=== PATIENT | female | born 1940 | race Caucasian/White ===

== ENCOUNTER 2019-02-08 12:44 | Observation (INO) | payer MEDICARE, OTHER, SELFPAY ==
[2019-02-08] VITALS (16 sets, daily range): BP systolic 146–189; BP diastolic 62–112; PULSE 51–60; RESP 14–22; TEMP 36.4–36.7; O2SAT 97–100; BMI 21.9; BMI 21.2
--- NOTE | 2019-02-08 12:54 | CT_ITS ---
STUDY: CTA HEAD AND NECK WITH CONTRAST REASON FOR EXAM: Female, 78 years old. Facial droop RADIATION DOSAGE (If Supplied By Facility): CTDIvol = ( 28.85 ) mGy, DLP = ( 598.91 ) mGycm TECHNIQUE: CT angiography was performed with a multi-detector CT scanner. Data acquisition was obtained from the skull base through the vertex following intravenous administration of 75mL IV Isovue 370. MIP images were reconstructed from the axial data set. Post-processing of the angiographic images was performed, with multiplanar reformation and 3D reconstruction. Individualized dose optimization techniques were used for this CT. COMPARISON: No relevant priors. FINDINGS: Normal bilateral petrous carotid arteries. Minor calcific plaquing of the right cavernous carotid artery with a normal supraclinoid bifurcation. Minor calcific plaquing of the left cavernous carotid artery with a normal supraclinoid bifurcation. Normal right A1 segments of the anterior cerebral artery. Normal left A1 segments of the anterior cerebral artery. Normal intact anterior communicating artery (ACOM). Normal bilateral A2 segments of the anterior cerebral arteries. Normal right M1 and M2 segments of the middle cerebral arteries, with a normal M1 bifurcation. Normal left M1 and M2 segments of the middle cerebral arteries, with a normal M1 bifurcation. Posterior communicating arteries are not visualized consistent with normal variant Normal bilateral vertebral arteries. Normal basilar artery with a normal basilar bifurcation. The visualized bilateral superior cerebellar (SCA) arteries are normal. Normal bilateral P1, P2 and visualized P3 segments of the posterior cerebral arteries. There is no demonstrated aneurysm of the [place] of [place]. There is no demonstrated abnormality of the visualized brain. AORTIC ARCH: Normal visualized aortic arch. Minor calcific plaquing of the origin of the brachiocephalic. Normal, left common carotid, and left subclavian arteries. RIGHT CAROTID ARTERIES: Normal right common carotid artery (CCA). Minor soft plaque in the right common carotid bulb. Normal origin of the right internal carotid (ICA) artery without a hemodynamically significant stenosis. Normal visualized cervical portion of the right internal carotid artery. Normal origin of the right external carotid artery (ECA). LEFT CAROTID ARTERIES: Normal left common carotid artery (CCA). Minor soft plaque in the left common carotid bulb. Normal origin of the left internal carotid (ICA) artery without a hemodynamically significant stenosis. Normal visualized cervical portion of the left internal carotid artery. Normal origin of the left external carotid artery (ECA). VERTEBRAL ARTERIES: Normal bilateral vertebral arteries. IMPRESSION: Mild atherosclerotic changes for stated age. No evidence for hemodynamically significant stenosis utilizing NASCET criteria Electronically Signed: Derrell Geronimo MD at 17:12 EDT , Service support , STUDY: CTA NECK WITH CONTRAST REASON FOR EXAM: Female, 78 years old. RADIATION DOSAGE (If Supplied By Facility): CTDIvol = ( 28.85 ) mGy, DLP = ( 598.91 ) mGycm TECHNIQUE: CT angiography with multi-detector data acquisition was performed from the aortic arch to the skull base following intravenous administration of 75mL IV Isovue 370. MIP images were reconstructed from the axial data set. Post-processing of the angiographic images was performed, with multiplanar reformation and 3D reconstruction. Individualized dose optimization techniques were used for this CT. COMPARISON: None. FINDINGS: AORTIC ARCH: Normal visualized aortic arch. Normal origins of the brachiocephalic, left common carotid, and left subclavian arteries. RIGHT CAROTID ARTERIES: Normal right common carotid artery (CCA). Normal right common carotid bulb. Normal origin of the right internal carotid (ICA) artery without a hemodynamically significant stenosis. Normal visualized cervical portion of the right internal carotid artery. Normal origin of the right external carotid artery (ECA). LEFT CAROTID ARTERIES: Normal left common carotid artery (CCA). Normal left common carotid bulb. Normal origin of the left internal carotid (ICA) artery without a hemodynamically significant stenosis. Normal visualized cervical portion of the left internal carotid artery. Normal origin of the left external carotid artery (ECA). VERTEBRAL ARTERIES: Normal bilateral vertebral arteries. CT/CTA Head AND Neck W/ Contrast IMPRESSION: Normal bilateral cervical carotid and vertebral arteries. Electronically Signed: Billy Gomez, at 13:33 EDT , Service support ,
--- NOTE | 2019-02-08 12:55 | CT_ITS ---
STUDY: CT BRAIN WITHOUT CONTRAST REASON FOR EXAM: Female, 78 years old. Possible stroke. RADIATION DOSAGE (If Supplied By Facility): CTDIvol = ( 44.99 ) mGy, DLP = ( 745.49 ) mGycm TECHNIQUE: Transaxial CT imaging of the brain was performed without administration of intravenous contrast material. Individualized dose optimization techniques were used for this CT. COMPARISON: No relevant priors. FINDINGS: Normal soft tissue structures. Normal calvarium. Decreased attenuation in the superior aspect of the right frontal parietal lobe. Early ischemia should BE ruled out. There is mild cerebral atrophy with widening of the extra-axial spaces and ventricular dilatation. There are areas of decreased attenuation within the white matter tracts of the supratentorial brain, consistent with microvascular disease changes. Normal basal ganglia and thalami. Normal brainstem. Normal cerebellum. There is no intracranial hemorrhage. There are no findings of an acute ischemic infarction. Normal visualized paranasal sinuses. CT/Brain/Head without Contrast IMPRESSION: Chronic involutional changes of the brain. Findings suggestive of early ischemic changes involving the superior aspect of the right frontoparietal lobes. N.B. : The above information has been verbally conveyed by Billy Gomez to Tyegrabiel Bradford on 02/08/2019 13:10:03 (ET). Electronically Signed: Billy Gomez, at 13:11 EDT , Service support ,
--- NOTE | 2019-02-08 12:57 | EKG12_ITS ---
Test Reason : Blood Pressure : / mmHG Vent. Rate : 053 BPM Atrial Rate : 053 BPM P-R Int : 164 ms QRS Dur : 086 ms QT Int : 520 ms P-R-T Axes : 063 048 057 degrees QTc Int : 487 ms Sinus bradycardia Low voltage QRS Borderline ECG Confirmed by LEONA LONDONO, JERI ([id number]), editor farm journal KRISTOPHER MILLER ([id number]) on 02/12/2019 2:15:56 PM Referred By: RONN Confirmed By:JERI DELGADILLO MD
--- NOTE | 2019-02-08 13:00 | RAD_ITS ---
STUDY: X-RAY CHEST REASON FOR EXAM: Female, 78 years old. Stroke like symptoms. TECHNIQUE: Single AP portable view of the chest. COMPARISON: None. FINDINGS: EKG electrodes are seen. Hyperinflation. Scattered calcified granulomas. There is no demonstrated pleural abnormality. Normal size heart. Normal mediastinum and marcus. Normal visualized pulmonary arteries. There is atherosclerotic calcification of the aortic arch with tortuosity. There are diffuse degenerative changes of the visualized thoracic spine. Normal visualized ribs, clavicles, and shoulders. There is no demonstrated abnormality of the visualized soft tissue structures of the upper abdomen. RAD/Chest 1 View IMPRESSION: Hyperinflation. The lungs are clear. Electronically Signed: Billy Gomez, at 13:15 EDT , Service support ,
--- NOTE | 2019-02-08 13:08 | CM.ED ---
Social Work Consult: Stroke Alert Patient present. No family members present at this time. Patient was grocery shopping at [facility] in [place], [place]. Telephone call to patient son, Joellen. This school social worker communicating patient current status. Joellen with patient spouse, Nazario. Joellen and Nazario are now on their way to the emergency department. Will continue to follow as needed. Per FERRARA, MAK
[2019-02-08 13:31] LABS: Absolute Lymphocyte Count 1.59 X10^3/ul (0.83-4.51); Absolute Neutrophil Count 5.4 X10^3/uL (2.0-7.7); Basophil# 0.02 X10^3/uL; Basophil% 0.3 % (0-1); Eosinophil# 0.19 X10^3/uL; Eosinophils% 2.4 % (0-5); Hematocrit 35.3 % (37-47); Hemoglobin 11.2 g/dl (12.0-15.0); Lymphocyte # 1.59 X10^3/ul (4.0); Lymphocyte % 20.4 % (19-41); Mean Corp Hgb Conc 31.7 g/gl (32-36); Mean Corpuscular Hgb 29.2 pg (27.0-32.0); Mean Corpuscular Volume 91.9 fL (81-99); Mean Platelet Vol. 9.1 fl (6.2-12.0); Monocyte# 0.61 X10^3/uL; Monocyte% 7.8 % (0-10); Neutrophil # 5.36 X10^3/uL (2.7-7.7); POSITIVE COUNT NO; POSITIVE DIFFERENTIAL NO; POSITIVE MORPHOLOGY NO; Platelet Count 310 K/mm3 (150-450); RBC Distribution Width CV 13.7 % (11.6-14.6); RBC Distribution Width SD 45.1 fl (35.1-43.9); Red Blood Count 3.84 M/mm3 (4.2-5.4); White Blood Count 7.8 K/mm3 (4.4-11.0)
[2019-02-08 13:46] LABS: International Normalized Ratio 1.1; Partial Thromboplast Time 28.6 Seconds (24.1-36.2); Prothrombin Time (Protime)PT. 14.2 SECONDS (11.7-14.9)
--- NOTE | 2019-02-08 13:48 | CM.ED ---
Social Work Patient family now arriving. This social professionals bringing patient family back to patient room. Support provided. Per FERRARA, MAK
[2019-02-08 13:49] LABS: Anion Gap 5 (5-15); BUN 11 mg/dL (7-18); BUN/Creat Ratio 11.5 RATIO (10-20); Calcium,Total 8.1 mg/dL (8.5-10.1); Chloride 106 mmol/L (98-107); Creatinine, Serum 0.95 mg/dL (0.55-1.02); EST Glomerular Filtration Rate 60 mL/min (>60); Est Glom Filt Rate - Afr Amer 73 mL/min (>60); Estimated Creatinine Clearance 44.95 ml/min; Glucose 75 mg/dL (74-106); Potassium 3.4 mmol/L (3.5-5.1); Sodium Level 140 mmol/L (136-145)
--- NOTE | 2019-02-08 14:18 | ED.DCSUM_ITS ---
- ER Visit Summary Date of Service: 02/08/19 Chief Complaint: Stroke History of Present Illness: The patient is a 78 F with a suspected stroke. She was brought from the grocery store. She was previously well earlier today and then had some right facial droop and speech changes. She was brought in as a [facility] team. History is limited as the patient has a aphasia. Per her she has a history of stroke and TIA. She is on Plavix, but I am not sure if she is on other blood thinners. Physical Examination: Afebrile and vital signs unremarkable except for a blood pressure of 175/75. NIH stroke scale is 6. She received 2 points for questions, 2 points for commands, and 2 points for language. Head and neck atraumatic. Heart regular rate lungs clear. Abdomen soft and nontender. Test Results: CT head showed chronic changes and possible right frontal/parietal ischemic changes, early. CTA unremarkable. Chest x-ray showed chronic changes. EKG showed sinus rhythm at a rate of 53. Laboratory studies unremarkable. Emergency Department Course and Treatment: Stroke team was activated. We did use the robot for consultation with [facility]. After her imaging, her symptoms had resolved except she had some very mild dysarthria. She had an NIH of 1 on reevaluation. The imaging was reassuring. This is consistent with a TIA. Work-up as above was fairly unremarkable. Hospitalist was contacted for further care. Treatment Plan: As above Disposition: Admission Impression: 1. TIA This note was generated with [employer] dictation software. It may contain incorrect words, spelling, and punctuation that were not noted in review of the chart prior to signing ED Disposition - Plan for ED Patient: Referrals: Nayana Adam MD [Primary Care Provider] -
--- NOTE | 2019-02-08 14:53 | PCM.HP.STD ---
Problem List (1) TIA (transient ischemic attack) Status: Acute (2) Depression with anxiety Status: Chronic (3) Hyperlipidemia Status: Chronic (4) Hypertension Status: Chronic (5) History of TIAs Status: Chronic History of Present Illness Date of Admission: 02/08/19 Chief Complaint: Speech changes, right facial droop. The patient is a 78 year old F with past medical history as mentioned above presented to the emergency room because of right facial droop and slurred speech. The patient is not able to provide any history and she is a poor informant. According to the patient, she was shopping when she started feeling funny, dropped some food from her head and reportedly, she had some right facial droop and her speech was slurred. At this time, nursing staff and ED physician reported that her speech improved as well as facial droop. Upon arrival to ED, her NIH stroke scale was 6. Telemetry stroke team was contacted and patient was not a candidate for TPA. She has history of TIAs in the past, has been on statins and Plavix, and most recently was 3 weeks ago for which she was admitted at [facility] and according to the patient, she had a stroke work-up done that was negative for stroke. She has history of hypertension and she has been on lisinopril, HCTZ and metoprolol and at this time, her blood pressure is elevated. She has history of hypothyroidism and she has been on levothyroxine. In the emergency department, her blood pressure was slightly elevated, other vital signs were stable. As mentioned above, she was not a candidate for TPA. Routine blood work was remarkable for hemoglobin of 11.2 g procedure, potassium 3.4, otherwise normal. EKG revealed sinus bradycardia, heart rate has been in the high 50s, normal MO interval, normal QRS, prolonged QTC, no acute ischemic changes. Troponin was negative. CT scan brain without contrast revealed findings suggestive of early ischemic changes involving the superior aspect of the right frontoparietal lobe. CTA of the head and neck revealed normal bilateral carotids and vertebral arteries. Chest x-ray showed no acute findings. She is being admitted for TIA for evaluation. Past Medical History Past Medical History (Chronic Problems): Chronic Problems Depression with anxiety (Chronic) Hyperlipidemia (Chronic) Hypertension (Chronic) History of TIAs (Chronic) Allergies alcohol Allergy (Verified 02/08/19 13:14) Rash NSAIDS (Non-Steroidal Anti-Inflamma Adverse Reaction (Verified 02/08/19 13:14) Other Home Medications: Ambulatory Orders Medication Instructions Recorded Acetaminophen [Tylenol Arthritis] 650 mg PO Q6H PRN PRN 02/08/19 Atorvastatin Calcium [Lipitor] 20 mg PO QHS 02/08/19 Clonazepam 0.5 mg PO BID PRN 02/08/19 Clopidogrel Bisulfate [Clopidogrel] 75 mg PO DAILY 02/08/19 Cyanocobalamin (Vitamin B-12) 1,000 mcg PO DAILY 02/08/19 [B-12] Levothyroxine Sodium [Synthroid] 75 mcg PO DAILY 02/08/19 Lisinopril/Hydrochlorothiazide 1 tab PO DAILY 02/08/19 [Lisinopril-Hctz 10-12.5 mg Tab] Lutein/Zeaxanthin [Ocuvite Lutein 1 cap PO DAILY 02/08/19 25-5 mg Softgel] Metoprolol Tartrate [Lopressor 12.5 mg PO BID 02/08/19 (beta francisco)] Paroxetine HCl 40 mg PO DAILY 02/08/19 Tolterodine Tartrate [Tolterodine 4 mg PO QHS 02/08/19 Tartrate ER] Trazodone HCl 150 mg PO QHS 02/08/19 Surgical History: cholecystectomy Psychiatric History: 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 Lives: Spouse/ Significant Other Smoking Status: Current every day smoker Tobacco Use: Cigarettes Alcohol: None Drugs: None - *Family History Maternal History Items: No pertinent history Paternal History Items: No pertinent history Review of Systems Constitutional: Denies: Anorexia, Chills, Fever, Weakness Eyes: Denies: Blurred vision, Double vision, Drainage, Redness HEENT: Denies: Difficulty Hearing, Ear Pain, Eye Pain, Nasal Congestion, Sore Throat Cardiovascular: Denies: Chest Pain, Chest Pressure, Heaviness, Light Headedness, Palpitations, Syncope Respiratory: Denies: Hemoptysis, Pleuritic Pain, Shortness of Breath, Sputum production, Wheezing Gastrointestinal: Denies: Abdominal Pain, Constipation, Diarrhea, Nausea, Vomiting Musculoskeletal: Denies: Arm Pain, Back Pain, Foot Pain Skin: Denies: Dryness, Rash Neurological: Reports: Change in Speech. Denies: Balance problems, Blurred vision, Double vision, Confusion, Focal weakness, Incoordination, Numbness Psychiatric: Denies: Anxiety, Depression Endocrine: Denies: Change in Body Habitus, Polydipsia, Polyuria VTE Information - Inpt Only VTE Present on Admission: No VTE Mechan Device Prophylaxis: None VTE Pharm Prophylaxis ordered?: Yes Patient Problems: Active and Suspected Problems TIA (transient ischemic attack) (Acute) - Physical Exam General: Alert, Oriented x3, Cooperative, No apparent distress HEENT: Atraumatic, PERRLA, EOMI, Normocephalic Oral: Moist Mucosa, No Gingival or Mucosal Lesions/ Ulcerations Neck: Supple, No JVD, Negative Carotid Bruits, Trachea Midline, Thyroid Normal Size and Texture Lungs: Clear to auscultation, Normal air movement, No rhonchi, No wheeze, No rales, Diminished Cardiovascular: Regular rate, Regular Rhythm, Normal S1, Normal S2, PMI Normal Abdomen: Bowel Sounds Present, Soft, Non Tender, Non-Distended, No Hepato-splenomegaly Extremities: No clubbing, No cyanosis, No edema Skin: No rashes, No breakdown Lymphatic: No Cervical, Supraclavicular, or Inguinal Adenopathy Neurological: Cranial nerves II-XII grossly intact, Motor Exam 5/5 strength throughout Psych/Mental Status: Normal Affect, Appropriate, Alert and oriented to time, place, person, mood and affect Vital Signs Temp Pulse Resp BP Pulse Ox 98 F 56 L 18 173/81 H 97 02/08/19 13:18 02/08/19 14:30 02/08/19 14:30 02/08/19 14:30 02/08/19 14:30 Oxygen Flow Rate (L/min) 2 Oxygen Delivery Method Room Air Weight: 135 lb 12.876 oz Body Mass Index (BMI) 21.9 Finger Stick Blood Glucose 75 Laboratory Tests Past 24 Hrs 02/08/19 02/08/19 02/08/19 13:15 13:15 13:15 WBC 7.8 RBC 3.84 L Hgb 11.2 L Hct 35.3 L MCV 91.9 MCH 29.2 MCHC 31.7 L RDW 13.7 RDW Differential 45.1 H Plt Count 310 MPV 9.1 Immature Gran % (Auto) 0.100 Neut % (Auto) 69.0 Lymph % (Auto) 20.4 [place] % (Auto) 7.8 Eos % (Auto) 2.4 Baso % (Auto) 0.3 Absolute Neuts (auto) 5.4 Absolute Lymphs (auto) 1.59 Total Counted Not Reportable PT 14.2 INR 1.1 APTT 28.6 Sodium 140 Potassium 3.4 L Chloride 106 Carbon Dioxide 29.0 Anion Gap 5 BUN 11 Creatinine 0.95 Estim Creat Clear Calc 44.95 Est GFR (MDRD) Af Amer 73 Est GFR (MDRD) Non-Af 60 BUN/Creatinine Ratio 11.5 Glucose 75 Calcium 8.1 L Troponin I < 0.015 Clinical Impression(s) from Imaging Studies Head/Neck CTA 02/08/19 12:54 IMPRESSION: Normal bilateral cervical carotid and vertebral arteries. Electronically Signed: Billy Gomez, at 13:33 EDT , Service support , Brain CT 02/08/19 12:55 IMPRESSION: Chronic involutional changes of the brain. Findings suggestive of early ischemic changes involving the superior aspect of the right frontoparietal lobes. N.B. : The above information has been verbally conveyed by Billy Gomez to Tye Bradford on 02/08/2019 13:10:03 (ET). Electronically Signed: Billy Gomez, at 13:11 EDT , Service support , ADDENDUM: 02/08/19 1318 IMPRESSION: Chronic involutional changes of the brain. Findings suggestive of early ischemic changes involving the superior aspect of the right frontoparietal lobes. N.B. : The above information has been verbally conveyed by Billy Gomez to Tye Bradford on 02/08/2019 13:10:03 (ET). Electronically Signed: Billy Gomez, at 13:11 EDT , Service support , Chest X-Ray 02/08/19 13:00 IMPRESSION: Hyperinflation. The lungs are clear. Electronically Signed: Billy Gomez, at 13:15 EDT , Service support , Assessment/Plan All Active Problems TIA (transient ischemic attack) (Acute) This is a 78 years old female patient presented to the emergency room because of facial droop and slurred speech in context of history of multiple TIAs in the past, being admitted for acute TIA for evaluation. #1 TIA: Patient has a history of multiple TIAs, most recently was 3 weeks ago, was admitted to [facility] and she had stroke work-up according to the patient. Patient is poor informant. Her speech is improved, no more facial droop. No other focal deficit. CT scan brain without contrast revealed findings suggestive of early ischemic changes of the superior aspect of the right frontoparietal lobe. CTA of the clinic was unremarkable. Blood pressure elevated, other vital signs are stable. EKG reviewed as above. Plan: Admit to PCU for observation, cardiac monitoring, NIH stroke scale, start full dose Lipitor, continue Plavix, MRI brain, obtain records from [facility] regarding the new admission for TIA, IV fluids, Tylenol as needed, neurology consult, PT OT evaluation and treatment. #2 mild hypokalemia: Likely because of HCTZ. Potassium is 3.4. Plan to give 1 dose of K. Dur 60 mEq p.o. x1. #3 hypertension: Blood pressure is elevated, will allow permissive hypertension for possible stroke. Continue lisinopril, HCTZ and metoprolol. Goal blood pressure is 160/90. #4 hyperlipidemia: Start Lipitor 80 mg nightly. #5 anxiety/depression: Continue trazodone and Paxil as well as Klonopin. #6 DVT prophylaxis: Subcu Lovenox. This note was generated with [employer] dictation software. It may contain incorrect words, spelling, and punctuation that were not noted in checking the note before signing. Code Visit OBSV E&M: 94908 Initial observation care L3
--- NOTE | 2019-02-08 15:40 | MRI_ITS ---
STUDY: MRI BRAIN WITHOUT CONTRAST REASON FOR EXAM: Female, 78 years old. Right facial droop and slurred speech TECHNIQUE: Standardized multiplanar fat and water weighted pulse sequences were obtained. COMPARISON: CT of the brain on February 08, 2019 FINDINGS: Moderate atrophy and advanced periventricular white matter ischemic changes. There is diffuse gliosis in the right frontal and parietal lobes with expansion of subarachnoid spaces consistent with subacute to chronic infarct.. There are tiny foci of restricted diffusion in the left parietal lobe consistent with acute ischemic changes. Normal bilateral basal ganglia. Normal thalami. There is no extra-axial fluid accumulation. Normal flow voids within the major intracranial circulation suggesting patency by spin echo criteria. Partial empty sella deformity. Normal, infundibular stalk, optic chiasm and hypothalamus. Normal tectal plate and pineal gland. Normal midbrain, ravi and medulla. Diffuse cerebellar atrophy.. Normal basal cisterns. Normal bilateral temporal bones. Normal bilateral internal auditory canals. Postsurgical changes of the orbits.. Normal visualized paranasal sinuses. Normal calvarium and skull base. Normal visualized soft tissue structures. Normal visualized upper cervical spine. MRI/Brain without Contrast IMPRESSION: Atrophy and periventricular white matter ischemic changes. Subacute to chronic ischemic changes in the right frontal parietal regions. Tiny acute ischemic infarct in the left parietal lobe N.B. : The above information has been verbally conveyed by Derrell Geronimo MD to RN Tram Orona RN, on 02/08/2019 20:20:57 (ET). Electronically Signed: Derrell Geronimo MD at 19:54 EDT , Service support ,
[2019-02-08] MEDS: 0.9% Normal Saline 1,000 ML 75 ML IV (16:38)
--- NOTE | 2019-02-08 18:48 | NURSING ---
to mri per bed
--- NOTE | 2019-02-08 20:24 | NURSING ---
pt returned from MRI, NIH completed.
[2019-02-08] MEDS: clonazePAM 0.5 MG Tablet PO (21:04)
[2019-02-08] MEDS: Aspirin 81 MG TAB.CHEW PO (21:04)
[2019-02-08] MEDS: Atorvastatin Calcium 80 MG Tablet PO (21:06)
[2019-02-08] MEDS: traZODone 50 MG Tablet 150 MG PO (21:07)
[2019-02-09] VITALS (14 sets, daily range): BP systolic 128–156; BP diastolic 53–73; PULSE 48–58; RESP 16–17; TEMP 36.5–36.9; O2SAT 95–99
[2019-02-09] MEDS: Levothyroxine 75 MCG Tablet PO (05:38)
[2019-02-09] MEDS: Aspirin 81 MG TAB.CHEW PO (08:08)
[2019-02-09 08:18] LABS: Cholesterol 143 mg/dL (200); High Density Lipoprotein 65 mg/dL; Triglycerides 88 mg/dL; Very Low Density Lipoprotein 18 mg/dL (5-40)
--- NOTE | 2019-02-09 09:17 | ECHOD_ITS ---
Reason For Study: TIA Procedure This was a 2D Doppler, Color Flow transthoracic echocardiogram. Exam performed portable in patient room. Left Ventricle Normal LV size. Left ventricular systolic function is normal. The estimated ejection fraction is 60 %. Stage 3 diastolic dysfunction. No regional wall motion abnormalities noted. Right Ventricle Normal RV size. Normal systolic function. Atria Normal left atrium. Normal right atrium. Bubble contrast study negative for right to left interatrial shunt. Mitral Valve Normal mitral valve. Mild-Moderate (1-2+) eccentric mitral valve insufficiency. Tricuspid Valve Normal tricuspid valve. Mild tricuspid valve insufficiency. Pulmonary artery systolic pressure is 38 mmHg. Aortic Valve Normal aortic valve. Trisinus/trileaflet aortic valve. Pulmonic Valve Normal pulmonic valve. Great Vessels Normal aortic root. The pulmonary artery is normal size. Normal inferior vena cava. Pericardium/Pleural No pericardial effusion. Medication Performed a rapid injection of agitated mix of 9 cc saline and 1cc air to assess for atrial septal defect. MMode/2D Measurements & Calculations LVIDd: 4.4 cm IVSd: 0.92 cm Ao root diam: 2.8 cm LVIDs: 2.8 cm LVPWd: 0.85 cm RVDd: 2.5 cm FS: 37.1 % LAV(MOD-bp): 53.2 ml LVAd ap4: 19.7 cm2 SV(MOD-sp4): 32.8 ml LAV(MOD-bp) Indexed: 31.4 ml/m2 EDV(MOD-sp4): 50.4 ml LAV(MOD-sp2): 68.1 ml EDV(sp4-el): 51.7 ml LAV(MOD-sp4): 37.2 ml LVAs ap4: 10.4 cm2 ESV(MOD-sp4): 17.6 ml ESV(sp4-el): 17.3 ml EF(MOD-sp4): 65.1 % EF(sp4-el): 66.6 % SV(sp4-el): 34.4 ml LA A4 area: 16.2 cm2 LA dimension(2D): 4.7 cm RA A4 area: 17.8 cm2 Doppler Measurements & Calculations MV E max luis a: 92.7 cm/sec Lat Peak E' Luis A: 10.6 cm/sec Med Peak E' Luis A: 7.7 cm/sec MV A max luis a: 30.7 cm/sec E/E' lat: 8.8 E/E' med: 12.0 MV E/A: 3.0 Ao V2 max: 138.9 cm/sec LV V1 max: 96.1 cm/sec PA V2 max: 77.8 cm/sec Ao max P.7 mmHg LV V1 max P.7 mmHg Ao V2 mean: 94.3 cm/sec Ao mean P.9 mmHg Ao V2 VTI: 31.8 cm TR max luis a: 292.6 cm/sec TR max P.3 mmHg Interpretation Summary Normal LV size. Left ventricular systolic function is normal. The estimated ejection fraction is 60 %. Stage 3 diastolic dysfunction. Bubble contrast study negative for right to left interatrial shunt. Ordering Physician: Martin Kingsley Referring Physician: Nayana Adam Performed By: Pretty Rosales, RDCS, RVT
[2019-02-09] MEDS: hydroCHLOROthiazide 12.5mg 12.5 MG PO (10:25)
[2019-02-09] MEDS: Tolterodine Tartrate 4 MG CAP.SA PO (10:25)
[2019-02-09] MEDS: Lisinopril 10 MG Tablet PO (10:28)
[2019-02-09] MEDS: Clopidogrel Bisulfate 75 MG Tablet PO (10:28)
[2019-02-09] MEDS: Enoxaparin 30 MG/0.3 ML Syringe SC (10:28)
[2019-02-09] MEDS: Paroxetine 20 MG Tablet 40 MG PO (10:28)
--- NOTE | 2019-02-09 11:16 | PN_ITS ---
Patient Problems: Active and Suspected Problems TIA (transient ischemic attack) (Acute) Subjective: Feels good. No complaints. No facial droop. No slurred speech. Objective: Medical records reviewed from hospitalization in November 2018 for stroke work-up at that time.: * Carotid ultrasound performed on 19 December showed no hemodynamic significant stenosis * Echocardiogram performed on 19 December showed ejection fraction of 55 to 60%, left atrial enlargement, no PFO, mild to moderate mitral regurgitation with rhe umatic appearing mitral valve. No associated stenosis. High normal pulmonary pressures. * MRI of the brain without contrast performed on 18 December: Right parietal lobe stroke measuring between several hours and several days in age. Stroke is in the distribution of a branch of the right MCA artery. Chronic small vessel ischemic disease and global atrophy. Encephalomalacia consistent with prior infarcts. * CT brain without contrast performed on 18 December: Atrophic changes in deep white matter small vessel disease. Focal area of diminished attenuation in the anterior posterior right parietal lobes likely related with subacute infarcts and small vessel ischemic disease. Vitals/I&O's: Vital Signs Temp Pulse Resp BP Pulse Ox 36.6 C 52 L 17 128/61 H 97 02/09/19 07:58 02/09/19 10:27 02/09/19 07:58 02/09/19 07:58 02/09/19 08:10 Oxygen Flow Rate (L/min) 2 Oxygen Delivery Method Room Air Weight: 59.6 kg Body Mass Index (BMI) 21.2 Finger Stick Blood Glucose 75 Intake and Output for Last 24 Hours 02/07/19 02/08/19 02/09/19 23:59 23:59 23:59 Intake Total 455 / 1151 1119 / 1119 Output Total 300 / 600 300 / 300 Balance 155 / 551 819 / 819 General: Alert, No apparent distress HEENT: Atraumatic, Normocephalic Oral: Moist Mucosa, No Gingival or Mucosal Lesions/ Ulcerations, - - edentulous Neck: No Nodes, Thyroid Normal Size and Texture Lungs: Clear to auscultation, Normal air movement, No rhonchi, No wheeze, No rales Cardiovascular: Regular rate, Regular Rhythm, Normal S1, Normal S2, No murmurs Abdomen: Bowel Sounds Present, Soft, Non Tender, Non-Distended, No Hepato- splenomegaly Extremities: No edema, No Calf Tenderness Skin: No rashes, No breakdown Musculoskeletal: No Tenderness to Palpation of Joints or Extremities, No Muscle Wasting Lymphatic: No Cervical, Supraclavicular, or Inguinal Adenopathy, Cervical Adenopathy Neurological: Cranial nerves II-XII grossly intact Psych/Mental Status: Normal Affect, Appropriate Laboratory Results 02/08/19 13:15: WBC 7.8, RBC 3.84 L, Hgb 11.2 L, Hct 35.3 L, MCV 91.9, MCH 29.2, MCHC 31.7 L, RDW 13.7, RDW Differential 45.1 H, Plt Count 310, MPV 9.1, Immature Gran % (Auto) 0.100, Neut % (Auto) 69.0, Lymph % (Auto) 20.4, [place] % (Auto) 7.8, Eos % (Auto) 2.4, Baso % (Auto) 0.3, Absolute Neuts (auto) 5.4, Absolute Lymphs (auto) 1.59, Total Counted Not Reportable 02/08/19 13:15: PT 14.2, INR 1.1, APTT 28.6 02/08/19 13:15: Sodium 140, Potassium 3.4 L, Chloride 106, Carbon Dioxide 29.0, Anion Gap 5, BUN 11, Creatinine 0.95, Estim Creat Clear Calc 44.95, Est GFR (MDRD) Af Amer 73, Est GFR (MDRD) Non-Af 60, BUN/Creatinine Ratio 11.5, Glucose 75, Calcium 8.1 L, Troponin I < 0.015 02/09/19 07:46: Triglycerides 88, Cholesterol 143, LDL Cholesterol 60, VLDL Cholesterol 18, HDL Cholesterol 65 Current Medications Acetaminophen (Tylenol) 650 mg PO Q6H PRN PRN PRN Reason: Mild pain 1-3/Temp > 100.7 F Aspirin (Aspirin, Baby) 81 mg PO DAILY@0800 [facility] Last Admin: 02/09/19 08:08 Dose: 81 mg Documented by: Atorvastatin Calcium (Lipitor) 80 mg PO QHS [facility] Last Admin: 02/08/19 21:06 Dose: 80 mg Documented by: Clonazepam (Klonopin) 0.5 mg PO BID [facility] Last Admin: 02/08/19 21:04 Dose: 0.5 mg Documented by: Clopidogrel Bisulfate (Plavix) 75 mg PO DAILY [facility] Last Admin: 02/09/19 10:28 Dose: 75 mg Documented by: Enoxaparin Sodium (Lovenox) 30 mg SC DAILY@1000 [facility] Last Admin: 02/09/19 10:28 Dose: 30 mg Documented by: Hydrochlorothiazide () 12.5 mg PO DAILY [facility] Last Admin: 02/09/19 10:25 Dose: 12.5 mg Documented by: Levothyroxine Sodium (Synthroid) 75 mcg PO DAILY@0600 [facility] Last Admin: 02/09/19 05:38 Dose: 75 mcg Documented by: Lisinopril (Zestril) 10 mg PO DAILY [facility] Last Admin: 02/09/19 10:28 Dose: 10 mg Documented by: Metoprolol Tartrate (Lopressor (Beta Pratima)) 12.5 mg PO BID [facility] Last Admin: 02/09/19 10:27 Dose: Not Given Documented by: Nutritional Formula (Lactose Free) (Ensure Enlive) 120 ml PO 4X/DAY [facility] Last Admin: 02/08/19 21:04 Dose: 120 ml Documented by: Ondansetron HCl (Zofran) 4 mg IV Q8H PRN PRN PRN Reason: NAUSEA/VOMITING Paroxetine HCl (Paxil) 40 mg PO DAILY [facility] Last Admin: 02/09/19 10:28 Dose: 40 mg Documented by: Sodium Chloride () 10 - 40 ml IV UD PRN PRN Reason: SALINE FLUSH Tolterodine Tartrate (Detrol La) 4 mg PO DAILY [facility] Last Admin: 02/09/19 10:25 Dose: 4 mg Documented by: Trazodone HCl (Desyrel) 150 mg PO QHS [facility] Last Admin: 02/08/19 21:07 Dose: 150 mg Documented by: Medical Necessity - Tobacco Use Smoking Status: Current every day smoker Tobacco Use: Cigarettes Assessment/Plan All Active Problems TIA (transient ischemic attack) (Acute) 1. acute left parietal CVA * Records from outside hospital reviewed and patient had a right parietal stroke in anticipation of the right MCA back in November 2018. * Patient was on a statin as well as clopidogrel. Not placed on aspirin due to NSAID allergy. * Would continue with the clopidogrel but also increase the atorvastatin to 40. No evidence of atrial fibrillation but I do feel the patient would benefit from a 30-day event monitor as outpatient * Patient ambulates well in the hallway and will not require any outpatient services at this time * Should follow-up with neurology as outpatient * Follow-up echocardiogram 2. Anxiety * On paroxetine as well as clonazepam would recommend minimizing the clonazepam * And may gastrically as needed and she will wean that off to over weeks given patient's underlying dementia. Code Visit OBSV E&M: 75402 Subsequent observation care L3
--- NOTE | 2019-02-09 14:50 | DCINST_ITS ---
- Discharge Diagnoses Current Active Problems: Current Active and Chronic Problems TIA (transient ischemic attack) (Acute) Depression with anxiety (Chronic) Hyperlipidemia (Chronic) Hypertension (Chronic) History of TIAs (Chronic) You will use the following diet at home:: Cardiac Your food should be the consistency of: Regular Your liquids should be the consistency of: Regular/Thin Discharge Activity: Return to Normal Activity Call your doctor if you observe: Fever of 101 or Higher, - - Unilateral weakness. Difficulty speaking, slurred speech. Allergies/Adverse Reactions: Allergies alcohol Allergy (Verified 02/08/19 13:14) Rash NSAIDS (Non-Steroidal Anti-Inflamma Adverse Reaction (Verified 02/08/19 15:49) instant headache Medications to take at Discharge Acetaminophen [Tylenol Arthritis] 650 mg PO Q6H PRN PRN 02/08/19 Atorvastatin Calcium [Lipitor] 20 mg PO QHS 02/08/19 Clopidogrel Bisulfate [Clopidogrel] 75 mg PO DAILY 02/08/19 Cyanocobalamin (Vitamin B-12) [B-12] 1,000 mcg PO DAILY 02/08/19 Levothyroxine Sodium [Synthroid] 75 mcg PO DAILY 02/08/19 Lisinopril/Hydrochlorothiazide [Lisinopril-Hctz 10-12.5 mg Tab] 1 tab PO DAILY 02/08/19 Lutein/Zeaxanthin [Ocuvite Lutein 25-5 mg Softgel] 1 cap PO DAILY 02/08/19 Metoprolol Tartrate [Lopressor (beta francisco)] 12.5 mg PO BID 02/08/19 Paroxetine HCl 40 mg PO DAILY 02/08/19 Tolterodine Tartrate [Tolterodine Tartrate ER] 4 mg PO QHS 02/08/19 Trazodone HCl 150 mg PO QHS 02/08/19 Aspirin [Aspirin, Baby] 81 mg PO DAILY@0800 tab.chew 02/09/19 Atorvastatin Calcium [Lipitor] 80 mg PO QHS #30 tab 02/09/19 Clonazepam 0.5 mg PO BID PRN #0 02/09/19 The following prescriptions were given: Atorvastatin Calcium [Lipitor] 80 mg PO QHS #30 tab Transmission Status: [id number] Orders to be completed after discharge: 30-Day Event Recorder [facility] Location: None Selected Primary Care Physician: Nayana Adam MD [Primary Care Provider] - Within 2 Weeks Test Results: Test results from this visit will be discussed in further detail at your follow- up appointment, if applicable. Please Follow Up With: Csa Limon MD - neurology When: 1-2 months Proposed Discharge Date: 02/09/19
--- NOTE | 2019-02-09 14:54 | DS.PCM_ITS ---
Discharge Date and Diagnosis - Problem List Patient Problems: Active and Suspected Problems CVA (cerebral vascular accident) (Acute) Date of Admission: 02/08/19 Date of Discharge: 02/09/19 - Primary Discharge Diagnosis Active and Suspected Problems CVA (cerebral vascular accident) (Acute) 1. acute left parietal CVA * symptoms resolved * Records from outside hospital reviewed and patient had a right parietal stroke in anticipation of the right MCA back in November 2018. * Patient was on a statin as well as clopidogrel. Tolerating ASA, despite documented NSAID allergy. * Would continue with the clopidogrel but also increase the atorvastatin to 80. * No evidence of atrial fibrillation but I do feel the patient would benefit from a 30-day event monitor as outpatient * Patient ambulates well in the hallway and will not require any outpatient services at this time * Should follow-up with neurology as outpatient * Echo unremarkable. - Secondary Discharge Diagnosis Chronic Problems Depression with anxiety (Chronic) Hyperlipidemia (Chronic) Hypertension (Chronic) History of TIAs (Chronic) Hospital Course and Treatment Imaging Results: 02/09/19 09:17 Echo Complete [ECHO] Routine Clinical Impression(s) from Imaging Studies Head/Neck CTA 02/08/19 12:54 IMPRESSION: Normal bilateral cervical carotid and vertebral arteries. Electronically Signed: Billy Gomez, at 13:33 EDT , Service support , Brain CT 02/08/19 12:55 IMPRESSION: Chronic involutional changes of the brain. Findings suggestive of early ischemic changes involving the superior aspect of the right frontoparietal lobes. N.B. : The above information has been verbally conveyed by Billy Gomez to Tye Bradford on 02/08/2019 13:10:03 (ET). Electronically Signed: Billy Gomez, at 13:11 EDT , Service support , ADDENDUM: 02/08/19 1318 IMPRESSION: Chronic involutional changes of the brain. Findings suggestive of early ischemic changes involving the superior aspect of the right frontoparietal lobes. N.B. : The above information has been verbally conveyed by Billy Gomez to Tye Bradford on 02/08/2019 13:10:03 (ET). Electronically Signed: Billy Gomez, at 13:11 EDT , Service support , ADDENDUM: 02/08/19 1939 IMPRESSION: Chronic involutional changes of the brain. Findings suggestive of early ischemic changes involving the superior aspect of the right frontoparietal lobes. N.B. : The above information has been verbally conveyed by Billy Gomez to Tye Bradford on 02/08/2019 13:10:03 (ET). Electronically Signed: Billy Gomez, at 13:11 EDT , Service support , Chest X-Ray 02/08/19 13:00 IMPRESSION: Hyperinflation. The lungs are clear. Electronically Signed: Billy Gomez, at 13:15 EDT , Service support , Brain MRI 02/08/19 15:40 IMPRESSION: Atrophy and periventricular white matter ischemic changes. Subacute to chronic ischemic changes in the right frontal parietal regions. Tiny acute ischemic infarct in the left parietal lobe N.B. : The above information has been verbally conveyed by Derrell Geronimo MD to LEON Orona RN, on 02/08/2019 20:20:57 (ET). Electronically Signed: Derrell Geronimo MD at 19:54 EDT , Service support , Operations: None Procedures: 2-D Echocardiogram Summary of Care Provided: The patient is a 78 year old F presents with speech changes and facial droop on the right. Patient was admitted underwent a stroke work-up. MRIs showed some left parietal strokes. Addition she has chronic right parietal strokes. Patient has no history of atrial fibrillation nor any witnessed H for ablation while she was here. Patient was already on clopidogrel as well as atorvastatin. Atorvastatin be increased from 20-80. Patient was started on aspirin as well despite having a documented NSAID allergy. Patient tolerated that fine so we will continue with. Patient will have a 30-day event monitor follow-up with neurology. Patient was not seen by neurology during this hospitalization as there is no direct neurology coverage over the weekend. [] Patient Problems: Active and Suspected Problems CVA (cerebral vascular accident) (Acute) - Physical Exam Vital Signs Temp Pulse Resp BP Pulse Ox 36.6 C 57 L 17 128/61 H 97 02/09/19 07:58 02/09/19 11:34 02/09/19 07:58 02/09/19 07:58 02/09/19 08:10 Oxygen Flow Rate (L/min) 2 Oxygen Delivery Method Room Air Weight: 59.6 kg Body Mass Index (BMI) 21.2 Finger Stick Blood Glucose 75 Intake and Output for Last 24 Hours 02/07/19 02/08/19 02/09/19 23:59 23:59 23:59 Intake Total 455 / 1151 1119 / 1119 Output Total 300 / 600 300 / 300 Balance 155 / 551 819 / 819 Laboratory Tests Past 24 Hrs 02/09/19 07:46 Triglycerides 88 Cholesterol 143 LDL Cholesterol 60 VLDL Cholesterol 18 HDL Cholesterol 65 Discharge Diet: Low fat/ Low Cholesterol Discharge Activity: Return to Normal Activity Call your doctor if you observe: Fever of 101 or Higher, - - Unilateral weakness. Difficulty speaking, slurred speech. Home Medications: Medications to take at Discharge Acetaminophen [Tylenol Arthritis] 650 mg PO Q6H PRN PRN 02/08/19 Atorvastatin Calcium [Lipitor] 20 mg PO QHS 02/08/19 Clopidogrel Bisulfate [Clopidogrel] 75 mg PO DAILY 02/08/19 Cyanocobalamin (Vitamin B-12) [B-12] 1,000 mcg PO DAILY 02/08/19 Levothyroxine Sodium [Synthroid] 75 mcg PO DAILY 02/08/19 Lisinopril/Hydrochlorothiazide [Lisinopril-Hctz 10-12.5 mg Tab] 1 tab PO DAILY 02/08/19 Lutein/Zeaxanthin [Ocuvite Lutein 25-5 mg Softgel] 1 cap PO DAILY 02/08/19 Metoprolol Tartrate [Lopressor (beta francisco)] 12.5 mg PO BID 02/08/19 Paroxetine HCl 40 mg PO DAILY 02/08/19 Tolterodine Tartrate [Tolterodine Tartrate ER] 4 mg PO QHS 02/08/19 Trazodone HCl 150 mg PO QHS 02/08/19 Aspirin [Aspirin, Baby] 81 mg PO DAILY@0800 tab.chew 02/09/19 Atorvastatin Calcium [Lipitor] 80 mg PO QHS #30 tab 02/09/19 Clonazepam 0.5 mg PO BID PRN #0 02/09/19 Following Prescrptions Were Given to Patient: Atorvastatin Calcium [Lipitor] 80 mg PO QHS #30 tab Transmission Status: [id number] Other Amb Orders: 30-Day Event Recorder [facility]] Location: None Selected Primary Care Physician: Nayana Adam MD [Primary Care Provider] - Within 2 Weeks Please Follow Up With: Cas Limon MD - neurology When: 1-2 months Medical Necessity - Tobacco Use Smoking Status: Current every day smoker Tobacco Use: Cigarettes Meaningful Use Info Meaningful Use Diagnoses (Choose all that apply): Ischemic CVA - CVA Therapy Assessed for PT,OT and/or ST?: No Reason therapy not assessed?: Patient Noncompliant - Ischemic Stroke Antithrombotic order at d/c?: Yes Dx of Atrial fib/flutter?: No Statins at discharge?: Yes Primary Dx Acute Ischemic CVA?: Yes IV tPA ordered during stay?: No Reason IV t-PA not ordered: Procedure not Indicated Code Visit OBSV E&M: 73487 Observation care discharge
== END 2019-02-09 14:53 | disposition home or self-care (01) ==
LOC: ED 14:40 → PCU 14:54
PROVIDERS: Admitting Provider Hospitalist; Emergency Provider Emergency Medicine; Family Provider Internal Medicine Infectious Disease; PCP Internal Medicine Infectious Disease
DX: I63.9 Cerebral infarction, unspecified (principal); R29.810 Facial weakness; R47.01 Aphasia; F41.8 Other specified anxiety disorders; E78.5 Hyperlipidemia, unspecified; I10 Essential (primary) hypertension; R47.81 Slurred speech; E03.9 Hypothyroidism, unspecified; Z79.899 Other long term (current) drug therapy; Z79.02 Long term (current) use of antithrombotics/antiplatelets; R00.1 Bradycardia, unspecified; F17.210 Nicotine dependence, cigarettes, uncomplicated
CPT/HCPCS: 36415; 70450; 70496; 70498; 70551; 71045; 80048; 80061; 84484; 85025; 85610; 85730; 93005; 93306; 94762; 96360; 96361; 96372; 97802; 99218; 99285; 99406; J7030; Q9967; A4216; G0378

== ENCOUNTER 2019-02-27 15:59 | Inpatient (IN) | payer MEDICARE, OTHER, SELFPAY ==
[2019-02-08 20:39] VITALS: BMI 21.2
[2019-02-27] VITALS (10 sets, daily range): BP systolic 112–152; BP diastolic 67–104; PULSE 87–137; RESP 15–30; TEMP 35.6–36.6; O2SAT 97–100; BMI 20.4
--- NOTE | 2019-02-27 16:17 | RAD_ITS ---
STUDY: X-RAY CHEST REASON FOR EXAM: Female, 78 years old. Chest pain TECHNIQUE: 1 view COMPARISON: Prior chest radiograph of February 08, 2019 FINDINGS: The lung galdamez are expanded without new consolidation, focal atelectasis or pleural effusion. Mild bibasilar chronic interstitial changes. Calcified granuloma of the mid left lung. Normal size heart. Normal mediastinum and marcus. Normal visualized pulmonary arteries. There is atherosclerotic calcification of the aortic arch with tortuosity. There are diffuse degenerative changes of the visualized thoracic spine. Normal visualized ribs, clavicles, and shoulders. There is no demonstrated abnormality of the visualized soft tissue structures of the upper abdomen. RAD/Chest 1 View (Portable) IMPRESSION: No acute cardiopulmonary findings or changes. Negative for new consolidation, focal atelectasis or a substantial pleural effusion. Stable chronic changes. Stigmata of old granulomatous disease. Atherosclerotic changes of the thoracic aorta. Electronically Signed: Janiya Fabian MD at 16:43 EDT , Service support ,
--- NOTE | 2019-02-27 16:17 | EKG12_ITS ---
Test Reason : IRREGULAR RHYTHM Blood Pressure : / mmHG Vent. Rate : 142 BPM Atrial Rate : 176 BPM P-R Int : 000 ms QRS Dur : 088 ms QT Int : 298 ms P-R-T Axes : 000 060 -67 degrees QTc Int : 458 ms Atrial flutter with variable A-V block Low voltage QRS ST & T wave abnormality, consider inferior ischemia Abnormal ECG Confirmed by AZRA LONDONO, BRANDON ([id number]), editorial cartoonist INGA GUERRERO ([id number]) on 02/28/2019 1:12:29 PM Referred By: JASPREET Confirmed By:RAMONA OQUENDO MD
--- NOTE | 2019-02-27 16:18 | ED.VISSUMM ---
- ER Visit Summary Date of Service: 02/27/19 Chief Complaint: Elevated heart rate History of Present Illness: The patient is a 78 F history of prior CVAs and TIAs. Patient's been hospitalized twice in the last 1 to 2 months. Patient is wearing a miner assistant the rate was high, recommend to be evaluated. She states her heart rates been elevated all day. She has been short of breath. She denies chest pain or hemoptysis. No history of DVT or PE. Physical Examination: Elderly female no acute distress. Vital signs are stable. Pulse ox 99% on room air. Heart rate 128. Appears to be a sinus rhythm on the monitor. HEENT exam unremarkable. Moist wheeze members. Neck nontender no JVD. Lungs clear to auscultation bilaterally. Heart tachycardic rate about 130 no murmur. Abdomen soft nontender normal bowel sounds no peritoneal signs. Extremities moves all 4. Calves nontender without edema or cords. Neurologically she is awake alert with no focal motor deficits. Test Results: Initial EKG was sinus tachycardia rate of 112. Portable chest x-ray showed no acute process read both by myself and radiologist. CTA of the chest showed no PE or dissection. That was done because she had elevated d-dimer 0.82 was tachycardic and short of breath. CBC normal white count 8. Hemoglobin 13. Chemistries normal normal creatinine and gap. Troponin normal. While in the emergency department patient developed a tachycardia had a second EKG and she had new onset atrial flutter with a rate of 142. No signs of SD. Emergency Department Course and Treatment: Tachycardic of uncertain etiology. Screening labs will be obtained. Once the patient went into atrial flutter on the monitor she was treated with IV Cardizem 25 mg. And converted back to a sinus rhythm. She is been in and out of atrial flutter, A. fib in sinus rhythm since that time. On repeat exam she is doing well at 2126. Treatment Plan: I spoke to the hospitalist she will be admitted to PCU for new onset atrial flutter Disposition: Admission Impression: Acute dyspnea with tachycardia New onset atrial flutter with RVR History of prior CVA This note was generated with trustedsafe dictation software. It may contain incorrect words, spelling, and punctuation that were not noted in review of the chart prior to signing ED Disposition - Plan for ED Patient: Referrals: Omran,Yasser, MD [Primary Care Provider] -
[2019-02-27 16:28] LABS: Absolute Lymphocyte Count 2.21 X10^3/uL (0.83-4.51); Absolute Neutrophil Count 5.3 X10^3/uL (2.0-7.7); Basophil# 0.05 X10^3/uL; Basophil% 0.6 % (0-1); Eosinophil# 0.17 X10^3/uL; Eosinophils% 2.1 % (0-5); Hematocrit 39.6 % (37-47); Hemoglobin 13.2 g/dL (12.0-15.0); Lymphocyte # 2.21 X10^3/ul (4.0); Lymphocyte % 26.7 % (19-41); Mean Corp Hgb Conc 33.3 g/dL (32-36); Mean Corpuscular Hgb 30.9 pg (27.0-32.0); Mean Corpuscular Volume 92.7 fL (81-99); Mean Platelet Vol. 8.8 fl (6.2-12.0); Monocyte# 0.55 X10^3/uL; Monocyte% 6.6 % (0-10); NRBC Flagged by Analyzer 0 % (0-5); Neutrophil # 5.29 X10^3/uL (2.7-7.7); Neutrophil % 63.9 % (47-70); Platelet Count 378 K/mm3 (150-450); RBC Distribution Width CV 13.4 % (11.6-14.6); RBC Distribution Width SD 45.5 fl (35.1-43.9); Red Blood Count 4.27 M/mm3 (4.2-5.4); White Blood Count 8.3 K/mm3 (4.4-11.0)
[2019-02-27 16:51] LABS: Anion Gap 6 (5-15); BUN 14 mg/dL (7-18); BUN/Creat Ratio 12.8 RATIO (10-20); Calcium,Total 8.8 mg/dL (8.5-10.1); Chloride 105 mmol/L (98-107); Creatinine, Serum 1.09 mg/dL (0.55-1.02); EST Glomerular Filtration Rate 51 mL/min (>60); Est Glom Filt Rate - Afr Amer 62 mL/min (>60); Estimated Creatinine Clearance 39.05 ml/min; Glucose 93 mg/dL (74-106); Potassium 3.6 mmol/L (3.5-5.1); Sodium Level 137 mmol/L (136-145)
[2019-02-27 16:56] LABS: D-Dimer Quantitative (DVT/PE) 0.82 FEU/ug/m (0.27-0.49)
--- NOTE | 2019-02-27 17:45 | CT_ITS ---
STUDY: CTA CHEST REASON FOR EXAM: Female, 78 years old. Dyspnea, elevated d-dimer and tachycardia. History of hypertension and CVA RADIATION DOSAGE (If Supplied By Facility): CTDIvol = ( 6.03 ) mGy, DLP = ( 146.76 ) mGycm TECHNIQUE: The examination was performed with the intravenous administration of 75mL IV Isovue 370. Post-processing of the angiographic images was performed, with multiplanar reformation and 3D reconstruction. Individualized dose optimization techniques were used for this CT. COMPARISON: Portable chest exam of February 27, 2019 FINDINGS: Normal enhancement of the main pulmonary artery and right and left pulmonary arteries. Normal enhancement of the bilateral peripheral pulmonary arteries. There is no demonstrated pulmonary embolism. There is atherosclerotic calcification of the aortic arch with tortuosity. Left ventricular hypertrophy. Coronary calcifications. Normal mediastinum. Small calcified left hilar lymph nodes. Normal visualized trachea and bronchi. The lungs are well expanded. Bilateral benign areas of apical pleural thickening and related parenchymal retraction. Posterior atelectatic versus chronic lung changes. Otherwise negative for major consolidation or pleural effusion. Calcified granuloma of the anterior left upper lobe. Normal chest wall structures. There are degenerative changes of thoracic spine. Calcified granuloma of the spleen. Status post cholecystectomy. Enlarged left adrenal gland/probable adrenal nodule of approximately 17 mm indeterminate in etiology. CT/CTA Chest W/WO Contrast IMPRESSION: Negative for pulmonary. Atherosclerotic changes of the thoracic aorta without aneurysm. Normal cardiac size with left ventricular hypertrophy and coronary calcifications. Bilateral benign areas of apical pleural parenchymal thickening. Posterior atelectatic versus chronic lung changes. Stigmata of old granulomatous disease. Negative for major consolidation, focal atelectasis or a substantial pleural effusion. Status post cholecystectomy. Enlargement of the left adrenal gland or a probable adrenal nodule of approximately 17 mm indeterminate in etiology. Electronically Signed: Janiya Fabian MD at 18:33 EDT , Service support ,
--- NOTE | 2019-02-27 18:20 | CM.ED ---
Social Work Assessment Referral Date: 02/27/19 Date of Assessment: 02/27/19 Informant: NURSE, LASHONDA Reason for Consult: RESOURCES/HOME HEALTH, PATIENT PRESENTS TO ED SMELLING OF URINE, ANIMAL FECES ON SHOES. Information obtained from: PATIENT Living Arrangements: PATIENT REPORTS LIVES HOME WITH AND SON IN A 2 STORY HOME WITH BASEMENT. PATIENT STATES HAS FIRST FLOOR SET UP. DME: [facility] Employment/Financial: RETIRED Supports: PATIENT REPORTS SUPPORT FROM AND SON Mental Health History: PATIENT ADMITS TO HX OF ANXIETY AND DEPRESSION AND REPORTS IS PRESCRIBED PAXIL BY HER PRIMARY CARE PHYSICIAN- DR. BENEDICT. 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 PATIENT STATES I GET TIRED OF TAKING PILLS. IT'S MUCH BETTER THAN A NERVE PILL. Interventions: SOCIAL SERVICE ASSESSMENT EDUCATION ON HOME HEALTH SERVICES Assessment: MET WITH PATIENT IN ROOM. INTRODUCED ROLE AND REASON FOR REFERRAL. PATIENT REPORTS LIVES HOME WITH AND SON IN A 2 STORY HOME WITH BASEMENT. PATIENT STATES SHE HAS FIRST FLOOR SET UP. PATIENT STATES FELL LAST NIGHT WHEN GETTING INTO BED AND FELT LIGHTHEADED THIS MORNING. PATIENT REPORTS USES A CANE FOR ASSISTANCE WITH AMBULATION. PATIENT STATES AND SON ASSIST WITH MEAL PREP AND CLEANING OF THE HOUSEHOLD, PATIENT MANAGES FINANCES. PATIENT REPORTS HAS BEEN WEARING HEART MONITOR FOR 14 DAYS AND DURING THIS TIME HAS BEEN ONLY TAKING SPONGE BATHS THEY WANT HER TO WEAR THE MONITOR FOR 30 DAYS. PATIENT STATES I'M SMELLY. PATIENT REPORTS HAS ANIMALS IN THE HOME AND THEY HAVE BEEN HAVING ACCIDENTS. PATIENT STATES SON ASSISTS WITH CLEANING UP AFTER ANIMALS. DISCUSSED NEEDS UPON D/C AND PATIENT IS REFUSING HOME HEALTH SERVICES AT THIS TIME. DR. VOGEL IN ROOM AND STATES ANOTHER EKG HAS BEEN ORDERED. PLAN: TBD
--- NOTE | 2019-02-27 18:30 | EKG12_ITS ---
Test Reason : SOB Blood Pressure : / mmHG Vent. Rate : 112 BPM Atrial Rate : 112 BPM P-R Int : 156 ms QRS Dur : 086 ms QT Int : 322 ms P-R-T Axes : 099 046 031 degrees QTc Int : 439 ms Atrial Flutter Nonspecific T wave abnormality Abnormal ECG Confirmed by AZRA LONDONO, BRANDON ([id number]), video tape editor INGA GUERRERO ([id number]) on 02/28/2019 1:12:53 PM Referred By: JASPREET Confirmed By:RAMONA OQUENDO MD
[2019-02-27] MEDS: 0.9% Normal Saline 1,000 ML 999 ML IV (18:34)
[2019-02-27] MEDS: dilTIAZem 25 MG/5 ML Vial IV BOLUS (18:36)
--- NOTE | 2019-02-27 21:26 | PCM.HP.STD ---
Problem List (1) New onset atrial fibrillation Status: Acute (2) Sinus tachycardia Status: Acute (3) CVA (cerebral vascular accident) Status: Chronic (4) Depression with anxiety Status: Chronic (5) History of TIAs Status: Chronic (6) Hyperlipidemia Status: Chronic (7) Hypertension Status: Chronic History of Present Illness Date of Admission: 02/27/19 Chief Complaint: Shortness of breath and abnormal Holter monitor The patient is a 78 year old F with recent discharge after acute left parietal ischemic stroke on February 26, 2019 was sent to ER by elissa analytics manager after abnormal Holter monitor was found. Patient also states he felt lightheaded and short of breath even at rest and minor exertion today which is new for her. She was also little out of balance but this is chronic. She denies any chest pain. On Holter monitor, heart rate is sinus tachycardia at 190 to 200 bpm. EKG done in the ER shows sinus tachycardia at 112 bpm about 4:45 PM. After that she went into atrial fibrillation at 142 bpm. She was given diltiazem 25 mg IV bolus and converted to normal sinus rhythm. She also received 2 L of IV fluid normal saline bolus [] CTPA was done for elevated d-dimer negative for PE but shows chronic changes Currently patient does not have shortness of breath or chest pain but on baseline. At home she is on metoprolol 12.5 mg twice daily. Past Medical History Past Medical History (Chronic Problems): Chronic Problems CVA (cerebral vascular accident) (Chronic) Depression with anxiety (Chronic) Hyperlipidemia (Chronic) Hypertension (Chronic) History of TIAs (Chronic) Allergies alcohol Allergy (Verified 02/08/19 13:14) Rash NSAIDS (Non-Steroidal Anti-Inflamma Adverse Reaction (Verified 02/08/19 15:49) instant headache Home Medications: Ambulatory Orders Medication Instructions Recorded Acetaminophen [Tylenol Arthritis] 650 mg PO Q6H PRN PRN 02/08/19 Atorvastatin Calcium [Lipitor] 20 mg PO QHS 02/08/19 Clopidogrel Bisulfate [Clopidogrel] 75 mg PO DAILY 02/08/19 Cyanocobalamin (Vitamin B-12) 1,000 mcg PO DAILY 02/08/19 [B-12] Levothyroxine Sodium [Synthroid] 75 mcg PO QHS 02/08/19 Lisinopril/Hydrochlorothiazide 1 tab PO DAILY 02/08/19 [Lisinopril-Hctz 10-12.5 mg Tab] Lutein/Zeaxanthin [Ocuvite Lutein 1 cap PO DAILY 02/08/19 25-5 mg Softgel] Metoprolol Tartrate [Lopressor 12.5 mg PO BID 02/08/19 (beta francisco)] Paroxetine HCl 40 mg PO DAILY 02/08/19 Tolterodine Tartrate [Tolterodine 4 mg PO QHS 02/08/19 Tartrate ER] Trazodone HCl 150 mg PO QHS 02/08/19 Atorvastatin Calcium [Lipitor] 80 mg PO QHS #30 tab 02/09/19 Clonazepam 0.5 mg PO BID PRN #0 02/09/19 Aspirin [Aspirin, Baby] 81 mg PO DAILY 02/27/19 Surgical History: cholecystectomy Psychiatric History: No pertinent psych hx 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 Denies: Chest Pain, Palpitations Respiratory: Reports: Shortness of Breath, Shortness of breath at rest, Shortness of breath upon exertion. Denies: Cough, Sputum production Gastrointestinal: Denies: Abdominal Pain, Nausea, Vomiting Genitourinary: Denies: Dysuria Musculoskeletal: Denies: Joint Pain, Joint Tenderness Skin: Denies: Rash, Wounds Neurological: Reports: Balance problems. Denies: Focal weakness, Numbness, Tingling Psychiatric: Denies: Anxiety, Depression, Homicidal Ideations, Suicidal Ideations Hematologic/ Lymphatic: Denies: Easy Bruising, Easy Bleeding VTE Information - Inpt Only VTE Present on Admission: No VTE Mechan Device Prophylaxis: None VTE Pharm Prophylaxis ordered?: Yes Patient Problems: Active and Suspected Problems New onset atrial fibrillation (Acute) Sinus tachycardia (Acute) - Physical Exam General: Alert, Oriented x3, Cooperative HEENT: Atraumatic, PERRLA, EOMI, Normocephalic Oral: Dry Mucosa Neck: Supple, No JVD, Negative Carotid Bruits Lungs: Clear to auscultation, No rhonchi, No wheeze, No rales, Diminished - Air entry diminished in bilateral lung bases Cardiovascular: Regular rate, Regular Rhythm, Normal S1, Normal S2, No murmurs Abdomen: Bowel Sounds Present, Soft, Non Tender, Non-Distended Extremities: No edema, Capillary Refill Less than 3 Seconds Skin: No rashes, No breakdown Musculoskeletal: No Tenderness to Palpation of Joints or Extremities, Arthritic Changes Lymphatic: No Cervical, Supraclavicular, or Inguinal Adenopathy Neurological: Cranial nerves II-XII grossly intact, Deep Tendon Reflexes 2+/4 and Symmetrical, Neuro grossly intact, - - Chronic decreased sensation on the left shoulder from previous stroke. Psych/Mental Status: Normal Affect, Appropriate Vital Signs Temp Pulse Resp BP Pulse Ox 96.0 F L 87 18 141/79 H 100 02/27/19 16:00 02/27/19 20:00 02/27/19 20:00 02/27/19 20:00 02/27/19 20:00 Oxygen Flow Rate (L/min) 2 Oxygen Delivery Method Room Air Weight: 130 lb 4.691 oz Body Mass Index (BMI) 20.4 Finger Stick Blood Glucose 75 Laboratory Tests Past 24 Hrs 02/27/19 02/27/19 02/27/19 16:19 16:19 16:25 WBC 8.3 RBC 4.27 Hgb 13.2 Hct 39.6 MCV 92.7 MCH 30.9 MCHC 33.3 RDW Std Deviation 45.5 H RDW Coeff of Patrick 13.4 Plt Count 378 MPV 8.8 Immature Gran % (Auto) 0.100 Neut % (Auto) 63.9 Lymph % (Auto) 26.7 Davis % (Auto) 6.6 Eos % (Auto) 2.1 Baso % (Auto) 0.6 Absolute Neuts (auto) 5.3 Absolute Lymphs (auto) 2.21 Nucleated RBC % 0 D-Dimer Quant (PE/DVT) 0.82 H* Sodium 137 Potassium 3.6 Chloride 105 Carbon Dioxide 26.0 Anion Gap 6 BUN 14 Creatinine 1.09 H Estim Creat Clear Calc 39.05 Est GFR (MDRD) Af Amer 62 Est GFR (MDRD) Non-Af 51 L BUN/Creatinine Ratio 12.8 Glucose 93 Calcium 8.8 Troponin I < 0.015 Assessment/Plan All Active Problems New onset atrial fibrillation (Acute) Sinus tachycardia (Acute) The patient is a 78 year old F with recent discharge after acute left parietal ischemic stroke on February 26, 2019 was sent to ER by elissa analytics manager after abnormal Holter monitor was found. Patient also states he felt lightheaded and short of breath even at rest and minor exertion today which is new for her. She was also little out of balance but this is chronic. She denies any chest pain. On Holter monitor, heart rate is sinus tachycardia at 190 to 200 bpm. EKG done in the ER shows sinus tachycardia at 112 bpm about 4:45 PM. After that she went into atrial fibrillation at 142 bpm. She was given diltiazem 25 mg IV bolus and converted to normal sinus rhythm. She also received 2 L of IV fluid normal saline bolus [] CTPA was done for elevated d-dimer negative for PE but shows chronic changes Currently patient does not have shortness of breath or chest pain but on baseline. At home she is on metoprolol 12.5 mg twice daily. 1. Arrhythmia: Sinus tachycardia, new onset atrial fibrillation, spontaneous onset with abnormal Holter monitor: Patient is being admitted in PCU for further telemetry monitoring and observation. Currently in normal sinus rhythm. Heart rate is about 86/min. Metoprolol increased to 25 mg twice daily. 1 dose of Lovenox 60 mg given. Patient has history of easy bruisability and fall and has gait instability and incoordination therefore not suitable candidate for prolonged/lifelong anticoagulation. Patient is already on aspirin and Plavix for stroke. Consult analytics manager for further opinion and recommendation. 2. Chronic heart failure with preserved EF: Patient last echo in January 2019 reported as EF 60% with a stage III diastolic dysfunction. It was negative for [id number] interatrial shunt. Currently, chest x-ray CTPA does not show acute finding along with. 3. Multiple ischemic TIA and stroke: Continue aspirin, Plavix and statin as mentioned above. 4. Abnormal CT chest finding of apical pleural parenchymal thickening history of posterior dilatation changes. 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 These are chronic changes as per the patient age. Other comorbidities include hypertension, dyslipidemia, hypothyroidism, anxiety and depression: Blood pressure is stable 141/79. Home medications lisinopril/HCTZ 10-12.5 mg daily, atorvastatin and levothyroxine continued. Repeat TSH and free T4 tomorrow a.m. DVT prophylaxis: Patient on Lovenox. Clinical Impression(s) from Imaging Studies Chest X-Ray 02/27/19 16:17 IMPRESSION: No acute cardiopulmonary findings or changes. Negative for new consolidation, focal atelectasis or a substantial pleural effusion. Stable chronic changes. Stigmata of old granulomatous disease. Atherosclerotic changes of the thoracic aorta. Chest CTA 02/27/19 17:45 IMPRESSION: Negative for pulmonary. Atherosclerotic changes of the thoracic aorta without aneurysm. Normal cardiac size with left ventricular hypertrophy and coronary calcifications. Bilateral benign areas of apical pleural parenchymal thickening. Posterior atelectatic versus chronic lung changes. Stigmata of old granulomatous disease. Negative for major consolidation, focal atelectasis or a substantial pleural effusion. Status post cholecystectomy. Enlargement of the left adrenal gland or a probable adrenal nodule of approximately 17 mm indeterminate in etiology. Code Visit Inpatient E&M: 77430 Init Hosp L3
[2019-02-27] MEDS: Metoprolol Tartrate 25 MG Tablet PO (23:27)
[2019-02-27] MEDS: Enoxaparin 60 MG/0.6 ML Syringe SC (23:27)
[2019-02-27] MEDS: 0.9% Normal Saline 1,000 ML 75 ML IV (23:27)
[2019-02-27] MEDS: Atorvastatin Calcium 80 MG Tablet PO (23:28)
[2019-02-27] MEDS: Levothyroxine 75 MCG Tablet PO (23:28)
[2019-02-27] MEDS: Tolterodine Tartrate 4 MG CAP.SA PO (23:28)
[2019-02-27] MEDS: traZODone 100 MG Tablet 150 MG PO (23:29)
[2019-02-28] VITALS (11 sets, daily range): BP systolic 99–120; BP diastolic 54–71; PULSE 61–92; RESP 16–18; TEMP 36.5–37.1; O2SAT 95–98
[2019-02-28 02:50] LABS: T4 Free Direct 1.35 ng/dL (0.76-1.46); Thyroid Stim Hormone (TSH) 0.46 uIU/mL (0.358-3.74)
[2019-02-28] MEDS: Aspirin 81 MG TAB.CHEW PO (08:06)
--- NOTE | 2019-02-28 08:44 | PCM.CONS.C ---
<Tomas Rosales - Last Filed: 02/28/19 09:31> Problem List (1) New onset atrial fibrillation Status: Acute (2) Hyperlipidemia Status: Chronic (3) Hypertension Status: Chronic Reason for Consult Date of Consultation: 02/28/19 Reason for Consultation: New onset Atrial Fibrillation History of Present Illness: The patient is a 78 year old F who has a history of right MCA stroke in November 2018 and left parietal CVA in January 2019. She also has a history of hypertension, hyperlipidemia, hypothyroidism, anxiety, and depression. She was recently discharged from hospital after her left parietal CVA on a 30-day event monitor. Yesterday her event monitor noted elevated heart rates into the 190s. She was contacted by cardiology outpatient office and asked to present to the emergency department. While in the emergency department her initial EKG showed atrial tachycardia. Later this showed atrial fibrillation with RVR. She was given Cardizem 25 mg IV. This converted her to sinus rhythm. She underwent a chest x-ray and chest CT scan. Both of which were negative. Her cardiac enzyme was also negative. She was admitted for further evaluation. Cardiology was consulted for new onset atrial fibrillation. Past Medical History Allergies/Adverse Reactions: Allergies alcohol Allergy (Verified 02/08/19 13:14) Rash NSAIDS (Non-Steroidal Anti-Inflamma Adverse Reaction (Verified 02/08/19 15:49) instant headache Home Medications: Ambulatory Orders Medication Instructions Recorded Acetaminophen [Tylenol Arthritis] 650 mg PO Q6H PRN PRN 02/08/19 Atorvastatin Calcium [Lipitor] 20 mg PO QHS 02/08/19 Clopidogrel Bisulfate [Clopidogrel] 75 mg PO DAILY 02/08/19 Cyanocobalamin (Vitamin B-12) 1,000 mcg PO DAILY 02/08/19 [B-12] Levothyroxine Sodium [Synthroid] 75 mcg PO QHS 02/08/19 Lisinopril/Hydrochlorothiazide 1 tab PO DAILY 02/08/19 [Lisinopril-Hctz 10-12.5 mg Tab] Lutein/Zeaxanthin [Ocuvite Lutein 1 cap PO DAILY 02/08/19 25-5 mg Softgel] Metoprolol Tartrate [Lopressor 12.5 mg PO BID 02/08/19 (beta francisco)] Paroxetine HCl 40 mg PO DAILY 02/08/19 Tolterodine Tartrate [Tolterodine 4 mg PO QHS 02/08/19 Tartrate ER] Trazodone HCl 150 mg PO QHS 02/08/19 Atorvastatin Calcium [Lipitor] 80 mg PO QHS #30 tab 02/09/19 Clonazepam 0.5 mg PO BID PRN #0 02/09/19 Aspirin [Aspirin, Baby] 81 mg PO DAILY 02/27/19 Past Medical History (Chronic Problems): Chronic Problems (Last Updated 02/28/19 @ 08:50 by LYNDSEY Daniel) Hypothyroidism (Chronic) CVA (cerebral vascular accident) (Chronic) Depression with anxiety (Chronic) Hyperlipidemia (Chronic) Hypertension (Chronic) History of TIAs (Chronic) Surgical History: cholecystectomy Psychiatric History: No pertinent psych hx 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 pertinent FIRE HYDRANT MECHANIC history - *Family History Maternal Family History: Family History (Last Updated 02/28/19 @ 08:48 by LYNDSEY Daniel) Father Hypertension Mother Hypertension CAD (coronary artery disease) History Items: Heart Disease, Hypertension Paternal Family History: Family History (Last Updated 02/28/19 @ 08:48 by LYNDSEY Daniel) Father Hypertension Mother Hypertension CAD (coronary artery disease) History Items: No pertinent history Lives: With Family Smoking Status: Current every day smoker Review of Systems - Review of Systems General: Denies: Fever, Fatigue Cardiovascular: Denies: Chest Discomfort, Chest Discomfort at Rest, Chest Discomfort with Exertion, Chest Pressure, Chest Tightness, Chest Heaviness, Shortness of Breath, Shortness of Breath at Rest, Shortness of Breath with Exertion, Orthopnea, PND, Peripheral Edema, Palpitations, Lightheadedness, Dizziness, Near Syncope, Syncope Respiratory: Denies: Cough Muscoloskeletal: Denies: Myalgias Skin: Denies: Rash Neurological: Reports: Falls, History of TIA, History of CVA. Denies: Dizziness Subjectve: Patient seen and evaluated. She denies any chest pain or shortness of breath today. She denies any lightheadedness. Overall, she states feeling well. Objective: Vital Signs Temp Pulse Resp BP Pulse Ox 98.7 F 89 18 99/57 L 97 02/28/19 04:31 02/28/19 06:47 02/28/19 04:31 02/28/19 04:31 02/28/19 07:25 Oxygen Flow Rate (L/min) 2 Oxygen Delivery Method Room Air Weight: 130 lb 4.691 oz Body Mass Index (BMI) 20.4 Finger Stick Blood Glucose 75 Intake and Output for Last 24 Hours 02/26/19 02/27/19 02/28/19 23:59 23:59 23:59 Intake Total 596 / 596 391 / 391 Balance 596 / 596 391 / 391 General: Healthy Appearing, Awake, Alert, Oriented x 3 HEENT: Atraumatic Oral: Moist Mucosa Neck: No JVD Lungs: Clear to auscultation Cardiovascular: Regular Rhythm, Irregular Rhythm, Normal S1, Normal S2, No Murmurs, No Rubs, No Gallops Vascular: No Carotid Bruits Abdomen: Soft Extremities: No Cyanosis, No edema, Normal Capillary Refill Psych/Mental Status: Appropriate 02/27/19 16:19: WBC 8.3, RBC 4.27, Hgb 13.2, Hct 39.6, MCV 92.7, MCH 30.9, MCHC 33.3, Plt Count 378, MPV 8.8, Immature Gran % (Auto) 0.100, Neut % (Auto) 63.9, Lymph % (Auto) 26.7, Sibley % (Auto) 6.6, Eos % (Auto) 2.1, Baso % (Auto) 0.6, Absolute Neuts (auto) 5.3, Nucleated RBC % 0 02/27/19 16:19: Sodium 137, Potassium 3.6, Chloride 105, Carbon Dioxide 26.0, Anion Gap 6, BUN 14, Creatinine 1.09 H, Est GFR (MDRD) Af Amer 62, Est GFR (MDRD) Non-Af 51 L, BUN/Creatinine Ratio 12.8, Glucose 93, Calcium 8.8, Troponin I < 0.015 02/27/19 16:25: D-Dimer Quant (PE/DVT) 0.82 H* 02/27/19 23:15: Troponin I < 0.015 02/28/19 01:59: Troponin I < 0.015 02/28/19 05:00: Troponin I < 0.015 Rhythm: EKG: ECHO: 02/09/19 Interpretation Summary Normal LV size. Left ventricular systolic function is normal. The estimated ejection fraction is 60 %. Stage 3 diastolic dysfunction. Bubble contrast study negative for right to left interatrial shunt. Stress Test: Cardiac Cath: PCI: CT Surgery: Holter monitor: EPS: PPM: CXR: Chest CT Scan: Assessment/Plan 1. New onset atrial fibrillation Patient's EKG and telemetry and during 30-day event monitor revealed atrial fibrillation with RVR. She responded well with IV Cardizem. This converted to sinus rhythm. Her telemetry this morning reveals a sinus rhythm without acute ST changes. She states yesterday she noted episodes of shortness of breath and lightheadedness at both rest and with activity. She denies such symptoms this morning. She is currently on aspirin and Plavix since discharge from recent hospitalization for CVA. It was recommended due to her elevated [id number] of 6 (hypertension, age, previous stroke, and gender) that she consider medication alteration for anti-coagulation therapy. This would include discontinuing Plavix and can adding low-dose factor Xa inhibitor. She does not wish to proceed with such adjustments. She does acknowledge frequent falls. Her HAS-BLED score reveals that she has high risk for bleeding given her history of hypertension, previous stroke, age, and antiplatelet medication. Thus, at this time it is reasonable to consider to continue with conservative evaluation with aspirin and Plavix therapy. Perhaps with better atrial fibrillation control she will be as dizzy and thus her falls will be less. This may allow for anticoagulation adjustment. To better control her heart rate and rhythm, she will discontinue metoprolol and begin Cardizem 30 mg every 6 hours. This can be titrated accordingly and once tolerated we can transition to long-acting. If she develops bouts of paroxysmal atrial fibrillation we can consider antiarrhythmic control with amiodarone therapy. She should continue with 30-day event monitor on discharge to evaluate heart rate and rhythm to ensure stability. Her cardiac enzyme has been negative x4. She denies any episodes of chest pain prior to admission or currently. We will hold off on any stress testing. Her echocardiogram from January 2019 showed a preserved ejection fraction of 60%, stage III diastolic dysfunction, and normal biatrial size. Given her diastolic dysfunction her fluid volume status will also have to be monitored closely as this may exacerbate her paroxysmal atrial fibrillation. 2. Hypertension This will need to be monitored closely as her medications are adjusted. 3. Hyperlipidemia Patient's medication was recently increased to atorvastatin 80 mg given her recent CVA. She will continue current statin dosage. 4. Hypothyroidism She will continue current thyroid medication. This will be managed and monitored by primary team. <Diego Sanchez - Last Filed: 02/28/19 12:14> Reason for Consult History of Present Illness: The patient is a 78 year old F [] Past Medical History - *Family History Maternal Family History: Family History (Last Updated 02/28/19 @ 08:48 by LYNDSEY Daniel) Father Hypertension Mother Hypertension CAD (coronary artery disease) Paternal Family History: Family History (Last Updated 02/28/19 @ 08:48 by LYNDSEY Daniel) Father Hypertension Mother Hypertension CAD (coronary artery disease) Objective: Vital Signs Temp Pulse Resp BP Pulse Ox 98.3 F 88 18 120/71 97 02/28/19 11:47 02/28/19 11:47 02/28/19 11:47 02/28/19 11:47 02/28/19 11:47 Oxygen Flow Rate (L/min) 2 Oxygen Delivery Method Room Air Weight: 130 lb 4.691 oz Body Mass Index (BMI) 20.4 Finger Stick Blood Glucose 75 Intake and Output for Last 24 Hours 02/26/19 02/27/19 02/28/19 23:59 23:59 23:59 Intake Total 596 / 596 1019 / 1019 Balance 596 / 596 1019 / 1019 02/27/19 16:19: WBC 8.3, RBC 4.27, Hgb 13.2, Hct 39.6, MCV 92.7, MCH 30.9, MCHC 33.3, Plt Count 378, MPV 8.8, Immature Gran % (Auto) 0.100, Neut % (Auto) 63.9, Lymph % (Auto) 26.7, Sibley % (Auto) 6.6, Eos % (Auto) 2.1, Baso % (Auto) 0.6, Absolute Neuts (auto) 5.3, Nucleated RBC % 0 02/27/19 16:19: Sodium 137, Potassium 3.6, Chloride 105, Carbon Dioxide 26.0, Anion Gap 6, BUN 14, Creatinine 1.09 H, Est GFR (MDRD) Af Amer 62, Est GFR (MDRD) Non-Af 51 L, BUN/Creatinine Ratio 12.8, Glucose 93, Calcium 8.8, Troponin I < 0.015 02/27/19 16:25: D-Dimer Quant (PE/DVT) 0.82 H* 02/27/19 23:15: Troponin I < 0.015 02/28/19 01:59: Troponin I < 0.015 02/28/19 05:00: Troponin I < 0.015 Rhythm: EKG: ECHO: Stress Test: Cardiac Cath: PCI: CT Surgery: Holter monitor: EPS: PPM: CXR: Chest CT Scan: Assessment/Plan Patient was seen and evaluated and discussed with Tomas Rosales APN. I agree with above assessment and plan. In brief, because of frequent falls we will hold off on anticoagulation and keep the patient on dual antiplatelet therapy at this time. We will switch from metoprolol to Cardizem p.o. for rate control. Ideally she would need to be on anticoagulation and as an outpatient if we find that patients fall frequency has gone down as her heart rate is now under control then when we see her as an outpatient we will consider anticoagulant. Patient is very concerned with anticoagulation and prefers to be off the anticoagulation anyway. We will discuss this again.
--- NOTE | 2019-02-28 09:41 | EKG12_ITS ---
Test Reason : RHYTHM Blood Pressure : / mmHG Vent. Rate : 087 BPM Atrial Rate : 087 BPM P-R Int : 146 ms QRS Dur : 088 ms QT Int : 396 ms P-R-T Axes : 000 101 093 degrees QTc Int : 476 ms Normal sinus rhythm Rightward axis Nonspecific ST abnormality Abnormal ECG When compared with ECG of 27-FEB-2019 18:25, Sinus rhythm has replaced Atrial flutter Vent. rate has decreased BY 55 BPM Nonspecific T wave abnormality no longer evident in Lateral leads Confirmed by ROCKY REYES ([id number]), video editor ERICA ARAGON ([id number]) on 03/06/2019 3:44:23 PM Referred By: ISMAEL Confirmed By:ROCKY REYES
[2019-02-28] MEDS: Paroxetine 20 MG Tablet 40 MG PO (09:51)
[2019-02-28] MEDS: hydroCHLOROthiazide 12.5mg 12.5 MG PO (09:51)
[2019-02-28] MEDS: Clopidogrel Bisulfate 75 MG Tablet PO (09:51)
[2019-02-28] MEDS: Cyanocobalamin 500 MCG Tablet 1000 MCG PO (09:51)
[2019-02-28] MEDS: Lisinopril 10 MG Tablet PO (09:51)
[2019-02-28] MEDS: dilTIAZem 30 MG Tablet PO ×3 (09:54→17:21)
--- NOTE | 2019-02-28 13:22 | PCM.PROGNOTE ---
<Jenni Du - Last Filed: 02/28/19 13:47> Patient Problems: Active and Suspected Problems (Last Updated 02/28/19 @ 08:50 by Tomas Rosales NP-C) New onset atrial fibrillation (Acute) Sinus tachycardia (Acute) Subjective: Patient seen and examined. Denies shortness of breath, chest pain, palpitations. Remains sinus rhythm this a.m. - Physical Exam General: Alert, Oriented x3, Cooperative HEENT: Atraumatic, PERRLA, EOMI, Normocephalic Neck: Supple, No JVD, Negative Carotid Bruits Lungs: Clear to auscultation, Normal air movement Cardiovascular: Regular rate, Regular Rhythm, Normal S1, Normal S2, No murmurs Abdomen: Bowel Sounds Present, Soft, Non Tender, Non-Distended Extremities: No clubbing, No cyanosis, No edema, Capillary Refill Less than 3 Seconds Skin: No rashes, No breakdown Musculoskeletal: No Tenderness to Palpation of Joints or Extremities Neurological: Cranial nerves II-XII grossly intact, Neuro grossly intact Psych/Mental Status: Normal Affect, Appropriate Vital Signs Temp Pulse Resp BP Pulse Ox 98.3 F 88 18 120/71 97 02/28/19 11:47 02/28/19 11:47 02/28/19 11:47 02/28/19 11:47 02/28/19 11:47 Oxygen Flow Rate (L/min) 2 Oxygen Delivery Method Room Air Weight: 130 lb 4.691 oz Body Mass Index (BMI) 20.4 Finger Stick Blood Glucose 75 Intake and Output for Last 24 Hours 02/26/19 02/27/19 02/28/19 23:59 23:59 23:59 Intake Total 596 / 596 1019 / 1019 Balance 596 / 596 1019 / 1019 Laboratory Tests Past 24 Hrs 02/27/19 02/27/19 02/27/19 16:19 16:19 16:25 WBC 8.3 RBC 4.27 Hgb 13.2 Hct 39.6 MCV 92.7 MCH 30.9 MCHC 33.3 RDW Std Deviation 45.5 H RDW Coeff of Patrick 13.4 Plt Count 378 MPV 8.8 Immature Gran % (Auto) 0.100 Neut % (Auto) 63.9 Lymph % (Auto) 26.7 Pershing % (Auto) 6.6 Eos % (Auto) 2.1 Baso % (Auto) 0.6 Absolute Neuts (auto) 5.3 Absolute Lymphs (auto) 2.21 Nucleated RBC % 0 D-Dimer Quant (PE/DVT) 0.82 H* Sodium 137 Potassium 3.6 Chloride 105 Carbon Dioxide 26.0 Anion Gap 6 BUN 14 Creatinine 1.09 H Estim Creat Clear Calc 39.05 Est GFR (MDRD) Af Amer 62 Est GFR (MDRD) Non-Af 51 L BUN/Creatinine Ratio 12.8 Glucose 93 Calcium 8.8 Troponin I < 0.015 TSH Free T4 02/27/19 02/28/19 02/28/19 23:15 01:59 01:59 WBC RBC Hgb Hct MCV MCH MCHC RDW Std Deviation RDW Coeff of Patrick Plt Count MPV Immature Gran % (Auto) Neut % (Auto) Lymph % (Auto) Pershing % (Auto) Eos % (Auto) Baso % (Auto) Absolute Neuts (auto) Absolute Lymphs (auto) Nucleated RBC % D-Dimer Quant (PE/DVT) Sodium Potassium Chloride Carbon Dioxide Anion Gap BUN Creatinine Estim Creat Clear Calc Est GFR (MDRD) Af Amer Est GFR (MDRD) Non-Af BUN/Creatinine Ratio Glucose Calcium Troponin I < 0.015 < 0.015 TSH 0.46 Free T4 1.35 02/28/19 05:00 WBC RBC Hgb Hct MCV MCH MCHC RDW Std Deviation RDW Coeff of Patrick Plt Count MPV Immature Gran % (Auto) Neut % (Auto) Lymph % (Auto) Pershing % (Auto) Eos % (Auto) Baso % (Auto) Absolute Neuts (auto) Absolute Lymphs (auto) Nucleated RBC % D-Dimer Quant (PE/DVT) Sodium Potassium Chloride Carbon Dioxide Anion Gap BUN Creatinine Estim Creat Clear Calc Est GFR (MDRD) Af Amer Est GFR (MDRD) Non-Af BUN/Creatinine Ratio Glucose Calcium Troponin I < 0.015 TSH Free T4 Medical Necessity - Tobacco Use Smoking Status: Current every day smoker Assessment/Plan All Active Problems (Last Updated 02/28/19 @ 08:50 by Tomas Rosales, CERTIFIED PHYSICIAN'S ASSISTANT-C) New onset atrial fibrillation (Acute) Paroxysmal atrial fibrillation (Acute) Sinus tachycardia (Acute) 1. New onset atrial fibrillation with RVR-cardiology following. Troponin negative. TSH, potassium within normal limits. Check magnesium. Patient transitioned from metoprolol to Cardizem 30 mg p.o. every 6 hours. Oral anticoagulation strongly encouraged by cardiology given [id number] score of 6 however patient declines at this time and reports she has a history of falls. Will monitor rhythm/rate on current Cardizem regimen and anticipate discharge home tomorrow where she will continue with 30-day event monitor. Monitor telemetry overnight. Recent echocardiogram January 2018 showed an EF of 60%, stage III diastolic dysfunction. 2. History of recent CVA, January 2018-continue aspirin, Plavix, statin. 3. Hypertension-stable, continue home lisinopril, HCTZ regimen. 4. Hyperlipidemia-continue statin. 5. Hypothyroidism- continue home Synthroid regimen. 6. Depression/Anxiety-continue home paroxetine, clonazepam regimen. Do feel clonazepam regimen should be discontinued going forward given recurrent falls. 7. Debility with recurrent falls- PT/OT. Fall precautions. DVT prophylaxis- Lovenox sc This patient was seen by LYNDSEY Crawford under the supervision of Dr. Gentile. <Kenny Gentile - Last Filed: 02/28/19 15:12> - Physical Exam Vital Signs Temp Pulse Resp BP Pulse Ox 98.3 F 88 18 120/71 97 02/28/19 11:47 02/28/19 11:47 02/28/19 11:47 02/28/19 11:47 02/28/19 11:47 Oxygen Flow Rate (L/min) 2 Oxygen Delivery Method Room Air Weight: 59.1 kg Body Mass Index (BMI) 20.4 Finger Stick Blood Glucose 75 Intake and Output for Last 24 Hours 02/26/19 02/27/19 02/28/19 23:59 23:59 23:59 Intake Total 596 / 596 1019 / 1019 Balance 596 / 596 1019 / 1019 Laboratory Tests Past 24 Hrs 02/27/19 02/27/19 02/27/19 16:19 16:19 16:25 WBC 8.3 RBC 4.27 Hgb 13.2 Hct 39.6 MCV 92.7 MCH 30.9 MCHC 33.3 RDW Std Deviation 45.5 H RDW Coeff of Patrick 13.4 Plt Count 378 MPV 8.8 Immature Gran % (Auto) 0.100 Neut % (Auto) 63.9 Lymph % (Auto) 26.7 Pershing % (Auto) 6.6 Eos % (Auto) 2.1 Baso % (Auto) 0.6 Absolute Neuts (auto) 5.3 Absolute Lymphs (auto) 2.21 Nucleated RBC % 0 D-Dimer Quant (PE/DVT) 0.82 H* Sodium 137 Potassium 3.6 Chloride 105 Carbon Dioxide 26.0 Anion Gap 6 BUN 14 Creatinine 1.09 H Estim Creat Clear Calc 39.05 Est GFR (MDRD) Af Amer 62 Est GFR (MDRD) Non-Af 51 L BUN/Creatinine Ratio 12.8 Glucose 93 Calcium 8.8 Magnesium Troponin I < 0.015 TSH Free T4 02/27/19 02/28/19 02/28/19 23:15 01:59 01:59 WBC RBC Hgb Hct MCV MCH MCHC RDW Std Deviation RDW Coeff of Patrick Plt Count MPV Immature Gran % (Auto) Neut % (Auto) Lymph % (Auto) Pershing % (Auto) Eos % (Auto) Baso % (Auto) Absolute Neuts (auto) Absolute Lymphs (auto) Nucleated RBC % D-Dimer Quant (PE/DVT) Sodium Potassium Chloride Carbon Dioxide Anion Gap BUN Creatinine Estim Creat Clear Calc Est GFR (MDRD) Af Amer Est GFR (MDRD) Non-Af BUN/Creatinine Ratio Glucose Calcium Magnesium Troponin I < 0.015 < 0.015 TSH 0.46 Free T4 1.35 02/28/19 02/28/19 05:00 05:00 WBC RBC Hgb Hct MCV MCH MCHC RDW Std Deviation RDW Coeff of Patrick Plt Count MPV Immature Gran % (Auto) Neut % (Auto) Lymph % (Auto) Pershing % (Auto) Eos % (Auto) Baso % (Auto) Absolute Neuts (auto) Absolute Lymphs (auto) Nucleated RBC % D-Dimer Quant (PE/DVT) Sodium Potassium Chloride Carbon Dioxide Anion Gap BUN Creatinine Estim Creat Clear Calc Est GFR (MDRD) Af Amer Est GFR (MDRD) Non-Af BUN/Creatinine Ratio Glucose Calcium Magnesium 2.1 Troponin I < 0.015 TSH Free T4 Assessment/Plan This patient was seen in conjunction with LYNDSEY Crawford . I have independently interviewed and examined the patient and reviewed pertinent historical, laboratory, and other data. Please refer to LYNDSEY Crawford note for details of this patient's presentation, findings, and recommendations. I have reviewed LYNDSEY Crawford note and concur with documented findings. In brief, patient is a 78-year-old lady treated with shortness of breath found to have new onset with RVR and admitted to a monitored bed for subsequent management Physical Examination: GENERAL: cooperative HEENT: Atraumatic; EYES; Anicteric, NECK; supple, normal thyroid, RESPIRATORY: Diminished to auscultation CARDIOVASCULAR: Regular S1 S2, GI: soft, non-tender, : No Renal angle tenderness; EXTREMITIES: edema, no clubbing, . NEURO: Awake; no lateralizing signs. SKIN: No Rash PSYCH; flat affect Assessment: 1. New onset A. fib with RVR 2. Previous history of CVA 3. Hypothyroidism 4. Essential hypertension 5. Dyslipidemia 6. Depression with anxiety Recommendations: 1. I have discussed the results of my overview and impressions with the patient 2. Options for management were reviewed Code Visit OBSV E&M: 85174 Subsequent observation care L3
[2019-02-28 13:56] LABS: Magnesium 2.1 mg/dL (1.6-2.6)
[2019-02-28] MEDS: Acetaminophen 325 MG Tablet 650 MG PO (19:40)
[2019-02-28] MEDS: Levothyroxine 75 MCG Tablet PO (21:39)
[2019-02-28] MEDS: Tolterodine Tartrate 4 MG CAP.SA PO (21:39)
[2019-02-28] MEDS: Atorvastatin Calcium 80 MG Tablet PO (21:39)
[2019-02-28] MEDS: traZODone 100 MG Tablet 150 MG PO (21:39)
[2019-03-01 03:00] VITALS: PULSE 79
[2019-03-01 03:40] VITALS: BP 103/59; PULSE 87; RESP 16; TEMP 37; O2SAT 99
[2019-03-01] MEDS: dilTIAZem 30 MG Tablet PO ×2 (05:45)
[2019-03-01 07:19] LABS: Anion Gap 8 (5-15); BUN 17 mg/dL (7-18); BUN/Creat Ratio 20.3 RATIO (10-20); Calcium,Total 8.2 mg/dL (8.5-10.1); Chloride 108 mmol/L (98-107); Creatinine, Serum 0.84 mg/dL (0.55-1.02); EST Glomerular Filtration Rate 70 mL/min (>60); Est Glom Filt Rate - Afr Amer 84 mL/min (>60); Estimated Creatinine Clearance 50.67 ml/min; Glucose 83 mg/dL (74-106); Potassium 3.5 mmol/L (3.5-5.1); Sodium Level 142 mmol/L (136-145)
[2019-03-01 07:21] VITALS: PULSE 65
[2019-03-01 07:30] VITALS: O2SAT 93
[2019-03-01 09:40] VITALS: BP 121/65; PULSE 84; RESP 16; TEMP 36.6; O2SAT 99
[2019-03-01] MEDS: Aspirin 81 MG TAB.CHEW PO (10:21)
[2019-03-01] MEDS: Paroxetine 20 MG Tablet 40 MG PO (10:21)
[2019-03-01] MEDS: Cyanocobalamin 500 MCG Tablet 1000 MCG PO (10:21)
[2019-03-01] MEDS: hydroCHLOROthiazide 12.5mg 12.5 MG PO (10:21)
[2019-03-01] MEDS: Clopidogrel Bisulfate 75 MG Tablet PO (10:21)
[2019-03-01] MEDS: Lisinopril 10 MG Tablet PO (10:21)
--- NOTE | 2019-03-01 10:36 | PCM.PN.CARD ---
Subjectve: Denies any cardiac complaints. Objective: Vital Signs Temp Pulse Resp BP Pulse Ox 98.6 F 65 16 103/59 L 93 03/01/19 03:40 03/01/19 07:21 03/01/19 03:40 03/01/19 03:40 03/01/19 07:30 Oxygen Flow Rate (L/min) 2 Oxygen Delivery Method Room Air Weight: 130 lb 4.691 oz Body Mass Index (BMI) 20.4 Finger Stick Blood Glucose 75 Intake and Output for Last 24 Hours 02/27/19 02/28/19 03/01/19 23:59 23:59 23:59 Intake Total 596 / 596 1878 Balance 596 / 596 1878 General: Awake, Alert, Oriented x 3 HEENT: Atraumatic Oral: Moist Mucosa Neck: Supple Lungs: Clear to auscultation Cardiovascular: Normal S1, Normal S2 Abdomen: Soft Skin: No Rashes Psych/Mental Status: Appropriate 02/28/19 05:00: Magnesium 2.1 03/01/19 06:07: Sodium 142, Potassium 3.5, Chloride 108 H, Carbon Dioxide 26.0, Anion Gap 8, BUN 17, Creatinine 0.84, Est GFR (MDRD) Af Amer 84, Est GFR (MDRD) Non-Af 70, BUN/Creatinine Ratio 20.3 H, Glucose 83, Calcium 8.2 L Rhythm: EKG: ECHO: Stress Test: Cardiac Cath: PCI: CT Surgery: Holter monitor: EPS: PPM: CXR: Chest CT Scan: Medical Necessity - Tobacco Use Smoking Status: Current every day smoker Assessment/Plan 1. Atrial fibrillation: Due to frequent falls we will hold off on anticoagulation and keep the patient on dual antiplatelet therapy at this time. We will switch from metoprolol to Cardizem p.o. for rate control. Ideally she would need to be on anticoagulation and as an outpatient if we find that patients fall frequency has gone down as her heart rate is now under control then when we see her as an outpatient we will consider anticoagulant. Patient is very concerned with anticoagulation and prefers to be off the anticoagulation anyway. We will switch the Cardizem to 120 mg p.o. daily. We can DC the hydrochlorothiazide to allow for up titration of Cardizem as needed. Patient can be discharged home from a cardiac standpoint today.
--- NOTE | 2019-03-01 11:57 | DCINST_ITS ---
- Discharge Diagnoses Current Active Problems: Current Active and Chronic Problems (Last Updated 02/28/19 @ 08:50 by LYNDSEY Daniel) New onset atrial fibrillation (Acute) Sinus tachycardia (Acute) You will use the following diet at home:: Cardiac Discharge Activity: Return to Normal Activity Call your doctor if you observe: Shortness of breath, Dizziness, Fainting spells, Chest pain Allergies/Adverse Reactions: Allergies alcohol Allergy (Verified 02/08/19 13:14) Rash NSAIDS (Non-Steroidal Anti-Inflamma Adverse Reaction (Verified 02/08/19 15:49) instant headache Medications to take at Discharge Acetaminophen [Tylenol Arthritis] 650 mg PO Q6H PRN PRN 02/08/19 Atorvastatin Calcium [Lipitor] 80 mg PO QHS 02/08/19 Clopidogrel Bisulfate [Clopidogrel] 75 mg PO DAILY 02/08/19 Cyanocobalamin (Vitamin B-12) [B-12] 1,000 mcg PO DAILY 02/08/19 Levothyroxine Sodium [Synthroid] 75 mcg PO QHS 02/08/19 Lutein/Zeaxanthin [Ocuvite Lutein 25-5 mg Softgel] 1 cap PO DAILY 02/08/19 Paroxetine HCl 40 mg PO DAILY 02/08/19 Tolterodine Tartrate [Tolterodine Tartrate ER] 4 mg PO QHS 02/08/19 Trazodone HCl 150 mg PO QHS 02/08/19 Clonazepam 0.5 mg PO BID PRN #0 02/09/19 Aspirin [Aspirin, Baby] 81 mg PO DAILY 02/27/19 Diltiazem CD [Cardizem CD] 120 mg PO DAILY #60 cap 03/01/19 The following prescriptions were given: Diltiazem CD [Cardizem CD] 120 mg PO DAILY #60 cap Transmission Status: Pending to [facility]/pharmacy #[id number] Primary Care Physician: Nayana Adam MD [Primary Care Provider] - Please follow up with your Primary Care Physician in: 1 Week Test Results: Test results from this visit will be discussed in further detail at your follow- up appointment, if applicable. Please Follow Up With: Diego Sanchez MD When: 2-4 weeks Proposed Discharge Date: 03/01/19
--- NOTE | 2019-03-01 11:58 | PCM.DC.SUM ---
<Jenni Du - Last Filed: 03/01/19 12:06> Discharge Date and Diagnosis Date of Admission: 02/27/19 Date of Discharge: 03/01/19 - Primary Discharge Diagnosis Active and Suspected Problems (Last Updated 02/28/19 @ 08:50 by LYNDSEY Daniel) 1. New onset atrial fibrillation with RVR 2. History of recent CVA, January 2018 3. Hypertension 4. Hyperlipidemia 5. Hypothyroidism 6. Depression/Anxiety 7. Debility with recurrent falls - Secondary Discharge Diagnosis Chronic Problems (Last Updated 02/28/19 @ 08:50 by LYNDSEY Daniel) Hypothyroidism (Chronic) CVA (cerebral vascular accident) (Chronic) Depression with anxiety (Chronic) Hyperlipidemia (Chronic) Hypertension (Chronic) History of TIAs (Chronic) Hospital Course and Treatment Imaging Results: Diagnostic Data Chest X-Ray 02/27/19 16:17 IMPRESSION: No acute cardiopulmonary findings or changes. Negative for new consolidation, focal atelectasis or a substantial pleural effusion. Stable chronic changes. Stigmata of old granulomatous disease. Atherosclerotic changes of the thoracic aorta. Electronically Signed: Janiya Fabian MD at 16:43 EDT , Service support , Chest CTA 02/27/19 17:45 IMPRESSION: Negative for pulmonary. Atherosclerotic changes of the thoracic aorta without aneurysm. Normal cardiac size with left ventricular hypertrophy and coronary calcifications. Bilateral benign areas of apical pleural parenchymal thickening. Posterior atelectatic versus chronic lung changes. Stigmata of old granulomatous disease. Negative for major consolidation, focal atelectasis or a substantial pleural effusion. Status post cholecystectomy. Enlargement of the left adrenal gland or a probable adrenal nodule of approximately 17 mm indeterminate in etiology. Electronically Signed: Janiya Fabina MD at 18:33 EDT , Service support , Dr. Sanchez-Cardiology Operations: None Procedures: None Summary of Care Provided: The patient is a 78 year old F admitted 02/27/2019 due to shortness of breath and abnormal Holter monitor. 1. New onset atrial fibrillation with RVR-cardiology following. Troponin negative. TSH, potassium, magnesium WNL. Patient transitioned from metoprolol to Cardizem CD 120 mg daily. Oral anticoagulation strongly encouraged by cardiology given [id number] score of 6 however patient declines at this time and reports she has a history of falls. Recent echocardiogram January 2018 showed an EF of 60%, stage III diastolic dysfunction. Patient has remained sinus rhythm on current Cardizem regimen. She will resume 30-day event monitor at discharge for further monitoring and continue outpatient follow-up with cardiology. Follow-up with Dr. Sanchez in 2-4 weeks. Follow-up with primary care physician in 1 week. Patient will continue aspirin and Plavix given she continues to refuse oral anticoagulation. 2. History of recent CVA, January 2018-continue aspirin, Plavix, statin. 3. Hypertension-stable, home lisinopril/HCTZ regimen discontinued at discharge. Continue Cardizem as noted above. 4. Hyperlipidemia-continue statin. 5. Hypothyroidism- continue home Synthroid regimen. 6. Depression/Anxiety-continue home paroxetine, clonazepam regimen. Do feel clonazepam regimen should be discontinued going forward given recurrent falls. 7. Debility with recurrent falls- Fall precautions. Denies home needs. General: Alert, Oriented x3, Cooperative HEENT: Atraumatic, PERRLA, EOMI, Normocephalic Neck: Supple, No JVD, Negative Carotid Bruits Lungs: Clear to auscultation, Normal air movement Cardiovascular: Regular rate, Regular Rhythm, Normal S1, Normal S2, No murmurs Abdomen: Bowel Sounds Present, Soft, Non Tender, Non-Distended Extremities: No clubbing, No cyanosis, No edema, Capillary Refill Less than 3 Seconds Skin: No rashes, No breakdown Musculoskeletal: No Tenderness to Palpation of Joints or Extremities Neurological: Cranial nerves II-XII grossly intact, Neuro grossly intact Psych/Mental Status: Normal Affect, Appropriate Patient seen and examined prior to discharge. Physical assessment as noted above. Patient is stable for discharge with follow up recommendations as noted above. This patient was seen by LYNDSEY Crawford under the supervision of Dr. Gentile. - Physical Exam Vital Signs Temp Pulse Resp BP Pulse Ox 98 F 84 16 121/65 H 99 03/01/19 09:40 03/01/19 09:40 03/01/19 09:40 03/01/19 09:40 03/01/19 09:40 Oxygen Flow Rate (L/min) 2 Oxygen Delivery Method Room Air Weight: 130 lb 4.691 oz Body Mass Index (BMI) 20.4 Finger Stick Blood Glucose 75 Intake and Output for Last 24 Hours 02/27/19 02/28/19 03/01/19 23:59 23:59 23:59 Intake Total 596 / 596 1878 Balance 596 / 596 1878 Laboratory Tests Past 24 Hrs 02/28/19 03/01/19 05:00 06:07 Sodium 142 Potassium 3.5 Chloride 108 H Carbon Dioxide 26.0 Anion Gap 8 BUN 17 Creatinine 0.84 Estim Creat Clear Calc 50.67 Est GFR (MDRD) Af Amer 84 Est GFR (MDRD) Non-Af 70 BUN/Creatinine Ratio 20.3 H Glucose 83 Calcium 8.2 L Magnesium 2.1 Discharge Diet: Low fat/ Low Cholesterol Discharge Activity: Return to Normal Activity Call your doctor if you observe: Shortness of breath, Dizziness, Fainting spells, Chest pain Home Medications: Medications to take at Discharge Acetaminophen [Tylenol Arthritis] 650 mg PO Q6H PRN PRN 02/08/19 Atorvastatin Calcium [Lipitor] 80 mg PO QHS 02/08/19 Clopidogrel Bisulfate [Clopidogrel] 75 mg PO DAILY 02/08/19 Cyanocobalamin (Vitamin B-12) [B-12] 1,000 mcg PO DAILY 02/08/19 Levothyroxine Sodium [Synthroid] 75 mcg PO QHS 02/08/19 Lutein/Zeaxanthin [Ocuvite Lutein 25-5 mg Softgel] 1 cap PO DAILY 02/08/19 Paroxetine HCl 40 mg PO DAILY 02/08/19 Tolterodine Tartrate [Tolterodine Tartrate ER] 4 mg PO QHS 02/08/19 Trazodone HCl 150 mg PO QHS 02/08/19 Clonazepam 0.5 mg PO BID PRN #0 02/09/19 Aspirin [Aspirin, Baby] 81 mg PO DAILY 02/27/19 Diltiazem CD [Cardizem CD] 120 mg PO DAILY #60 cap 03/01/19 Following Prescrptions Were Given to Patient: Diltiazem CD [Cardizem CD] 120 mg PO DAILY #60 cap Transmission Status: Received by [facility]/pharmacy #[id number] Primary Care Physician: Nayana Adam MD [Primary Care Provider] - Please follow up with your Primary Care Physician in: 1 Week Please Follow Up With: Diego Sanchez MD When: 2-4 weeks Disposition: Home Minutes spent on discharge:: 35 Patient Condition:: Stable Medical Necessity - Tobacco Use Smoking Status: Current every day smoker Meaningful Use Info Meaningful Use Diagnoses (Choose all that apply): None applicable <Kenny Gentile - Last Filed: 03/01/19 16:53> Discharge Date and Diagnosis - Secondary Discharge Diagnosis Chronic Problems (Last Updated 02/28/19 @ 08:50 by GIBSON DanielC) Hypothyroidism (Chronic) CVA (cerebral vascular accident) (Chronic) Depression with anxiety (Chronic) Hyperlipidemia (Chronic) Hypertension (Chronic) History of TIAs (Chronic) Hospital Course and Treatment Summary of Care Provided: This patient was seen in conjunction with LYNDSEY Crawford . I have independently interviewed and examined the patient and reviewed pertinent historical, laboratory, and other data. Please refer to LYNDSEY Crawford note for details of this patient's presentation, findings, and recommendations. I have reviewed LYNDSEY Crawford note and concur with documented findings. In brief, patient is a 78-year-old lady treated with shortness of breath found to have new onset with RVR and admitted to a monitored bed for subsequent management 1. New onset A. fib with RVR 2. Previous history of CVA 3. Hypothyroidism 4. Essential hypertension 5. Dyslipidemia 6. Depression with anxiety Hospital course: As documented above by Jenni Du NP?C - Physical Exam Vital Signs Temp Pulse Resp BP Pulse Ox 98 F 84 16 121/65 H 99 03/01/19 09:40 03/01/19 09:40 03/01/19 09:40 03/01/19 09:40 03/01/19 09:40 Oxygen Flow Rate (L/min) 2 Oxygen Delivery Method Room Air Weight: 59.1 kg Body Mass Index (BMI) 20.4 Finger Stick Blood Glucose 75 Intake and Output for Last 24 Hours 02/27/19 02/28/19 03/01/19 23:59 23:59 23:59 Intake Total 596 / 596 1879 / 1879 20 Balance 596 / 596 1878 Laboratory Tests Past 24 Hrs 03/01/19 06:07 Sodium 142 Potassium 3.5 Chloride 108 H Carbon Dioxide 26.0 Anion Gap 8 BUN 17 Creatinine 0.84 Estim Creat Clear Calc 50.67 Est GFR (MDRD) Af Amer 84 Est GFR (MDRD) Non-Af 70 BUN/Creatinine Ratio 20.3 H Glucose 83 Calcium 8.2 L Code Visit Inpatient E&M: 36368 Disch Hosp
--- NOTE | 2019-03-01 12:58 | CASEMGMT ---
This RN CM to room to discuss discharge plan with pt at this time and pt declines the need for any further therapy at this time. Pt states she has all the equipment she needs at home and states no need for anything further at this time. Pt is A/Ox4 at this time and states no further questions/concerns/needs at this time. SStaten LEON CM
== END 2019-03-01 13:55 | disposition home or self-care (01) | DRG 309 ==
LOC: ED 16:23 → PCU 22:18
PROVIDERS: Nurse Practitioner Family; Admitting Provider Internal Medicine; Emergency Provider Emergency Medicine; Family Provider Internal Medicine Infectious Disease; PCP Internal Medicine Infectious Disease; Visit Provider Internal Medicine
DX: I48.0 Paroxysmal atrial fibrillation (principal); I50.32 Chronic diastolic (congestive) heart failure; I11.0 Hypertensive heart disease with heart failure; E78.5 Hyperlipidemia, unspecified; R29.6 Repeated falls; E03.9 Hypothyroidism, unspecified; F41.8 Other specified anxiety disorders; F17.200 Nicotine dependence, unspecified, uncomplicated; Z86.73 Personal history of transient ischemic attack (TIA), and cerebral infarction without residual deficits; Z79.899 Other long term (current) drug therapy; Z79.82 Long term (current) use of aspirin; Z79.02 Long term (current) use of antithrombotics/antiplatelets
CPT/HCPCS: 36415; 71045; 71275; 80048; 83735; 84439; 84443; 84484; 85025; 85379; 93005; 99285; 99406; J7030; Q9967; A4216

== ENCOUNTER 2019-09-06 15:07 | Inpatient (IN) | payer MEDICARE, OTHER, SELFPAY ==
[2019-03-13 13:32] VITALS: BMI 20.7
[2019-09-06 14:51] VITALS: BP 138/49; PULSE 58; RESP 18; TEMP 36.5; O2SAT 99; BMI 20.9; BMI 21.0
--- NOTE | 2019-09-06 15:07 | MRI_ITS ---
We are attempting to reach an attending provider to discuss findings. An addendum with communication details will be sent when the communication is complete. STUDY: MRI BRAIN WITHOUT CONTRAST REASON FOR EXAM: Female, 78 years old. cva -- confusion today, no paralysis, vision, or speech change, hx prev strokes TECHNIQUE: Standardized multiplanar fat and water weighted pulse sequences were obtained. COMPARISON: CT of the brain February 08, 2019 FINDINGS: Moderate atrophy and diffuse periventricular white matter ischemic changes.. There is diffuse gliosis in the right frontal parietal region with encephalomalacia consistent with old infarct. There is also gliosis in left parietal lobe demonstrating restricted diffusion consistent with acute ischemic changes Normal bilateral basal ganglia. Normal thalami. There is no extra-axial fluid accumulation. Normal flow voids within the major intracranial circulation suggesting patency by spin echo criteria. Normal sella turcica, pituitary gland, infundibular stalk, optic chiasm and hypothalamus. Normal tectal plate and pineal gland. Normal midbrain, ravi and medulla. Normal cerebellum. Normal basal cisterns. Normal bilateral temporal bones. Normal bilateral internal auditory canals. There are postsurgical changes of the orbits Normal visualized paranasal sinuses. Normal calvarium and skull base. Normal visualized soft tissue structures. Normal visualized upper cervical spine. MRI/Brain without Contrast IMPRESSION: Atrophy and periventricular white matter ischemic changes with old right frontal parietal infarct and acute ischemic infarct in the left parietal lobe Electronically Signed: Derrell Geronimo MD at 18:33 EST , Service support ,
--- NOTE | 2019-09-06 15:07 | MRI_ITS ---
STUDY: MRA NECK WITH AND WITHOUT CONTRAST REASON FOR EXAM: Female, 78 years old. cva -- confusion today, no paralysis, vision, or speech change, hx prev strokes TECHNIQUE: 3-D [id number] (TOF) imaging was performed in an 1.5 T MRI scanner. dotarem 12ml iv was administered for the contrast enhanced images. COMPARISON: None. FINDINGS: RIGHT CAROTID ARTERIES: Normal right common carotid artery (CCA). Minor plaquing of the right common carotid bulb. Minor plaquing of the origin of the right internal carotid (ICA) artery without a hemodynamically significant stenosis. Normal visualized cervical portion of the right internal carotid artery. Normal origin of the right external carotid artery (ECA). LEFT CAROTID ARTERIES: Normal left common carotid artery (CCA). Minor plaquing of the left common carotid bulb. Minor plaquing of the origin of the left internal carotid (ICA) artery without a hemodynamically significant stenosis. Normal visualized cervical portion of the left internal carotid artery. Normal origin of the left external carotid artery (ECA). VERTEBRAL ARTERIES: Normal antegrade flow within the bilateral vertebral artery without a hemodynamically significant stenosis. MRI/MRA Neck WITH and W/O Contrast IMPRESSION: Mild atherosclerotic disease without evidence for hemodynamically significant stenosis utilizing NASCET criteria. Electronically Signed: Derrell Geronimo MD at 18:35 EST , Service support ,
--- NOTE | 2019-09-06 15:15 | ECHOD_ITS ---
Reason For Study: TIA/CVA Procedure This was a 2D Doppler, Color Flow transthoracic echocardiogram. Exam performed portable in patient room. Left Ventricle Normal LV size. The estimated ejection fraction is 60 %. Diastolic function is indeterminate. No regional wall motion abnormalities noted. Right Ventricle Normal RV size. Normal systolic function. Atria The left atrium is moderately enlarged. The right atrium is mildly enlarged. No doppler evidence for ASD. Mitral Valve There is no mitral valve stenosis. Mild-Moderate (1-2+) mitral valve insufficiency. Tricuspid Valve There is no tricuspid stenosis. Mild tricuspid valve insufficiency. Pulmonary artery systolic pressure is 30 mmHg. Aortic Valve Trisinus/trileaflet aortic valve. 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 There is no aortic stenosis. Trivial aortic valve insufficiency. Pulmonic Valve There is no pulmonic valvular stenosis. No pulmonic valve insufficiency. Great Vessels Normal aortic root. Pericardium/Pleural No pericardial effusion. MMode/2D Measurements & Calculations LVIDd: 4.5 cm IVSd: 0.93 cm Ao root diam: 2.9 cm LVIDs: 2.8 cm LVPWd: 0.77 cm RVDd: 2.4 cm FS: 36.6 % LAV(MOD-bp): 57.3 ml LVAd ap4: 19.3 cm2 SV(MOD-sp4): 26.5 ml LAV(MOD-bp) Indexed: 34.0 ml/m2 EDV(MOD-sp4): 49.0 ml LAV(MOD-sp2): 71.4 ml EDV(sp4-el): 48.7 ml LAV(MOD-sp4): 42.0 ml LVAs ap4: 11.9 cm2 ESV(MOD-sp4): 22.5 ml ESV(sp4-el): 21.7 ml EF(MOD-sp4): 54.0 % EF(sp4-el): 55.4 % SV(sp4-el): 27.0 ml LA A4 area: 16.8 cm2 LA dimension(2D): 4.8 cm RA A4 area: 16.0 cm2 Doppler Measurements & Calculations MV E max luis a: 108.4 cm/sec Lat Peak E' Luis A: 9.6 cm/sec Med Peak E' Luis A: 6.8 cm/sec MV A max luis a: 29.7 cm/sec E/E' lat: 11.3 E/E' med: 15.8 MV E/A: 3.7 Ao V2 max: 141.9 cm/sec LV V1 max: 89.3 cm/sec PA V2 max: 58.7 cm/sec Ao max P.1 mmHg LV V1 max P.2 mmHg Ao V2 mean: 97.0 cm/sec Ao mean P.1 mmHg Ao V2 VTI: 32.7 cm TR max luis a: 270.1 cm/sec TR max P.2 mmHg Interpretation Summary The estimated ejection fraction is 60 %. Diastolic function is indeterminate. The left atrium is moderately enlarged. The right atrium is mildly enlarged. Mild-Moderate (1-2+) mitral valve insufficiency. Mild tricuspid valve insufficiency. Pulmonary artery systolic pressure is 30 mmHg. 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 Trivial aortic valve insufficiency. Ordering Physician: Michelle Tineo Referring Physician: Nayana Adam Performed By: Pretty Rosales, RDCS, RVT
--- NOTE | 2019-09-06 15:16 | MRI_ITS ---
STUDY: MRA OF THE HEAD WITHOUT CONTRAST REASON FOR EXAM: Female, 78 years old. cva -- confusion today, no paralysis, vision, or speech change, hx prev strokes TECHNIQUE: 3-D [id number] (TOF) imaging was performed with MIPs. The study was performed unenhanced. COMPARISON: None. FINDINGS: Normal bilateral petrous carotid arteries. Normal right cavernous carotid artery with a normal supraclinoid bifurcation. Normal left cavernous carotid artery with a normal supraclinoid bifurcation. Normal right A1 segments of the anterior cerebral artery. Normal left A1 segments of the anterior cerebral artery. Anterior communicating artery not visualized consistent with normal variant.). Normal bilateral A2 segments of the anterior cerebral arteries. Normal right M1 and M2 segments of the middle cerebral arteries, with a normal M1 bifurcation. Normal left M1 and M2 segments of the middle cerebral arteries, with a normal M1 bifurcation. Posterior communicating arteries are not identified consistent with normal variant. Normal bilateral vertebral arteries. Normal basilar artery with a normal basilar bifurcation. The visualized bilateral superior cerebellar (SCA) arteries are normal. Normal bilateral P1, P2 and visualized P3 segments of the posterior cerebral arteries. There is no demonstrated aneurysm of the [place]. There is no major vessel occlusion or hemodynamically significant stenosis. There is no demonstrated abnormality of the visualized brain. MRI/MRA Head ONLY without Contrast IMPRESSION: Normal MRA of the head Electronically Signed: Derrell Geronimo MD at 18:34 EST , Service support ,
--- NOTE | 2019-09-06 15:31 | HP.PCM_ITS ---
Problem List (1) Essential hypertension Status: Chronic (2) Paroxysmal atrial fibrillation Status: Chronic (3) CVA (cerebral vascular accident) Status: Acute Qualifiers: CVA mechanism: unspecified Qualified Code(s): I63.9 - Cerebral infarction, unspecified (4) Hyperlipidemia Status: Chronic Qualifiers: Hyperlipidemia type: unspecified Qualified Code(s): E78.5 - Hyperlipidemia, unspecified (5) Anxiety and depression Status: Chronic (6) Hypothyroidism Status: Chronic Qualifiers: Hypothyroidism type: unspecified Qualified Code(s): E03.9 - Hypothyroidism, unspecified History of Present Illness Date of Admission: 09/06/19 Chief Complaint: Slurred speech - 1 day The patient is a 78 year old F with PMHx of paroxysmal atrial fibrillation, 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 Patient is a poor historian. Her son was not available to give collaborative history. She was last known to be well before 9 AM. She was seen [facility] and transferred here. Her NIHSS score was 4. Vitals show temperature of 97.7F, heart rate was 58, blood pressure was 138/49, respiratory rate 18, SPO2 99% on room air. Labs done in pulmonary in hospital showed RBC count 7.2, hemoglobin 12.2, platelet 407, 140, potassium 4.0, chloride 107, bicarbonate 26.1, BUN 10, creatinine 0.9, LFTs were unremarkable. TSH was 1.24. EKG shows normal sinus rhythm, bradycardia, no acute ST-T changes. Past Medical History Past Medical History (Chronic Problems): Chronic Problems (Last Reviewed 03/13/19 @ 14:16 by Diego Sanchez MD) Anxiety and depression (Chronic) Hypothyroidism (Chronic) Essential hypertension (Chronic) Paroxysmal atrial fibrillation (Chronic) Hyperlipidemia (Chronic) Medical History: Medical History (Last Reviewed 03/13/19 @ 14:16 by Diego Sanchez MD) Essential hypertension (Chronic) I10 Paroxysmal atrial fibrillation (Chronic) I48.0 CVA (cerebral vascular accident) (Acute) I63.9 Hyperlipidemia (Chronic) E78.5 Depression with anxiety F41.8 History of TIAs Z86.73 Hypothyroidism E03.9 Allergies Egg Derived Allergy (Severe, Verified 03/13/19 13:38) swelling alcohol Allergy (Verified 03/13/19 13:37) Rash NSAIDS (Non-Steroidal Anti-Inflamma Adverse Reaction (Verified 03/13/19 13:37) instant headache Home Medications: Ambulatory Orders Medication Instructions Recorded Acetaminophen [Tylenol Arthritis] 650 mg PO Q6H PRN PRN 02/08/19 Cyanocobalamin (Vitamin B-12) 1,000 mcg PO DAILY 02/08/19 [B-12] Levothyroxine Sodium [Synthroid] 75 mcg PO QHS 02/08/19 Lutein/Zeaxanthin [Ocuvite Lutein 1 cap PO DAILY 02/08/19 25-5 mg Softgel] Paroxetine HCl 40 mg PO DAILY 02/08/19 Tolterodine Tartrate [Tolterodine 4 mg PO DAILY 02/08/19 Tartrate ER] Trazodone HCl 150 mg PO QHS 02/08/19 Clonazepam 0.5 mg PO BID PRN #0 02/09/19 atorvastatin 20 mg tablet 80 mg PO QHS #30 tab 03/13/19 Apixaban [Eliquis] 5 mg PO DAILY 09/06/19 Diltiazem HCl [Diltiazem 24Hr ER 240 mg PO DAILY 09/06/19 (Cd)] Minocycline HCl 1 tab PO DAILY 09/06/19 Surgical History: Surgical History (Last Reviewed 03/13/19 @ 14:16 by Diego Sanchez MD) History of cholecystectomy Z90.49 History of hysterectomy Z90.710 History of thyroidectomy Z90.09 Surgical History: cholecystectomy, hysterectomy, - - s/p thyroidectomy Psychiatric History: No pertinent 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 Lives: Spouse/ Significant Other Smoking Status: Current every day smoker Tobacco Use: Cigarettes Alcohol: Occasional Drugs: Marijuana - *Family History Maternal Family History: Family History (Last Reviewed 03/13/19 @ 14:16 by Diego Sanchez MD) Father Hypertension Mother Hypertension CAD (coronary artery disease) Brother Heart disease Sister Heart disease History Items: Heart Disease, Hypertension Paternal Family History: Family History (Last Reviewed 03/13/19 @ 14:16 by Diego Sanchez MD) Father Hypertension Mother Hypertension CAD (coronary artery disease) Brother Heart disease Sister Heart disease History Items: Hypertension Sibling Family History: Family History (Last Reviewed 03/13/19 @ 14:16 by Diego Sanchez MD) Father Hypertension Mother Hypertension CAD (coronary artery disease) Brother Heart disease Sister Heart disease History Items: Heart Disease Review of Systems Constitutional: Denies: Anorexia, Chills, Fever, Malaise, Weakness, Weight Change, Fatigue Eyes: Denies: Blurred vision, Cataracts, Conjunctivae Inflammation, Pain, Redness, Vision Change HEENT: Denies: Difficulty Hearing, Difficulty Swallowing, Head Aches, Hearing Changes, Sinus Congestion, Sinus Drainage Cardiovascular: Denies: Chest Pain, Claudication, Orthopnea, Palpitations, Paroxysmal Noc. Dyspnea Respiratory: Denies: Cough, Shortness of Breath, Shortness of breath at rest, Shortness of breath upon exertion, Sputum production Gastrointestinal: Denies: Abdominal Pain, Hematemesis, Hematochezia, Nausea, Vomiting Genitourinary: Denies: Dysuria, Frequency, Incontinence Musculoskeletal: Denies: Joint Pain, Joint stiffness, Joint swelling, Joint Tenderness Skin: Denies: Pruritis, Rash, Wounds Neurological: Reports: Slurred speech. Denies: Difficulty swallowing, Focal weakness, Numbness, Tingling Psychiatric: Denies: Anxiety, Depression, Homicidal Ideations, Suicidal Ideations Endocrine: Denies: Change in Body Habitus, Heat/ Cold Intolerance Hematologic/ Lymphatic: Denies: Easy Bruising, Easy Bleeding VTE Information - Inpt Only VTE Present on Admission: No VTE Pharm Prophylaxis ordered?: Yes - Physical Exam Vitals/I&O's: Body Mass Index (BMI) 20.7 Finger Stick Blood Glucose 75 General: Alert, Oriented x3, Cooperative, No apparent distress HEENT: Atraumatic, PERRLA, EOMI, Normocephalic Oral: Moist Mucosa Neck: Supple Lungs: Clear to auscultation, Normal air movement Cardiovascular: Regular rate, Regular Rhythm, Normal S1, Normal S2, No murmurs Abdomen: Bowel Sounds Present, Soft, Non Tender, Non-Distended, No Hepato- splenomegaly Extremities: No edema Skin: No rashes, No breakdown Musculoskeletal: No Tenderness to Palpation of Joints or Extremities Lymphatic: No Cervical, Supraclavicular, or Inguinal Adenopathy Neurological: Cranial nerves II-XII grossly intact, Neuro grossly intact Psych/Mental Status: Normal Affect, Appropriate Current Medications Acetaminophen (Tylenol) 650 mg PO Q6H PRN PRN PRN Reason: Pain Score 1-10/Temp > 100.7 F Acetaminophen (Tylenol) 650 mg RECTAL Q4H PRN PRN PRN Reason: Headache/Temp>99F Acetaminophen (Tylenol Liquid) 650 mg NG Q4H PRN PRN PRN Reason: Headache/Temp>99F Aspirin (Aspirin, Baby) 81 mg PO DAILY@0800 [facility] Atorvastatin Calcium (Lipitor) 40 mg PO QHS [facility] Famotidine (Pepcid) 20 mg PO DAILY [facility] Heparin Sodium (Porcine) (Heparin Na) 5,000 unit SC Q8 [facility] Sodium Chloride () 1,000 mls @ 75 mls/hr IV .[id number] [facility] Stop: 09/07/19 04:29 Ondansetron HCl (Zofran) 4 mg IV Q8H PRN PRN PRN Reason: NAUSEA/VOMITING Assessment/Plan All Active Problems (Last Reviewed 03/13/19 @ 14:16 by Diego Sanchez MD) Sinus tachycardia (Acute) CVA (cerebral vascular accident) (Acute) The patient is a 78 year old F with PMHx of paroxysmal atrial fibrillation, 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 1. Acute TIA/CVA, h/o previous CVA, h/o paroxysmal atrial fibrillation Supposed to be on Eliquis Last know well was before 9am; NIHSS in [place] ED was 4; NIHSS on admission is 2 Will get MRI of brain, MRA head and neck, 2D-ECHO, PT/OT/ST, continue per stroke protocol 2. Paroxysmal atrial fibrillation, now in NSR, will hold cardizem to allow for permissive hypertension, on Eliquis 3. Hypertension, controlled, will allow for permissive hypertension 4. Hyperlipidemia, will start on statin 5. Anxiety/depression, continue on trazodone and clonazepam 6. DVT PPx- on apixaban Code Visit Inpatient E&M: 25959 Init Hosp L2
[2019-09-06 17:00] VITALS: BMI 20.9
[2019-09-06 18:17] VITALS: PULSE 56
[2019-09-06 18:25] VITALS: BP 149/61; PULSE 60; RESP 15; TEMP 37.1; O2SAT 96
[2019-09-06] MEDS: 0.9% Saline Lock 10 ML Syringe IV (18:28)
[2019-09-06] MEDS: 0.9% Normal Saline 1,000 ML 75 ML IV (18:28)
[2019-09-06] MEDS: APIXABAN 2.5 MG TABLET PO (18:29)
[2019-09-06 18:53] VITALS: PULSE 59
[2019-09-06 20:46] VITALS: BMI 20.9
[2019-09-06 22:25] VITALS: BP 130/58; PULSE 54; RESP 20; TEMP 36.3; O2SAT 98
[2019-09-06] MEDS: Levothyroxine 75 MCG Tablet PO (22:33)
[2019-09-06] MEDS: traZODone 50 MG Tablet 150 MG PO (22:33)
[2019-09-06] MEDS: Atorvastatin Calcium 80 MG Tablet PO (22:33)
[2019-09-07] VITALS (9 sets, daily range): BP systolic 129–147; BP diastolic 53–75; PULSE 50–56; RESP 12–18; TEMP 36.7–37.5; O2SAT 97–100; BMI 20.9
[2019-09-07 06:51] LABS: Absolute Lymphocyte Count 2.11 X10^3/uL (0.83-4.51); Absolute Neutrophil Count 3.5 X10^3/uL (2.0-7.7); Basophil# 0.02 X10^3/uL; Basophil% 0.3 % (0-1); Eosinophil# 0.23 X10^3/uL; Eosinophils% 3.7 % (0-5); Hematocrit 33.1 % (37-47); Hemoglobin 10.7 g/dL (12.0-15.0); Lymphocyte # 2.11 X10^3/ul (4.0); Lymphocyte % 33.7 % (19-41); Mean Corp Hgb Conc 32.3 g/dL (32-36); Mean Corpuscular Hgb 29.7 pg (27.0-32.0); Mean Corpuscular Volume 91.9 fL (81-99); Mean Platelet Vol. 9.4 fl (6.2-12.0); Monocyte# 0.45 X10^3/uL; Monocyte% 7.2 % (0-10); NRBC Flagged by Analyzer 0 % (0-5); Neutrophil # 3.45 X10^3/uL (2.7-7.7); Neutrophil % 54.9 % (47-70); Platelet Count 332 K/mm3 (150-450); RBC Distribution Width CV 13.6 % (11.6-14.6); RBC Distribution Width SD 46.6 fl (35.1-43.9); White Blood Count 6.3 K/mm3 (4.4-11.0)
[2019-09-07 07:26] LABS: ALB/GLOB Ratio 0.6 RATIO (0.9-2.4); AST(SGOT) 21 U/L (15-37); Alanine Aminotransfer ALT/SGPT 13 U/L (13-56); Albumin, Serum 2.6 g/dL (3.2-5.0); Alkaline Phosphatase 89 U/L (45-117); Anion Gap 4 (5-15); BUN 10 mg/dL (7-18); BUN/Creat Ratio 12.4 RATIO (10-20); Chloride 112 mmol/L (98-107); Cholesterol 115 mg/dL (200); Creatinine, Serum 0.81 mg/dL (0.55-1.02); EST Glomerular Filtration Rate 73 mL/min (>60); Est Glom Filt Rate - Afr Amer 88 mL/min (>60); Estimated Creatinine Clearance 54.68 ml/min; Free T3 1.9 pg/mL (2.18-3.98); Globulin 4.1 g/dL (2.2-4.2); Glucose 89 mg/dL (74-106); High Density Lipoprotein 45 mg/dL; Potassium 3.9 mmol/L (3.5-5.1); Protein, Total 6.7 g/dL (6.4-8.2); Sodium Level 141 mmol/L (136-145); T4 Free Direct 1.21 ng/dL (0.76-1.46); Thyroid Stim Hormone (TSH) 0.57 uIU/mL (0.358-3.74); Triglycerides 90 mg/dL; Very Low Density Lipoprotein 18 mg/dL (5-40)
--- NOTE | 2019-09-07 08:21 | PCM.PN.HOSP ---
Reason for Visit: Follow-up on acute stroke Subjective: Patient was seen and examined. Denied any new complaints. Her NIHSS score is 1 Objective: Physical exam: General: Alert, Oriented x3, Cooperative, No apparent distress HEENT: Atraumatic, PERRLA, EOMI, Normocephalic Oral: Moist Mucosa Neck: Supple Lungs: Clear to auscultation, Normal air movement Cardiovascular: Regular rate, Regular Rhythm, Normal S1, Normal S2, No murmurs Abdomen: Bowel Sounds Present, Soft, Non Tender, Non-Distended, No Hepato-splenomegaly Extremities: No edema Skin: No rashes, No breakdown Musculoskeletal: No Tenderness to Palpation of Joints or Extremities Lymphatic: No Cervical, Supraclavicular, or Inguinal Adenopathy Neurological: Cranial nerves II-XII grossly intact, Neuro grossly intact Psych/Mental Status: Normal Affect, Appropriate Vitals/I&O's: Vital Signs Temp Pulse Resp BP Pulse Ox 98.0 F 51 L 18 142/75 H 97 09/07/19 06:15 09/07/19 07:00 09/07/19 06:15 09/07/19 06:15 09/07/19 06:15 Oxygen Delivery Method Room Air Weight: 61.5 kg Body Mass Index (BMI) 20.9 Finger Stick Blood Glucose 75 Intake and Output for Last 24 Hours 09/05/19 09/06/19 09/07/19 23:59 23:59 23:59 Intake Total 490 / 490 0 / 0 Balance 490 / 490 0 / 0 Laboratory Results 09/07/19 06:26: WBC 6.3, RBC 3.60 L, Hgb 10.7 L, Hct 33.1 L, MCV 91.9, MCH 29.7, MCHC 32.3, RDW Std Deviation 46.6 H, RDW Coeff of Patrick 13.6, Plt Count 332, MPV 9.4, Immature Gran % (Auto) 0.200, Neut % (Auto) 54.9, Lymph % (Auto) 33.7, Morgan % (Auto) 7.2, Eos % (Auto) 3.7, Baso % (Auto) 0.3, Absolute Neuts (auto) 3.5, Absolute Lymphs (auto) 2.11, Nucleated RBC % 0 09/07/19 06:26: Sodium 141, Potassium 3.9, Chloride 112 H, Carbon Dioxide 25.0, Anion Gap 4 L, BUN 10, Creatinine 0.81, Estim Creat Clear Calc 54.68, Est GFR (MDRD) Af Amer 88, Est GFR (MDRD) Non-Af 73, BUN/Creatinine Ratio 12.4, Glucose 89, Calcium 8.0 L, Total Bilirubin 0.40, AST 21, ALT 13, Alkaline Phosphatase 89, Total Protein 6.7, Albumin 2.6 L, Globulin 4.1, Albumin/Globulin Ratio 0.6 L, Triglycerides 90, Cholesterol 115, LDL Cholesterol 52, VLDL Cholesterol 18, HDL Cholesterol 45, TSH 0.57, Free T4 1.21, Free T3 pg/dL 1.9 L 09/07/19 06:26: Hemoglobin A1c Pending Current Medications Acetaminophen (Tylenol) 650 mg PO Q6H PRN PRN PRN Reason: Pain Score 1-10/Temp > 100.7 F Acetaminophen (Tylenol) 650 mg RECTAL Q4H PRN PRN PRN Reason: Headache/Temp>99F Acetaminophen (Tylenol Liquid) 650 mg NG Q4H PRN PRN PRN Reason: Headache/Temp>99F Apixaban (Eliquis) 2.5 mg PO BID [facility] Last Admin: 09/06/19 18:29 Dose: 2.5 mg Documented by: Aspirin (Aspirin, Baby) 81 mg PO DAILY@0800 [facility] Atorvastatin Calcium (Lipitor) 80 mg PO QHS [facility] Last Admin: 09/06/19 22:33 Dose: 80 mg Documented by: Clonazepam (Klonopin) 0.5 mg PO BID PRN PRN PRN Reason: ANXIETY Cyanocobalamin (Vitamin B12) 1,000 mcg PO DAILY [facility] Famotidine (Pepcid) 20 mg PO DAILY [facility] Levothyroxine Sodium (Synthroid) 75 mcg PO DAILY@2200 [facility] Last Admin: 09/06/19 22:33 Dose: 75 mcg Documented by: Multivitamins/Minerals (Healthy Eyes (Bkc)) 1 capsule PO DAILY [facility] Nicotine (Nicoderm Cq (Pbkc)) 21 mg TRANSDERM. DAILY [facility] Nicotine Polacrilex ([place] Nicotine (Bkc)) 2 mg PO Q2H PRN PRN PRN Reason: Nicotine Craving Non-Formulary Medication (Minocycline Hcl) 1 tab PO DAILY [facility] Ondansetron HCl (Zofran) 4 mg IV Q8H PRN PRN PRN Reason: NAUSEA/VOMITING Paroxetine HCl (Paxil) 40 mg PO DAILY [facility] Sodium Chloride () 10 - 40 ml IV UD PRN PRN Reason: SALINE FLUSH Last Admin: 09/06/19 18:28 Dose: 10 ml Documented by: Tolterodine Tartrate (Detrol La) 4 mg PO DAILY [facility] Trazodone HCl (Desyrel) 150 mg PO QHS [facility] Last Admin: 09/06/19 22:33 Dose: 150 mg Documented by: STROKE Vital Signs/Narrative: Vital Signs Temp Pulse Resp BP Pulse Ox 09/07/19 07:00 51 L 09/07/19 06:15 98.0 F 50 L 18 142/75 H 97 Medical Necessity - Tobacco Use Smoking Status: Current every day smoker Tobacco Use: Cigarettes Assessment/Plan All Active Problems (Last Reviewed 03/13/19 @ 14:16 by Diego Sanchez MD) Sinus tachycardia (Acute) CVA (cerebral vascular accident) (Acute) The patient is a 78 year old F with PMHx of paroxysmal atrial fibrillation, 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 1. Acute left parietal infarct, h/o previous 2 CVA, h/o paroxysmal atrial fibrillation Supposed to be on Eliquis 2.5mg po bid; rather has been on 5mg daily; patient states she has been compliant with her medications MRI of the head and neck is negative, MRI of the head confirms left new parietal infarct, NIHSS score is 0-1. Total cholesterol is 115, LDL is 52, HDL is 45, HbA1c 6.1 Continue on Eliquis, aspirin, statin 2. Paroxysmal atrial fibrillation, now in NSR, Will continue to hold Cardizem as patient is relatively bradycardic; may resume later Continue on Eliquis 3. Hypertension, controlled, continue to monitor off medications 4. Hyperlipidemia, continue on statin 5. Anxiety/depression, continue on trazodone and clonazepam 6. DVT PPx- on apixaban Code Visit Inpatient E&M: 03688 Subs Hosp L2
[2019-09-07] MEDS: Aspirin 81 MG TAB.CHEW PO (09:26)
[2019-09-07] MEDS: Multivitamin (Healthy Eyes) Capsule 1 CAP PO (09:27)
[2019-09-07] MEDS: Paroxetine 20 MG Tablet 40 MG PO (09:27)
[2019-09-07] MEDS: Tolterodine Tartrate 4 MG CAP.SA PO (09:27)
[2019-09-07] MEDS: APIXABAN 2.5 MG TABLET PO ×2 (09:27→21:34)
[2019-09-07] MEDS: Famotidine 20 MG Tablet PO (09:28)
[2019-09-07] MEDS: Cyanocobalamin 500 MCG Tablet 1000 MCG PO (09:28)
[2019-09-07 09:39] LABS: Hemoglobin A1c 6.1 % (4.2-6.3)
[2019-09-07] MEDS: Mag Hydrox/Al Hydrox/Simeth 30 ML UDC PO (11:18)
[2019-09-07] MEDS: traZODone 50 MG Tablet 150 MG PO (21:33)
[2019-09-07] MEDS: Levothyroxine 75 MCG Tablet PO (21:34)
[2019-09-07] MEDS: Atorvastatin Calcium 80 MG Tablet PO (21:35)
[2019-09-08 03:00] VITALS: BP 142/66; PULSE 50; PULSE 53; RESP 14; TEMP 37.2; O2SAT 99
[2019-09-08 03:49] VITALS: BMI 20.9
[2019-09-08 07:00] VITALS: PULSE 50
[2019-09-08 08:33] VITALS: BP 135/57; PULSE 50; RESP 14; TEMP 36.6; O2SAT 99
[2019-09-08] MEDS: Famotidine 20 MG Tablet PO (08:52)
[2019-09-08] MEDS: Multivitamin (Healthy Eyes) Capsule 1 CAP PO (08:52)
[2019-09-08] MEDS: Paroxetine 20 MG Tablet 40 MG PO (08:52)
[2019-09-08] MEDS: Aspirin 81 MG TAB.CHEW PO (08:52)
[2019-09-08] MEDS: Cyanocobalamin 500 MCG Tablet 1000 MCG PO (08:52)
[2019-09-08] MEDS: APIXABAN 2.5 MG TABLET PO (08:52)
[2019-09-08] MEDS: Tolterodine Tartrate 4 MG CAP.SA PO (08:52)
--- NOTE | 2019-09-08 10:18 | PCM.DC ---
- Discharge Diagnoses Current Active Problems: Current Active and Chronic Problems (Last Reviewed 03/13/19 @ 14:16 by Diego Sanchez MD) Anxiety and depression (Chronic) Hypothyroidism (Chronic) You will use the following diet at home:: Cardiac Your food should be the consistency of: Regular Your liquids should be the consistency of: Regular/Thin Call your doctor if you observe: Fever of 101 or Higher, Shortness of breath, Dizziness, Fainting spells, Swelling in the ankles, Chest pain, Increased palpitations (irregular heartbeat) Allergies/Adverse Reactions: Allergies Egg Derived Allergy (Severe, Verified 03/13/19 13:38) swelling alcohol Allergy (Verified 03/13/19 13:37) Rash NSAIDS (Non-Steroidal Anti-Inflamma Adverse Reaction (Verified 03/13/19 13:37) instant headache Medications to take at Discharge Acetaminophen [Tylenol Arthritis] 650 mg PO Q6H PRN PRN 02/08/19 Cyanocobalamin (Vitamin B-12) [B-12] 1,000 mcg PO DAILY 02/08/19 Levothyroxine Sodium [Synthroid] 75 mcg PO QHS 02/08/19 Lutein/Zeaxanthin [Ocuvite Lutein 25-5 mg Softgel] 1 cap PO DAILY 02/08/19 Paroxetine HCl 40 mg PO DAILY 02/08/19 Tolterodine Tartrate [Tolterodine Tartrate ER] 4 mg PO DAILY 02/08/19 Trazodone HCl 150 mg PO QHS 02/08/19 Clonazepam 0.5 mg PO BID PRN #0 02/09/19 atorvastatin 20 mg tablet 80 mg PO QHS #30 tab 03/13/19 Diltiazem HCl [Diltiazem 24Hr ER (Cd)] 240 mg PO DAILY 09/06/19 Minocycline HCl 1 tab PO DAILY 09/06/19 Apixaban [Eliquis] 2.5 mg PO BID #0 09/08/19 Aspirin [Aspirin, Baby] 81 mg PO DAILY@0800 #30 tab.chew 09/08/19 The following prescriptions were given: Aspirin [Aspirin, Baby] 81 mg PO DAILY@0800 #30 tab.chew Transmission Status: Pending to [id number] Primary Care Physician: Nayana Adam MD [Primary Care Provider] - Please follow up with your Primary Care Physician in: 3-5 days Test Results: Test results from this visit will be discussed in further detail at your follow-up appointment, if applicable. Please Follow Up With: Patrice Hawley MD When: 2-4 weeks
--- NOTE | 2019-09-08 10:23 | DS.PCM_ITS ---
Discharge Date and Diagnosis Date of Admission: 09/06/19 Date of Discharge: 09/08/19 - Secondary Discharge Diagnosis Chronic Problems (Last Reviewed 03/13/19 @ 14:16 by Diego Sanchez MD) Anxiety and depression (Chronic) Hypothyroidism (Chronic) Essential hypertension (Chronic) Paroxysmal atrial fibrillation (Chronic) Hyperlipidemia (Chronic) Hospital Course and Treatment Imaging Results: MRI Brain: IMPRESSION: Atrophy and periventricular white matter ischemic changes with old right frontal parietal infarct and acute ischemic infarct in the left parietal lobe MRA Head: IMPRESSION: Normal MRA of the head MRA Neck: IMPRESSION: Mild atherosclerotic disease without evidence for hemodynamically significant stenosis utilizing NASCET criteria. Echo: Interpretation Summary The estimated ejection fraction is 60 %. Diastolic function is indeterminate. The left atrium is moderately enlarged. The right atrium is mildly enlarged. Mild-Moderate (1-2+) mitral valve insufficiency. Mild tricuspid valve insufficiency. Pulmonary artery systolic pressure is 30 mmHg. 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 Trivial aortic valve insufficiency. 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 Patient is a poor historian. Her son was not available to give collaborative history. She was last known to be well before 9 AM. She was seen [facility] and transferred here. Her NIHSS score was 4. Vitals show temperature of 97.7F, heart rate was 58, blood pressure was 138/49, respiratory rate 18, SPO2 99% on room air. Labs done in pulmonary in hospital showed RBC count 7.2, hemoglobin 12.2, platelet 407, 140, potassium 4.0, chloride 107, bicarbonate 26.1, BUN 10, creatinine 0.9, LFTs were unremarkable. TSH was 1.24. EKG shows normal sinus rhythm, bradycardia, no acute ST-T changes. Hospital Course: 1. Acute left parietal infarct/paroxysmal A. [id number] female who is a poor historian presented to the hospital with strokelike symptoms. She was confused and had slurred speech and she was transferred to this hospital for an MRI. The MRI showed a left parietal stroke. In discussing her case with her, she states that she has been taking her Eliquis once a day instead of the 2.5 mg twice a day. It was discussed with her that she needs to go back to 2.5 twice a day as well as aspirin. She also admits to smoking and that she will not quit and that she drinks on occasion and also smokes marijuana and she will not quit that either. I expressed to her that if she does not make lifestyle modifications then we will be able to prevent future stroke and she seems indifferent to this. She does understand the risks and benefits of not complying with treatment and lifestyle modifications therefore she is competent to make her decisions. She has completely recovered and has an NIH of 0 today. She will continue with Lipitor, as well as her Eliquis and aspirin. She needs to follow-up with a neurologist as an outpatient. I discussed the plan with discharge to her including the risks and benefits today and she expressed understanding. 2. Her other medical diagnoses were evaluated and her home medications were continued where appropriate - Physical Exam Vitals/I&O's: Vital Signs Temp Pulse Resp BP Pulse Ox 97.8 F 50 L 14 135/57 H 99 09/08/19 08:33 09/08/19 08:33 09/08/19 08:33 09/08/19 08:33 09/08/19 08:33 Oxygen Delivery Method Room Air Weight: 132 lb 15.02 oz Body Mass Index (BMI) 20.9 Finger Stick Blood Glucose 75 Intake and Output for Last 24 Hours 09/06/19 09/07/19 09/08/19 23:59 23:59 23:59 Intake Total 490 / 490 480 / 480 Balance 490 / 490 480 / 480 General: Alert, Oriented x3, Cooperative, No apparent distress HEENT: Atraumatic, PERRLA, EOMI, Normocephalic Oral: Moist Mucosa Neck: Supple, No JVD Lungs: Clear to auscultation, Normal air movement, No rhonchi, No wheeze, No rales Cardiovascular: Regular rate, Regular Rhythm, Normal S1, Normal S2, No murmurs Abdomen: Soft, Non Tender, Non-Distended, No Hepato-splenomegaly Extremities: No edema, Capillary Refill Less than 3 Seconds Skin: No rashes, No breakdown Neurological: Cranial nerves II-XII grossly intact, Neuro grossly intact, Motor Exam 5/5 strength throughout, Sensory exam intact to light touch and pain, - - NIH of 0 Psych/Mental Status: Normal Affect, Appropriate Current Medications Acetaminophen (Tylenol) 650 mg PO Q6H PRN PRN PRN Reason: Pain Score 1-10/Temp > 100.7 F Acetaminophen (Tylenol) 650 mg RECTAL Q4H PRN PRN PRN Reason: Headache/Temp>99F Al Hydroxide/Mg Hydroxide (Mylanta Ii) 30 ml PO Q6H PRN PRN PRN Reason: DYSPEPSIA Last Admin: 09/07/19 11:18 Dose: 30 ml Documented by: Apixaban (Eliquis) 2.5 mg PO BID [facility] Last Admin: 09/08/19 08:52 Dose: 2.5 mg Documented by: Aspirin (Aspirin, Baby) 81 mg PO DAILY@0800 [facility] Last Admin: 09/08/19 08:52 Dose: 81 mg Documented by: Atorvastatin Calcium (Lipitor) 80 mg PO QHS [facility] Last Admin: 09/07/19 21:35 Dose: 80 mg Documented by: Clonazepam (Klonopin) 0.5 mg PO BID PRN PRN PRN Reason: ANXIETY Cyanocobalamin (Vitamin B12) 1,000 mcg PO DAILY [facility] Last Admin: 09/08/19 08:52 Dose: 1,000 mcg Documented by: Famotidine (Pepcid) 20 mg PO DAILY [facility] Last Admin: 09/08/19 08:52 Dose: 20 mg Documented by: Levothyroxine Sodium (Synthroid) 75 mcg PO DAILY@2200 [facility] Last Admin: 09/07/19 21:34 Dose: 75 mcg Documented by: Multivitamins/Minerals (Healthy Eyes (Bkc)) 1 capsule PO DAILY [facility] Last Admin: 09/08/19 08:52 Dose: 1 capsule Documented by: Nicotine (Nicoderm Cq (Pbkc)) 21 mg TRANSDERM. DAILY [facility] Last Admin: 09/08/19 08:52 Dose: Not Given Documented by: Nicotine Polacrilex (Rugby Nicotine (Bkc)) 2 mg PO Q2H PRN PRN PRN Reason: Nicotine Craving Non-Formulary Medication (Minocycline Hcl) 1 tab PO DAILY [facility] Last Admin: 09/08/19 08:51 Dose: 1 tab Documented by: Ondansetron HCl (Zofran) 4 mg IV Q8H PRN PRN PRN Reason: NAUSEA/VOMITING Paroxetine HCl (Paxil) 40 mg PO DAILY [facility] Last Admin: 09/08/19 08:52 Dose: 40 mg Documented by: Sodium Chloride () 10 - 40 ml IV UD PRN PRN Reason: SALINE FLUSH Last Admin: 09/06/19 18:28 Dose: 10 ml Documented by: Tolterodine Tartrate (Detrol La) 4 mg PO DAILY [facility] Last Admin: 09/08/19 08:52 Dose: 4 mg Documented by: Trazodone HCl (Desyrel) 150 mg PO QHS [facility] Last Admin: 09/07/19 21:33 Dose: 150 mg Documented by: Call your doctor if you observe: Fever of 101 or Higher, Shortness of breath, Dizziness, Fainting spells, Swelling in the ankles, Chest pain, Increased palpitations (irregular heartbeat) Home Medications: Medications to take at Discharge Acetaminophen [Tylenol Arthritis] 650 mg PO Q6H PRN PRN 02/08/19 Cyanocobalamin (Vitamin B-12) [B-12] 1,000 mcg PO DAILY 02/08/19 Levothyroxine Sodium [Synthroid] 75 mcg PO QHS 02/08/19 Lutein/Zeaxanthin [Ocuvite Lutein 25-5 mg Softgel] 1 cap PO DAILY 02/08/19 Paroxetine HCl 40 mg PO DAILY 02/08/19 Tolterodine Tartrate [Tolterodine Tartrate ER] 4 mg PO DAILY 02/08/19 Trazodone HCl 150 mg PO QHS 02/08/19 Clonazepam 0.5 mg PO BID PRN #0 02/09/19 atorvastatin 20 mg tablet 80 mg PO QHS #30 tab 03/13/19 Diltiazem HCl [Diltiazem 24Hr ER (Cd)] 240 mg PO DAILY 09/06/19 Minocycline HCl 1 tab PO DAILY 09/06/19 Apixaban [Eliquis] 2.5 mg PO BID #0 09/08/19 Aspirin [Aspirin, Baby] 81 mg PO DAILY@0800 #30 tab.chew 09/08/19 Following Prescrptions Were Given to Patient: Aspirin [Aspirin, Baby] 81 mg PO DAILY@0800 #30 tab.chew Transmission Status: Pending to [id number] Primary Care Physician: Nayana Adam MD [Primary Care Provider] - Please follow up with your Primary Care Physician in: 3-5 days Please Follow Up With: Patrice Hawley MD When: 2-4 weeks Disposition: Home Minutes spent on discharge:: 35 Patient Condition:: Stable Medical Necessity - Tobacco Use Smoking Status: Current every day smoker Tobacco Use: Cigarettes Meaningful Use Info Meaningful Use Diagnoses (Choose all that apply): Ischemic CVA - CVA Therapy Assessed for PT,OT and/or ST?: Yes - Ischemic Stroke Antithrombotic order at d/c?: Yes Dx of Atrial fib/flutter?: Yes Anticoagulant at discharge?: Yes Statins at discharge?: Yes Primary Dx Acute Ischemic CVA?: Yes IV tPA ordered during stay?: No Reason IV t-PA not ordered: Treatment not Indicated Code Visit Inpatient E&M: 51225 Disch Hosp
[2019-09-08 11:26] VITALS: BMI 20.9
== END 2019-09-08 10:21 | disposition home or self-care (01) | DRG 66 ==
PROVIDERS: Admitting Provider Internal Medicine; PCP Internal Medicine Infectious Disease; Referring Provider Internal Medicine; Visit Provider Family Medicine
DX: I63.9 Cerebral infarction, unspecified (principal); R47.81 Slurred speech; R29.702 NIHSS score 2; Z91.14 Patient's other noncompliance with medication regimen; I48.0 Paroxysmal atrial fibrillation; I10 Essential (primary) hypertension; R00.0 Tachycardia, unspecified; Z86.73 Personal history of transient ischemic attack (TIA), and cerebral infarction without residual deficits; E78.5 Hyperlipidemia, unspecified; F41.8 Other specified anxiety disorders; E03.9 Hypothyroidism, unspecified; Z79.899 Other long term (current) drug therapy; Z79.01 Long term (current) use of anticoagulants; F17.210 Nicotine dependence, cigarettes, uncomplicated
CPT/HCPCS: 36415; 70544; 70549; 70551; 80053; 80061; 83036; 84439; 84443; 84481; 85025; 92523; 92610; 93306; 97161; 97165; 97530; 97802; A9575; J7030; A4216

== ENCOUNTER 2020-02-18 22:10 | Observation (INO) | payer MEDICARE, OTHER, SELFPAY ==
[2020-02-18 22:12] VITALS: BP 143/76; PULSE 51; RESP 11; TEMP 36.2; O2SAT 100; BMI 23.9
--- NOTE | 2020-02-18 22:13 | EKG12_ITS ---
Test Reason : NEURO Blood Pressure : / mmHG Vent. Rate : 050 BPM Atrial Rate : 050 BPM P-R Int : 168 ms QRS Dur : 084 ms QT Int : 550 ms P-R-T Axes : 074 050 049 degrees QTc Int : 501 ms Sinus bradycardia with sinus arrhythmia Low voltage QRS Prolonged QT Abnormal ECG Confirmed by ROCKY REYES ([id number]), editorial cartoonist ERICA ARAGON ([id number]) on 02/24/2020 12:13:32 PM Referred By: LICHA Confirmed By:ROCKY REYES
--- NOTE | 2020-02-18 22:13 | CT_ITS ---
We are attempting to reach an attending provider to discuss findings. An addendum with communication details will be sent when the communication is complete. HISTORY: STROKE, HX RIGHT MCA IN SEPTEMBER, NO OTHER HX GIVEN ADDITIONAL HISTORY: None provided. COMPARISON: MRI 09/06/2019. CT 02/09/2000 EXAMINATION/TECHNIQUE: CT Head or Brain W/O Contrast Injection. Axial, coronal and sagittal images. Number of images including paperwork: 242. A radiation dose optimization technique was used for this scan. FINDINGS: BRAIN: No acute hemorrhage or mass. No definite acute infarct; MRI more sensitive. White matter hypodensity is nonspecific but most commonly seen with chronic ischemic changes. Generalized atrophy. Small area of encephalomalacia in the left parietal lobe consistent with sequela of the acute infarct noted on previous MRI. VENTRICULAR SYSTEM: No hydrocephalus. PARANASAL SINUSES AND MASTOIDS: No air-fluid level in the imaged extent. ORBITS: Unremarkable imaged extent. SKELETON AND SOFT TISSUES: Calvarium intact. ASPECTS score: Not applicable. CT/Brain/Head without Contrast IMPRESSION: No acute intracranial abnormality. Chronic involutional and white matter changes. Individualized dose optimization techniques were used for this CT. at 2230 Reported and signed by: Vani Etienne MD Electronically Signed: Vani Etienne MD at 22:34 EDT Tel , Service support ,
--- NOTE | 2020-02-18 22:16 | ED.DCSUM_ITS ---
History of Present Illness Chief Complaint: Neuro S/Sx Informant: Patient, Family - son who dropped her off per staff Onset: Today - last seen normal 2 hrs prior to arrival, approx 1999 Context: - - unk onset; pt denies fall/injury/trauma Timing: Continuous Quality and Location: Left Arm Parasthesia, Left Leg Parasthesia, Left Arm Weakness, Slurred Speech Current Severity: Severe Maximum Severity: Severe Associated Symptoms: Headache, Nausea, Vomiting - before my son got home. Negative for: Chest Pain Narrative: Son came home to patient not acting right, last seen around 2 hours prior to that at her baseline. She was admitted here in September for stroke symptoms and diagnosed with right MCA and left parietal infarcts. She was not taking her Eliquis correctly at the time. It is unknown when her last dose of that was at this time, but aspirin was seen in her pill bottles. She continues to smoke. After returning from CT, patient indicates that she has been taking her Eliquis as prescribed, twice daily, and her last dose was this morning. Patient indicates that she has a rotator cuff problem in her left shoulder with chronic pain, but she had no neurologic deficits from her hospitalization for similar symptoms in September. - Past Medical History (1) CVA (cerebral vascular accident) Status: Chronic (2) Anxiety and depression Status: Chronic (3) Essential hypertension Status: Chronic (4) Hyperlipidemia Status: Chronic (5) Hypothyroidism Status: Chronic (6) Paroxysmal atrial fibrillation Status: Chronic Past Medical History - Allergies and Home Meds Allergies/Adverse Reactions: Allergies Egg Derived Allergy (Severe, Verified 02/18/20 22:11) swelling alcohol Allergy (Verified 02/18/20 22:11) Rash NSAIDS (Non-Steroidal Anti-Inflamma Adverse Reaction (Verified 02/18/20 22:11) instant headache Primary Care Physician: Nayana Adam MD [Primary Care Provider] - Surgical History: cholecystectomy, hysterectomy, - - s/p thyroidectomy Lives: With Family Smoking Status: Current every day smoker - Family History Paternal Family History: Family History (Last Reviewed 03/13/19 @ 14:[address] Diego Sanchez MD) Father Hypertension Mother Hypertension CAD (coronary artery disease) Brother Heart disease Sister Heart disease Family History: Reports: Hypertension Sibling Family History: Family History (Last Reviewed 03/13/19 @ 14:[address] Diego Sanchez MD) Father Hypertension Mother Hypertension CAD (coronary artery disease) Brother Heart disease Sister Heart disease Family History: Reports: Heart Disease Maternal Family History: Family History (Last Reviewed 03/13/19 @ 14:[address] Diego Sanchez MD) Father Hypertension Mother Hypertension CAD (coronary artery disease) Brother Heart disease Sister Heart disease Family History: Reports: Heart Disease, Hypertension Review of Systems General: Denies: Chills, Fever, Sweats Eyes: Denies: Visual changes - bilaterally, Diplopia ENT: Denies: Rhinorrhea, Sore throat Cardiovascular: Denies: Chest pain, Palpitations Respiratory: Denies: Dyspnea, Cough, Dyspnea on exertion Gastrointestinal: Denies: Abdominal pain, Nausea, Vomiting, Diarrhea, Melena, Hematochezia Genitourinary: Denies: Dysuria, Hematuria, Frequency Musculoskeletal: Denies: Neck pain, Back pain, Swelling, Extremity Pain Skin: Denies: Rash, Wounds Neurological: Reports: Headache. Denies: Weakness, Numbness STROKE Inital Vital Signs reviewed: Yes - NIHSS Initial 1a Level of Consciousness: 1 1b LOC Questions (Score 2 if aphasic/stupor): 0 1c LOC Commands (Only score 1st attempt): 0 2 Best Gaze (If aphasic, use reflexive mvmts.): 0 3 Visual: 0 4 Facial Palsy: 1 5 Motor Arm Right (UN = amputation/fusion): 0 5 Motor Arm Left: 1 6 Motor Leg Right: 0 6 Motor Leg Left: 0 7 Limb ataxia (Only + if out of proportion): 0 8 Sensory (Aphasia/stupor=0 or 1, coma=2): 1 9 Best Language: 1 10 Dysarthria (mute, coma=2, intubated=UN): 2 11 Extinction and Inattention (only scored if +): 1 Total Score: 8 2nd Follow up 1a Level of Consciousness: 0 1b LOC Questions (Score 2 if aphasic/stupor): 0 1c LOC Commands (Only score 1st attempt): 0 2 Best Gaze (If aphasic, use reflexive mvmts.): 0 3 Visual: 0 4 Facial Palsy: 0 5 Motor Arm Right (UN = amputation/fusion): 0 5 Motor Arm Left: 0 6 Motor Leg Right: 0 6 Motor Leg Left: 0 7 Limb ataxia (Only + if out of proportion): 0 8 Sensory (Aphasia/stupor=0 or 1, coma=2): 1 9 Best Language: 0 10 Dysarthria (mute, coma=2, intubated=UN): 0 11 Extinction and Inattention (only scored if +): 0 Total Score: 1 General: Well nourished, Well developed, - - alert, yawning, no distress Head: Normocephalic, Atraumatic Eyes: Perrl, EOMI ENT: Moist mucous membranes, No rhinorrhea Neck: Supple, Nontender Cardiovascular: Regular rate, Regular rhythm, No murmurs, Bradycardia Respiratory: No distress, CTA bilaterally, Chest nontender Abdomen: Soft, Nontender, Nondistended, Normal bowel sounds Back: Nontender, Normal Inspection Extremities: Nontender, No edema Skin: Normal color, No rash, No Trauma Neurological: Alert, Oriented x3 Psychological: Normal affect, Normal Mood Diagnostic/Tx/Re-eval - Rhythm Strip Rhythm Strip: Sinus Rhythm Rate: 50 Ectopy: None - EKG Initial EKG Interpretation: No Acute Injury Pattern, Sinus Bradycardia Prior: Unchanged - Medical Decision Making Stroke Team Activated: Yes - upon RN recognition of poss CVA; pt was a walk-in, dropped off by son Reviewed Inclusion/Exclusion criteria: Yes Was Patient considered for Endovascular Intervention?: No - neg CTA IV Alteplase (t-PA) Administered: No - contraindication No contraindications for IV Alteplase (t-PA) administration.: No - took Eliquis this AM Patient's condition remained stable, including her blood pressure, she is not an IV TPA candidate because she took Eliquis this morning. There is no sign of hemorrhage on the CT, no sign of large vessel occlusion on CT angiography, no significant anemia or metabolic disturbance in need of acute treatment or dysrhythmia/NV, so at this time plan is admission to PCU for further evaluation and treatment. Discussed with hospitalist. On reevaluation of the patient just prior to this, she is drastically improved without any specific treatment other than IV fluids. See the repeat NIHSS for details. Critical care time (excluding procedures): 30-74 minutes - 35 minutes, including time spent discussing with patient and family, consultants, arranging admission, performing direct patient care at the bedside and reevaluation's. ED Disposition - Plan for ED Patient: Disposition: Acute Care Hospital [facility] Diagnosis: Acute ischemic right MCA stroke Referrals: Nayana Adam MD [Primary Care Provider] -
[2020-02-18 22:18] VITALS: BP 143/76; PULSE 51; RESP 17; TEMP 36.2; O2SAT 100
--- NOTE | 2020-02-18 22:20 | CT_ITS ---
We are attempting to reach an attending provider to discuss findings. An addendum with communication details will be sent when the communication is complete. HISTORY: STROKE ALERT, MID INJECTION PATIENT RAISED HEAD AND ARM, PT NOT ABLE TO LISTEN TO DIRECTIONS, BEST IMAGES POSSIBLE POST INJECTION, RIGHT MCA STROKE IN SEPTEMBER TECHNIQUE: CT angiogram of the brain was performed with IV contrast. CT angiogram images of the neck were obtained with IV contrast. 3D reconstructions were reviewed to aid in vascular evaluation. NASCET criteria using the distal internal carotid arteries were used for evaluation of stenoses. A radiation dose optimization technique was used for this scan. IV Contrast dosage and agent: 100mL [id number] Number of images including paperwork: 622 COMPARISON: 02/08/2019 CTA neck: FINDINGS: AORTIC ARCH AND BRANCHES: No dissection. RIGHT CAROTID ARTERIES: No occlusion, significant stenosis or dissection. LEFT CAROTID ARTERIES: No occlusion, significant stenosis or dissection. RIGHT VERTEBRAL ARTERY: No occlusion, significant stenosis or dissection. LEFT VERTEBRAL ARTERY: No occlusion, significant stenosis or dissection. NECK SOFT TISSUES: Unremarkable. LUNG APICES: Unremarkable. BONES: Unremarkable. IMPRESSION: Unremarkable CT angiogram of the neck. CTA head: FINDINGS: INTERNAL CAROTID ARTERIES: No significant stenosis of the intracranial segments. ANTERIOR CEREBRAL ARTERIES: No significant stenosis of the visualized segments. ANTERIOR COMMUNICATING ARTERY: Present. MIDDLE CEREBRAL ARTERIES: No significant stenosis of the visualized segments. VERTEBRAL ARTERIES: No significant stenosis of the intradural/visualized segments. BASILAR ARTERY: No significant stenosis. POSTERIOR CEREBRAL ARTERIES: No significant stenosis of the visualized segments. POSTERIOR COMMUNICATING ARTERIES: Present. No evidence of intracranial aneurysm or vascular malformation. CT/CTA Head AND Neck W/ Contrast IMPRESSION: No arterial occlusion, aneurysm or vascular malformation. Individualized dose optimization techniques were used for this CT. at 2256 Reported and signed by: Vani Etienne MD Electronically Signed: Vani Etienne MD at 22:56 EDT Tel , Service support ,
[2020-02-18 22:21] LABS: Absolute Neutrophil Count 4.8 X10^3/uL (2.0-7.7); Basophil# 0.03 X10^3/uL; Basophil% 0.4 % (0-1); Eosinophil# 0.27 X10^3/uL; Eosinophils% 3.3 % (0-5); Hematocrit 35.1 % (37-47); Hemoglobin 11.6 g/dL (12.0-15.0); Lymphocyte % 28.5 % (19-41); Mean Corpuscular Hgb 30.9 pg (27.0-32.0); Mean Corpuscular Volume 93.6 fL (81-99); Mean Platelet Vol. 8.9 fl (6.2-12.0); Monocyte% 7.4 % (0-10); NRBC Flagged by Analyzer 0 % (0-5); Neutrophil # 4.83 X10^3/uL (2.7-7.7); Platelet Count 347 K/mm3 (150-450); RBC Distribution Width CV 12.9 % (11.6-14.6); RBC Distribution Width SD 44.1 fl (35.1-43.9); Red Blood Count 3.75 M/mm3 (4.2-5.4); White Blood Count 8.1 K/mm3 (4.4-11.0)
[2020-02-18 22:27] VITALS: BP 143/76; PULSE 50; RESP 12; TEMP 36.2; O2SAT 100; BMI 23.9
[2020-02-18 22:34] LABS: International Normalized Ratio 1.1; Prothrombin Time (Protime)PT. 13.5 SECONDS (11.7-14.9)
[2020-02-18 22:35] LABS: Partial Thromboplast Time 27.2 Seconds (24.1-36.2)
--- NOTE | 2020-02-18 22:37 | RAD_ITS ---
HISTORY: STROKE ADDITIONAL HISTORY: None provided. EXAMINATION/TECHNIQUE: XR Chest 1 View AP/PA Number of images including paperwork: 1 COMPARISON: 02/27/2019 FINDINGS: LUNGS AND PLEURA: No consolidation, mass or pleural effusion. Calcified left upper lobe granuloma again seen. CARDIAC SILHOUETTE: Unremarkable. MEDIASTINUM AND KORIN: Aortic calcification and tortuosity. UPPER ABDOMEN: Unremarkable. SKELETON AND SOFT TISSUES: No acute findings. Degenerative changes. OTHER DEVICES AND HARDWARE: None. RAD/Chest 1 View IMPRESSION: No acute cardiopulmonary abnormality. at 2311 Reported and signed by: Vani Etienne MD Electronically Signed: Vani Etienne MD at 23:11 EDT Tel , Service support ,
[2020-02-18 22:38] LABS: Anion Gap 5 (5-15); BUN 12 mg/dL (7-18); BUN/Creat Ratio 13.3 RATIO (10-20); Calcium,Total 8.6 mg/dL (8.5-10.1); Chloride 108 mmol/L (98-107); EST Glomerular Filtration Rate 64 mL/min (>60); Est Glom Filt Rate - Afr Amer 77 mL/min (>60); Estimated Creatinine Clearance 41.24 ml/min; Glucose 105 mg/dL (74-106); Potassium 3.9 mmol/L (3.5-5.1); Sodium Level 139 mmol/L (136-145)
[2020-02-18 22:43] VITALS: BP 169/68; PULSE 52; RESP 21; O2SAT 100
[2020-02-18] MEDS: 0.9% Normal Saline 1,000 ML 100 ML IV (23:06)
[2020-02-18] MEDS: Ondansetron 4 MG/2 ML Vial IV (23:11)
[2020-02-18 23:13] VITALS: BP 123/64; PULSE 52; RESP 16; O2SAT 97
[2020-02-18 23:30] VITALS: BP 116/49; PULSE 53; RESP 22; O2SAT 98
--- NOTE | 2020-02-18 23:31 | PCM.HP.STD ---
Problem List (1) Stroke-like symptoms Status: Acute (2) Anxiety and depression Status: Chronic (3) Hypothyroidism Status: Chronic Qualifiers: Hypothyroidism type: unspecified Qualified Code(s): E03.9 - Hypothyroidism, unspecified (4) Essential hypertension Status: Chronic (5) Paroxysmal atrial fibrillation Status: Chronic (6) CVA (cerebral vascular accident) Status: Chronic Qualifiers: CVA mechanism: unspecified Qualified Code(s): I63.9 - Cerebral infarction, unspecified (7) Hyperlipidemia Status: Chronic Qualifiers: Hyperlipidemia type: unspecified Qualified Code(s): E78.5 - Hyperlipidemia, unspecified History of Present Illness Date of Admission: 02/18/20 Chief Complaint: left side weakness The patient is a 79 year old F with a significant history of multiple TIAs/CVA; and paroxysmal A. fib who presents emergency department with left-sided weakness. Patient reported left upper and left lower extremity weakness. Also she she has some numbness at her left arm and left hand. Associated with her symptom is slurry speech. Her symptoms started about 1 hour prior to presentation. Of note patient was admitted on 09/06/2019 and discharged on 09/08/2019 for acute left parietal infarct. At that time reportedly she was taking her Eliquis once a day instead of twice a day. Past Medical History Past Medical History (Chronic Problems): Chronic Problems (Last Reviewed 02/19/20 @ 03:[address] Sandro Caal MD) Anxiety and depression (Chronic) Hypothyroidism (Chronic) Essential hypertension (Chronic) Paroxysmal atrial fibrillation (Chronic) CVA (cerebral vascular accident) (Chronic) Hyperlipidemia (Chronic) Medical History: Medical History (Last Reviewed 02/19/20 @ 03:[address] Sandro Caal MD) Essential hypertension (Chronic) I10 Paroxysmal atrial fibrillation (Chronic) I48.0 CVA (cerebral vascular accident) (Chronic) I63.9 Hyperlipidemia (Chronic) E78.5 Depression with anxiety F41.8 History of TIAs Z86.73 Hypothyroidism E03.9 Allergies Egg Derived Allergy (Severe, Verified 02/18/20 22:11) swelling alcohol Allergy (Verified 02/18/20 22:11) Rash NSAIDS (Non-Steroidal Anti-Inflamma Adverse Reaction (Verified 02/18/20 22:11) instant headache Home Medications: Ambulatory Orders Medication Instructions Recorded Acetaminophen [Tylenol Arthritis] 650 mg PO Q6H PRN PRN 02/08/19 Cyanocobalamin (Vitamin B-12) 1,000 mcg PO DAILY 02/08/19 [B-12] Levothyroxine Sodium [Synthroid] 75 mcg PO QHS 02/08/19 Lutein/Zeaxanthin [Ocuvite Lutein 1 cap PO DAILY 02/08/19 25-5 mg Softgel] Paroxetine HCl 40 mg PO DAILY 02/08/19 Tolterodine Tartrate [Tolterodine 4 mg PO DAILY 02/08/19 Tartrate ER] Trazodone HCl 150 mg PO QHS 02/08/19 Clonazepam 0.5 mg PO BID PRN #0 02/09/19 atorvastatin 20 mg tablet 80 mg PO QHS #30 tab 03/13/19 Diltiazem HCl [Diltiazem 24Hr ER 240 mg PO DAILY 09/06/19 (Cd)] Minocycline HCl 1 tab PO DAILY 09/06/19 Apixaban [Eliquis] 2.5 mg PO BID #0 09/08/19 Aspirin [Aspirin, Baby] 81 mg PO DAILY@0800 #30 tab.chew 09/08/19 Bupropion HCl [Bupropion HCl Sr] 150 mg PO DAILY 02/18/20 Surgical History: Surgical History (Last Reviewed 02/19/20 @ 03:[address] 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 Sandro Caal MD) Father Hypertension Mother Hypertension CAD (coronary artery disease) Brother Heart disease Sister Heart disease History Items: Heart Disease, Hypertension Paternal Family History: Family History (Last Reviewed 02/19/20 @ 03:[address] Sandro Caal MD) Father Hypertension Mother Hypertension CAD (coronary artery disease) Brother Heart disease Sister Heart disease History Items: Hypertension Sibling Family History: Family History (Last Reviewed 02/19/20 @ 03:[address] Sandro Caal MD) Father Hypertension Mother Hypertension CAD (coronary artery disease) Brother Heart disease Sister Heart disease History Items: Heart Disease Review of Systems Constitutional: Denies: Chills, Fever, Weight Change HEENT: Denies: Head Aches, Sinus Congestion, Sinus Drainage Cardiovascular: Denies: Chest Pain, Palpitations Respiratory: Denies: Cough, Shortness of breath at rest, Sputum production Gastrointestinal: Denies: Abdominal Pain, Nausea, Vomiting Genitourinary: Denies: Dysuria Musculoskeletal: Denies: Joint Pain, Joint Tenderness Skin: Denies: Rash, Wounds Neurological: Reports: Slurred speech, Focal weakness, Numbness Psychiatric: Denies: Anxiety, Depression, Homicidal Ideations, Suicidal Ideations Hematologic/ Lymphatic: Denies: Easy Bruising, Easy Bleeding VTE Information - Inpt Only VTE Present on Admission: No VTE Mechan Device Prophylaxis: None VTE Pharm Prophylaxis ordered?: No Reason prophylaxis not ordered:: Treatment Not Indicated - Eliquis for A. fib continued. Patient Problems: Active and Suspected Problems (Last Reviewed 02/19/20 @ 03:[address] Sandro Caal MD) Stroke-like symptoms (Acute) - Physical Exam Vitals/I&O's: Vital Signs Temp Pulse Resp BP Pulse Ox 97.2 F L 52 L 16 123/64 H 97 02/18/20 22:27 02/18/20 23:13 02/18/20 23:13 02/18/20 23:13 02/18/20 23:13 Oxygen Delivery Method Room Air Weight: 61.3 kg Body Mass Index (BMI) 23.9 Finger Stick Blood Glucose 110 General: Alert, Oriented x3, Cooperative HEENT: Atraumatic, PERRLA, EOMI, Normocephalic Neck: Supple, No JVD, Negative Carotid Bruits Lungs: Clear to auscultation, Normal air movement Cardiovascular: Normal S1, Normal S2, No murmurs, Bradycardic Abdomen: Bowel Sounds Present, Soft, Non Tender Extremities: No edema, Capillary Refill Less than 3 Seconds Skin: No rashes, No breakdown Musculoskeletal: No Tenderness to Palpation of Joints or Extremities Neurological: Cranial nerves II-XII grossly intact, Motor Exam 5/5 strength throughout, - - [id number] test normal. Psych/Mental Status: Normal Affect, Appropriate Laboratory Results 02/18/20 22:15: WBC 8.1, RBC 3.75 L, Hgb 11.6 L, Hct 35.1 L, MCV 93.6, MCH 30.9, MCHC 33.0, RDW Std Deviation 44.1 H, RDW Coeff of Patrick 12.9, Plt Count 347, MPV 8.9, Immature Gran % (Auto) 0.400, Neut % (Auto) 60.0, Lymph % (Auto) 28.5, [place] % (Auto) 7.4, Eos % (Auto) 3.3, Baso % (Auto) 0.4, Absolute Neuts (auto) 4.8, Absolute Lymphs (auto) 2.30, Nucleated RBC % 0 02/18/20 22:15: PT 13.5, INR 1.1, APTT 27.2 02/18/20 22:15: Sodium 139, Potassium 3.9, Chloride 108 H, Carbon Dioxide 26.0, Anion Gap 5, BUN 12, Creatinine 0.90, Estim Creat Clear Calc 41.24, Est GFR (MDRD) Af Amer 77, Est GFR (MDRD) Non-Af 64, BUN/Creatinine Ratio 13.3, Glucose 105, Calcium 8.6, Troponin I < 0.015 Current Medications Sodium Chloride () 1,000 mls @ 100 mls/hr IV .Q10H ONE Stop: 02/19/20 08:12 Last Admin: 02/18/20 23:06 Dose: 100 mls/hr Documented by: Sodium Chloride 1,000 ml/ N/A 1,000 mls @ 61.3 mls/hr IV .[id number] [facility]ESCO Stop: 02/19/20 22:21 Labetalol HCl (Trandate) 20 mg IV X1 PRN PRN Reason: BLOOD PRESSURE Assessment/Plan All Active Problems (Last Reviewed 02/19/20 @ 03:[address] Sandro Caal MD) Stroke-like symptoms (Acute) The patient is a 79 year old F with a significant history of multiple TIAs/CVA; and paroxysmal A. fib who presents emergency department with left-sided weakness; slurred speech and numbness of the left and left hand. Strokelike symptoms CT of the head did not show any acute bleed. Chronic involutional and white matter changes were noted. Head/neck CTA did not show any large vessel occlusion. -Check Hba1c, Lipid level Physical therapy, occupational therapy and speech therapy to work with patient. N.p.o. until bedside swallow eval. Daily aspirin ordered and Eliquis continued. High intensity statin continued Lipid profile and A1c ordered. Permissive hypertension. Control blood pressure with labetalol for systolic blood pressure of more than 220 or diastolic blood pressure of more than 120. Hold home Cardizem. Telemetry stroke from [facility] recommended follow-up MRI brain. MRI brain ordered. Echocardiogram on 09/06/2019: Was remarkable for ejection fraction of 60%. Diastolic function was indeterminate. There was mild to moderate mitral valve insufficiency. There was mild tricuspid valve insufficiency. Pulmonary artery systolic pressure was 30. There was a small filamentous echodensity noted on the ventricular surface of the aortic valve that appeared to lambl's excrescence. Depression/anxiety Bupropion continued Trazodone continued Paroxetine continued Atrial fibrillation Eliquis continued Cardizem held for now secondary to bradycardia; and for permissive hypertension.. Bradycardia Patient with sinus bradycardia with heart rates in the lower 50s and upper 40s.. Hold Cardizem for now Elevated QTC Likely secondary to bradycardia Avoid QTC prolongation drugs. Hypothyroidism Synthroid continued Overactive bladder Culture during continued DVT prophylaxis Eliquis for A. fib continued. OBSV E&M: 11190 Initial observation care L3
[2020-02-19] VITALS (12 sets, daily range): BP systolic 101–168; BP diastolic 52–70; PULSE 49–58; RESP 14–18; TEMP 36.6–36.9; O2SAT 96–100; BMI 20.5
--- NOTE | 2020-02-19 00:32 | MRI_ITS ---
STUDY: MRI BRAIN WITHOUT CONTRAST REASON FOR EXAM: Female, 79 years old. cva,speech change, left side numbness x 1 day -- hx of tia/cva TECHNIQUE: Standardized multiplanar fat and water weighted pulse sequences were obtained. COMPARISON: CT and CTA brain February 18, 2020 and MRI of the brain September 06, 2019 FINDINGS: There is some motion artifact on several sequences, most prominently of the T2 FLAIR sequences. This sequence was repeated with propeller. This lowers the sensitivity of the study. Once again note is made of chronic encephalomalacia seen in association with right frontal parietal lobe with subcortical white matter gliosis. A second smaller area of volume loss is noted in association with the left posterior parietal lobe in the area previously identified on MRI as an area of infarct. There are also periventricular white matter foci of altered signal intensity consistent with that of moderately severe small vessel disease. No acute diffusion abnormality. No acute superimposed infarct. Normal bilateral basal ganglia. Normal thalami. There is no extra-axial fluid accumulation. Normal flow voids within the major intracranial circulation suggesting patency by spin echo criteria. Normal sella turcica, pituitary gland, infundibular stalk, optic chiasm and hypothalamus. Normal tectal plate and pineal gland. Normal midbrain, ravi and medulla. Normal cerebellum. Normal basal cisterns. Normal bilateral temporal bones. Normal bilateral internal auditory canals. No demonstrated orbital abnormality, within the constraints of a routine brain study. Normal visualized paranasal sinuses. Normal calvarium and skull base. Normal visualized soft tissue structures. Normal visualized upper cervical spine. MRI/Brain without Contrast IMPRESSION: Moderately severe small vessel disease with sequela of prior infarcts. No evidence of acute superimposed infarct or hemorrhage. Electronically Signed: Isabela Veronica MD at 8:58 EDT , Service support ,
[2020-02-19 06:41] LABS: Absolute Lymphocyte Count 2.49 X10^3/uL (0.83-4.51); Absolute Neutrophil Count 4.3 X10^3/uL (2.0-7.7); Basophil# 0.04 X10^3/uL; Basophil% 0.5 % (0-1); Eosinophil# 0.28 X10^3/uL; Eosinophils% 3.7 % (0-5); Hemoglobin 11.3 g/dL (12.0-15.0); Lymphocyte # 2.49 X10^3/ul (4.0); Lymphocyte % 32.5 % (19-41); Mean Corp Hgb Conc 32.3 g/dL (32-36); Mean Corpuscular Hgb 30.8 pg (27.0-32.0); Mean Corpuscular Volume 95.4 fL (81-99); Monocyte# 0.55 X10^3/uL; Monocyte% 7.2 % (0-10); NRBC Flagged by Analyzer 0 % (0-5); Platelet Count 317 K/mm3 (150-450); RBC Distribution Width CV 13.2 % (11.6-14.6); RBC Distribution Width SD 45.5 fl (35.1-43.9); Red Blood Count 3.67 M/mm3 (4.2-5.4); White Blood Count 7.7 K/mm3 (4.4-11.0)
[2020-02-19] MEDS: LORazepam 2 MG/ML Syringe 1 MG IV (07:06)
[2020-02-19 07:16] LABS: Bedside Glucose 110 mg/dL (70-110)
[2020-02-19 07:16] LABS: Anion Gap 2 (5-15); BUN 8 mg/dL (7-18); BUN/Creat Ratio 9.9 RATIO (10-20); Calcium,Total 7.7 mg/dL (8.5-10.1); Chloride 109 mmol/L (98-107); Cholesterol 138 mg/dL (200); Creatinine, Serum 0.81 mg/dL (0.55-1.02); EST Glomerular Filtration Rate 72 mL/min (>60); Est Glom Filt Rate - Afr Amer 88 mL/min (>60); Estimated Creatinine Clearance 51.86 ml/min; Glucose 85 mg/dL (74-106); High Density Lipoprotein 53 mg/dL; Potassium 3.9 mmol/L (3.5-5.1); Sodium Level 139 mmol/L (136-145); Triglycerides 97 mg/dL; Very Low Density Lipoprotein 19 mg/dL (5-40)
--- NOTE | 2020-02-19 08:03 | PCM.PN.HOSP ---
Patient Problems: Active and Suspected Problems (Last Reviewed 02/19/20 @ 03:[address] Sandro Caal MD) Stroke-like symptoms (Acute) Reason for Visit: Follow-up on left-sided weakness. Subjective: Patient was seen and examined. Denied any new complaints. Still has some slurred speech. CTA head and neck is unremarkable. MRI of brain was negative. PT/OT evaluations are pending. Objective: Physical exam: General: Alert, Oriented x3, Cooperative HEENT: Atraumatic, PERRLA, EOMI, Normocephalic Neck: Supple, No JVD, Negative Carotid Bruits Lungs: Clear to auscultation, Normal air movement Cardiovascular: Normal S1, Normal S2, No murmurs, Bradycardic Abdomen: Bowel Sounds Present, Soft, Non Tender Extremities: No edema, Capillary Refill Less than 3 Seconds Skin: No rashes, No breakdown Musculoskeletal: No Tenderness to Palpation of Joints or Extremities Neurological: Cranial nerves II-XII grossly intact, Motor Exam 5/5 strength throughout, - - Methui-oe-bosp test normal. Psych/Mental Status: Normal Affect, Appropriate Vitals/I&O's: Vital Signs Temp Pulse Resp BP Pulse Ox 98.1 F 52 L 16 125/60 H 97 02/19/20 06:35 02/19/20 07:01 02/19/20 06:35 02/19/20 06:35 02/19/20 06:35 Oxygen Delivery Method Room Air Weight: 59.3 kg Body Mass Index (BMI) 20.5 Finger Stick Blood Glucose 110 Intake and Output for Last 24 Hours 02/17/20 02/18/20 02/19/20 23:59 23:59 23:59 Intake Total 928.33 / 928.33 Balance 928.33 / 928.33 Laboratory Results 02/18/20 22:09: POC Glucose 110 02/18/20 22:15: WBC 8.1, RBC 3.75 L, Hgb 11.6 L, Hct 35.1 L, MCV 93.6, MCH 30.9, MCHC 33.0, RDW Std Deviation 44.1 H, RDW Coeff of Patrick 12.9, Plt Count 347, MPV 8.9, Immature Gran % (Auto) 0.400, Neut % (Auto) 60.0, Lymph % (Auto) 28.5, [place] % (Auto) 7.4, Eos % (Auto) 3.3, Baso % (Auto) 0.4, Absolute Neuts (auto) 4.8, Absolute Lymphs (auto) 2.30, Nucleated RBC % 0 02/18/20 22:15: PT 13.5, INR 1.1, APTT 27.2 02/18/20 22:15: Sodium 139, Potassium 3.9, Chloride 108 H, Carbon Dioxide 26.0, Anion Gap 5, BUN 12, Creatinine 0.90, Estim Creat Clear Calc 41.24, Est GFR (MDRD) Af Amer 77, Est GFR (MDRD) Non-Af 64, BUN/Creatinine Ratio 13.3, Glucose 105, Calcium 8.6, Troponin I < 0.015 02/19/20 05:55: WBC 7.7, RBC 3.67 L, Hgb 11.3 L, Hct 35.0 L, MCV 95.4, MCH 30.8, MCHC 32.3, RDW Std Deviation 45.5 H, RDW Coeff of Patrick 13.2, Plt Count 317, MPV 9.0, Immature Gran % (Auto) 0.100, Neut % (Auto) 56.0, Lymph % (Auto) 32.5, [place] % (Auto) 7.2, Eos % (Auto) 3.7, Baso % (Auto) 0.5, Absolute Neuts (auto) 4.3, Absolute Lymphs (auto) 2.49, Nucleated RBC % 0 02/19/20 05:55: Sodium 139, Potassium 3.9, Chloride 109 H, Carbon Dioxide 28.0, Anion Gap 2 L, BUN 8, Creatinine 0.81, Estim Creat Clear Calc 51.86, Est GFR (MDRD) Af Amer 88, Est GFR (MDRD) Non-Af 72, BUN/Creatinine Ratio 9.9 L, Glucose 85, Calcium 7.7 L, Triglycerides 97, Cholesterol 138, LDL Cholesterol 66, VLDL Cholesterol 19, HDL Cholesterol 53 02/19/20 05:55: Hemoglobin A1c Pending Current Medications Acetaminophen (Tylenol) 650 mg PO Q6H PRN PRN PRN Reason: NERVE PAIN Apixaban (Eliquis) 2.5 mg PO BID [facility] Aspirin (Aspirin, Baby) 81 mg PO DAILY@0800 [facility] Atorvastatin Calcium (Lipitor) 80 mg PO QHS [facility] Bupropion HCl (Wellbutrin Sr (150mg Tablets)) 150 mg PO DAILY [facility] Cyanocobalamin (Vitamin B12) 1,000 mcg PO DAILY [facility] Dextrose (D50w Syringe) 0 gm IV X1 PRN; Protocol PRN Reason: Hypoglycemia Glucagon () 1 mg IM .X1 PRN PRN Reason: Hypoglycemia Hydralazine HCl (Apresoline Iv) 5 mg IV Q30M PRN PRN Reason: to maintain BP goals Sodium Chloride () 1,000 mls @ 100 mls/hr IV .Q10H ONE Stop: 02/19/20 08:12 Last Infusion: 02/19/20 07:16 Dose: 0 mls/hr Documented by: Sodium Chloride () 250 mls @ 15 mls/hr IV .[id number] PRN PRN Reason: Saline Flush Sodium Chloride () 250 mls @ 15 mls/hr IV .[id number] PRN PRN Reason: Additional IVPB Infusion Labetalol HCl (Trandate) 10 - 20 mg IV Q10M PRN PRN PRN Reason: to maintain BP goals Levothyroxine Sodium (Synthroid) 75 mcg PO QHS [facility] Non-Formulary Medication (Minocycline Hcl) 1 tab PO DAILY [facility] Paroxetine HCl (Paxil) 40 mg PO DAILY [facility] Sodium Chloride () 10 - 40 ml IV UD PRN PRN Reason: SALINE FLUSH Tolterodine Tartrate (Detrol La) 4 mg PO DAILY [facility] Trazodone HCl (Desyrel) 150 mg PO QHS [facility] STROKE Vital Signs/Narrative: Vital Signs Temp Pulse Resp BP Pulse Ox 02/19/20 07:01 52 L 02/19/20 06:35 98.1 F 52 L 16 125/60 H 97 02/19/20 04:35 98.0 F 55 L 18 135/57 H 96 Medical Necessity - Tobacco Use Smoking Status: Current every day smoker Tobacco Use: Cigarettes Assessment/Plan All Active Problems (Last Reviewed 02/19/20 @ 03:[address] Sandro Caal MD) Stroke-like symptoms (Acute) 1. Acute TIA, patient with history of MCA stroke MRI of the head showed moderate to severe small vessel disease. No acute stroke CT of the head is negative for acute bleed. Showed chronic ambulatory changes. CTA of the head and neck was unremarkable. Lipid profile showed total cholesterol 138, LDH 66, HbA1c is 5.6. Continue on aspirin and Eliquis as well as atorvastatin 2. AT/depression, continue home regimen 3. Paroxysmal atrial fibrillation, continue on Cardizem and Eliquis 4. Bradycardia, resolved, will decrease Cardizem to 120 mg daily from 240 mg daily 5. Hypothyroidism, on Synthroid 6. DVT prophylaxis with Eliquis Inpatient E&M: 34735 Subs Hosp L2
[2020-02-19 08:18] LABS: Hemoglobin A1c 5.6 % (3.8-5.6)
[2020-02-19] MEDS: buPROPion (SR) 150 MG Tablet.SA PO (09:08)
[2020-02-19] MEDS: APIXABAN 2.5 MG TABLET PO (09:08)
[2020-02-19] MEDS: Cyanocobalamin 500 MCG Tablet 1000 MCG PO (09:08)
[2020-02-19] MEDS: Paroxetine 20 MG Tablet 40 MG PO (09:08)
[2020-02-19] MEDS: Tolterodine Tartrate 4 MG CAP.SA PO (09:08)
[2020-02-19] MEDS: Aspirin 81 MG TAB.CHEW PO (09:09)
--- NOTE | 2020-02-19 14:28 | CASEMGMT ---
SW completed a PHQ 9 with patient as she may have had a TIA or Stroke. She scored a 7 which indicates mild depression. SW asked patient if she would like resources for counseling and she declined. She is on medication for her depression. She has a good support system. Leyla CORADO MSW
--- NOTE | 2020-02-19 14:38 | DCINST_ITS ---
- Discharge Diagnoses Current Active Problems: Current Active and Chronic Problems (Last Reviewed 02/19/20 @ 03:[address] Sandro Caal MD) Stroke-like symptoms (Acute) Reason(s) for Visit for Discharge Instructions: Left sided weakness You will use the following diet at home:: Cardiac Your food should be the consistency of: Regular Your liquids should be the consistency of: Regular/Thin Discharge Activity: Return to Normal Activity Additional Instructions: Continue to take all your medications as prescribed. You are strongly advised to stop smoking. Take note of a decrease in dose for your Cardizem. 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 Allergies/Adverse Reactions: Allergies Egg Derived Allergy (Severe, Verified 02/18/20 22:11) swelling alcohol Allergy (Verified 02/18/20 22:11) Rash NSAIDS (Non-Steroidal Anti-Inflamma Adverse Reaction (Verified 02/18/20 22:11) instant headache Medications to take at Discharge Acetaminophen [Tylenol Arthritis] 650 mg PO Q6H PRN PRN 02/08/19 Cyanocobalamin (Vitamin B-12) [B-12] 1,000 mcg PO DAILY 02/08/19 Levothyroxine Sodium [Synthroid] 75 mcg PO QHS 02/08/19 Lutein/Zeaxanthin [Ocuvite Lutein 25-5 mg Softgel] 1 cap PO DAILY 02/08/19 Paroxetine HCl 40 mg PO DAILY 02/08/19 Tolterodine Tartrate [Tolterodine Tartrate ER] 4 mg PO DAILY 02/08/19 Trazodone HCl 150 mg PO QHS 02/08/19 Clonazepam 0.5 mg PO BID PRN #0 02/09/19 atorvastatin 20 mg tablet 80 mg PO QHS #30 tab 03/13/19 Minocycline HCl 1 tab PO DAILY 09/06/19 Apixaban [Eliquis] 2.5 mg PO BID #0 09/08/19 Aspirin [Aspirin, Baby] 81 mg PO DAILY@0800 #30 tab.chew 09/08/19 Bupropion HCl [Bupropion HCl Sr] 150 mg PO DAILY 02/18/20 Diltiazem CD [Cardizem CD] 120 mg PO DAILY 30 Days #30 cap 02/19/20 Lysine [l-Lysine] 500 mg PO BID 02/19/20 The following prescriptions were given: Diltiazem CD [Cardizem CD] 120 mg PO DAILY 30 Days #30 cap Transmission Status: Received by [id number] Primary Care Physician: Nayana Adam MD [Primary Care Provider] - Please follow up with your Primary Care Physician in: within 1-2 weeks Test Results: Test results from this visit will be discussed in further detail at your follow- up appointment, if applicable. Please Follow Up With: Diego Sanchez MD When: as scheduled Proposed Discharge Date: 02/19/20
--- NOTE | 2020-02-19 14:41 | PCM.DC.SUM ---
Discharge Date and Diagnosis - Problem List Patient Problems: Active and Suspected Problems (Last Reviewed 02/19/20 @ 03:[address] Sandro Caal MD) Stroke-like symptoms (Acute) Date of Admission: 02/18/20 Date of Discharge: 02/19/20 - Primary Discharge Diagnosis Acute Problems: Active Problems (Last Reviewed 02/19/20 @ 03:[address] Sandro Caal MD) TIA Suspected Problems: History of stroke Hypertension Hypothyroidism Paroxysmal atrial fibrillation - Secondary Discharge Diagnosis Chronic Problems: Chronic Problems (Last Reviewed 02/19/20 @ 03:[address] Sandro Caal MD) Anxiety and depression (Chronic) Hypothyroidism (Chronic) Essential hypertension (Chronic) Paroxysmal atrial fibrillation (Chronic) CVA (cerebral vascular accident) (Chronic) Hyperlipidemia (Chronic) Hospital Course and Treatment Imaging Results: Clinical Impression(s) from Imaging Studies Brain CT 02/18/20 22:13 IMPRESSION: No acute intracranial abnormality. Chronic involutional and white matter changes. Individualized dose optimization techniques were used for this CT. at 2235 Reported and signed by: Vani Etienne MD Electronically Signed: Vani Etienne MD at 22:34 EDT Tel , Service support , ADDENDUM: 02/18/20 2246 IMPRESSION: No acute intracranial abnormality. Chronic involutional and white matter changes. Individualized dose optimization techniques were used for this CT. at 2234 Reported and signed by: Vani Etienne MD N.B. : The above information has been verbally conveyed by Vani Etienne MD to Dr. Beena MD, on 02/18/2020 22:39:41 (ET). Electronically Signed: Vani Etienne MD at 22:34 EDT Tel , Service support , Head/Neck CTA 02/18/20 22:20 IMPRESSION: No arterial occlusion, aneurysm or vascular malformation. Individualized dose optimization techniques were used for this CT. at 2256 Reported and signed by: Vani Etienne MD Electronically Signed: Vani Etienne MD at 22:56 EDT Tel , Service support , ADDENDUM: 02/18/20 2306 IMPRESSION: No arterial occlusion, aneurysm or vascular malformation. Individualized dose optimization techniques were used for this CT. at 2256 Reported and signed by: Vani Etienne MD N.B. : The above information has been verbally conveyed by Vani Etienne MD to Dr. Joellen MD, on 02/18/2020 22:59:51 (ET). Electronically Signed: Vani Etienne MD at 22:56 EDT Tel , Service support , Chest X-Ray 02/18/20 22:37 IMPRESSION: No acute cardiopulmonary abnormality. at 2311 Reported and signed by: Vani Etienne MD Electronically Signed: Vani Etienne MD at 23:11 EDT Tel , Service support , Brain MRI 02/19/20 00:32 IMPRESSION: Moderately severe small vessel disease with sequela of prior infarcts. No evidence of acute superimposed infarct or hemorrhage. Electronically Signed: Isabela Veronica MD at 8:58 EDT , Service support , [facility] tele-neurology Operations: None Procedures: None Summary of Care Provided: The patient is a 79 year old F [] Patient Problems: Active and Suspected Problems (Last Reviewed 02/19/20 @ 03:[address] Sandro Caal MD) Stroke-like symptoms (Acute) Subjective: See progress note on the day Objective: See Progress note on the day - Physical Exam Vitals/I&O's: Vital Signs Temp Pulse Resp BP Pulse Ox 98.4 F 55 L 16 137/52 H 99 02/19/20 08:51 02/19/20 08:51 02/19/20 08:51 02/19/20 08:51 02/19/20 08:51 Oxygen Delivery Method Room Air Weight: 59.3 kg Body Mass Index (BMI) 20.5 Finger Stick Blood Glucose 110 Intake and Output for Last 24 Hours 02/17/20 02/18/20 02/19/20 23:59 23:59 23:59 Intake Total 1168.33 / 1168.33 Balance 1168.33 / 1168.33 Laboratory Results 02/18/20 22:09: POC Glucose 110 02/18/20 22:15: WBC 8.1, RBC 3.75 L, Hgb 11.6 L, Hct 35.1 L, MCV 93.6, MCH 30.9, MCHC 33.0, RDW Std Deviation 44.1 H, RDW Coeff of Patrick 12.9, Plt Count 347, MPV 8.9, Immature Gran % (Auto) 0.400, Neut % (Auto) 60.0, Lymph % (Auto) 28.5, [place] % (Auto) 7.4, Eos % (Auto) 3.3, Baso % (Auto) 0.4, Absolute Neuts (auto) 4.8, Absolute Lymphs (auto) 2.30, Nucleated RBC % 0 02/18/20 22:15: PT 13.5, INR 1.1, APTT 27.2 02/18/20 22:15: Sodium 139, Potassium 3.9, Chloride 108 H, Carbon Dioxide 26.0, Anion Gap 5, BUN 12, Creatinine 0.90, Estim Creat Clear Calc 41.24, Est GFR (MDRD) Af Amer 77, Est GFR (MDRD) Non-Af 64, BUN/Creatinine Ratio 13.3, Glucose 105, Calcium 8.6, Troponin I < 0.015 02/19/20 05:55: WBC 7.7, RBC 3.67 L, Hgb 11.3 L, Hct 35.0 L, MCV 95.4, MCH 30.8, MCHC 32.3, RDW Std Deviation 45.5 H, RDW Coeff of Patrick 13.2, Plt Count 317, MPV 9.0, Immature Gran % (Auto) 0.100, Neut % (Auto) 56.0, Lymph % (Auto) 32.5, [place] % (Auto) 7.2, Eos % (Auto) 3.7, Baso % (Auto) 0.5, Absolute Neuts (auto) 4.3, Absolute Lymphs (auto) 2.49, Nucleated RBC % 0 02/19/20 05:55: Sodium 139, Potassium 3.9, Chloride 109 H, Carbon Dioxide 28.0, Anion Gap 2 L, BUN 8, Creatinine 0.81, Estim Creat Clear Calc 51.86, Est GFR (MDRD) Af Amer 88, Est GFR (MDRD) Non-Af 72, BUN/Creatinine Ratio 9.9 L, Glucose 85, Calcium 7.7 L, Triglycerides 97, Cholesterol 138, LDL Cholesterol 66, VLDL Cholesterol 19, HDL Cholesterol 53 02/19/20 05:55: Hemoglobin A1c 5.6 Current Medications Acetaminophen (Tylenol) 650 mg PO Q6H PRN PRN PRN Reason: NERVE PAIN Apixaban (Eliquis) 2.5 mg PO BID [facility] Last Admin: 02/19/20 09:08 Dose: 2.5 mg Documented by: Aspirin (Aspirin, Baby) 81 mg PO DAILY@0800 [facility] Last Admin: 02/19/20 09:09 Dose: 81 mg Documented by: Atorvastatin Calcium (Lipitor) 80 mg PO QHS [facility] Bupropion HCl (Wellbutrin Sr (150mg Tablets)) 150 mg PO DAILY [facility] Last Admin: 02/19/20 09:08 Dose: 150 mg Documented by: Cyanocobalamin (Vitamin B12) 1,000 mcg PO DAILY [facility] Last Admin: 02/19/20 09:08 Dose: 1,000 mcg Documented by: Dextrose (D50w Syringe) 0 gm IV X1 PRN; Protocol PRN Reason: Hypoglycemia Glucagon () 1 mg IM .X1 PRN PRN Reason: Hypoglycemia Hydralazine HCl (Apresoline Iv) 5 mg IV Q30M PRN PRN Reason: to maintain BP goals Sodium Chloride () 250 mls @ 15 mls/hr IV .[id number] PRN PRN Reason: Saline Flush Sodium Chloride () 250 mls @ 15 mls/hr IV .[id number] PRN PRN Reason: Additional IVPB Infusion Labetalol HCl (Trandate) 10 - 20 mg IV Q10M PRN PRN PRN Reason: to maintain BP goals Levothyroxine Sodium (Synthroid) 75 mcg PO QHS [facility] Non-Formulary Medication (Minocycline Hcl) 1 tab PO DAILY [facility] Paroxetine HCl (Paxil) 40 mg PO DAILY [facility] Last Admin: 02/19/20 09:08 Dose: 40 mg Documented by: Sodium Chloride () 10 - 40 ml IV UD PRN PRN Reason: SALINE FLUSH Tolterodine Tartrate (Detrol La) 4 mg PO DAILY [facility] Last Admin: 02/19/20 09:08 Dose: 4 mg Documented by: Trazodone HCl (Desyrel) 150 mg PO QHS [facility] Discharge Diet: Low fat/ Low Cholesterol, 2000 mg Sodium Diet Discharge Activity: Return to Normal Activity Home Medications: Medications to take at Discharge Acetaminophen [Tylenol Arthritis] 650 mg PO Q6H PRN PRN 02/08/19 Cyanocobalamin (Vitamin B-12) [B-12] 1,000 mcg PO DAILY 02/08/19 Levothyroxine Sodium [Synthroid] 75 mcg PO QHS 02/08/19 Lutein/Zeaxanthin [Ocuvite Lutein 25-5 mg Softgel] 1 cap PO DAILY 02/08/19 Paroxetine HCl 40 mg PO DAILY 02/08/19 Tolterodine Tartrate [Tolterodine Tartrate ER] 4 mg PO DAILY 02/08/19 Trazodone HCl 150 mg PO QHS 02/08/19 Clonazepam 0.5 mg PO BID PRN #0 02/09/19 atorvastatin 20 mg tablet 80 mg PO QHS #30 tab 03/13/19 Minocycline HCl 1 tab PO DAILY 09/06/19 Apixaban [Eliquis] 2.5 mg PO BID #0 09/08/19 Aspirin [Aspirin, Baby] 81 mg PO DAILY@0800 #30 tab.chew 09/08/19 Bupropion HCl [Bupropion HCl Sr] 150 mg PO DAILY 02/18/20 Diltiazem CD [Cardizem CD] 120 mg PO DAILY 30 Days #30 cap 02/19/20 Lysine [l-Lysine] 500 mg PO BID 02/19/20 Following Prescrptions Were Given to Patient: Diltiazem CD [Cardizem CD] 120 mg PO DAILY 30 Days #30 cap Transmission Status: Received by [id number] Primary Care Physician: Nayana Adam MD [Primary Care Provider] - Please follow up with your Primary Care Physician in: within 1-2 weeks Please Follow Up With: Diego Sanchez MD When: as scheduled Disposition: Home Minutes spent on discharge:: 40 Patient Condition:: Stable Medical Necessity - Tobacco Use Smoking Status: Current every day smoker Tobacco Use: Cigarettes Meaningful Use Info Meaningful Use Diagnoses (Choose all that apply): None applicable OBSV E&M: 33675 Observation care discharge
--- NOTE | 2020-02-19 16:35 | CASEMGMT ---
Addendum entered by Trip Sarah 02/19/20 16:58: 1545: PT/OT evals have been completed. No additional therapy is recommended. Call placed to pt's sonJoellen. No answer. Message left informing him of same and of discharge. Original Note: RN CM HYDROMETER CALIBRATOR CM to room to meet with patient for initial transition planning/care coordination assessment. RN CM introduced self and role at [facility]. Pt voices understanding and consents to assessment at this time. Pt sitting up in no distress at this time. Pt is A/O at this time and answers all questions appropriately. Care providers, pharmacy, and demographics verified/updated at this time. PCP: Dr Adam Specialists: none at this time [facility]erred [facility]acy: [facility] Insurance: Joe ROUSE Prescription Benefit: Yes Living Will/HPOA: Pt does not currently have LW/HCPOA and declines info at this time. Pt made aware that he can contact SW as an out-pt and make appt in the future if she decides she would like to talk with someone about this or would like to utilize [facility] social work for advanced directive completion LNOK: , Nazario. SonJoellen Living Arrangements: Lives w/ and sonJoellen in a 3-story home w/4 steps to enter. Bathroom and bedroom on main floor. Pt independent w/ADL's and manages her own medications and appts, does laundry, and meals. Joellen assists w/carrying laundry baskets up stairs, does grocery shopping, and cleaning. Transportation: Pt states drives self and states no transportation concerns at this time. Joellen will take her home @ d/c DME: has the following DME: cane, which she only needs to use when her equilibrium is off. Pt states no need for further DME at this time. HHC/SNF: No history of either. Denies need for HHC or OP therapy. Pt states, I feel fine. I don't need any of that. PT/OT evals pending. Pt wishes to return home and states has no concerns with going home at time of discharge. CM to follow for any discharge planning/needs. Pt voices no concerns/needs at this time. Advised pt to ask for CM if any questions/concerns/needs arise. Voices understanding. PLAN: Home w/family PT/OT evals pending. Ike BSN RN CM
== END 2020-02-19 14:32 | disposition home or self-care (01) ==
LOC: ED 23:02 → PCU 02-19
PROVIDERS: Emergency Medicine; Admitting Provider Hospitalist; Emergency Provider Emergency Medicine; PCP Internal Medicine Infectious Disease; Visit Provider Internal Medicine
DX: G45.9 Transient cerebral ischemic attack, unspecified (principal); I48.0 Paroxysmal atrial fibrillation; E78.5 Hyperlipidemia, unspecified; I10 Essential (primary) hypertension; E03.9 Hypothyroidism, unspecified; Z79.899 Other long term (current) drug therapy; Z79.01 Long term (current) use of anticoagulants; Z79.82 Long term (current) use of aspirin; R47.81 Slurred speech; G89.29 Other chronic pain; F17.210 Nicotine dependence, cigarettes, uncomplicated; R29.708 NIHSS score 8; F41.9 Anxiety disorder, unspecified; F32.9 Major depressive disorder, single episode, unspecified; N32.81 Overactive bladder; R00.1 Bradycardia, unspecified
CPT/HCPCS: 36415; 70450; 70496; 70498; 70551; 71045; 80048; 80061; 82962; 83036; 84484; 85025; 85610; 85730; 92610; 93005; 94762; 96361; 96374; 96375; 97162; 97166; 99218; 99285; 99406; J7030; Q9967; A4216; G0378; J2405

== ENCOUNTER 2021-03-18 17:03 | Emergency (ER) | payer MEDICARE, OTHER, SELFPAY ==
[2021-03-18 17:04] VITALS: BP 147/53; PULSE 62; RESP 14; TEMP 36.6; O2SAT 99; BMI 22.2
--- NOTE | 2021-03-18 17:52 | CT_ITS ---
STUDY: CT BRAIN WITHOUT CONTRAST REASON FOR EXAM: Female, 80 years old. Headache RADIATION DOSAGE (If Supplied By Facility): CTDIvol = ( 44.99 ) mGy, DLP = ( 796.11 ) mGycm TECHNIQUE: Transaxial CT imaging of the brain was performed without administration of intravenous contrast material. Individualized dose optimization techniques were used for this CT. COMPARISON: 02/18/2020 FINDINGS: Normal soft tissue structures. Normal calvarium. There is mild cerebral atrophy with widening of the extra-axial spaces and ventricular dilatation. There are areas of decreased attenuation within the white matter tracts of the supratentorial brain, consistent with microvascular disease changes. There is a stable focus of encephalomalacia within the right frontal and right parietal lobes. Normal basal ganglia and thalami. Normal brainstem. There is mild cerebellar atrophy. There is no intracranial hemorrhage. There are no findings of an acute ischemic infarction. Normal visualized paranasal sinuses. CT/Brain/Head without Contrast IMPRESSION: Chronic involutional changes of the brain. Small vessel ischemia. Stable focus of an encephalomalacia within the right frontoparietal consistent with an old infarct. Electronically Signed: Yin Valdivia MD at 19:13 EDT Tel , Service support ,
--- NOTE | 2021-03-18 17:52 | EKG12_ITS ---
Test Reason : HYPERTENSION Blood Pressure : / mmHG Vent. Rate : 063 BPM Atrial Rate : 063 BPM P-R Int : 128 ms QRS Dur : 076 ms QT Int : 460 ms P-R-T Axes : 000 064 052 degrees QTc Int : 470 ms Sinus rhythm with Premature supraventricular complexes Otherwise normal ECG Confirmed by LEONA LONDONO, JERI ([id number]), news videotape editor INGA GUERRERO ([id number]) on 03/22/2021 1:03:38 PM Referred By: DUSTIN Confirmed By:JERI DELGADILLO MD
--- NOTE | 2021-03-18 17:53 | EX.ED.DYSGE1 ---
HPI History of Present Illness Chief Complaint: Hypertension Informant: patient and family Onset/Context/Timing Onset: Today Context: Gradual Onset Timing: Waxes and wanes Quality - All: achy/aching Narrative Narrative: Patient present secondary to concerns for high blood pressure. She developed a headache today. She is also had left shoulder pain which she attributes to rotator cuff problems but states it is worse today. She saw her finishing wire sawyer last week and blood pressure was noted to be elevated around 150. She was asked to keep a record of her blood pressure readings at home. She states yesterday it was over 200 and today in the 170s. [facility] Medical History (Updated 03/18/21 @ 20:[address] Juanita Grimes MD) CVA (cerebral vascular accident) Depression with anxiety Essential hypertension History of TIAs Hyperlipidemia Hypothyroidism Paroxysmal atrial fibrillation Home Medications acetaminophen 650 mg PO Q6H PRN PRN 02/08/19 [History Last Taken 02/26/19] cyanocobalamin (vitamin B-12) 1,000 mcg PO DAILY 02/08/19 [History Last Taken 09/06/19] levothyroxine 75 mcg PO QHS 02/08/19 [History Last Taken 02/17/20] paroxetine HCl 40 mg PO DAILY 02/08/19 [History Last Taken 02/18/20] tolterodine 4 mg PO DAILY 02/08/19 [History Last Taken 02/18/20] trazodone 150 mg PO QHS 02/08/19 [History Last Taken 02/17/20] clonazepam 0.5 mg PO BID PRN #0 02/09/19 [Rx Last Taken 09/05/19] minocycline 1 tab PO DAILY 09/06/19 [History Last Taken 02/18/20] aspirin 81 mg PO DAILY@0800 #30 tab.chew 09/08/19 [Rx Last Taken 02/18/20] atorvastatin 80 mg tablet 80 mg PO QHS tab 02/26/20 [History Last Taken Unknown] lysine 500 mg tablet 500 mg PO DAILY tab 02/26/20 [History Last Taken Unknown] apixaban 2.5 mg tablet 2.5 mg PO BID #180 tab 05/19/20 [Rx Last Taken Unknown] Allergy/AdvReac Type Severity Reaction Status Date / Time Egg Derived Allergy Severe swelling Verified 03/18/21 17:04 alcohol Allergy Rash Verified 03/18/21 17:04 NSAIDS (Non-Steroidal AdvReac instant Verified 03/18/21 17:04 Anti-Inflamma headache Family History Father Hypertension Mother Hypertension CAD (coronary artery disease) [place] Brother Heart disease Sister Heart disease Surgical History History of cholecystectomy History of hysterectomy History of thyroidectomy Social History Smoking Status: Current every day smoker tobacco type: cigarettes alcohol intake: current alcohol intake frequency: a few times a month Alcohol type: beer substance use type: marijuana caffeine: Yes Type: coffee Number of servings: 1 ROS ROS ED Constitutional Constitutional ED: Denies chills or fever(s) Eyes Eyes: Denies change in vision ENT ENT ED: Denies sore throat Cardiovascular Cardiovascular: Denies chest pain Respiratory/Chest Respiratory/Chest: Denies cough or dyspnea Gastrointestinal Gastrointestinal: Denies abdominal pain, diarrhea, nausea or vomiting Genitourinary Genitourinary ED: Denies dysuria Musculoskeletal Musculoskeletal: Reports arthralgias and other; Denies back pain Integumentary Denies rash Neurologic Neurologic: Reports headache(s); Denies paresthesias or weakness Psychiatric Psychiatric: Denies anxiety or depression Allergic/Immunologic Allergic/Immunologic ED: Denies urticaria EXAM Physical Exam Const Vital Signs: 03/18/21 17:04 03/18/21 18:08 Temperature 98 F Temperature Source Temporal Pulse Rate 62 61 Respiratory Rate 14 20 H Respiratory Effort Normal Non-Labored Respiratory Pattern Normal Blood Pressure 147/53 H 160/72 H Blood Pressure Mean 84 101 Pulse Ox 99 100 Oxygen Delivery Method Room Air Room Air Positive well nourished and well developed General Appearance ED: well developed HEENT Reports moist mucous membranes Eyes PERRL and EOMs intact bilaterally Neck supple Chest Wall inspection of chest normal and palpation of chest normal Resp normal respiratory effort and clear to auscultation bilaterally Cardio regular rate and regular rhythm GI normal to inspection, nondistended, normoactive bowel sounds and non-tender Palpation: soft Extremity normal to inspection Neuro oriented x3 and no sensory deficits noted Sensorium / Orientation: alert Motor Exam: strength 5/5 throughout Psych mental status grossly normal Skin no rashes or lesions noted MDM MDM Lab Data Labs: Laboratory Results - last 24 hr 03/18/21 03/18/21 18:05 18:05 WBC 7.5 RBC 3.29 L Hgb 7.1 L Hct 25.9 L MCV 78.7 L MCH 21.6 L MCHC 27.4 L RDW Std Deviation 50.3 H RDW Coeff of Patrick 17.4 H Plt Count 456 H MPV 8.4 Immature Gran % (Auto) 0.300 Neut % (Auto) 62.0 Lymph % (Auto) 24.9 [place] % (Auto) 8.0 Eos % (Auto) 4.4 Baso % (Auto) 0.4 Absolute Neuts (auto) 4.7 Absolute Lymphs (auto) 1.87 Nucleated RBC % 0 Sodium 140 Potassium 4.3 Chloride 109 H Carbon Dioxide 28.0 Anion Gap 3 L BUN 15 Creatinine 0.92 Estim Creat Clear Calc 44.90 Est GFR (MDRD) Af Amer 75 Est GFR (MDRD) Non-Af 62 BUN/Creatinine Ratio 16.3 Glucose 73 L Calcium 8.3 L Troponin I High Sens 10 Radiography Diagnostic Testing: Radiology Impression Brain CT 03/18/21 17:52 IMPRESSION: Chronic involutional changes of the brain. Small vessel ischemia. Stable focus of an encephalomalacia within the right frontoparietal consistent with an old infarct. Electronically Signed: Yin Valdivia MD at 19:13 EDT Tel , Service support , Chest X-Ray 03/18/21 18:16 IMPRESSION: Stable examination demonstrating no acute cardiopulmonary process. Electronically Signed: Yin Valdivia MD at 19:10 EDT Tel , Service support , Discharge Plan Triage Chief Complaint: Hypertension ED Provider: Juanita Grimes Dx/Rx/DC Orders Clinical Impression: Cephalgia, Hypertension, Anemia Instructions: ED Headache, Tension, ED Hypertension, To Be Confirmed Prescriptions: No Action atorvastatin 80 mg tablet 80 mg PO QHS RF: 0 tolterodine 4 MG capsule,extended release 24hr 4 mg PO DAILY RF: 0 cyanocobalamin (vitamin B-12) 1,000 MCG tablet 1,000 mcg PO DAILY RF: 0 acetaminophen 650 MG tablet extended release 650 mg PO Q6H PRN PRN (Reason: nerve pain) RF: 0 levothyroxine 75 MCG tablet 75 mcg PO QHS RF: 0 trazodone 150 MG tablet 150 mg PO QHS RF: 0 paroxetine HCl 40 MG tablet 40 mg PO DAILY RF: 0 clonazepam 0.5 MG tablet 0.5 mg PO BID PRN (Reason: Anxiety) Qty: 0 RF: 0 minocycline 50 MG tablet 1 tab PO DAILY RF: 0 aspirin 81 MG tablet,chewable 81 mg PO DAILY@0800 Qty: 30 RF: 0 lysine 500 mg tablet 500 mg PO DAILY RF: 0 apixaban 2.5 mg tablet 2.5 mg PO BID Qty: 180 RF: 4 Primary Care Provider: Nayana Adam Referrals: Nayana Adam MD [Primary Care Provider] - As soon as possible Activity Restrictions/Additional Instructions: Please follow-up with On right as soon as possible. Your blood counts are low tonight consistent with anemia. Please follow-up with him for repeat labs and further work-up. Disposition Disposition: Home, Self Care
[2021-03-18 18:08] VITALS: BP 160/72; PULSE 61; RESP 20; O2SAT 100
[2021-03-18 18:10] LABS: Absolute Lymphocyte Count 1.87 X10^3/uL (0.83-4.51); Absolute Neutrophil Count 4.7 X10^3/uL (2.0-7.7); Basophil# 0.03 X10^3/uL; Basophil% 0.4 % (0-1); Eosinophil# 0.33 X10^3/uL; Eosinophils% 4.4 % (0-5); Hematocrit 25.9 % (37-47); Hemoglobin 7.1 g/dL (12.0-15.0); Lymphocyte # 1.87 X10^3/ul (0.83-4.51); Lymphocyte % 24.9 % (19-41); Mean Corp Hgb Conc 27.4 g/dL (32-36); Mean Corpuscular Hgb 21.6 pg (27.0-32.0); Mean Corpuscular Volume 78.7 fL (81-99); Mean Platelet Vol. 8.4 fl (6.2-12.0); NRBC Flagged by Analyzer 0 % (0-5); Neutrophil # 4.66 X10^3/uL (2.7-7.7); Platelet Count 456 K/mm3 (150-450); RBC Distribution Width CV 17.4 % (11.6-14.6); RBC Distribution Width SD 50.3 fl (35.1-43.9); Red Blood Count 3.29 M/mm3 (4.2-5.4); White Blood Count 7.5 K/mm3 (4.4-11.0)
[2021-03-18] MEDS: Acetaminophen 325 MG Tablet 650 MG PO (18:12)
--- NOTE | 2021-03-18 18:16 | RAD_ITS ---
STUDY: X-RAY CHEST REASON FOR EXAM: Female, 80 years old. Chest pain TECHNIQUE: Single frontal view of the chest. COMPARISON: 02/17/2021 FINDINGS: The lungs remain hyperinflated. There are stable prominent interstitial markings. There is a stable granuloma within the left midlung. Normal size heart. Normal mediastinum and marcus. Normal visualized pulmonary arteries. There is atherosclerotic calcification of the aortic arch with tortuosity. Normal visualized thoracic spine. Normal visualized ribs, clavicles, and shoulders. There is no demonstrated abnormality of the visualized soft tissue structures of the upper abdomen. RAD/Chest 1 View (Portable) IMPRESSION: Stable examination demonstrating no acute cardiopulmonary process. Electronically Signed: Yin Valdivia MD at 19:10 EDT Tel , Service support ,
[2021-03-18 18:29] LABS: Anion Gap 3 (5-15); BUN 15 mg/dL (7-18); BUN/Creat Ratio 16.3 RATIO (10-20); Calcium,Total 8.3 mg/dL (8.5-10.1); Chloride 109 mmol/L (98-107); Creatinine, Serum 0.92 mg/dL (0.55-1.02); EST Glomerular Filtration Rate 62 mL/min (>60); Est Glom Filt Rate - Afr Amer 75 mL/min (>60); Glucose 73 mg/dL (74-106); Potassium 4.3 mmol/L (3.5-5.1); Sodium Level 140 mmol/L (136-145); Troponin-I HS 10 pg/mL (3.0-54.0)
[2021-03-18 20:56] VITALS: BP 174/70; PULSE 70; RESP 18; O2SAT 99
== END 2021-03-18 20:57 | disposition home or self-care (01) ==
PROVIDERS: Emergency Provider Emergency Medicine; PCP Internal Medicine Infectious Disease
DX: I10 Essential (primary) hypertension (principal); D64.9 Anemia, unspecified; R51.9 Headache, unspecified; I67.82 Cerebral ischemia; G93.89 Other specified disorders of brain; E03.9 Hypothyroidism, unspecified; E78.5 Hyperlipidemia, unspecified; I48.0 Paroxysmal atrial fibrillation; F17.210 Nicotine dependence, cigarettes, uncomplicated; Z79.01 Long term (current) use of anticoagulants; Z79.1 Long term (current) use of non-steroidal anti-inflammatories (NSAID); Z79.82 Long term (current) use of aspirin; Z86.73 Personal history of transient ischemic attack (TIA), and cerebral infarction without residual deficits
CPT/HCPCS: 70450; 71045; 80048; 82274; 84484; 85025; 93005; 99284; A4216

== ENCOUNTER 2022-01-05 17:04 | Emergency (ER) | payer MEDICARE, OTHER, SELFPAY ==
[2022-01-05 17:06] VITALS: BP 113/57; PULSE 51; RESP 16; TEMP 36.1; O2SAT 96; BMI 23.5
--- NOTE | 2022-01-05 17:25 | EKG12_ITS ---
Test Reason : Blood Pressure : / mmHG Vent. Rate : 099 BPM Atrial Rate : 198 BPM P-R Int : 000 ms QRS Dur : 086 ms QT Int : 374 ms P-R-T Axes : 254 050 012 degrees QTc Int : 479 ms Atrial flutter Low voltage QRS Nonspecific T wave abnormality Prolonged QT Abnormal ECG Confirmed by LEONA LONDONO, JERI ([id number]), newspaper copy editor INGA GUERRERO ([id number]) on 01/10/2022 7:36:59 AM Referred By: JEAN Confirmed By:JERI DELGADILLO MD
--- NOTE | 2022-01-05 17:26 | EDS_ITS ---
HPI History of Present Illness Chief Complaint: Palpitations Narrative Narrative: Patient presents via private vehicle from her primary care provider's office today. She states she was being seen because she has vomiting at bedtime. She will wake up in the middle of the night and vomit and go back to sleep. She denies any abdominal pain or diarrhea. She has had occasional palpitations and states she has been short of breath for quite some time. She also reported lightheadedness to her physician. She has past medical history of hypertension, CVA, hypothyroidism and anemia. She does take low-dose Eliquis for her CVA. 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 At her primary care provider's office, she was found to be in atrial fibrillation with rapid ventricular response. She states she feels fatigued and tired at times also. [facility] Medical History Anemia Anxiety and depression Cephalgia Depression with anxiety Essential hypertension History of CVA (cerebrovascular accident) (08/2019) Hyperlipidemia Hypothyroidism Paroxysmal atrial fibrillation Tobacco dependence due to cigarettes Home Medications acetaminophen 650 mg PO Q6H PRN PRN 02/08/19 [History Last Taken 02/26/19] cyanocobalamin (vitamin B-12) 1,000 mcg PO DAILY 02/08/19 [History Last Taken 09/06/19] levothyroxine 75 mcg PO QHS 02/08/19 [History Last Taken 02/17/20] paroxetine HCl 40 mg PO DAILY 02/08/19 [History Last Taken 02/18/20] tolterodine 4 mg PO DAILY 02/08/19 [History Last Taken 02/18/20] minocycline 1 tab PO DAILY 09/06/19 [History Last Taken 02/18/20] aspirin 81 mg PO DAILY@0800 #30 tab.chew 09/08/19 [Rx Last Taken 02/18/20] atorvastatin 80 mg tablet 80 mg PO QHS tab 02/26/20 [History Last Taken Unknown] lysine 500 mg tablet 500 mg PO DAILY tab 02/26/20 [History Last Taken Unknown] apixaban 2.5 mg tablet 2.5 mg PO BID #180 tab 09/06/21 [Rx Last Taken Unknown] doxepin 50 mg capsule 50 mg PO QHS cap 11/30/21 [History Last Taken Unknown] hydrochlorothiazide 12.5 mg tablet 12.5 mg PO DAILY tab 11/30/21 [History Last Taken Unknown] metoprolol tartrate 25 mg PO BID #60 tab 01/05/22 [Rx Last Taken Unknown] Allergy/AdvReac Type Severity Reaction Status Date / Time Egg Derived Allergy Severe swelling Verified 01/05/22 17:08 alcohol Allergy Rash Verified 01/05/22 17:08 NSAIDS (Non-Steroidal AdvReac instant Verified 01/05/22 17:08 Anti-Inflamma headache Family History Father Hypertension Mother Hypertension CAD (coronary artery disease) [place] Brother Heart disease Sister Heart disease Surgical History History of cholecystectomy History of hysterectomy History of thyroidectomy Social History Smoking Status: Current every day smoker tobacco type: cigarettes alcohol intake: current alcohol intake frequency: a few times a month Alcohol type: beer substance use type: marijuana caffeine: Yes Type: coffee Number of servings: 1 ROS ROS ED ROS Narrative Constitutional: No fever, no chills. Positive fatigue and malaise HEENT: No sore throat. No neck pain. No loss of vision. No rhinorrhea. Cardiovascular: No chest pain. Occasional palpitations. Occasional pedal edema. Respiratory: No cough, no shortness of breath. Abdominal: No abdominal pain. Positive nausea. Positive vomiting, nightly for the last week and a half. Genitourinary: No dysuria. No hematuria. Musculoskeletal: No myalgias. No arthralgias. Neurologic: No headaches. No dizziness or lightheadedness currently. Skin: No rash. No change in color. Psychiatric: No depression. No anxiety. EXAM Physical Exam Narrative Exam Narrative: Afebrile. Vital signs noted. HEENT: Normocephalic. Atraumatic. PERRL, EOMI. Neck soft and supple. No point tenderness or step off. Cardiovascular: Irregularly irregular rhythm no murmurs, rubs, or gallops appreciated. Respiratory: No tachypnea. Lungs clear to auscultation bilaterally. Gastrointestinal: Abdomen soft, nontender, with normoactive bowel sounds. No rebound or guarding. Neurological: Awake. Alert. Nonfocal, nonlateralizing. Skin: No rash. Normal color. No pallor. Musculoskeletal: Bilateral trace pedal edema. Full range of motion extremities. Const Vital Signs: 01/05/22 17:06 01/05/22 17:54 01/05/22 18:00 Temperature 97.0 F L Temperature Source Temporal Pulse Rate 51 L Respiratory Rate 16 Respiratory Effort Normal Blood Pressure 113/57 L Blood Pressure Mean 75 Pulse Ox 96 Oxygen Delivery Method Room Air Room Air 01/05/22 19:10 Temperature Temperature Source Pulse Rate 100 Respiratory Rate 30 H Respiratory Effort Blood Pressure 135/117 H Blood Pressure Mean 123 Pulse Ox 100 Oxygen Delivery Method MDM MDM MDM Narrative Medical decision making narrative: The nurse practitioner had called in and stated that this was new so onset atrial fibrillation. However, she has it listed as her problem list in the EMR. I will review her prior records. She does present with an EKG from her primary care provider's office that does show atrial fibrillation with rapid ventricular response. This will be repeated here. I will obtain laboratory work and a chest x-ray as well. CBC shows normal white count of 9.7, hemoglobin normal at 12.1, platelet count normal at 446. Electrolyte panel shows sodium normal at 136 with a potassium slightly low at 3.3. LFTs are grossly normal. BNP only slightly elevated at 285.8. High-sensitivity troponin normal at 10. This is greater than a 6-hour troponin. Chest x-ray read by myself shows no acute process, however radiology reads it as possible left upper lobe aspiration versus pneumonia. Given her history of nausea and vomiting nocturnally, this could be a slight aspiration but her pulse ox is 100% on room air, she is afebrile, and she does not have a white count. Hence, I do not feel that antibiotics are indicated. She states the main reason that she was sent here from her primary care provider's office/nurse practitioner's office was because her heart was in a different rhythm. In review of the EKG, she was in atrial fibrillation with rapid ventricular response at 148 bpm on their EKG. The EKG obtained in the emergency department shows atrial flutter at 99 bpm and is rate controlled. Once again, I reviewed her chart and she had history of sinus tachycardia flipping into atrial fibrillation and then a flutter in 2019. As her work-up is essentially negative here and she is rate controlled and already anticoagulated on Eliquis 2.5 mg twice a day, I discussed the patient with Dr. Lieberman with cardiology as she is seen by the heart group. He would like her placed on 25 mg of metoprolol tartrate twice a day and follow-up in the office. I feel she be discharged safely home with follow-up. Return instructions to the emergency department were reviewed. Disposition is discharged home in stable condition. Patient is agreeable to the plan. Lab Data Attestation: I reviewed the patient's lab results. Labs: Laboratory Results - last 24 hr 01/05/22 01/05/22 01/05/22 17:32 17:32 17:32 WBC 9.7 RBC 3.96 L Hgb 12.1 Hct 37.7 MCV 95.2 MCH 30.6 MCHC 32.1 RDW Std Deviation 51.8 H RDW Coeff of Patrick 14.6 Plt Count 446 MPV 8.9 Immature Gran % (Auto) 0.400 Neut % (Auto) 68.4 Lymph % (Auto) 23.5 [place] % (Auto) 5.2 Eos % (Auto) 2.2 Baso % (Auto) 0.3 Absolute Neuts (auto) 6.7 Absolute Lymphs (auto) 2.28 Nucleated RBC % 0 Sodium 136 Potassium 3.3 L Chloride 101 Carbon Dioxide 26.0 Anion Gap 9 BUN 20 H Creatinine 1.34 H Estim Creat Clear Calc 31.48 Est GFR (MDRD) Af Amer 49 L Est GFR (MDRD) Non-Af 40 L BUN/Creatinine Ratio 14.9 Glucose 101 Calcium 8.9 Total Bilirubin 0.80 AST 29 ALT 18 Alkaline Phosphatase 112 Troponin I High Sens 10 B-Natriuretic Peptide 285.8 H Total Protein 7.9 Albumin 3.2 Globulin 4.7 H Albumin/Globulin Ratio 0.7 L Lipase 145 Radiography Diagnostic Testing: Clinical Impression(s) from Imaging Studies Chest X-Ray 01/05/22 17:48 IMPRESSION: Faint groundglass opacities in the left mid to upper lung zones, which may be due to pneumonia or aspiration. CT scan is recommended for further evaluation. Electronically Signed: Raj Rodríguez MD at 18:30 EDT , Discharge Plan Triage Chief Complaint: Palpitations ED Provider: Jovon Riley Dx/Rx/DC Orders Clinical Impression: Paroxysmal atrial fibrillation, Atrial flutter with controlled response Instructions: ED AFIB, ED Atrial Flutter Prescriptions: New metoprolol tartrate 25 mg tablet 25 mg PO BID Qty: 60 RF: 0 No Action atorvastatin 80 mg tablet 80 mg PO QHS RF: 0 hydrochlorothiazide 12.5 mg tablet 12.5 mg PO DAILY RF: 0 doxepin 50 mg capsule 50 mg PO QHS RF: 0 tolterodine 4 MG capsule,extended release 24hr 4 mg PO DAILY RF: 0 cyanocobalamin (vitamin B-12) 1,000 MCG tablet 1,000 mcg PO DAILY RF: 0 acetaminophen 650 MG tablet extended release 650 mg PO Q6H PRN PRN (Reason: nerve pain) RF: 0 levothyroxine 75 MCG tablet 75 mcg PO QHS RF: 0 paroxetine HCl 40 MG tablet 40 mg PO DAILY RF: 0 minocycline 50 MG tablet 1 tab PO DAILY RF: 0 aspirin 81 MG tablet,chewable 81 mg PO DAILY@0800 Qty: 30 RF: 0 lysine 500 mg tablet 500 mg PO DAILY RF: 0 apixaban 2.5 mg tablet 2.5 mg PO BID Qty: 180 RF: 4 Primary Care Provider: Nayana Adam Referrals: Carlos Osullivan MD [STAFF PHYSICIAN] - 3-5 Days Nayana Adam MD [Primary Care Provider] - Disposition Disposition: Home, Self Care
--- NOTE | 2022-01-05 17:48 | RAD_ITS ---
STUDY: X-RAY CHEST REASON FOR EXAM: Female, 81 years old. chest pain TECHNIQUE: 1 view COMPARISON: 03/18/2021 FINDINGS: Cardiomediastinal silhouette is unremarkable. Costophrenic angles are sharp. Pain groundglass opacities noted in the left mid to upper lungs. Linear scars in the lung bases. Calcified granuloma in the left midlung zone. The trachea is midline. There is no pneumothorax. The gallbladder has been removed. Multilevel thoracic spondylosis. The bones are osteopenic. RAD/Chest 1 View (Portable) IMPRESSION: Faint groundglass opacities in the left mid to upper lung zones, which may be due to pneumonia or aspiration. CT scan is recommended for further evaluation. Electronically Signed: Raj Rodríguez MD at 18:30 EDT ,
[2022-01-05 17:50] LABS: Absolute Lymphocyte Count 2.28 X10^3/uL (0.83-4.51); Absolute Neutrophil Count 6.7 X10^3/uL (2.0-7.7); Basophil# 0.03 X10^3/uL; Basophil% 0.3 % (0-1); Eosinophil# 0.21 X10^3/uL; Eosinophils% 2.2 % (0-5); Hematocrit 37.7 % (37-47); Hemoglobin 12.1 g/dL (12.0-15.0); Lymphocyte # 2.28 X10^3/ul (0.83-4.51); Lymphocyte % 23.5 % (19-41); Mean Corp Hgb Conc 32.1 g/dL (32-36); Mean Corpuscular Hgb 30.6 pg (27.0-32.0); Mean Corpuscular Volume 95.2 fL (81-99); Mean Platelet Vol. 8.9 fl (6.2-12.0); Monocyte# 0.51 X10^3/uL; Monocyte% 5.2 % (0-10); NRBC Flagged by Analyzer 0 % (0-5); Neutrophil # 6.65 X10^3/uL (2.7-7.7); Neutrophil % 68.4 % (47-70); Platelet Count 446 K/mm3 (150-450); RBC Distribution Width CV 14.6 % (11.6-14.6); RBC Distribution Width SD 51.8 fl (35.1-43.9); Red Blood Count 3.96 M/mm3 (4.2-5.4); White Blood Count 9.7 K/mm3 (4.4-11.0)
[2022-01-05 18:07] LABS: BNP,B-Type NATRIURETIC PEPTIDE 285.8 pg/mL (0-100)
[2022-01-05 18:11] LABS: ALB/GLOB Ratio 0.7 RATIO (0.9-2.4); AST(SGOT) 29 U/L (15-37); Alanine Aminotransfer ALT/SGPT 18 U/L (13-56); Albumin, Serum 3.2 g/dL (3.2-5.0); Alkaline Phosphatase 112 U/L (45-117); Anion Gap 9 (5-15); BUN 20 mg/dL (7-18); BUN/Creat Ratio 14.9 RATIO (10-20); Calcium,Total 8.9 mg/dL (8.5-10.1); Chloride 101 mmol/L (98-107); Creatinine, Serum 1.34 mg/dL (0.55-1.02); EST Glomerular Filtration Rate 40 mL/min (>60); Est Glom Filt Rate - Afr Amer 49 mL/min (>60); Estimated Creatinine Clearance 31.48 ml/min; Globulin 4.7 g/dL (2.2-4.2); Glucose 101 mg/dL (74-106); Lipase 145 U/L (73-393); Potassium 3.3 mmol/L (3.5-5.1); Protein, Total 7.9 g/dL (6.4-8.2); Sodium Level 136 mmol/L (136-145); Troponin-I HS 10 pg/mL (3.0-54.0)
[2022-01-05 19:10] VITALS: BP 135/117; PULSE 100; RESP 30; O2SAT 100
[2022-01-05] MEDS: Metoprolol Tartrate 25 MG Tablet PO (19:46)
[2022-01-05 19:50] VITALS: BP 140/90; PULSE 98; RESP 16; O2SAT 99
== END 2022-01-05 19:51 | disposition home or self-care (01) ==
PROVIDERS: Emergency Provider Emergency Medicine; PCP Internal Medicine Infectious Disease; Visit Provider Emergency Medicine
DX: I48.0 Paroxysmal atrial fibrillation (principal); I48.92 Unspecified atrial flutter; I10 Essential (primary) hypertension; R11.10 Vomiting, unspecified; F17.210 Nicotine dependence, cigarettes, uncomplicated; E78.5 Hyperlipidemia, unspecified; Z86.73 Personal history of transient ischemic attack (TIA), and cerebral infarction without residual deficits; E03.9 Hypothyroidism, unspecified; F41.9 Anxiety disorder, unspecified; F32.A Depression, unspecified; R06.02 Shortness of breath
CPT/HCPCS: 71045; 80053; 83690; 83880; 84484; 85025; 93005; 99285; A4216

== ENCOUNTER 2022-01-10 14:25 | Emergency (ER) | payer MEDICARE, OTHER, SELFPAY ==
[2022-01-10] VITALS (8 sets, daily range): BP systolic 89–126; BP diastolic 64–90; PULSE 71–88; RESP 18–22; TEMP 36.6; O2SAT 96–100; BMI 25.0
--- NOTE | 2022-01-10 14:57 | EKG12_ITS ---
Test Reason : LOW BP Blood Pressure : / mmHG Vent. Rate : 081 BPM Atrial Rate : 101 BPM P-R Int : 000 ms QRS Dur : 078 ms QT Int : 430 ms P-R-T Axes : 000 077 050 degrees QTc Int : 499 ms Atrial Flutter Low voltage QRS Nonspecific ST and T wave abnormality Prolonged QT Abnormal ECG Confirmed by GORDON LONDONO, OLIVIA ([id number]), metropolitan editor INGA GUERRERO ([id number]) on 01/12/2022 9:52:41 AM Referred By: LICHA Confirmed By:OLIVIA LEYVA MD
--- NOTE | 2022-01-10 14:57 | CT_ITS ---
EXAM: CT CHEST WITHOUT INTRAVENOUS CONTRAST CLINICAL INDICATION: dyspnea with exertion, abn CXR 01/05 TECHNIQUE: Helically acquired images were obtained of the chest without intravenous contrast. This CT exam was performed using one or more of the following dose reduction techniques: automated exposure control, adjustment of the mA and/or kV according to patient size, and/or use of iterative reconstruction technique. This report was created using [employer] report generation technology. COMPARISON: 02/27/2019. FINDINGS: LUNGS AND PLEURAL SPACES: Calcified granuloma in the left upper lobe. Mild interstitial prominence, predominantly in the lung periphery, is significantly increased compared to 2019. No mass. No pleural effusion or thickening. No pneumothorax. HEART: Unremarkable. Heart size is normal. No pericardial effusion. No significant coronary artery calcifications. MEDIASTINUM: Small hiatal hernia. Calcified left hilar adenopathy. Esophagus is unremarkable. THYROID: Unremarkable. No thyroid lesions. BONES/JOINTS: Unremarkable. No suspicious lytic or blastic abnormality. VASCULATURE: Unremarkable. Thoracic aorta is non-dilated. GALLBLADDER AND BILE DUCTS: Gallbladder is surgically absent. SPLEEN: Granulomatous calcifications in the spleen. ADRENALS: 1.6 cm left adrenal nodule with CT density of 5 Hounsfield units. No change in size compared to the prior study. CT/Chest without Contrast IMPRESSION: 1. Increased interstitial prominence may represent interstitial fibrosis versus superimposed interstitial pneumonia. 2. Small hiatal hernia. 3. Left adrenal adenoma. 4. Old granulomatous disease. Electronically Signed: Lisette Garcia MD at 16:56 EDT Reading Location ID and State: [id number] / Tel , Service support ,
--- NOTE | 2022-01-10 15:00 | EDS_ITS ---
HPI History of Present Illness Chief Complaint: Hypotension Informant: patient Onset/Context/Timing Onset: Days (5) Context: Gradual Onset Timing: Intermittent Quality: Lightheadedness Current Severity: Mild Maximum Severity: Severe Worsened by: Standing Relieved by: Resting Associated Symptoms Associated Symptoms: Dyspnea with exertion Narrative Narrative: Patient was seen here almost 1 week ago diagnosed with new onset atrial fibrillation and prescribed metoprolol 25 mg twice daily. That is the only AV laura blockers she is on now. She was already anticoagulated. She states ever since then she has been checking her blood pressure at home because she has been feeling lightheaded, and her blood pressure has steadily been dropping every day. Today was in the 80s systolic. The day after she started the metoprolol it was 116 systolic. She states she feels lightheaded now sitting here, it gets much worse when she stands up and she has had near syncopal episodes but has not passed out. Denies any chest pain. Dyspnea when she exerts herself, but not at rest. No cough or fevers. She also has vomiting most nights, states she wakes up nauseated and needs to vomit once or twice du ring the night. That is new. She denies abdominal pain or diarrhea with this. [facility] Medical History Anemia Anxiety and depression Cephalgia Depression with anxiety Essential hypertension History of CVA (cerebrovascular accident) (08/2019) Hyperlipidemia Hypothyroidism Paroxysmal atrial fibrillation Tobacco dependence due to cigarettes Home Medications acetaminophen 650 mg PO Q6H PRN PRN 02/08/19 [History Last Taken 02/26/19] cyanocobalamin (vitamin B-12) 1,000 mcg PO DAILY 02/08/19 [History Last Taken 09/06/19] levothyroxine 75 mcg PO QHS 02/08/19 [History Last Taken 02/17/20] paroxetine HCl 40 mg PO DAILY 02/08/19 [History Last Taken 02/18/20] tolterodine 4 mg PO DAILY 02/08/19 [History Last Taken 02/18/20] minocycline 1 tab PO DAILY 09/06/19 [History Last Taken 02/18/20] aspirin 81 mg PO DAILY@0800 #30 tab.chew 09/08/19 [Rx Last Taken 02/18/20] atorvastatin 80 mg tablet 80 mg PO QHS tab 02/26/20 [History Last Taken Unknown] lysine 500 mg tablet 500 mg PO DAILY tab 02/26/20 [History Last Taken Unknown] apixaban 2.5 mg tablet 2.5 mg PO BID #180 tab 09/06/21 [Rx Last Taken Unknown] doxepin 50 mg capsule 50 mg PO QHS cap 11/30/21 [History Last Taken Unknown] hydrochlorothiazide 12.5 mg tablet 12.5 mg PO DAILY tab 11/30/21 [History Last Taken Unknown] levofloxacin 750 mg PO DAILY 5 Days #5 tab 01/10/22 [Rx Last Taken Unknown] Allergy/AdvReac Type Severity Reaction Status Date / Time Egg Derived Allergy Severe swelling Verified 01/10/22 14:28 alcohol Allergy Rash Verified 01/10/22 14:28 NSAIDS (Non-Steroidal AdvReac instant Verified 01/10/22 14:28 Anti-Inflamma headache Family History Father Hypertension Mother Hypertension CAD (coronary artery disease) [place] Brother Heart disease Sister Heart disease Surgical History History of cholecystectomy History of hysterectomy History of thyroidectomy Social History Smoking Status: Current every day smoker tobacco type: cigarettes alcohol intake: current alcohol intake frequency: a few times a month Alcohol type: beer substance use type: marijuana caffeine: Yes Type: coffee Number of servings: 1 ROS ROS ED Constitutional Constitutional ED: Reports malaise; Denies body ache(s), chills or fever(s) Eyes Eyes: Denies change in vision or diplopia ENT ENT ED: Denies rhinorrhea or sore throat Cardiovascular Cardiovascular: Denies chest pain, lightheadedness, orthopnea or palpitations Respiratory/Chest Respiratory/Chest: Reports dyspnea on exertion; Denies cough or orthopnea Gastrointestinal Gastrointestinal: Reports as per HPI, nausea and vomiting; Denies abdominal pain or diarrhea Genitourinary Genitourinary ED: Denies dysuria or hematuria Musculoskeletal Musculoskeletal: Denies back pain, extremity pain or neck pain Integumentary Denies abscess or rash Neurologic Neurologic: Denies headache(s), paresthesias or weakness Psychiatric Psychiatric: Denies anxiety or suicidal thoughts EXAM Physical Exam Const Vital Signs: 01/10/22 14:25 01/10/22 14:34 01/10/22 14:36 Temperature 97.9 F Temperature Source Temporal Pulse Rate 88 Pulse Rate [Lying] Pulse Rate [Sitting (for 1 minute prior to obtaining)] Pulse Rate [Standing (for 1 minute prior to obtaining)] Respiratory Rate 18 Respiratory Effort Normal Respiratory Pattern Normal Blood Pressure 89/65 L 94/65 Blood Pressure [Lying] Blood Pressure [Sitting (for 1 minute prior to obtaining)] Blood Pressure [Standing (for 1 minute prior to obtaining)] Blood Pressure Mean 73 74 Blood Pressure Mean [Lying] Blood Pressure Mean [Sitting (for 1 minute prior to obtaining)] Blood Pressure Mean [Standing (for 1 minute prior to obtaining)] Pulse Ox 100 Oxygen Delivery Method Room Air 01/10/22 15:25 01/10/22 17:04 01/10/22 18:00 Temperature Temperature Source Pulse Rate 76 83 Pulse Rate [Lying] Pulse Rate [Sitting (for 1 minute prior to obtaining)] Pulse Rate [Standing (for 1 minute prior to obtaining)] Respiratory Rate 22 H 20 H Respiratory Effort Respiratory Pattern Blood Pressure 126/77 H 116/69 124/90 H Blood Pressure [Lying] Blood Pressure [Sitting (for 1 minute prior to obtaining)] Blood Pressure [Standing (for 1 minute prior to obtaining)] Blood Pressure Mean 93 84 101 Blood Pressure Mean [Lying] Blood Pressure Mean [Sitting (for 1 minute prior to obtaining)] Blood Pressure Mean [Standing (for 1 minute prior to obtaining)] Pulse Ox 97 Oxygen Delivery Method Room Air 01/10/22 18:40 01/10/22 19:32 Temperature Temperature Source Pulse Rate 77 Pulse Rate [Lying] 71 Pulse Rate [Sitting (for 1 minute prior to obtaining)] 71 Pulse Rate [Standing (for 1 minute prior to obtaining)] 79 Respiratory Rate 22 H Respiratory Effort Respiratory Pattern Blood Pressure 113/77 Blood Pressure [Lying] 120/64 Blood Pressure [Sitting (for 1 minute prior to obtaining)] 124/76 H Blood Pressure [Standing (for 1 minute prior to obtaining)] 92/64 Blood Pressure Mean 89 Blood Pressure Mean [Lying] 82 Blood Pressure Mean [Sitting (for 1 minute prior to obtaining)] 92 Blood Pressure Mean [Standing (for 1 minute prior to obtaining)] 73 Pulse Ox 96 Oxygen Delivery Method Room Air Positive well nourished and well developed Constitutional Narrative: Well-appearing, no distress, conversational General Appearance ED: well developed and NAD HEENT Reports moist mucous membranes normocephalic and atraumatic Eyes PERRL and EOMs intact bilaterally Neck full ROM, no lymphadenopathy, supple and no meningeal signs Resp normal respiratory effort and clear to auscultation bilaterally Cardio regular rate, regular rhythm and no murmurs GI non-tender and non-distended Auscultation: normoactive bowel sounds Palpation: soft Back/Spine no CVA tenderness General Back: other FROM Extremity normal to inspection General Extremety ED: Negative for edema, pulses abnormal or tenderness General Extremity: Negative for edema or pulses abnormal Neuro oriented x3, CN's II-XII intact bilaterally and no sensory deficits noted Sensorium / Orientation: awake and alert Motor Exam: strength 5/5 throughout Skin no rashes or lesions noted and no wounds MDM MDM MDM Narrative Medical decision making narrative: Patient had a chest x-ray 5 days ago that was abnormal and a CT was recommended so I skipped the x-ray and did the CT. Findings are below, I discussed the possibility of an interstitial pneumonitis. She has not had coughing, but given her low blood pressure I think it would be reasonable to put her on empiric antibiotics. I gave her some fluids, her pressure came up. We watched her. I did not go back down, and with orthostatic they were negative and she felt fine. She was observed for a while. She does not received her nighttime metoprolol, and her pressure is holding 113/77. My suspicion is that this is the metoprolol, given that this started right after she started it. Her heart rate is in the 70s right now. I am get a discharge home and have her hold the metoprolol altogether, if she becomes too tachycardic they may give it as needed, 12.5 mg at a time, we discussed reasons to return with her and son and they are comfortable with that plan going home right now. Lab Data Attestation: I reviewed the patient's lab results. Labs: Laboratory Results - last 24 hr 01/10/22 01/10/22 01/10/22 14:35 14:35 14:35 WBC 6.9 RBC 3.85 L Hgb 11.7 L Hct 36.3 L MCV 94.3 MCH 30.4 MCHC 32.2 RDW Std Deviation 50.4 H RDW Coeff of Patrick 14.4 Plt Count 426 MPV 9.1 Immature Gran % (Auto) 0.300 Neut % (Auto) 62.7 Lymph % (Auto) 27.5 [place] % (Auto) 5.6 Eos % (Auto) 3.5 Baso % (Auto) 0.4 Absolute Neuts (auto) 4.3 Absolute Lymphs (auto) 1.90 Nucleated RBC % 0 Sodium 139 Potassium 4.3 Chloride 106 Carbon Dioxide 30.0 Anion Gap 3 L BUN 21 H Creatinine 1.13 H Estim Creat Clear Calc 34.54 Est GFR (MDRD) Af Amer 59 L Est GFR (MDRD) Non-Af 49 L BUN/Creatinine Ratio 18.6 Glucose 91 Calcium 8.3 L Troponin I High Sens 10 B-Natriuretic Peptide 206.6 H Urine Color Urine Clarity Urine pH Ur Specific Cando Urine Protein Urine Glucose (UA) Urine Ketones Urine Occult Blood Urine Nitrite Urine Bilirubin Urine Urobilinogen Ur Leukocyte Esterase Urine RBC Urine WBC Ur Squamous Epith Cells Urine Bacteria Urine Mucus 01/10/22 15:50 WBC RBC Hgb Hct MCV MCH MCHC RDW Std Deviation RDW Coeff of Patrick Plt Count MPV Immature Gran % (Auto) Neut % (Auto) Lymph % (Auto) [place] % (Auto) Eos % (Auto) Baso % (Auto) Absolute Neuts (auto) Absolute Lymphs (auto) Nucleated RBC % Sodium Potassium Chloride Carbon Dioxide Anion Gap BUN Creatinine Estim Creat Clear Calc Est GFR (MDRD) Af Amer Est GFR (MDRD) Non-Af BUN/Creatinine Ratio Glucose Calcium Troponin I High Sens B-Natriuretic Peptide Urine Color Yellow Urine Clarity Clear Urine pH 6.5 Ur Specific Cando 1.015 Urine Protein 15 H Urine Glucose (UA) Normal Urine Ketones Negative Urine Occult Blood Negative Urine Nitrite Negative Urine Bilirubin Negative Urine Urobilinogen Normal Ur Leukocyte Esterase 25 H Urine RBC 0 SEEN Urine WBC 5-10 SEEN Ur Squamous Epith Cells 0-5 SEEN Urine Bacteria 1+ Urine Mucus 0 SEEN Radiography Diagnostic Testing: Clinical Impression(s) from Imaging Studies Chest CT 01/10/22 14:57 IMPRESSION: 1. Increased interstitial prominence may represent interstitial fibrosis versus superimposed interstitial pneumonia. 2. Small hiatal hernia. 3. Left adrenal adenoma. 4. Old granulomatous disease. Electronically Signed: Lisette Garcia MD at 16:56 EDT Reading Location ID and State: [id number] / Tel , Service support , Rhythm Strip Rhythm Strip: A-fib Rate: 80 Ectopy: None EKG Initial EKG: Attestation: I personally reviewed and interpreted this EKG as follows: Interpretation: No Acute Injury Pattern and Atrial Fibrillation Discharge Plan Triage Chief Complaint: Hypotension Other Complaint: Dizziness ED Provider: Bryant Hargrove Dx/Rx/DC Orders Clinical Impression: Interstitial pneumonitis, Paroxysmal atrial fibrillation, Transient hypotension Instructions: ED Low Blood Pressure, All Causes Prescriptions: New levofloxacin 750 mg tablet 750 mg PO DAILY 5 Days Qty: 5 RF: 0 Continued atorvastatin 80 mg tablet 80 mg PO QHS RF: 0 hydrochlorothiazide 12.5 mg tablet 12.5 mg PO DAILY RF: 0 doxepin 50 mg capsule 50 mg PO QHS RF: 0 tolterodine 4 MG capsule,extended release 24hr 4 mg PO DAILY RF: 0 cyanocobalamin (vitamin B-12) 1,000 MCG tablet 1,000 mcg PO DAILY RF: 0 acetaminophen 650 MG tablet extended release 650 mg PO Q6H PRN PRN (Reason: nerve pain) RF: 0 levothyroxine 75 MCG tablet 75 mcg PO QHS RF: 0 paroxetine HCl 40 MG tablet 40 mg PO DAILY RF: 0 minocycline 50 MG tablet 1 tab PO DAILY RF: 0 aspirin 81 MG tablet,chewable 81 mg PO DAILY@0800 Qty: 30 RF: 0 lysine 500 mg tablet 500 mg PO DAILY RF: 0 apixaban 2.5 mg tablet 2.5 mg PO BID Qty: 180 RF: 4 Discontinued metoprolol tartrate 25 mg tablet 25 mg PO BID Qty: 60 RF: 0 Primary Care Provider: Nayana Adam Referrals: Nayana Adam MD [Primary Care Provider] - 1-2 Days if not improving Activity Restrictions/Additional Instructions: There were some findings on the CT scan of the chest that indicated there could be some minor chronic scarring versus an acute infection; fill and take the antibiotic just in case. If heart rate stays in the 120s or higher, or if she is fast and feeling it, you may give half of one of the metoprolol tablets and watch her. If high heart rate and low blood pressure, return to the ER. Disposition Disposition: Home, Self Care
[2022-01-10 15:15] LABS: Absolute Neutrophil Count 4.3 X10^3/uL (2.0-7.7); Basophil# 0.03 X10^3/uL; Basophil% 0.4 % (0-1); Eosinophil# 0.24 X10^3/uL; Eosinophils% 3.5 % (0-5); Hematocrit 36.3 % (37-47); Hemoglobin 11.7 g/dL (12.0-15.0); Lymphocyte % 27.5 % (19-41); Mean Corp Hgb Conc 32.2 g/dL (32-36); Mean Corpuscular Hgb 30.4 pg (27.0-32.0); Mean Corpuscular Volume 94.3 fL (81-99); Mean Platelet Vol. 9.1 fl (6.2-12.0); Monocyte# 0.39 X10^3/uL; Monocyte% 5.6 % (0-10); NRBC Flagged by Analyzer 0 % (0-5); Neutrophil # 4.34 X10^3/uL (2.7-7.7); Neutrophil % 62.7 % (47-70); Platelet Count 426 K/mm3 (150-450); RBC Distribution Width CV 14.4 % (11.6-14.6); RBC Distribution Width SD 50.4 fl (35.1-43.9); Red Blood Count 3.85 M/mm3 (4.2-5.4); White Blood Count 6.9 K/mm3 (4.4-11.0)
[2022-01-10 15:46] LABS: BNP,B-Type NATRIURETIC PEPTIDE 206.6 pg/mL (0-100)
[2022-01-10 15:51] LABS: Anion Gap 3 (5-15); BUN 21 mg/dL (7-18); BUN/Creat Ratio 18.6 RATIO (10-20); Calcium,Total 8.3 mg/dL (8.5-10.1); Chloride 106 mmol/L (98-107); Creatinine, Serum 1.13 mg/dL (0.55-1.02); EST Glomerular Filtration Rate 49 mL/min (>60); Est Glom Filt Rate - Afr Amer 59 mL/min (>60); Estimated Creatinine Clearance 34.54 ml/min; Glucose 91 mg/dL (74-106); Potassium 4.3 mmol/L (3.5-5.1); Sodium Level 139 mmol/L (136-145); Troponin-I HS 10 pg/mL (3.0-54.0)
[2022-01-10 16:01] LABS: Mucous, Urine 0 SEEN /hpf (<or=2+); Red Blood Cells-Urine 0 SEEN /hpf (0-5)
[2022-01-10 16:20] LABS: Glucose, Dipstick Normal (Normal); Ketone-Dipstick Negative (Negative); Leukocyte Esterase-Dipstick 25 /ul (Negative); Nitrite-Dipstick Negative (Negative); Occult Blood-Urine Negative /ul (Negative); Protein-Dipstick 15 mg/dl (Negative); Specific Gravity, Urine 1.015 (1.002-1.030); Urine Bilirubin Dipstick Negative (Negative); Urine Urobilinogen Normal (Normal); Urine pH 6.5 (5.0 - 8.0)
[2022-01-10 16:54] LABS: Color, Urine Yellow (Yellow); Urine Clarity Clear (Clear)
[2022-01-10 16:56] LABS: Bacteria 1+ /hpf (None Seen); Squamous Epithelial Cells - UA 0-5 SEEN /hpf (5-10); White Blood Cells 5-10 SEEN /hpf (0-5)
== END 2022-01-10 20:43 | disposition home or self-care (01) ==
PROVIDERS: Emergency Provider Emergency Medicine; PCP Internal Medicine Infectious Disease; Visit Provider Emergency Medicine
DX: I48.0 Paroxysmal atrial fibrillation (principal); J84.89 Other specified interstitial pulmonary diseases; R03.1 Nonspecific low blood-pressure reading; F17.210 Nicotine dependence, cigarettes, uncomplicated; E78.5 Hyperlipidemia, unspecified; I10 Essential (primary) hypertension; R06.00 Dyspnea, unspecified; Z86.73 Personal history of transient ischemic attack (TIA), and cerebral infarction without residual deficits; F32.A Depression, unspecified; F41.9 Anxiety disorder, unspecified
CPT/HCPCS: 71250; 80048; 81001; 83880; 84484; 85025; 93005; 99283; J7030

== ENCOUNTER 2022-03-29 18:46 | Inpatient (IN) | payer MEDICARE, OTHER, SELFPAY ==
[2022-03-29 18:48] VITALS: BP 118/61; PULSE 103; RESP 18; TEMP 36.2; O2SAT 93; BMI 23.3
--- NOTE | 2022-03-29 21:23 | RAD_ITS ---
STUDY: X-RAY - PELVIS AND RIGHT HIP REASON FOR EXAM: Female, 81 years old. fall/hip pain TECHNIQUE: XR Hip Unilateral with Pelvis when performed; 2-3 Views COMPARISON: None. FINDINGS: There is a non-specific bowel gas pattern. Normal visualized soft tissue structures. There are degenerative changes of the lumbar spine. Normal bilateral iliac wings, sacroiliac joints and visualized sacrum. Normal bilateral superior and inferior pubic rami. Normal pubic symphysis. Normal bilateral ischial tuberosities. Acute right subcapital fracture. There is impaction. No dislocation. RAD/HIP, UNI W/ Pelvis 2-3 Views IMPRESSION: Acute right subcapital fracture. Electronically Signed: Kurt Camp MD at 21:45 EDT ,
--- NOTE | 2022-03-29 21:30 | EX.ED.DYSGE1 ---
HPI History of Present Illness Chief Complaint: Fall Narrative Narrative: 81-year-old female here for fall. History of A. fib, CVA, hypertension, hyperlipidemia. The patient states she was involved in a mechanical fall after being bumped by a mini horse approximately 5 PM prior to arrival. States she is constant, severe right hip pain that is worse with movement and palpation. Patient denies any head trauma. No loss of consciousness. She states her last dose of Eliquis was this morning at 9am. Old chart reviewed: Patient is on Eliquis [facility] Medical History Anemia Anxiety and depression Cephalgia Depression with anxiety Essential hypertension History of CVA (cerebrovascular accident) (08/2019) Hyperlipidemia Hypothyroidism Paroxysmal atrial fibrillation Tobacco dependence due to cigarettes Home Medications acetaminophen 650 mg tablet,extended release 650 mg PO Q6H PRN PRN nerve pain 02/08/19 [History Last Taken 02/26/19] cyanocobalamin (vitamin B-12) 1,000 mcg tablet 1,000 mcg PO DAILY supplement 02/08/19 [History Last Taken 09/06/19] levothyroxine 75 mcg tablet 75 mcg PO QHS thyroid 02/08/19 [History Last Taken 02/17/20] paroxetine HCl 40 mg tablet 40 mg PO DAILY depression 02/08/19 [History Last Taken 02/18/20] tolterodine 4 mg capsule,extended release 24 hr 4 mg PO DAILY overactive bladder 02/08/19 [History Last Taken 02/18/20] minocycline 50 mg tablet 1 tab PO DAILY infection 09/06/19 [History Last Taken 02/18/20] aspirin 81 mg chewable tablet 81 mg PO DAILY@0800 ##30 09/08/19 [Rx Last Taken 02/18/20] atorvastatin 80 mg tablet 80 mg PO QHS 02/26/20 [History Last Taken Unknown] lysine 500 mg tablet 500 mg PO DAILY dietary supplement 02/26/20 [History Last Taken Unknown] apixaban 2.5 mg tablet 2.5 mg PO BID blood thinner #180 tabs 09/06/21 [Rx Last Taken Unknown] doxepin 50 mg capsule 50 mg PO QHS 11/30/21 [History Last Taken Unknown] hydrochlorothiazide 12.5 mg tablet 12.5 mg PO DAILY 11/30/21 [History Last Taken Unknown] levofloxacin 750 mg tablet 750 mg PO DAILY 5 days #5 tabs 01/10/22 [Rx Last Taken Unknown] metoprolol succinate 25 mg tablet,extended release 24 hr 12.5 mg PO DAILY #45 tabs 01/14/22 [Rx Last Taken Unknown] Allergy/AdvReac Type Severity Reaction Status Date / Time Egg Derived Allergy Severe swelling Verified 03/29/22 18:47 alcohol Allergy Rash Verified 03/29/22 18:47 NSAIDS (Non-Steroidal AdvReac instant Verified 03/29/22 18:47 Anti-Inflamma headache Family History Father Hypertension Mother Hypertension CAD (coronary artery disease) [place] Brother Heart disease Sister Heart disease Surgical History History of cholecystectomy History of hysterectomy History of thyroidectomy Social History Smoking Status: Current every day smoker tobacco type: cigarettes alcohol intake: current alcohol intake frequency: a few times a month Alcohol type: beer substance use type: marijuana caffeine: Yes Type: coffee Number of servings: 1 ROS ROS ED Eyes Eyes: Denies other visual disturbances ENT ENT ED: Denies ear pain Cardiovascular Cardiovascular: Denies chest pain Respiratory/Chest Respiratory/Chest: Denies dyspnea Gastrointestinal Gastrointestinal: Denies abdominal pain Genitourinary Genitourinary ED: Denies dysuria Musculoskeletal Musculoskeletal: Reports arthralgias Integumentary Denies rash Neurologic Neurologic: Denies dizziness, focal weakness, numbness, syncope or weakness Psychiatric Psychiatric: Denies homicidal ideation or suicidal ideation EXAM Physical Exam Const Vital Signs: 03/29/22 18:48 03/29/22 20:16 Temperature 97.2 F L Temperature Source Temporal Pulse Rate 103 H Respiratory Rate 18 Respiratory Effort Normal Non-Labored Blood Pressure 118/61 Blood Pressure Mean 80 Pulse Ox 93 Oxygen Delivery Method Room Air Room Air Negative for alert or oriented x3 General Appearance ED: Negative for comfortable Orientation / Consciousness: Negative for awake HEENT Denies normocephalic Face and Sinus: Negative for face symmetric External Ear: Negative for external ears normal Mouth ED: No moist mucous membranes normal Throat: Negative for posterior oropharynx normal Eyes Negative for PERRL or EOMs intact bilaterally Neck No full ROM Carotids: other Other Details: no carotid bruits Chest Wall Negative for inspection of chest normal Resp No normal respiratory effort, No no retractions, No no use of accessory muscles and No clear to auscultation bilaterally Cardio Negative for no murmurs or peripheral pulses 2+ throughout GI Negative for no bruits GI Narrative: no pulsatile abdominal masses Negative for no CVA tenderness Back/Spine Cervical Spine: Negative for cervical ROM normal Extremity Extremity Narrative: Right lower extremity shortened, intact distal pulses, 2+ reflexes in bilateral patellar, no lower extremity edema or calf tenderness. No obvious deformity Neuro Neuro Narrative: Intact sensation in all dermatomes of bilateral lower extremities, 5/5 strength in ankle dorsiflexion plantarflexion, decreased urine secondary to pain in right hip and right knee. No MDM MDM MDM Narrative Medical decision making narrative: 81-year-old female here with right hip pain after mechanical fall. She is on Eliquis reports no head trauma or loss of consciousness. last dose of Eliquis was on 03/29 at 9am. Exam with a shortened right extremity however her right lower extremity is neurovascular intact. X-ray of the right hip showed evidence of a hip fracture. We will admit the patient to medicine for orthopedic evaluation and pain control. EKG Initial EKG: Comments: EKG shows A. fib with RVR, normal axis, normal intervals, no obvious STEMI Discharge Plan Triage Chief Complaint: Fall ED Provider: Greg Agee Dx/Rx/DC Orders Prescriptions: No Action atorvastatin 80 mg tablet 80 mg PO QHS hydrochlorothiazide 12.5 mg tablet 12.5 mg PO DAILY doxepin 50 mg capsule 50 mg PO QHS metoprolol succinate 25 mg tablet extended release 24 hr 12.5 mg PO DAILY Qty: 45 3RF tolterodine 4 MG capsule,extended release 24hr 4 mg PO DAILY Label Comments: oab cyanocobalamin (vitamin B-12) 1,000 MCG tablet 1,000 mcg PO DAILY Label Comments: supplement acetaminophen 650 MG tablet extended release 650 mg PO Q6H PRN PRN (Reason: nerve pain) Label Comments: nerve pain levothyroxine 75 MCG tablet 75 mcg PO QHS Label Comments: thyroid paroxetine HCl 40 MG tablet 40 mg PO DAILY Label Comments: TAKE 1 TABLET BY MOUTH DAILY depression minocycline 50 MG tablet 1 tab PO DAILY Label Comments: TAKE 1 TABLET BY MOUTH ONCE DAILY aspirin 81 MG tablet,chewable 81 mg PO DAILY@0800 Qty: 30 0RF lysine 500 mg tablet 500 mg PO DAILY levofloxacin 750 mg tablet 750 mg PO DAILY 5 Days Qty: 5 0RF apixaban 2.5 mg tablet 2.5 mg PO BID Qty: 180 4RF Label Comments: blood thinner Primary Care Provider: Nayana Adam Referrals: Nayana Adam MD [Primary Care Provider] -
--- NOTE | 2022-03-29 21:59 | EKG12_ITS ---
Test Reason : DYSRHYTHMIA Blood Pressure : / mmHG Vent. Rate : 149 BPM Atrial Rate : 170 BPM P-R Int : 000 ms QRS Dur : 072 ms QT Int : 266 ms P-R-T Axes : 000 076 -80 degrees QTc Int : 418 ms Atrial fibrillation Nonspecific ST and T wave abnormality Abnormal ECG Confirmed by GORDON LONDONO, OLIVIA ([id number]), web content editor INGA GUERRERO ([id number]) on 03/31/2022 8:10:04 AM Referred By: MARIKA Confirmed By:OLIVIA LEYVA MD
[2022-03-29] MEDS: oxyCODONE 5 MG Tablet PO (22:10)
[2022-03-29] MEDS: Acetaminophen 325 MG Tablet PO (22:10)
--- NOTE | 2022-03-29 22:14 | PCM.HP.STD ---
HPI - General General Date of Admission: 03/29/22 Date of Service: 03/29/22 Chief Complaint: Fall HPI Narrative AMADO UNGER, is a 81 F with a significant history of atrial fibrillation; CVA and tobacco abuse who presents with a fall. Reportedly a pony horse hit her and she fell. Following the fall she had excruciating pain at her right hip. She described the pain as sharp. The pain worsens with movement and the pain improves with rubbing. The pain is nonradiating. Her fall and symptoms of head on the same day of presentation. She reports chronic shortness of breath that she attributes to her history of smoking. [facility] Medical History Anemia Anxiety and depression Cephalgia Depression with anxiety Essential hypertension History of CVA (cerebrovascular accident) (08/2019) Hyperlipidemia Hypothyroidism Paroxysmal atrial fibrillation Tobacco dependence due to cigarettes Home Medications acetaminophen 650 mg tablet,extended release 650 mg PO Q6H PRN PRN nerve pain 02/08/19 [History Last Taken 02/26/19] cyanocobalamin (vitamin B-12) 1,000 mcg tablet 1,000 mcg PO DAILY supplement 02/08/19 [History Last Taken 09/06/19] levothyroxine 75 mcg tablet 75 mcg PO QHS thyroid 02/08/19 [History Last Taken 02/17/20] paroxetine HCl 40 mg tablet 40 mg PO DAILY depression 02/08/19 [History Last Taken 02/18/20] tolterodine 4 mg capsule,extended release 24 hr 4 mg PO DAILY overactive bladder 02/08/19 [History Last Taken 02/18/20] minocycline 50 mg tablet 1 tab PO DAILY infection 09/06/19 [History Last Taken 02/18/20] aspirin 81 mg chewable tablet 81 mg PO DAILY@0800 ##30 09/08/19 [Rx Last Taken 02/18/20] atorvastatin 80 mg tablet 80 mg PO QHS 02/26/20 [History Last Taken Unknown] lysine 500 mg tablet 500 mg PO DAILY dietary supplement 02/26/20 [History Last Taken Unknown] apixaban 2.5 mg tablet 2.5 mg PO BID blood thinner #180 tabs 09/06/21 [Rx Last Taken Unknown] doxepin 50 mg capsule 50 mg PO QHS 11/30/21 [History Last Taken Unknown] hydrochlorothiazide 12.5 mg tablet 12.5 mg PO DAILY 11/30/21 [History Last Taken Unknown] metoprolol succinate 25 mg tablet,extended release 24 hr 12.5 mg PO DAILY #45 tabs 01/14/22 [Rx Last Taken Unknown] ferrous sulfate 325 mg (65 mg iron) capsule,extended release 325 mg PO DAILY 03/29/22 [History Last Taken Unknown] mecobalamin (vitamin B12) 1,000 mcg chewable tablet (B12 Active) mcg PO 03/29/22 [History Last Taken Unknown] Allergy/AdvReac Type Severity Reaction Status Date / Time Egg Derived Allergy Severe swelling Verified 03/29/22 18:47 alcohol Allergy Rash Verified 03/29/22 18:47 NSAIDS (Non-Steroidal AdvReac instant Verified 03/29/22 18:47 Anti-Inflamma headache Family History Father Hypertension Mother Hypertension CAD (coronary artery disease) [place] Brother Heart disease Sister Heart disease Surgical History History of cholecystectomy History of hysterectomy History of thyroidectomy Social History Smoking Status: Current every day smoker tobacco type: cigarettes alcohol intake: current alcohol intake frequency: a few times a month Alcohol type: beer substance use type: marijuana caffeine: Yes Type: coffee Number of servings: 1 ROS ROS Narrative Pertinent positives and pertinent negatives as noted in HPI. All other systems were reviewed and are negative Vital Signs Vital Signs Vital Signs: 03/29/22 18:48 03/29/22 20:16 Temperature 97.2 F L Temperature Source Temporal Pulse Rate 103 H Respiratory Rate 18 Respiratory Effort Normal Non-Labored Blood Pressure 118/61 Blood Pressure Mean 80 Pulse Ox 93 Oxygen Delivery Method Room Air Room Air Weight Weight: 63.503 kg Body Mass Index (BMI) 23.3 Physical Exam Narrative Physical exam: General: Well-nourished, well-developed. Head: Normocephalic, atraumatic, no tenderness Eyes: Vision is grossly intact. EOMI ENT:moist mucous membranes, no rhinorrhea Neck: Nontender, full range of motion. CVS: Tachycardia. Irregularly irregular rate and rhythm. Respiratory : scattered mild rales. clear to auscultation bilaterally, chest wall nontender, no wheezing Abdomen: Soft, nontender, nondistended, normal bowel sounds, no masses : Deferred Back: Nontender, no CVA tenderness. Extremities: Extend and flex left lower extremity. Right lower extremity range of motion not tested secondary to fracture. Skin: Normal color, no trauma, abrasions Neuro: Alert, oriented, cranial nerves II through XII grossly intact. Psychiatry: Normal mood. Normal affect. Not depressed. Not anxious. Results Lab / Micro Data Result Diagrams: 03/29/22 20:18 03/29/22 20:18 Radiology Impression Hip/Pelvis X-Ray 03/29/22 21:23 IMPRESSION: Acute right subcapital fracture. Electronically Signed: Kurt Camp MD at 21:45 EDT Reading Location ID and State: [facility] / [place] , Service support , Assessment & Plan Assessment/Plan (1) Subcapital fracture of femur: (2) Essential hypertension: (3) Hypothyroidism: QUALIFIERS: Hypothyroidism type: unspecified Qualified Code(s): E03.9 - Hypothyroidism, unspecified PLAN: Plan Acute right subcapital fracture Hip/pelvis x-ray was visualized and independently interpreted. I agree with radiologist interpretation of acute right subcapital fracture. Emergent department doctor discussed the case with Dr. Cochran Inpatient consult for orthopedic surgery ordered. Morphine IV and oxycodone as needed ordered. Tylenol as needed ordered. Bowel protocol and antiemetics IV ordered. With patient on Eliquis per discussion between ED doctor and orthopedic surgeon hold Eliquis surgery most likely on March 31, 2022 Check vitamin D level. Preoperative EKG unremarkable ACS NSQIP surgical risk calculator using severe systemic disease (A. fib) with above average surgical risk for cardiac complications; pneumonia; any complications; serious complication; readmission; renal failure; return to OR; ; discharged to nursing or rehab facility; and sepsis. Cardiology consult for pre-operative evaluation Afib with RVR Patient in A. fib with rapid ventricular response with ventricular rates of 149 at the ED EKG was personally reviewed EKG showed A. fib with RVR Home metoprolol ordered at the ED. Cardizem 10 mg IV push ordered at the ED. Place on PCU on telemetry Obtain echo No anticoagulation in the setting of hip fracture. Potassium level is normal. Check magnesium. Check TSH Cardiology consult Hypertension Blood pressure is stable Home blood pressure medication continued. Trend blood pressure and adjust blood pressure medications. Tobacco abuse Risk of tobacco was discussed. Counseled. Nicotine patch ordered. Hypothyroidism In the setting of A. fib with RVR TSH ordered. Home Synthroid continued. DVT Prophylaxis: SCD ordered. Charges/Coding Visit Charges Inpatient E&M: 02515 Init Hosp L3
[2022-03-29 22:35] LABS: Hemoglobin 11.7 g/dL (12.0-15.0); Mean Corp Hgb Conc 32.5 g/dL (32-36); Mean Corpuscular Volume 95.5 fL (81-99); Mean Platelet Vol. 9.1 fl (6.2-12.0); Platelet Count 412 K/mm3 (150-450); RBC Distribution Width CV 15.1 % (11.6-14.6); RBC Distribution Width SD 52.9 fl (35.1-43.9); Red Blood Count 3.77 M/mm3 (4.2-5.4); White Blood Count 20.8 K/mm3 (4.4-11.0)
[2022-03-29 22:46] LABS: International Normalized Ratio 1.3; Partial Thromboplast Time 39.3 Seconds (24.1-36.2)
[2022-03-29 22:54] LABS: Anion Gap 9 (5-15); BUN 22 mg/dL (7-18); BUN/Creat Ratio 16.7 RATIO (10-20); Calcium,Total 8.7 mg/dL (8.5-10.1); Chloride 103 mmol/L (98-107); Creatinine, Serum 1.32 mg/dL (0.55-1.02); EST Glomerular Filtration Rate 41 mL/min (>60); Est Glom Filt Rate - Afr Amer 50 mL/min (>60); Estimated Creatinine Clearance 29.57 ml/min; Glucose 125 mg/dL (74-106); Sodium Level 137 mmol/L (136-145)
[2022-03-29] MEDS: dilTIAZem 25 MG/5 ML Vial 10 MG IV BOLUS (22:54)
[2022-03-29] MEDS: Metoprolol(XL)Succ 25 MG Tablet PO (22:55)
[2022-03-29 22:58] VITALS: BP 128/64; PULSE 99; RESP 31; TEMP 36.6; O2SAT 96
--- NOTE | 2022-03-29 22:59 | ED.RN ---
THIS RN AND MAINTENANCE MGR UNSUCCESSFULLY ATTEMPTED [place] CATH INSERTION.
[2022-03-29 23:42] LABS: Magnesium 2.1 mg/dL (1.6-2.6)
[2022-03-30] VITALS (14 sets, daily range): BP systolic 101–145; BP diastolic 64–124; PULSE 74–139; RESP 15–18; TEMP 36–36.8; O2SAT 94–97; BMI 24.7
[2022-03-30] MEDS: CLARIFY ORDER 1 EACH NOTE (02:40)
[2022-03-30] MEDS: oxyCODONE 5 MG Tablet PO (04:26)
[2022-03-30 05:55] LABS: Absolute Lymphocyte Count 1.43 X10^3/uL (0.83-4.51); Absolute Neutrophil Count 8.3 X10^3/uL (2.0-7.7); Basophil# 0.03 X10^3/uL; Basophil% 0.3 % (0-1); Eosinophil# 0.07 X10^3/uL; Eosinophils% 0.7 % (0-5); Hematocrit 34.3 % (37-47); Hemoglobin 11.1 g/dL (12.0-15.0); Lymphocyte # 1.43 X10^3/ul (0.83-4.51); Lymphocyte % 14.1 % (19-41); Mean Corp Hgb Conc 32.4 g/dL (32-36); Mean Corpuscular Hgb 30.7 pg (27.0-32.0); Mean Platelet Vol. 9.1 fl (6.2-12.0); Monocyte# 0.25 X10^3/uL; Monocyte% 2.5 % (0-10); NRBC Flagged by Analyzer 0 % (0-5); Neutrophil # 8.33 X10^3/uL (2.7-7.7); Neutrophil % 82.1 % (47-70); Platelet Count 346 K/mm3 (150-450); RBC Distribution Width CV 15.2 % (11.6-14.6); Red Blood Count 3.61 M/mm3 (4.2-5.4); White Blood Count 10.1 K/mm3 (4.4-11.0)
--- NOTE | 2022-03-30 05:55 | ECHOD_ITS ---
Reason For Study: AFIB/FLUTTER Procedure This was a 2D Doppler, Color Flow transthoracic echocardiogram. The study was technically difficult. Due to arrhythmia. Exam performed portable in patient room. Left Ventricle Normal LV size. Left ventricular systolic function is normal. The estimated ejection fraction is 55 %. Unable to assess diastolic dysfunction. No regional wall motion abnormalities noted. Right Ventricle Normal RV size. Normal systolic function. Atria The left atrium is mildly enlarged. The right atrium is mildly enlarged. No doppler evidence for ASD. Mitral Valve There is no mitral annular calcification. Normal mitral valve. Mild-Moderate (1-2+) mitral valve insufficiency. Tricuspid Valve Normal tricuspid valve. Moderate (2+) tricuspid valve insufficiency. Right ventricular systolic pressure estimated to be 36 mmHg. Aortic Valve Trisinus/trileaflet aortic valve. Normal aortic valve. Pulmonic Valve The pulmonic valve is not well visualized. Great Vessels Normal sized aortic root. Pericardium/Pleural Trivial pericardial effusion. There are no echocardiographic indications of cardiac tamponade. MMode/2D Measurements & Calculations LVIDd: 4.3 cm IVSd: 0.96 cm Ao root diam: 3.0 cm LVIDs: 2.7 cm LVPWd: 0.96 cm FS: 37.3 % LAV(MOD-bp): 66.4 ml LA A4 area: 21.6 cm2 LA dimension(2D): 4.6 cm LAV(MOD-bp) Indexed: 38.0 ml/m2 LAV(MOD-sp2): 64.3 ml LAV(MOD-sp4): 64.2 ml RA A4 area: 19.4 cm2 Doppler Measurements & Calculations MV E max jahaira: 75.8 cm/sec Ao V2 max: 90.3 cm/sec LV V1 max: 60.0 cm/sec Ao max P.3 mmHg LV V1 max P.4 mmHg Ao V2 mean: 53.8 cm/sec LV V1 mean P.76 mmHg Ao mean P.5 mmHg LV V1 mean: 40.9 cm/sec Ao V2 VTI: 15.4 cm LV V1 VTI: 11.1 cm PA V2 max: 51.0 cm/sec TR max jahaira: 274.9 cm/sec TR max P.3 mmHg ECHO/Echo Complete Interpretation Summary The study was technically difficult. Left ventricular systolic function is normal. The estimated ejection fraction is 55 %. The left atrium is mildly enlarged. The right atrium is mildly enlarged. Mild-Moderate (1-2+) mitral valve insufficiency. Moderate (2+) tricuspid valve insufficiency. Trivial pericardial effusion. There are no echocardiographic indications of cardiac tamponade. Right ventricular systolic pressure estimated to be 36 mmHg. Unable to assess diastolic dysfunction. Ordering Physician: Sandro Caal Referring Physician: Nayana Adam Performed By: Kristie Rivera, YVES, RVT
[2022-03-30 06:50] LABS: Anion Gap 8 (5-15); BUN 24 mg/dL (7-18); BUN/Creat Ratio 19.8 RATIO (10-20); Calcium,Total 8.4 mg/dL (8.5-10.1); Chloride 105 mmol/L (98-107); Creatinine, Serum 1.21 mg/dL (0.55-1.02); EST Glomerular Filtration Rate 45 mL/min (>60); Est Glom Filt Rate - Afr Amer 55 mL/min (>60); Estimated Creatinine Clearance 32.26 ml/min; Glucose 138 mg/dL (74-106); Potassium 3.6 mmol/L (3.5-5.1); Sodium Level 139 mmol/L (136-145); Thyroid Stim Hormone (TSH) 0.75 uIU/mL (0.358-3.74)
[2022-03-30] MEDS: Morphine 2 MG/ML Syringe IV ×2 (06:59→12:39)
--- NOTE | 2022-03-30 07:54 | PN.HOSP_ITS ---
Subjective Subjective Pain in right hip. Otherwise feels well. Objective Data Objective Data Vital Signs: Vital Signs Temp Pulse Resp BP Pulse Ox O2 Del Method O2 Flow Rate 36.1 C L 98 18 101/69 96 Nasal Cannula 2 03/30/22 06:00 03/30/22 06:00 03/30/22 06:00 03/30/22 06:00 03/30/22 07:48 03/30/22 07:48 03/30/22 07:48 Oxygen Flow Rate (L/min) 2 Oxygen Delivery Method Nasal Cannula Weight: 67.6 kg Body Mass Index (BMI) 24.7 Intake & Output: Intake and Output for Last 24 Hours 03/28/22 03/29/22 03/30/22 23:59 23:59 23:59 Output Total 0 / 0 Balance 0 / 0 Lab / Micro Data Result Diagrams: 03/30/22 05:38 03/30/22 05:38 Labs: Laboratory Results - last 24 hr 03/29/22 20:18: WBC 20.8 H, RBC 3.77 L, Hgb 11.7 L, Hct 36.0 L, MCV 95.5, MCH 31.0, MCHC 32.5, RDW Std Deviation 52.9 H, RDW Coeff of Patrick 15.1 H, Plt Count 412, MPV 9.1 03/29/22 20:18: Sodium 137, Potassium 4.0, Chloride 103, Carbon Dioxide 25.0, Anion Gap 9, BUN 22 H, Creatinine 1.32 H, Estim Creat Clear Calc 29.57, Est GFR (MDRD) Af Amer 50 L, Est GFR (MDRD) Non-Af 41 L, BUN/Creatinine Ratio 16.7, Glucose 125 H, Calcium 8.7 03/29/22 20:18: PT 16.0 H, INR 1.3, APTT 39.3 H 03/29/22 20:18: Magnesium 2.1 03/30/22 05:38: Sodium 139, Potassium 3.6, Chloride 105, Carbon Dioxide 26.0, Anion Gap 8, BUN 24 H, Creatinine 1.21 H, Estim Creat Clear Calc 32.26, Est GFR (MDRD) Af Amer 55 L, Est GFR (MDRD) Non-Af 45 L, BUN/Creatinine Ratio 19.8, Glucose 138 H, Calcium 8.4 L, TSH 0.75 03/30/22 05:38: WBC 10.1, RBC 3.61 L, Hgb 11.1 L, Hct 34.3 L, MCV 95.0, MCH 30.7, MCHC 32.4, RDW Std Deviation 53.0 H, RDW Coeff of Patrick 15.2 H, Plt Count 346, MPV 9.1, Immature Gran % (Auto) 0.300, Neut % (Auto) 82.1 H, Lymph % (Auto) 14.1 L, [place] % (Auto) 2.5, Eos % (Auto) 0.7, Baso % (Auto) 0.3, Absolute Neuts (auto) 8.3 H, Absolute Lymphs (auto) 1.43, Nucleated RBC % 0 Radiography Diagnostic Testing: Radiology Impression Hip/Pelvis X-Ray 03/29/22 21:23 IMPRESSION: Acute right subcapital fracture. Electronically Signed: Kurt Camp MD at 21:45 EDT Reading Location ID and State: [facility] / [place] , Service support , Physical Exam Const alert and no apparent distress Resp normal respiratory effort, no retractions and no use of accessory muscles Cardio regular rate, regular rhythm, S1 normal heart sound and S2 normal heart sound GI normal to inspection, nondistended, normoactive bowel sounds and soft to palpation Extremity no clubbing, cyanosis or edema Assessment & Plan Assessment/Plan (1) Subcapital fracture of femur: PLAN: Acute right subcapital fracture Hip/pelvis x-ray was visualized and independently interpreted. I agree with radiologist interpretation of acute right subcapital fracture. Emergent department doctor discussed the case with Dr. Cochran Inpatient consult for orthopedic surgery ordered. Morphine IV and oxycodone as needed ordered. Tylenol as needed ordered. Bowel protocol and antiemetics IV ordered. With patient on Eliquis per discussion between ED doctor and orthopedic surgeon hold Eliquis surgery most likely on March 31, 2022 Check vitamin D level. Preoperative EKG unremarkable ACS NSQIP surgical risk calculator using severe systemic disease (A. fib) with above average surgical risk for cardiac complications; pneumonia; any complications; serious complication; readmission; renal failure; return to OR; ; discharged to nursing or rehab facility; and sepsis. Cardiology consult for pre-operative evaluation (2) Paroxysmal atrial fibrillation: PLAN: Currently rate controlled Home metoprolol ordered at the ED. Cardizem 10 mg IV push ordered at the ED. Place on PCU on telemetry Obtain echo No anticoagulation in the setting of hip fracture. Potassium level is normal. Check magnesium. Check TSH Cardiology consult (3) Essential hypertension: PLAN: Hypertension Blood pressure is stable Home blood pressure medication continued. Trend blood pressure and adjust blood pressure medications. (4) Hypothyroidism: QUALIFIERS: Hypothyroidism type: unspecified Qualified Code(s): E03.9 - Hypothyroidism, unspecified PLAN: Hypothyroidism In the setting of A. fib with RVR TSH ordered. Home Synthroid continued. PLAN: Plan Tobacco abuse Risk of tobacco was discussed. Counseled. Nicotine patch ordered. DVT Prophylaxis: SCD ordered. Charges/Coding Visit Charges Inpatient E&M: 37738 Subs Hosp L2
[2022-03-30 08:23] LABS: Vitamin D,25 Hydroxy 16.4 ng/mL
[2022-03-30] MEDS: Tolterodine Tartrate 4 MG CAP.SA PO (08:50)
[2022-03-30] MEDS: Cyanocobalamin 500 MCG Tablet 1000 MCG PO (08:50)
[2022-03-30] MEDS: hydroCHLOROthiazide 12.5mg 12.5 MG PO (08:51)
[2022-03-30] MEDS: Metoprolol(XL)Succ 25 MG Tablet 12.5 MG PO ×2 (08:51→20:45)
[2022-03-30] MEDS: Paroxetine 20 MG Tablet 40 MG PO (08:51)
--- NOTE | 2022-03-30 12:30 | PCM.CONS.GEN ---
Assessment & Plan Assessment/Plan (1) Subcapital fracture of femur: (2) Paroxysmal atrial fibrillation: (3) Tobacco dependence due to cigarettes: PLAN: Plan Discussed with patient displaced femoral neck fracture, risk benefits alternatives of surgery for right hip bipolar hemiarthroplasty. Patient does wish to proceed. Informed consent obtained. Type and screen antibiotic on-call to the OR, SCDs. Last dose of Eliquis was at 9 AM on 03/29/22 therefore surgery will occur on 03/31/2022 if medically cleared, awaiting cardiology consult. HPI Consult Data Date of Consult: 03/30/22 HPI Narrative HPI Narrative: AMADO UNGER, is a 81 F who presents from ground-level fall after being bumped by her horse states she landed on her left side immediately had right hip pain. Complains of left shoulder pain and right hip pain. [facility] Medical History Anemia Anxiety and depression Cephalgia Depression with anxiety Essential hypertension History of CVA (cerebrovascular accident) (08/2019) Hyperlipidemia Hypothyroidism Paroxysmal atrial fibrillation Tobacco dependence due to cigarettes Home Medications acetaminophen 650 mg tablet,extended release 650 mg PO Q6H PRN PRN nerve pain 02/08/19 [History Last Taken 02/26/19] cyanocobalamin (vitamin B-12) 1,000 mcg tablet 1,000 mcg PO DAILY supplement 02/08/19 [History Last Taken 09/06/19] levothyroxine 75 mcg tablet 75 mcg PO QHS thyroid 02/08/19 [History Last Taken 02/17/20] paroxetine HCl 40 mg tablet 40 mg PO DAILY depression 02/08/19 [History Last Taken 02/18/20] tolterodine 4 mg capsule,extended release 24 hr 4 mg PO DAILY overactive bladder 02/08/19 [History Last Taken 02/18/20] minocycline 50 mg tablet 1 tab PO DAILY infection 09/06/19 [History Last Taken 02/18/20] aspirin 81 mg chewable tablet 81 mg PO DAILY@0800 ##30 09/08/19 [Rx Last Taken 02/18/20] atorvastatin 80 mg tablet 80 mg PO QHS 02/26/20 [History Last Taken Unknown] lysine 500 mg tablet 500 mg PO DAILY dietary supplement 02/26/20 [History Last Taken Unknown] apixaban 2.5 mg tablet 2.5 mg PO BID blood thinner #180 tabs 09/06/21 [Rx Last Taken Unknown] doxepin 50 mg capsule 50 mg PO QHS 11/30/21 [History Last Taken Unknown] hydrochlorothiazide 12.5 mg tablet 12.5 mg PO DAILY 11/30/21 [History Last Taken Unknown] metoprolol succinate 25 mg tablet,extended release 24 hr 12.5 mg PO DAILY #45 tabs 01/14/22 [Rx Last Taken Unknown] ferrous sulfate 325 mg (65 mg iron) capsule,extended release 325 mg PO DAILY 03/29/22 [History Last Taken Unknown] mecobalamin (vitamin B12) 1,000 mcg chewable tablet (B12 Active) mcg PO 03/29/22 [History Last Taken Unknown] Allergy/AdvReac Type Severity Reaction Status Date / Time Egg Derived Allergy Severe swelling Verified 03/29/22 18:47 alcohol Allergy Rash Verified 03/29/22 18:47 NSAIDS (Non-Steroidal AdvReac instant Verified 03/29/22 18:47 Anti-Inflamma headache Family History Father Hypertension Mother Hypertension CAD (coronary artery disease) [place] Brother Heart disease Sister Heart disease Surgical History History of cholecystectomy History of hysterectomy History of thyroidectomy Social History Smoking Status: Current every day smoker tobacco type: cigarettes alcohol intake: current alcohol intake frequency: a few times a month Alcohol type: beer substance use type: marijuana caffeine: Yes Type: coffee Number of servings: 1 Physical Exam Const alert, oriented x3 and no apparent distress General Appearance: cooperative and comfortable Extremity Extremity Narrative: Right hip without open wound no significant ecchymosis or swelling she is able to plantarflex and dorsiflex her ankle intact sensation light touch palpable pedal pulse although faint symmetric. Lab / Micro Data Result Diagrams: 03/30/22 05:38 03/30/22 05:38 Labs: Laboratory Results - last 24 hr 03/29/22 20:18: WBC 20.8 H, RBC 3.77 L, Hgb 11.7 L, Hct 36.0 L, MCV 95.5, MCH 31.0, MCHC 32.5, RDW Std Deviation 52.9 H, RDW Coeff of Patrick 15.1 H, Plt Count 412, MPV 9.1 03/29/22 20:18: Sodium 137, Potassium 4.0, Chloride 103, Carbon Dioxide 25.0, Anion Gap 9, BUN 22 H, Creatinine 1.32 H, Estim Creat Clear Calc 29.57, Est GFR (MDRD) Af Amer 50 L, Est GFR (MDRD) Non-Af 41 L, BUN/Creatinine Ratio 16.7, Glucose 125 H, Calcium 8.7 03/29/22 20:18: PT 16.0 H, INR 1.3, APTT 39.3 H 03/29/22 20:18: Magnesium 2.1 03/30/22 05:38: Sodium 139, Potassium 3.6, Chloride 105, Carbon Dioxide 26.0, Anion Gap 8, BUN 24 H, Creatinine 1.21 H, Estim Creat Clear Calc 32.26, Est GFR (MDRD) Af Amer 55 L, Est GFR (MDRD) Non-Af 45 L, BUN/Creatinine Ratio 19.8, Glucose 138 H, Calcium 8.4 L, TSH 0.75 03/30/22 05:38: WBC 10.1, RBC 3.61 L, Hgb 11.1 L, Hct 34.3 L, MCV 95.0, MCH 30.7, MCHC 32.4, RDW Std Deviation 53.0 H, RDW Coeff of Patrick 15.2 H, Plt Count 346, MPV 9.1, Immature Gran % (Auto) 0.300, Neut % (Auto) 82.1 H, Lymph % (Auto) 14.1 L, [place] % (Auto) 2.5, Eos % (Auto) 0.7, Baso % (Auto) 0.3, Absolute Neuts (auto) 8.3 H, Absolute Lymphs (auto) 1.43, Nucleated RBC % 0 03/30/22 05:38: Vitamin D 25-Hydroxy 16.4 Radiology Impression Hip/Pelvis X-Ray 03/29/22 21:23 IMPRESSION: Acute right subcapital fracture. Electronically Signed: Kurt Camp MD at 21:45 EDT ,
--- NOTE | 2022-03-30 12:34 | RAD_ITS ---
STUDY: X-RAY - LEFT SHOULDER REASON FOR EXAM: Female, 81 years old. fall,Grashey, scapular Y, and axillary view pleas -- Grashey, scapular Y, and axillary view please TECHNIQUE: 3 view(s) of the shoulder. COMPARISON: None. FINDINGS: There is moderate degenerative arthrosis of the glenohumeral articulation. Degenerative spur formation along the inferior medial aspect of the humeral head. Normal acromioclavicular joint. Normal acromion. Normal humeral head and visualized proximal humerus. The soft tissue structures are unremarkable. Normal visualized pulmonary apex. RAD/Shoulder min 2 Views IMPRESSION: Moderate degree of joint space narrowing of the glenohumeral joint with degenerative spur formation along the medial inferior aspect of the humeral head. Electronically Signed: Billy Gomez MD at 14:20 EDT ,
[2022-03-30] MEDS: 0.9% Saline Lock 10 ML Syringe IV (12:39)
--- NOTE | 2022-03-30 13:58 | CASEMGMT ---
Patient will be having surgery tomorrow. SW met with patient. Introduced self and role at [facility]. SW explained that most of the time patient's with hip fractures have to go somewhere for short term rehab. Patient verbalized understanding. SW provided patient with a list of SNF providers including quality and resource use data and consistent with the patient?s preferred geographic region, medical needs, and insurance network. Patient asked SW if [facility] was on the list. SW reviewed the list with patient and [facility] is on the list. Patient said that is where she wants to go as her is there. Patient said [facility] because she wasn't strong enough to take care of him. SW offered to leave the lists in the room, but patient declined stating she wants [facility]. SW will keep the lists in the event [facility] cannot accept patient. SNEHAL notified Sabina d/c emergency planning and response manager and she will work on initial referral. Leyla Lopez SUPERINTENDENT DIVISION MAK
--- NOTE | 2022-03-30 14:36 | CHAPLAIN ---
Type of Pastoral Visit _x__ Initial Visit ___ Follow-up Visit ___ On-call Visit ___ General Patient Visit ___ Spiritual Assessment ___ Family Conference ___ Bereavement ___ Rapid Response ___ Code Blue ___ Other (describe below) Pastoral Care Referral From _x__ Patient ___ Family ___ Nurse ___ Physician ___ Christmas Tree Farm Worker ___ Low Emission Automobile Designer ___ Other (describe below) Sacrament/Intervention _x__ Active listening ___ Anointing ___ Samaritan ___ Bereavement ___ Communion ___ Anastacia exploration ___ ___ Life review _x__ Prayer ___ Reconciliation ___ Sacrament of Sick _x__ Supportive presence ___ Wedding ___ Other (describe below) Pastoral Comments 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
--- NOTE | 2022-03-30 14:37 | PCM.CONS.C ---
Assessment & Plan Assessment/Plan (1) Atrial fibrillation and flutter: PLAN: The patient has a history of paroxysmal atrial fibrillation. She currently demonstrated findings compatible with atrial flutter. At the present time she appears to be without acute symptomatic or hemodynamic compromise. She will continue rate control therapy. She will continue anticoagulant therapy which may require temporary interruption for her orthopedics procedure. (2) Hyperlipidemia: QUALIFIERS: Hyperlipidemia type: unspecified Qualified Code(s): E78.5 - Hyperlipidemia, unspecified PLAN: She has a history of hyperlipidemia. She will continue risk factor evaluation care as deemed appropriate. (3) Essential hypertension: PLAN: She has a history of hypertension. Her blood pressure can be monitored and her medicines adjusted accordingly. (4) Subcapital fracture of femur: PLAN: With respect to her orthopedic fracture and need for ORIF, at the present time, she will continue to be monitored. She will continue medical therapy with rate control. She will have temporary interruption of her anticoagulant therapy. She can receive bridging anticoagulant therapy as deemed appropriate with agent such as enoxaparin/Lovenox. She has been requested to have a transthoracic echocardiogram to reassess her atrial size and her ventricular size, wall motion, and systolic function to help guide further evaluation and care. Otherwise, if she remains symptomatically and hemodynamically stable does not appear she requires additional cardiac diagnostic studies/intervention prior to her surgery. Following her surgery she will need to be monitored for changes in her cardiac rate and rhythm. She should resume her anticoagulant therapy as soon as possible following her surgery. Addt'l Comments The patient's case was discussed and reviewed with the patient. This note was generated using a voice recognition system and there may be incorrect words, spelling or punctuation that were not noted when reviewing the office note prior to saving. HPI Consult Data Date of Consult: 03/30/22 HPI Narrative HPI Narrative: AMADO UNGER, is a 81 year old white female who presents [facility] for preoperative card vascular evaluation with findings of underlying atrial flutter superimposed upon a history of paroxysmal atrial fibrillation, hyperlipidemia, hypertension, CVA, who now is in need of ORIF for a subcapital right femur fracture.The patient denies any ongoing chest discomfort suspicious for angina pectoris. She has had no evidence of acute CHF or pulmonary edema with acute orthopnea or PND. The patient states that she is unaware of any rapid rates. There has been no near-syncope or syncope. The patient states that she experienced an accidental fall. This resulted in the aforementioned fracture. She was subsequently placed in the PCU for further evaluation and care. Her high-sensitivity troponin I levels have been negative. Her ECG demonstrated the appearance of atrial flutter with nonspecific ST and T wave abnormality. [facility] Medical History Anemia Anxiety and depression Cephalgia Depression with anxiety Essential hypertension History of CVA (cerebrovascular accident) (08/2019) Hyperlipidemia Hypothyroidism Paroxysmal atrial fibrillation Tobacco dependence due to cigarettes Home Medications acetaminophen 650 mg tablet,extended release 650 mg PO Q6H PRN PRN nerve pain 02/08/19 [History Last Taken 02/26/19] cyanocobalamin (vitamin B-12) 1,000 mcg tablet 1,000 mcg PO DAILY supplement 02/08/19 [History Last Taken 09/06/19] levothyroxine 75 mcg tablet 75 mcg PO QHS thyroid 02/08/19 [History Last Taken 02/17/20] paroxetine HCl 40 mg tablet 40 mg PO DAILY depression 02/08/19 [History Last Taken 02/18/20] tolterodine 4 mg capsule,extended release 24 hr 4 mg PO DAILY overactive bladder 02/08/19 [History Last Taken 02/18/20] minocycline 50 mg tablet 1 tab PO DAILY infection 09/06/19 [History Last Taken 02/18/20] aspirin 81 mg chewable tablet 81 mg PO DAILY@0800 ##30 09/08/19 [Rx Last Taken 02/18/20] atorvastatin 80 mg tablet 80 mg PO QHS 02/26/20 [History Last Taken Unknown] lysine 500 mg tablet 500 mg PO DAILY dietary supplement 02/26/20 [History Last Taken Unknown] apixaban 2.5 mg tablet 2.5 mg PO BID blood thinner #180 tabs 09/06/21 [Rx Last Taken Unknown] doxepin 50 mg capsule 50 mg PO QHS 11/30/21 [History Last Taken Unknown] hydrochlorothiazide 12.5 mg tablet 12.5 mg PO DAILY 11/30/21 [History Last Taken Unknown] metoprolol succinate 25 mg tablet,extended release 24 hr 12.5 mg PO DAILY #45 tabs 01/14/22 [Rx Last Taken Unknown] ferrous sulfate 325 mg (65 mg iron) capsule,extended release 325 mg PO DAILY 03/29/22 [History Last Taken Unknown] mecobalamin (vitamin B12) 1,000 mcg chewable tablet (B12 Active) mcg PO 03/29/22 [History Last Taken Unknown] Allergy/AdvReac Type Severity Reaction Status Date / Time alcohol Allergy Rash Verified 03/29/22 18:47 isopropyl alcohol Allergy Rash Verified 03/30/22 13:33 Egg Derived AdvReac Severe Swelling Verified 03/30/22 13:17 NSAIDS (Non-Steroidal AdvReac instant Verified 03/29/22 18:47 Anti-Inflamma headache Family History Father Hypertension Mother Hypertension CAD (coronary artery disease) [place] Brother Heart disease Sister Heart disease Surgical History History of cholecystectomy History of hysterectomy History of thyroidectomy Social History Smoking Status: Current every day smoker tobacco type: cigarettes alcohol intake: current alcohol intake frequency: a few times a month Alcohol type: beer substance use type: marijuana caffeine: Yes Type: coffee Number of servings: 1 ROS Constitutional Constitutional: Reports as per HPI Eyes Eyes: Reports as per HPI ENT HEENT: Reports as per HPI Cardiovascular Cardiovascular: Reports as per HPI Respiratory/Chest Respiratory/Chest: Reports as per HPI Gastrointestinal Gastrointestinal: Reports as per HPI Genitourinary Genitourinary: Reports as per HPI Musculoskeletal Musculoskeletal: Reports joint pain Integumentary Integumentary: Reports as per HPI Neurologic Neurologic: Reports as per HPI Psychiatric Psychiatric: Reports as per HPI Physical Exam Const alert, oriented x3 and no apparent distress Orientation / Consciousness: awake HEENT normocephalic, head/scalp atraumatic and hearing grossly normal bilaterally Eyes PERRL, EOMs intact bilaterally, conjunctivae normal and no scleral icterus Neck full ROM, supple and no JVD Resp normal respiratory effort and clear to auscultation bilaterally Cardio Rhythm: abnormal rhythm regularly irregular Heart Sounds: S1 normal, S2 normal and murmur systolic II/ soft mid left sternal border GI normal to inspection, nondistended, normoactive bowel sounds Extremity no pedal edema Skin no rashes or lesions noted Psych mental status grossly normal Risk Stratification Risk Stratification Applicable: No Procedure Criteria Type of Procedure Procedure Type: Elective Elective Risks - COVID COVID Risk Discussion: The surgeon/proceduralist and patient have discussed in detail the risk of exposure to and/or potential harm posed by the COVID-19 virus with having a surgery/procedure at this time versus the risk of delaying the surgery/procedure. It is not possible to know either the risk of delaying the surgery or procedure or chance of getting an infection with perfect accuracy, but a joint decision was made between the patient and the surgeon/proceduralist to proceed at this time with the scheduled surgery/procedure as indicated on the consent form. Objective Data Vital Signs: Vital Signs Temp Pulse Resp BP Pulse Ox O2 Del Method O2 Flow Rate 96.9 F L 92 16 113/75 96 Room Air 2 03/30/22 12:00 03/30/22 12:00 03/30/22 12:00 03/30/22 12:00 03/30/22 12:00 03/30/22 12:00 03/30/22 07:48 Oxygen Flow Rate (L/min) 2 Oxygen Delivery Method Room Air Weight: 149 lb 0.52 oz Body Mass Index (BMI) 24.7 Intake & Output: Intake and Output for Last 24 Hours 03/28/22 03/29/22 03/30/22 23:59 23:59 23:59 Intake Total 240 / 240 Output Total 100 / 100 Balance 140 / 140 Lab / Micro Data Result Diagrams: 03/30/22 05:38 03/30/22 05:38 Labs: Laboratory Results - last 24 hr 03/29/22 20:18: WBC 20.8 H, RBC 3.77 L, Hgb 11.7 L, Hct 36.0 L, MCV 95.5, MCH 31.0, MCHC 32.5, RDW Std Deviation 52.9 H, RDW Coeff of Patrick 15.1 H, Plt Count 412, MPV 9.1 03/29/22 20:18: Sodium 137, Potassium 4.0, Chloride 103, Carbon Dioxide 25.0, Anion Gap 9, BUN 22 H, Creatinine 1.32 H, Estim Creat Clear Calc 29.57, Est GFR (MDRD) Af Amer 50 L, Est GFR (MDRD) Non-Af 41 L, BUN/Creatinine Ratio 16.7, Glucose 125 H, Calcium 8.7 08/30/22 20:18: PT 16.0 H, INR 1.3, APTT 39.3 H 03/29/22 20:18: Magnesium 2.1 03/30/22 05:38: Sodium 139, Potassium 3.6, Chloride 105, Carbon Dioxide 26.0, Anion Gap 8, BUN 24 H, Creatinine 1.21 H, Estim Creat Clear Calc 32.26, Est GFR (MDRD) Af Amer 55 L, Est GFR (MDRD) Non-Af 45 L, BUN/Creatinine Ratio 19.8, Glucose 138 H, Calcium 8.4 L, TSH 0.75 03/30/22 05:38: WBC 10.1, RBC 3.61 L, Hgb 11.1 L, Hct 34.3 L, MCV 95.0, MCH 30.7, MCHC 32.4, RDW Std Deviation 53.0 H, RDW Coeff of Patrick 15.2 H, Plt Count 346, MPV 9.1, Immature Gran % (Auto) 0.300, Neut % (Auto) 82.1 H, Lymph % (Auto) 14.1 L, [place] % (Auto) 2.5, Eos % (Auto) 0.7, Baso % (Auto) 0.3, Absolute Neuts (auto) 8.3 H, Absolute Lymphs (auto) 1.43, Nucleated RBC % 0 03/30/22 05:38: Vitamin D 25-Hydroxy 16.4 03/30/22 12:53: Blood Type O POSITIVE, Antibody Screen NEGATIVE Cardiology Labs/Tests 03/29/22 20:18: WBC 20.8 H, RBC 3.77 L, Hgb 11.7 L, Hct 36.0 L, MCV 95.5, MCH 31.0, MCHC 32.5, Plt Count 412, MPV 9.1 03/29/22 20:18: Sodium 137, Potassium 4.0, Chloride 103, Carbon Dioxide 25.0, Anion Gap 9, BUN 22 H, Creatinine 1.32 H, Est GFR (MDRD) Af Amer 50 L, Est GFR (MDRD) Non-Af 41 L, BUN/Creatinine Ratio 16.7, Glucose 125 H, Calcium 8.7 03/29/22 20:18: PT 16.0 H, INR 1.3, APTT 39.3 H 03/29/22 20:18: Magnesium 2.1 03/30/22 05:38: Sodium 139, Potassium 3.6, Chloride 105, Carbon Dioxide 26.0, Anion Gap 8, BUN 24 H, Creatinine 1.21 H, Est GFR (MDRD) Af Amer 55 L, Est GFR (MDRD) Non-Af 45 L, BUN/Creatinine Ratio 19.8, Glucose 138 H, Calcium 8.4 L 03/30/22 05:38: WBC 10.1, RBC 3.61 L, Hgb 11.1 L, Hct 34.3 L, MCV 95.0, MCH 30.7, MCHC 32.4, Plt Count 346, MPV 9.1, Immature Gran % (Auto) 0.300, Neut % (Auto) 82.1 H, Lymph % (Auto) 14.1 L, [place] % (Auto) 2.5, Eos % (Auto) 0.7, Baso % (Auto) 0.3, Absolute Neuts (auto) 8.3 H, Nucleated RBC % 0 Rhythm: Atrial flutter EKG: Atrial flutter; nonspecific ST/T wave abnormality ECHO: 09-08-2019 Interpretation Summary The estimated ejection fraction is 60 %. Diastolic function is indeterminate. The left atrium is moderately enlarged. The right atrium is mildly enlarged. Mild-Moderate (1-2+) mitral valve insufficiency. Mild tricuspid valve insufficiency. Pulmonary artery systolic pressure is 30 mmHg. 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 Trivial aortic valve insufficiency. Radiography Diagnostic Testing: Radiology Impression Hip/Pelvis X-Ray 03/29/22 21:23 IMPRESSION: Acute right subcapital fracture. Electronically Signed: Kurt Camp MD at 21:45 EDT , Shoulder X-Ray 03/30/22 12:34 IMPRESSION: Moderate degree of joint space narrowing of the glenohumeral joint with degenerative spur formation along the medial inferior aspect of the humeral head. Electronically Signed: Billy Gomez MD at 14:20 EDT ,
--- NOTE | 2022-03-30 14:42 | CASEMGMT ---
Discharge Wood Carving Machine Operator Sabina d/[employer] office assistant receptionist sent a referral to Christiano Schmidt via [facility]. Sabina let Christiano Schmidt know patient will be having surgery tomorrow and Sabina will send PT/OT notes when available. Plan: Christiano Schmidt, Waiting Acceptance Sabina Marie Discharge Wood Carving Machine Operator
[2022-03-30] MEDS: Atorvastatin Calcium 80 MG Tablet PO (21:42)
[2022-03-30] MEDS: Levothyroxine 75 MCG Tablet PO (21:42)
[2022-03-30] MEDS: Metoprolol Tartrate 5 MG/5 ML Vial IV (23:09)
[2022-03-31] VITALS (18 sets, daily range): BP systolic 86–114; BP diastolic 56–72; PULSE 88–96; RESP 16–18; TEMP 36.3–37.2; O2SAT 91–98
[2022-03-31] MEDS: Morphine 2 MG/ML Syringe IV (01:20)
[2022-03-31] MEDS: dilTIAZem 25 MG/5 ML Vial 10 MG IV BOLUS (02:32)
[2022-03-31] MEDS: oxyCODONE 5 MG Tablet PO (05:36)
[2022-03-31] MEDS: Acetaminophen 325 MG Tablet 650 MG PO (05:37)
--- NOTE | 2022-03-31 05:55 | RAD_ITS ---
STUDY: X-RAY CHEST REASON FOR EXAM: Female, 81 years old. Other -- surgery TECHNIQUE: Single AP portable view of the chest. COMPARISON: Comparison is made with prior study dated 03/18/2021. FINDINGS: EKG electrodes are seen. Findings suggestive of a right middle lobe infiltrate. There is no demonstrated pleural abnormality. There is borderline cardiomegaly. Normal mediastinum and marcus. Normal visualized pulmonary arteries. There is atherosclerotic calcification of the aortic arch with tortuosity. There are diffuse degenerative changes of the visualized thoracic spine. There is degenerative osteoarthritis of the bilateral shoulders. There is no demonstrated abnormality of the visualized soft tissue structures of the upper abdomen. RAD/Chest 1 View (Portable) IMPRESSION: Findings suggestive of an infiltrate in the lingular segment of the left upper lobe. Electronically Signed: Billy Gomez MD at 8:53 EDT ,
--- NOTE | 2022-03-31 05:55 | EKG12_ITS ---
Test Reason : AM SERIES Blood Pressure : / mmHG Vent. Rate : 093 BPM Atrial Rate : 093 BPM P-R Int : 092 ms QRS Dur : 084 ms QT Int : 358 ms P-R-T Axes : 000 086 -79 degrees QTc Int : 445 ms A-Flutter Lateral infarct , age undetermined Abnormal ECG Confirmed by AZRA LONDONO, BRANDON ([id number]), video tape editor INGA GUERRERO ([id number]) on 04/01/2022 2:19:23 PM Referred By: BETZAIDA Confirmed By:RAMONA OQUENDO MD
[2022-03-31 05:59] LABS: Absolute Lymphocyte Count 1.95 X10^3/uL (0.83-4.51); Absolute Neutrophil Count 8.6 X10^3/uL (2.0-7.7); Basophil# 0.04 X10^3/uL; Basophil% 0.4 % (0-1); Eosinophil# 0.24 X10^3/uL; Eosinophils% 2.1 % (0-5); Hematocrit 34.9 % (37-47); Hemoglobin 11.2 g/dL (12.0-15.0); Lymphocyte # 1.95 X10^3/ul (0.83-4.51); Lymphocyte % 17.5 % (19-41); Mean Corp Hgb Conc 32.1 g/dL (32-36); Mean Corpuscular Hgb 30.9 pg (27.0-32.0); Mean Corpuscular Volume 96.4 fL (81-99); Mean Platelet Vol. 8.9 fl (6.2-12.0); Monocyte# 0.28 X10^3/uL; Monocyte% 2.5 % (0-10); NRBC Flagged by Analyzer 0 % (0-5); Neutrophil # 8.62 X10^3/uL (2.7-7.7); Neutrophil % 77.1 % (47-70); Platelet Count 313 K/mm3 (150-450); RBC Distribution Width CV 15.5 % (11.6-14.6); Red Blood Count 3.62 M/mm3 (4.2-5.4); White Blood Count 11.2 K/mm3 (4.4-11.0)
[2022-03-31 06:06] LABS: International Normalized Ratio 1.3; Prothrombin Time (Protime)PT. 15.5 SECONDS (11.7-14.9)
[2022-03-31 06:07] LABS: Partial Thromboplast Time 37.5 Seconds (24.1-36.2)
[2022-03-31 06:49] LABS: Anion Gap 5 (5-15); BUN 22 mg/dL (7-18); BUN/Creat Ratio 18.2 RATIO (10-20); Calcium,Total 8.4 mg/dL (8.5-10.1); Chloride 101 mmol/L (98-107); Creatinine, Serum 1.21 mg/dL (0.55-1.02); EST Glomerular Filtration Rate 45 mL/min (>60); Est Glom Filt Rate - Afr Amer 55 mL/min (>60); Estimated Creatinine Clearance 32.26 ml/min; Glucose 121 mg/dL (74-106); Potassium 3.8 mmol/L (3.5-5.1); Sodium Level 135 mmol/L (136-145); Thyroid Stim Hormone (TSH) 3.48 uIU/mL (0.358-3.74)
--- NOTE | 2022-03-31 08:25 | PN.HOSP_ITS ---
Subjective Subjective Still with pain in her right hip. Waiting on surgery. Objective Data Objective Data Vital Signs: Vital Signs Temp Pulse Resp BP Pulse Ox O2 Del Method O2 Flow Rate 36.6 C 89 16 98/70 94 Nasal Cannula 1 03/31/22 08:04 03/31/22 08:04 03/31/22 08:04 03/31/22 08:04 03/31/22 08:04 03/31/22 08:04 03/31/22 08:04 Oxygen Flow Rate (L/min) 1 Oxygen Delivery Method Nasal Cannula Weight: 67.6 kg Body Mass Index (BMI) 24.7 Intake & Output: Intake and Output for Last 24 Hours 03/29/22 03/30/22 03/31/22 23:59 23:59 23:59 Intake Total 560 / 560 Output Total 350 / 550 325 / 325 Balance 210 / 10 -325 / -325 Lab / Micro Data Result Diagrams: 03/31/22 05:49 03/31/22 05:49 Labs: Laboratory Results - last 24 hr 03/30/22 12:53: Blood Type O POSITIVE, Antibody Screen NEGATIVE 03/31/22 05:49: WBC 11.2 H, RBC 3.62 L, Hgb 11.2 L, Hct 34.9 L, MCV 96.4, MCH 30.9, MCHC 32.1, RDW Std Deviation 55.0 H, RDW Coeff of Patrick 15.5 H, Plt Count 313, MPV 8.9, Immature Gran % (Auto) 0.400, Neut % (Auto) 77.1 H, Lymph % (Auto) 17.5 L, [place] % (Auto) 2.5, Eos % (Auto) 2.1, Baso % (Auto) 0.4, Absolute Neuts (auto) 8.6 H, Absolute Lymphs (auto) 1.95, Nucleated RBC % 0 03/31/22 05:49: PT 15.5 H, INR 1.3, APTT 37.5 H 03/31/22 05:49: Sodium 135 L, Potassium 3.8, Chloride 101, Carbon Dioxide 29.0, Anion Gap 5, BUN 22 H, Creatinine 1.21 H, Estim Creat Clear Calc 32.26, Est GFR (MDRD) Af Amer 55 L, Est GFR (MDRD) Non-Af 45 L, BUN/Creatinine Ratio 18.2, Glu cose 121 H, Calcium 8.4 L, TSH 3.48 Radiography Diagnostic Testing: Radiology Impression Echocardiogram 03/30/22 05:55 Interpretation Summary The study was technically difficult. Left ventricular systolic function is normal. The estimated ejection fraction is 55 %. The left atrium is mildly enlarged. The right atrium is mildly enlarged. Mild-Moderate (1-2+) mitral valve insufficiency. Moderate (2+) tricuspid valve insufficiency. Trivial pericardial effusion. There are no echocardiographic indications of cardiac tamponade. Right ventricular systolic pressure estimated to be 36 mmHg. Unable to assess diastolic dysfunction. Ordering Physician: Sandro Caal Referring Physician: Nayana Adam Performed By: Kristie Rivera, YVES, RVT Shoulder X-Ray 03/30/22 12:34 IMPRESSION: Moderate degree of joint space narrowing of the glenohumeral joint with degenerative spur formation along the medial inferior aspect of the humeral head. Electronically Signed: Billy Gomez MD at 14:20 EDT , Physical Exam Const alert and no apparent distress Resp normal respiratory effort and no retractions Cardio regular rate, regular rhythm, S1 normal heart sound and S2 normal heart sound GI normal to inspection, nondistended, normoactive bowel sounds and soft to palpation Extremity normal to inspection Psych affect normal Assessment & Plan Assessment/Plan (1) Subcapital fracture of femur: PLAN: Acute right subcapital fracture Hip/pelvis x-ray was visualized and independently interpreted. I agree with radiologist interpretation of acute right subcapital fracture. Emergent department doctor discussed the case with Dr. Cochran Inpatient consult for orthopedic surgery ordered. Morphine IV and oxycodone as needed ordered. Tylenol as needed ordered. Bowel protocol and antiemetics IV ordered. With patient on Eliquis per discussion between ED doctor and orthopedic surgeon hold Eliquis surgery most likely on March 31, 2022 Check vitamin D level. Preoperative EKG unremarkable ACS NSQIP surgical risk calculator using severe systemic disease (A. fib) with above average surgical risk for cardiac complications; pneumonia; any complications; serious complication; readmission; renal failure; return to OR; ; discharged to nursing or rehab facility; and sepsis. Cardiology consult for pre-operative evaluation (2) Paroxysmal atrial fibrillation: PLAN: Currently rate controlled Home metoprolol ordered at the ED. Cardizem 10 mg IV push ordered at the ED. Place on PCU on telemetry Obtain echo No anticoagulation in the setting of hip fracture. Potassium level is normal. Check magnesium. Check TSH Cardiology consult (3) Essential hypertension: PLAN: Hypertension Blood pressure is stable Home blood pressure medication continued. Trend blood pressure and adjust blood pressure medications. (4) Hypothyroidism: QUALIFIERS: Hypothyroidism type: unspecified Qualified Code(s): E03.9 - Hypothyroidism, unspecified PLAN: Hypothyroidism In the setting of A. fib with RVR TSH ordered. Home Synthroid continued. (5) Vitamin D deficiency: PLAN: replace with ergocalciferol 50,000k units weekly for 8 weeks follow up level in 2 months PLAN: Plan Tobacco abuse Risk of tobacco was discussed. Counseled. Nicotine patch ordered. DVT Prophylaxis: SCD ordered. Charges/Coding Visit Charges Inpatient E&M: 51287 Subs Hosp L2
[2022-03-31] MEDS: 0.9% Saline Lock 10 ML Syringe IV (10:03)
[2022-03-31] MEDS: 0.9% Normal Saline 1,000 ML 100 ML IV (10:03)
--- NOTE | 2022-03-31 10:56 | NURSING ---
off floor at this time to AC
--- NOTE | 2022-03-31 12:00 | FEM_PTH ---
PATIENT: AMADO UNGER LOC: [facility] U#:[id number] AGE/SX: 81/F ROOM: [facility] RE03/29/[address]: Dr. Alek Esquivel MD : [id number] BED: 1 DIS: 04/05/2022 SPEC #: [id number] RECD: 03/31/22 16:50 STATUS: HANNAH REDarnell #: [id number] MARIANO: 03/31/22 12:[address]: Sandro Iyer DEPT: SURGICAL PATHOLOGY RECD BY: Mary Hart ENTERED: 04/01/22 08:00 SP TYPE: FEM HEAD OTHR DR: DO Dr. Sandro Duval MD Dr. Paul Moodispaw, MD Dr. Yasser Omran, MD Matthew Wayt, PA Tissues: Femoral region, NOS Procedures: Decalcification bone/plaque Surgery Specimen Level IV Comments: @ Ordering doctor for DEC edited from to DR.JBORRU Henry DE LA CRUZ at 04/05/22812 @ Ordering doctor for SUV edited from to @ by DOROTHY at 04/05/22 08 @ Submitting doctor edited from to DR.JBORRU Henry DE LA CRUZ at 04/05/22812 HEADER OPERATION: Right hip hemiarthroplasty PRE-OP DIAGNOSIS: Subcapital fracture of femur TISSUE SUBMITTED: Right femoral head MICROSCOPIC DIAGNOSIS Right femoral head, hemiarthroplasty: Femoral head and detached pieces of bone with focal area of hemorrhage, clinically subcapital fracture of femur. ROSALINO:madie 04/07/2022 MICROSCOPIC DESCRIPTION Slides are reviewed. GROSS DESCRIPTION Received is one container labeled with the patient's name and designated right femoral head. The specimen consists of a berry femoral head measuring 4.5 x 4.5 x 3.5 cm. The articular surface is smooth. Resection margin is irregular and hemorrhagic. Also attached focally at the edge of the femoral head is an irregular piece of bone including potion of femoral neck measuring 4 x 4 x 1.8 cm. A detached fragment of bone is also noted measuring 1 x 1 x 0.7 cm. Sports Marketing Specialist sections are submitted in two cassettes as follows: 1 - detached portion of femoral neck and detached piece of bone, 2 - femoral head after decalcification. / ROSALINO:madie 04/01/2022 TC:5 CPT: 88065, 46293
--- NOTE | 2022-03-31 13:29 | CASEMGMT ---
Discharge Bottom Turner Sabina umana assistant facility manager followed up with Christiano Schmidt. Christiano Schmidt is reviewing referral. Will follow up. Plan: Christiano Schmidt, Waiting Acceptance Sabina Marie Discharge [place]
[2022-03-31] MEDS: Cefazolin 2 GM in 0.9% Normal Saline 100 ML IV (13:59)
--- NOTE | 2022-03-31 14:05 | CASEMGMT ---
Discharge Lead Customer Service Representative Sabina bonner/[employer] assistant front office manager got a call from [facility]. Patient has been accepted. Hilda stated that patient could have a room with spouse. Sabina bonner/[employer] assistant front office manager would like to ask patient when patient is back on floor from surgery. Plan: [facility], Waiting Pre-cert and medically ready from nursing side Sabina Marie Discharge Lead Customer Service Representative
--- NOTE | 2022-03-31 15:53 | PCM.OP.BLANK ---
Operative Report Date of Procedure: 03/31/22 Preoperative diagnosis: Right hip femoral neck fracture displaced valgus impacted Postoperative diagnosis: Same Procedure: Right hip hemiarthroplasty Implants: Cyndi Accolade II stem size 3 132 degree neck angle +4 neck length 47 mm outer diameter bipolar head Anesthesia: General l EBL: 200 cc Complications: None Condition: Stable to PACU Indication for procedure: This is a 81-year-old female patient who was hit by the rear end of a horse and had a ground-level fall, sustaining right hip femoral neck fracture subcapital displaced. plans for definitive hemiarthroplasty were discussed including risks benefits and alternatives of the procedure were reviewed with the patient including risk of bleeding infection nerve artery tissue damage need for further surgery continue pain postoperative hip precaution restrictions leg length discrepancy and dislocation. Procedure: Patient was met in the preoperative holding area once again the operative extremity was identified by both patient and physician and was marked. Patient was met by anesthesia and brought to the operating room where anesthesia was started . The patient was then positioned in the lateral decubitus position on a well-padded pegboard with an axillary roll. All bony prominences were checked and padded. The patient was prepped and draped in the usual sterile fashion. A timeout was called to ensure the proper patient procedure and extremity were being contemplated. Anatomic landmarks were palpated and marked for a standard posterior lateral approach. A timeout was called to ensure the proper patient procedure and extremity were being contemplated. A 10 blade scalpel was used to make a posterior incision through the skin and subcutaneous tissue. In retractors were used and electrocautery was used to maintain meticulous hemostasis and dissect full-thickness flaps until the gluteal fascia was reached. The gluteal fascia was incised in line with the gluteal fibers. The bursal tissue was then freed from the underside and a Charnley retractor was placed. The fatpad was elevated off of the external rotators with electrocautery and the external rotators were dissected off of the greater trochanter including the piriformis and were tagged with #1 Ethibond for later repair. The joint capsule opened with posterior trapdoor technique. A femoral neck cutting guide was used to josie the neck with a Bovie and an oscillating saw was used to complete the femoral neck cut. the fracture was visualized and with the use of a corkscrew and a skid the femoral head was removed and sized. We then trialed with the matching sizes . Hohmann was placed around the lesser trochanter. A femoral elevator was used. As well as a pointed wide Hohmann around the lesser trochanter and a Hohmann to help retract the gluteus medius. A box chisel was used to remove excess lateral neck followed by a canal finder and a lateralizing reamer. This was followed by sequential broaches. Attention was made of the version within the canal. Once the final broach was seated we then trialed and reduced the hip it was determined that a 132 degree neck angle with a +4 neck length was the appropriate size. We then checked stability with shuck testing as well as flexion and interminal rotation then proceeded with hip extension and checked leg lengths at the knees and heels. At this point trials were removed. The femoral stem was inserted. We re-trialed and then proceeded to impact the femoral head onto the Jose taper. We then surgically reduce the hip check stability again and leg lengths and were satisfied. irricept rinse was allowed to sit for 1 minutes while everyone changed their gloves. Thorough irrigation was performed. Followed by closure of the external rotators with #2 FiberWire followed by closure of gluteal fascia with #1 Ethibond. 0 Vicryl fat stitches and 2-0 Vicryl subcutaneous stitches and gabriel in the skin. Dressing was applied in the form of silverlon dressing and an abduction pillow was placed. Patient tolerated the procedure well there was no intraoperative complications all counts were correct and the patient was brought back to the PACU in stable condition
--- NOTE | 2022-03-31 16:08 | RAD_ITS ---
STUDY: X-RAY - PELVIS AND RIGHT HIP REASON FOR EXAM: Female, 81 years old. Post Op -- AP both hips on single dougie/lateral of op hip PACU TECHNIQUE: 2 views of the pelvis and hip. COMPARISON: None. FINDINGS: There is a non-specific bowel gas pattern. Normal visualized soft tissue structures. Normal bilateral iliac wings, sacroiliac joints and visualized sacrum. Normal bilateral superior and inferior pubic rami. Normal pubic symphysis. Normal bilateral ischial tuberosities. Status post recent right hip arthroplasty with skin gabriel and subcutaneous emphysema.. RAD/Hip Min 2 Views (Portable) IMPRESSION: Status post recent right hip arthroplasty. Electronically Signed: Anil Simms MD at 16:23 EDT ,
[2022-03-31] MEDS: Lactated Ringers 1,000 ML 100 ML IV (17:33)
[2022-03-31] MEDS: Tolterodine Tartrate 4 MG CAP.SA PO (17:33)
[2022-03-31] MEDS: Cyanocobalamin 500 MCG Tablet 1000 MCG PO (17:34)
[2022-03-31] MEDS: Metoprolol(XL)Succ 25 MG Tablet PO (17:34)
[2022-03-31] MEDS: hydroCHLOROthiazide 12.5mg 12.5 MG PO (17:34)
[2022-03-31] MEDS: Paroxetine 20 MG Tablet 40 MG PO (17:35)
[2022-03-31] MEDS: Calcium Carbonate 500 MG Tablet PO (17:38)
[2022-03-31] MEDS: Ergocalciferol 1.25 MG (50, 000 UNIT) Capsule PO (18:12)
--- NOTE | 2022-03-31 21:04 | PCM.PN.CARD ---
Subjective Subjective The patient is now status post her ORIF. She appears to be resting comfortably. She states she is with well. She is hungry. Objective Data Vital Signs: Vital Signs Temp Pulse Resp BP Pulse Ox O2 Del Method O2 Flow Rate 97.8 F 90 16 110/70 98 Nasal Cannula 1 03/31/22 19:01 03/31/22 19:01 03/31/22 19:01 03/31/22 19:01 03/31/22 19:01 03/31/22 19:01 03/31/22 19:01 Oxygen Flow Rate (L/min) 1 Oxygen Delivery Method Nasal Cannula Weight: 149 lb 0.52 oz Body Mass Index (BMI) 24.7 Intake & Output: Intake and Output for Last 24 Hours 03/29/22 03/30/22 03/31/22 23:59 23:59 23:59 Intake Total 560 / 560 985 / 985 Output Total 350 / 550 650 / 650 Balance 210 / 10 335 / 335 Lab / Micro Data Result Diagrams: 03/31/22 05:49 03/31/22 05:49 Labs: Laboratory Results - last 24 hr 03/31/22 05:49: WBC 11.2 H, RBC 3.62 L, Hgb 11.2 L, Hct 34.9 L, MCV 96.4, MCH 30.9, MCHC 32.1, RDW Std Deviation 55.0 H, RDW Coeff of Patrick 15.5 H, Plt Count 313, MPV 8.9, Immature Gran % (Auto) 0.400, Neut % (Auto) 77.1 H, Lymph % (Auto) 17.5 L, [place] % (Auto) 2.5, Eos % (Auto) 2.1, Baso % (Auto) 0.4, Absolute Neuts (auto) 8.6 H, Absolute Lymphs (auto) 1.95, Nucleated RBC % 0 03/31/22 05:49: PT 15.5 H, INR 1.3, APTT 37.5 H 03/31/22 05:49: Sodium 135 L, Potassium 3.8, Chloride 101, Carbon Dioxide 29.0, Anion Gap 5, BUN 22 H, Creatinine 1.21 H, Estim Creat Clear Calc 32.26, Est GFR (MDRD) Af Amer 55 L, Est GFR (MDRD) Non-Af 45 L, BUN/Creatinine Ratio 18.2, Glucose 121 H, Calcium 8.4 L, TSH 3.48 Cardiology Labs/Tests 03/31/22 05:49: WBC 11.2 H, RBC 3.62 L, Hgb 11.2 L, Hct 34.9 L, MCV 96.4, MCH 30.9, MCHC 32.1, Plt Count 313, MPV 8.9, Immature Gran % (Auto) 0.400, Neut % (Auto) 77.1 H, Lymph % (Auto) 17.5 L, [place] % (Auto) 2.5, Eos % (Auto) 2.1, Baso % (Auto) 0.4, Absolute Neuts (auto) 8.6 H, Nucleated RBC % 0 03/31/22 05:49: PT 15.5 H, INR 1.3, APTT 37.5 H 03/31/22 05:49: Sodium 135 L, Potassium 3.8, Chloride 101, Carbon Dioxide 29.0, Anion Gap 5, BUN 22 H, Creatinine 1.21 H, Est GFR (MDRD) Af Amer 55 L, Est GFR (MDRD) Non-Af 45 L, BUN/Creatinine Ratio 18.2, Glucose 121 H, Calcium 8.4 L Rhythm: Atrial flutter EKG: ECHO: Interpretation Summary The study was technically difficult. ? Left ventricular systolic function is normal. The estimated ejection fraction is 55 %. The left atrium is mildly enlarged. The right atrium is mildly enlarged. Mild-Moderate (1-2+) mitral valve insufficiency. Moderate (2+) tricuspid valve insufficiency. Trivial pericardial effusion. There are no echocardiographic indications of cardiac tamponade. Right ventricular systolic pressure estimated to be 36 mmHg. Unable to assess diastolic dysfunction. Radiography Diagnostic Testing: Radiology Impression Chest X-Ray 03/31/22 05:55 IMPRESSION: Findings suggestive of an infiltrate in the lingular segment of the left upper lobe. Electronically Signed: Billy Gomez MD at 8:53 EDT , Hip X-Ray 03/31/22 16:08 IMPRESSION: Status post recent right hip arthroplasty. Electronically Signed: Anil Simms MD at 16:23 EDT , Physical Exam Const alert, oriented x3 and no apparent distress Orientation / Consciousness: awake HEENT normocephalic, head/scalp atraumatic and hearing grossly normal bilaterally Eyes PERRL, EOMs intact bilaterally, conjunctivae normal and no scleral icterus Neck full ROM, supple and no JVD Resp normal respiratory effort and clear to auscultation bilaterally Cardio Rhythm: abnormal rhythm regularly irregular Heart Sounds: S1 normal, S2 normal and murmur systolic II/ soft mid left sternal border GI normal to inspection, nondistended, normoactive bowel sounds Extremity no pedal edema Skin no rashes or lesions noted Psych mental status grossly normal Assessment & Plan Assessment/Plan (1) Atrial fibrillation and flutter: PLAN: The patient has a history of paroxysmal atrial fibrillation. She currently demonstrated findings compatible with atrial flutter. At the present time she appears to be without acute symptomatic or hemodynamic compromise. She will continue rate control therapy. She should resume anticoagulant therapy when able from a surgical standpoint. (2) Hyperlipidemia: QUALIFIERS: Hyperlipidemia type: unspecified Qualified Code(s): E78.5 - Hyperlipidemia, unspecified PLAN: She has a history of hyperlipidemia. She will continue risk factor evaluation care as deemed appropriate. (3) Essential hypertension: PLAN: She has a history of hypertension. Her blood pressure can be monitored and her medicines adjusted accordingly. (4) Subcapital fracture of femur: PLAN: She appears to have undergone her orthopedic surgery without obvious adverse cardiovascular events. She should continue medical therapy for atrial dysrhythmia with rate control therapy and anticoagulant therapy as she is able. Addt'l Comments At the present time there are no plans for additional cardiac diagnostic studies/intervention. Again the patient should continue medical management for her atrial dysrhythmia with rate control therapy. She should resume anticoagulant therapy when she is able from a surgical standpoint. Thank you for allowing me to participate in the care of your patient. Please don't hesitate to call if any issues arise. This note was generated using a voice recognition system and there may be incorrect words, spelling or punctuation that were not noted when reviewing the office note prior to saving.
[2022-03-31] MEDS: Atorvastatin Calcium 80 MG Tablet PO (21:15)
[2022-03-31] MEDS: Levothyroxine 75 MCG Tablet PO (21:15)
[2022-03-31] MEDS: Cefazolin 1 GM/50 ML BAG IV (23:03)
[2022-04-01] VITALS (10 sets, daily range): BP systolic 91–107; BP diastolic 59–72; PULSE 60–127; RESP 16–18; TEMP 36.7–37.1; O2SAT 92–98; BMI 24.8
[2022-04-01] MEDS: Morphine 2 MG/ML Syringe IV (02:53)
[2022-04-01 06:02] LABS: Absolute Lymphocyte Count 0.75 X10^3/uL (0.83-4.51); Absolute Neutrophil Count 8.5 X10^3/uL (2.0-7.7); Basophil# 0.01 X10^3/uL; Basophil% 0.1 % (0-1); Hematocrit 29.5 % (37-47); Hemoglobin 9.7 g/dL (12.0-15.0); Lymphocyte # 0.75 X10^3/ul (0.83-4.51); Lymphocyte % 7.8 % (19-41); Mean Corp Hgb Conc 32.9 g/dL (32-36); Mean Corpuscular Hgb 31.5 pg (27.0-32.0); Mean Corpuscular Volume 95.8 fL (81-99); Mean Platelet Vol. 9.2 fl (6.2-12.0); Monocyte# 0.25 X10^3/uL; Monocyte% 2.6 % (0-10); NRBC Flagged by Analyzer 0 % (0-5); Neutrophil # 8.53 X10^3/uL (2.7-7.7); Neutrophil % 89.3 % (47-70); Platelet Count 296 K/mm3 (150-450); RBC Distribution Width CV 15.1 % (11.6-14.6); RBC Distribution Width SD 53.1 fl (35.1-43.9); Red Blood Count 3.08 M/mm3 (4.2-5.4); White Blood Count 9.6 K/mm3 (4.4-11.0)
[2022-04-01] MEDS: Cefazolin 1 GM/50 ML BAG IV (06:06)
[2022-04-01 06:36] LABS: Anion Gap 8 (5-15); BUN 20 mg/dL (7-18); Calcium,Total 7.6 mg/dL (8.5-10.1); Chloride 103 mmol/L (98-107); EST Glomerular Filtration Rate 56 mL/min (>60); Est Glom Filt Rate - Afr Amer 68 mL/min (>60); Estimated Creatinine Clearance 39.03 ml/min; Glucose 123 mg/dL (74-106); Sodium Level 136 mmol/L (136-145)
--- NOTE | 2022-04-01 07:30 | PN.ORTHO_ITS ---
Subjective Subjective Seen and examined. Doing well no complaints pain controlled Objective Data Objective Data Vital Signs: Vital Signs Temp Pulse Resp BP Pulse Ox O2 Del Method O2 Flow Rate 98.5 F 122 H 16 107/64 93 Room Air 1 04/01/22 03:00 04/01/22 03:00 04/01/22 03:00 04/01/22 03:00 04/01/22 03:00 04/01/22 05:00 03/31/22 19:01 Oxygen Flow Rate (L/min) 1 Oxygen Delivery Method Room Air Weight: 149 lb 0.52 oz Body Mass Index (BMI) 24.7 Intake & Output: Intake and Output for Last 24 Hours 03/30/22 03/31/22 04/01/22 23:59 23:59 23:59 Intake Total 560 / 560 1035 / 1035 1000 / 1000 Output Total 350 / 550 1050 / 1050 350 / 350 Balance 210 / 10 -15 / -15 650 / 650 Lab / Micro Data Result Diagrams: 04/01/22 05:55 04/01/22 05:55 Labs: Laboratory Results - last 24 hr 04/01/22 05:55: WBC 9.6, RBC 3.08 L, Hgb 9.7 L, Hct 29.5 L, MCV 95.8, MCH 31.5, MCHC 32.9, RDW Std Deviation 53.1 H, RDW Coeff of Patrick 15.1 H, Plt Count 296, MPV 9.2, Immature Gran % (Auto) 0.200, Neut % (Auto) 89.3 H, Lymph % (Auto) 7.8 L, [place] % (Auto) 2.6, Eos % (Auto) 0.0, Baso % (Auto) 0.1, Absolute Neuts (auto) 8.5 H, Absolute Lymphs (auto) 0.75 L, Nucleated RBC % 0 04/01/22 05:55: Sodium 136, Potassium 4.0, Chloride 103, Carbon Dioxide 25.0, Anion Gap 8, BUN 20 H, Creatinine 1.00, Estim Creat Clear Calc 39.03, Est GFR (MDRD) Af Amer 68, Est GFR (MDRD) Non-Af 56 L, BUN/Creatinine Ratio 20.0, Glucose 123 H, Calcium 7.6 L Radiography Diagnostic Testing: Radiology Impression Chest X-Ray 03/31/22 05:55 IMPRESSION: Findings suggestive of an infiltrate in the lingular segment of the left upper lobe. Electronically Signed: Billy Gomez MD at 8:53 EDT , Hip X-Ray 03/31/22 16:08 IMPRESSION: Status post recent right hip arthroplasty. Electronically Signed: Anil Simms MD at 16:23 EDT , Physical Exam Const alert, oriented x3 and no apparent distress General Appearance: cooperative Extremity Extremity Narrative: Right hip dressing clean dry and intact compartments soft neurovascular intact EHL tibialis anterior gastrocsoleus intact sensation to light touch throughout the lower extremity palpable symmetric pedal pulses Assessment & Plan Assessment/Plan (1) Subcapital fracture of femur: PLAN: Plan Postop day #1 right hip hemiarthroplasty. PT OT weightbearing as tolerated , hip precautions. May remove abduction pillow while awake in bed after first ambulation, then may switch to a pillow. Dressing to be left on for 5 days postop, so April 05 may remove prior to first shower then should be cleaned daily with antibacterial soap and warm water pat dry and dry dressing replaced daily. Resume anticoagulation preoperative dose this morning 7 AM Pain controlled with oxycodone PO Follow-up in the office in 2 weeks for wound check and staple removal.
--- NOTE | 2022-04-01 08:07 | PN.HOSP_ITS ---
Subjective Subjective Feels well. Does complain of pain in her right leg. Objective Data Objective Data Vital Signs: Vital Signs Temp Pulse Resp BP Pulse Ox O2 Del Method O2 Flow Rate 37.1 C 101 H 18 95/72 94 Room Air 1 04/01/22 07:51 04/01/22 07:51 04/01/22 07:51 04/01/22 07:51 04/01/22 07:51 04/01/22 07:51 03/31/22 19:01 Oxygen Flow Rate (L/min) 1 Oxygen Delivery Method Room Air Weight: 67.6 kg Body Mass Index (BMI) 24.7 Intake & Output: Intake and Output for Last 24 Hours 03/30/22 03/31/22 04/01/22 23:59 23:59 23:59 Intake Total 560 / 560 1035 / 1035 1000 / 1000 Output Total 350 / 550 1050 / 1050 350 / 350 Balance 210 / 10 -15 / -15 650 / 650 Lab / Micro Data Result Diagrams: 04/01/22 05:55 04/01/22 05:55 Labs: Laboratory Results - last 24 hr 04/01/22 05:55: WBC 9.6, RBC 3.08 L, Hgb 9.7 L, Hct 29.5 L, MCV 95.8, MCH 31.5, MCHC 32.9, RDW Std Deviation 53.1 H, RDW Coeff of Patrick 15.1 H, Plt Count 296, MPV 9.2, Immature Gran % (Auto) 0.200, Neut % (Auto) 89.3 H, Lymph % (Auto) 7.8 L, [place] % (Auto) 2.6, Eos % (Auto) 0.0, Baso % (Auto) 0.1, Absolute Neuts (auto) 8.5 H, Absolute Lymphs (auto) 0.75 L, Nucleated RBC % 0 04/01/22 05:55: Sodium 136, Potassium 4.0, Chloride 103, Carbon Dioxide 25.0, Anion Gap 8, BUN 20 H, Creatinine 1.00, Estim Creat Clear Calc 39.03, Est GFR (MDRD) Af Amer 68, Est GFR (MDRD) Non-Af 56 L, BUN/Creatinine Ratio 20.0, Glucose 123 H, Calcium 7.6 L Radiography Diagnostic Testing: Radiology Impression Chest X-Ray 03/31/22 05:55 IMPRESSION: Findings suggestive of an infiltrate in the lingular segment of the left upper lobe. Electronically Signed: Billy Gomez MD at 8:53 EDT , Hip X-Ray 03/31/22 16:08 IMPRESSION: Status post recent right hip arthroplasty. Electronically Signed: Anil Simms MD at 16:23 EDT , Physical Exam Const alert Resp normal respiratory effort and no retractions Cardio regular rate, regular rhythm, S1 normal heart sound and S2 normal heart sound GI normal to inspection, nondistended, normoactive bowel sounds Neuro oriented x3 Psych affect normal Assessment & Plan Assessment/Plan (1) Subcapital fracture of femur: PLAN: Acute right subcapital fracture Hip/pelvis x-ray was visualized and independently interpreted. I agree with radiologist interpretation of acute right subcapital fracture. Emergent department doctor discussed the case with Dr. Cochran Inpatient consult for orthopedic surgery ordered. Morphine IV and oxycodone as needed ordered. Tylenol as needed ordered. Bowel protocol and antiemetics IV ordered. With patient on Eliquis per discussion between ED doctor and orthopedic surgeon hold Eliquis surgery most likely on March 31, 2022 Check vitamin D level. Preoperative EKG unremarkable ACS NSQIP surgical risk calculator using severe systemic disease (A. fib) with above average surgical risk for cardiac complications; pneumonia; any complications; serious complication; readmission; renal failure; return to OR; ; discharged to nursing or rehab facility; and sepsis. Cardiology consult for pre-operative evaluation S/P right hip hemiarthoplasty on 03/31 (2) Paroxysmal atrial fibrillation: PLAN: Currently rate controlled Home metoprolol ordered at the ED. Cardizem 10 mg IV push ordered at the ED. Place on PCU on telemetry Obtain echo No anticoagulation in the setting of hip fracture. Potassium level is normal. Check magnesium. Check TSH Cardiology consult Anticoagulated with apixaban (3) Essential hypertension: PLAN: Hypertension Blood pressure is stable Home blood pressure medication continued. Trend blood pressure and adjust blood pressure medications. (4) Hypothyroidism: QUALIFIERS: Hypothyroidism type: unspecified Qualified Code(s): E03.9 - Hypothyroidism, unspecified PLAN: Hypothyroidism In the setting of A. fib with RVR TSH ordered. Home Synthroid continued. (5) Vitamin D deficiency: PLAN: replace with ergocalciferol 50,000k units weekly for 8 weeks follow up level in 2 months PLAN: Plan Tobacco abuse Risk of tobacco was discussed. Counseled. Nicotine patch ordered. DVT Prophylaxis: anticoagulated Charges/Coding Visit Charges Inpatient E&M: 73944 Subs Hosp L2
[2022-04-01] MEDS: Calcium Carbonate 500 MG Tablet PO ×3 (08:11→17:20)
[2022-04-01] MEDS: Tolterodine Tartrate 4 MG CAP.SA PO (08:12)
[2022-04-01] MEDS: APIXABAN 2.5 MG TABLET PO ×2 (08:13→21:16)
[2022-04-01] MEDS: Cyanocobalamin 500 MCG Tablet 1000 MCG PO (08:16)
--- NOTE | 2022-04-01 09:30 | CASEMGMT ---
SNEHAL was able to look up patient's insurance on [employer] website. Patient's [place] plan is: [facility] PPO. SNEHAL let Sabina d/c demand planning manager know this information and she notified [facility]. Plan: d/c to [facility] pending insurance approval. Leyla Lopez [employer]K
--- NOTE | 2022-04-01 09:41 | CASEMGMT ---
Call to [employer] medicare to clarify pt benefits and see if [facility] in network as we do not have pt's card on file at [facility]. Per rep, [facility] is in-network and pt is active with insurance. CM to follow for any further discharge planning/needs. Poonam QUINTERO CM
[2022-04-01] MEDS: Paroxetine 20 MG Tablet 40 MG PO (12:04)
[2022-04-01] MEDS: hydroCHLOROthiazide 12.5mg 12.5 MG PO (12:05)
--- NOTE | 2022-04-01 12:48 | CASEMGMT ---
Discharge Customer Advocacy Manager Lara from [facility] reached out. Patient has been accepted. PT/OT notes have been submitted via [facility]. Plan: [facility], Waiting pre-cert. Sabina Garcia Discharge Customer Advocacy Manager
[2022-04-01] MEDS: Metoprolol(XL)Succ 25 MG Tablet PO (14:48)
[2022-04-01] MEDS: Acetaminophen 325 MG Tablet 650 MG PO (15:47)
--- NOTE | 2022-04-01 16:52 | NURSING ---
All documentation and medication administration completed by Jg Valdez completed under the supervision of this RN.
[2022-04-01] MEDS: Atorvastatin Calcium 80 MG Tablet PO (21:16)
[2022-04-01] MEDS: Levothyroxine 75 MCG Tablet PO (21:16)
[2022-04-01] MEDS: MELATONIN 3 MG TABLET PO (21:19)
[2022-04-02] VITALS (12 sets, daily range): BP systolic 103–129; BP diastolic 68–86; PULSE 91–96; RESP 16–18; TEMP 36.3–37; O2SAT 93–100
[2022-04-02] MEDS: Acetaminophen 325 MG Tablet 650 MG PO (03:32)
[2022-04-02 06:57] LABS: Hemoglobin 9.1 g/dL (12.0-15.0); Mean Corp Hgb Conc 32.5 g/dL (32-36); Mean Corpuscular Hgb 31.6 pg (27.0-32.0); Mean Corpuscular Volume 97.2 fL (81-99); Mean Platelet Vol. 9.4 fl (6.2-12.0); Platelet Count 305 K/mm3 (150-450); RBC Distribution Width CV 15.5 % (11.6-14.6); RBC Distribution Width SD 54.7 fl (35.1-43.9); Red Blood Count 2.88 M/mm3 (4.2-5.4); White Blood Count 11.5 K/mm3 (4.4-11.0)
[2022-04-02] MEDS: Metoprolol(XL)Succ 25 MG Tablet PO (08:08)
[2022-04-02] MEDS: APIXABAN 2.5 MG TABLET PO ×2 (08:09→21:37)
[2022-04-02] MEDS: Cyanocobalamin 500 MCG Tablet 1000 MCG PO (08:10)
[2022-04-02] MEDS: Tolterodine Tartrate 4 MG CAP.SA PO (08:10)
[2022-04-02] MEDS: Paroxetine 20 MG Tablet 40 MG PO (08:12)
[2022-04-02] MEDS: hydroCHLOROthiazide 12.5mg 12.5 MG PO (08:13)
[2022-04-02] MEDS: Calcium Carbonate 500 MG Tablet PO ×3 (08:19→17:26)
--- NOTE | 2022-04-02 08:47 | PCM.PN.HOSP ---
Subjective Subjective Feeling constipated. Objective Data Objective Data Vital Signs: Vital Signs Temp Pulse Resp BP Pulse Ox O2 Del Method O2 Flow Rate 36.3 C L 92 16 129/86 H 98 Room Air 1 04/02/22 08:04 04/02/22 08:08 04/02/22 08:04 04/02/22 08:08 04/02/22 08:04 04/02/22 08:20 03/31/22 19:01 Oxygen Flow Rate (L/min) 1 Oxygen Delivery Method Room Air Weight: 67.6 kg Body Mass Index (BMI) 24.7 Intake & Output: Intake and Output for Last 24 Hours 03/31/22 04/01/22 04/02/22 23:59 23:59 23:59 Intake Total 1035 / 1035 2009 Output Total 1050 / 1050 350 / 350 900 / 900 Balance -15 / -15 1660 / 1660 -900 / -900 Lab / Micro Data Result Diagrams: 04/02/22 06:35 04/01/22 05:55 Labs: Laboratory Results - last 24 hr 04/02/22 06:35: WBC 11.5 H, RBC 2.88 L, Hgb 9.1 L, Hct 28.0 L, MCV 97.2, MCH 31.6, MCHC 32.5, RDW Std Deviation 54.7 H, RDW Coeff of Patrick 15.5 H, Plt Count 305, MPV 9.4 Physical Exam Resp normal respiratory effort and no retractions Cardio regular rate, regular rhythm, S1 normal heart sound and S2 normal heart sound GI normal to inspection, nondistended, normoactive bowel sounds, soft to palpation and non-tender Assessment & Plan Assessment/Plan (1) Subcapital fracture of femur: PLAN: Acute right subcapital fracture Hip/pelvis x-ray was visualized and independently interpreted. I agree with radiologist interpretation of acute right subcapital fracture. Emergent department doctor discussed the case with Dr. Cochran Inpatient consult for orthopedic surgery ordered. Morphine IV and oxycodone as needed ordered. Tylenol as needed ordered. Bowel protocol and antiemetics IV ordered. With patient on Eliquis per discussion between ED doctor and orthopedic surgeon hold Eliquis surgery most likely on March 31, 2022 Check vitamin D level. Preoperative EKG unremarkable ACS NSQIP surgical risk calculator using severe systemic disease (A. fib) with above average surgical risk for cardiac complications; pneumonia; any complications; serious complication; readmission; renal failure; return to OR; ; discharged to nursing or rehab facility; and sepsis. Cardiology consult for pre-operative evaluation S/P right hip hemiarthoplasty on 03/31 (2) Paroxysmal atrial fibrillation: PLAN: Currently rate controlled Home metoprolol ordered at the ED. Cardizem 10 mg IV push ordered at the ED. Place on PCU on telemetry Obtain echo No anticoagulation in the setting of hip fracture. Potassium level is normal. Check magnesium. Check TSH Cardiology consult Anticoagulated with apixaban (3) Essential hypertension: PLAN: Hypertension Blood pressure is stable Home blood pressure medication continued. Trend blood pressure and adjust blood pressure medications. (4) Hypothyroidism: QUALIFIERS: Hypothyroidism type: unspecified Qualified Code(s): E03.9 - Hypothyroidism, unspecified PLAN: Hypothyroidism In the setting of A. fib with RVR TSH ordered. Home Synthroid continued. (5) Vitamin D deficiency: PLAN: replace with ergocalciferol 50,000k units weekly for 8 weeks follow up level in 2 months PLAN: Plan Tobacco abuse Risk of tobacco was discussed. Counseled. Nicotine patch ordered. DVT Prophylaxis: anticoagulated Disposition: To [facility] facility pending insurance authorization. Charges/Coding Visit Charges Inpatient E&M: 36798 Subs Hosp L2
[2022-04-02] MEDS: oxyCODONE 5 MG Tablet PO ×2 (13:19→21:35)
[2022-04-02] MEDS: Bisacodyl 5 MG Tablet PO (13:23)
[2022-04-02] MEDS: Docusate Sodium 100 MG Capsule PO (21:36)
[2022-04-02] MEDS: Atorvastatin Calcium 80 MG Tablet PO (21:38)
[2022-04-02] MEDS: 0.9% Saline Lock 10 ML Syringe IV ×2 (21:38→22:35)
[2022-04-02] MEDS: Levothyroxine 75 MCG Tablet PO (21:38)
[2022-04-02] MEDS: MELATONIN 3 MG TABLET PO (21:44)
[2022-04-03] VITALS (8 sets, daily range): BP systolic 93–109; BP diastolic 58–72; PULSE 91–95; RESP 14–18; TEMP 36.4–36.9; O2SAT 95–98
--- NOTE | 2022-04-03 06:59 | NURSING ---
all documentation completed by John QUINTERO reviewed by this RN
[2022-04-03 07:04] LABS: Hematocrit 29.6 % (37-47); Hemoglobin 9.7 g/dL (12.0-15.0); Mean Corp Hgb Conc 32.8 g/dL (32-36); Mean Corpuscular Hgb 31.5 pg (27.0-32.0); Mean Corpuscular Volume 96.1 fL (81-99); Mean Platelet Vol. 9.5 fl (6.2-12.0); Platelet Count 350 K/mm3 (150-450); RBC Distribution Width CV 15.5 % (11.6-14.6); RBC Distribution Width SD 54.4 fl (35.1-43.9); Red Blood Count 3.08 M/mm3 (4.2-5.4); White Blood Count 11.1 K/mm3 (4.4-11.0)
--- NOTE | 2022-04-03 08:19 | PN.HOSP_ITS ---
Subjective Subjective Still with pain in her right hip but overall doing well. Objective Data Objective Data Vital Signs: Vital Signs Temp Pulse Resp BP Pulse Ox O2 Del Method O2 Flow Rate 36.8 C 95 14 104/65 95 Room Air 1 04/03/22 03:37 04/03/22 07:00 04/03/22 03:37 04/03/22 03:37 04/03/22 03:37 04/03/22 07:51 03/31/22 19:01 Oxygen Flow Rate (L/min) 1 Oxygen Delivery Method Room Air Weight: 67.6 kg Body Mass Index (BMI) 24.7 Intake & Output: Intake and Output for Last 24 Hours 04/01/22 04/02/22 04/03/22 23:59 23:59 23:59 Intake Total 2009 Output Total 350 / 350 950 / 950 50 / 50 Balance 1660 / 1660 -950 / -950 -50 / -50 Lab / Micro Data Result Diagrams: 04/03/22 06:31 04/01/22 05:55 Labs: Laboratory Results - last 24 hr 04/03/22 06:31: WBC 11.1 H, RBC 3.08 L, Hgb 9.7 L, Hct 29.6 L, MCV 96.1, MCH 31.5, MCHC 32.8, RDW Std Deviation 54.4 H, RDW Coeff of Patrick 15.5 H, Plt Count 350, MPV 9.5 Physical Exam Const alert and no apparent distress Resp normal respiratory effort and no retractions Cardio regular rate, regular rhythm, S1 normal heart sound and S2 normal heart sound GI normal to inspection, nondistended, normoactive bowel sounds and soft to palpation Assessment & Plan Assessment/Plan (1) Subcapital fracture of femur: PLAN: Acute right subcapital fracture Hip/pelvis x-ray was visualized and independently interpreted. I agree with radiologist interpretation of acute right subcapital fracture. Emergent department doctor discussed the case with Dr. Cochran Inpatient consult for orthopedic surgery ordered. Morphine IV and oxycodone as needed ordered. Tylenol as needed ordered. Bowel protocol and antiemetics IV ordered. With patient on Eliquis per discussion between ED doctor and orthopedic surgeon hold Eliquis surgery most likely on March 31, 2022 Check vitamin D level. Preoperative EKG unremarkable ACS NSQIP surgical risk calculator using severe systemic disease (A. fib) with above average surgical risk for cardiac complications; pneumonia; any complications; serious complication; readmission; renal failure; return to OR; ; discharged to nursing or rehab facility; and sepsis. Cardiology consult for pre-operative evaluation S/P right hip hemiarthoplasty on 03/31 (2) Paroxysmal atrial fibrillation: PLAN: Currently rate controlled Home metoprolol ordered at the ED. Cardizem 10 mg IV push ordered at the ED. Place on PCU on telemetry Obtain echo No anticoagulation in the setting of hip fracture. Potassium level is normal. Check magnesium. Check TSH Cardiology consult Anticoagulated with apixaban (3) Essential hypertension: PLAN: Hypertension Blood pressure is stable Home blood pressure medication continued. Trend blood pressure and adjust blood pressure medications. (4) Hypothyroidism: QUALIFIERS: Hypothyroidism type: unspecified Qualified Code(s): E03.9 - Hypothyroidism, unspecified PLAN: Hypothyroidism In the setting of A. fib with RVR TSH ordered. Home Synthroid continued. (5) Vitamin D deficiency: PLAN: replace with ergocalciferol 50,000k units weekly for 8 weeks follow up level in 2 months PLAN: Plan Tobacco abuse Risk of tobacco was discussed. Counseled. Nicotine patch ordered. DVT Prophylaxis: anticoagulated Disposition: To group home facility pending insurance authorization. Likely will have authorization until the 6 at the earliest. Charges/Coding Visit Charges Inpatient E&M: 36439 Subs Hosp L2
[2022-04-03] MEDS: Calcium Carbonate 500 MG Tablet PO ×3 (09:01→16:12)
[2022-04-03] MEDS: Tolterodine Tartrate 4 MG CAP.SA PO (09:03)
[2022-04-03] MEDS: oxyCODONE 5 MG Tablet PO ×2 (09:03→21:13)
[2022-04-03] MEDS: Metoprolol(XL)Succ 25 MG Tablet PO (09:03)
[2022-04-03] MEDS: APIXABAN 2.5 MG TABLET PO ×2 (09:03→21:13)
[2022-04-03] MEDS: Acetaminophen 325 MG Tablet 650 MG PO ×2 (09:03→21:13)
[2022-04-03] MEDS: hydroCHLOROthiazide 12.5mg 12.5 MG PO (09:03)
[2022-04-03] MEDS: Docusate Sodium 100 MG Capsule PO ×2 (09:03→21:13)
[2022-04-03] MEDS: Cyanocobalamin 500 MCG Tablet 1000 MCG PO (09:03)
[2022-04-03] MEDS: Paroxetine 20 MG Tablet 40 MG PO (09:03)
[2022-04-03] MEDS: Atorvastatin Calcium 80 MG Tablet PO (21:13)
[2022-04-03] MEDS: Levothyroxine 75 MCG Tablet PO (21:13)
[2022-04-03] MEDS: MELATONIN 3 MG TABLET PO (23:36)
[2022-04-04] VITALS (13 sets, daily range): BP systolic 83–108; BP diastolic 43–74; PULSE 91–137; RESP 18; TEMP 36.1–37.2; O2SAT 94–100
--- NOTE | 2022-04-04 07:43 | PCM.PN.HOSP ---
Subjective Subjective Follow-up for right hip fracture status post surgery. Patient was felt nauseous. She complained of left shoulder pain on walking during physical therapy. Understanding her blood pressure was low. BP dropped to 83/43 heart rate 135. IV fluid Ringer lactate ordered. Objective Data Objective Data Vital Signs: Vital Signs Temp Pulse Resp BP Pulse Ox O2 Del Method O2 Flow Rate 98.9 F 98 18 100/66 98 Room Air 1 04/04/22 02:47 04/04/22 07:34 04/04/22 02:47 04/04/22 02:47 04/04/22 02:47 04/04/22 02:47 03/31/22 19:01 Oxygen Flow Rate (L/min) 1 Oxygen Delivery Method Room Air Weight: 149 lb 0.52 oz Body Mass Index (BMI) 24.7 Intake & Output: Intake and Output for Last 24 Hours 04/02/22 04/03/22 04/04/22 23:59 23:59 23:59 Intake Total 720 / 720 Output Total 950 / 950 175 / 175 100 / 100 Balance -950 / -950 545 / 545 -100 / -100 Lab / Micro Data Result Diagrams: 04/03/22 06:31 04/01/22 05:55 Physical Exam Narrative General: Alert, Oriented x3, Cooperative, frail. HEENT: Atraumatic, PERRLA, EOMI, Normocephalic Oral: No Gingival or Mucosal Lesions/ Ulcerations Neck: Supple, No JVD, Negative Carotid Bruits Lungs: Air entry diminished in bilateral lung bases. No crepitation/rhonchi Cardiovascular: Regular rate, Regular Rhythm, Normal S1, Normal S2, No murmurs Abdomen: Bowel Sounds Present, Soft, Non Tender, Non-Distended : No renal angle tenderness. No suprapubic tenderness. Extremities: No edema, Capillary Refill Less than 3 Seconds Skin: No rashes, No breakdown Musculoskeletal: Mild tenderness over left shoulder. Right surgical wound healed. Neurological: Cranial nerves II-XII grossly intact, DTR 2+/4. Psych/Mental Status: Flat affect. Assessment & Plan Assessment/Plan (1) Subcapital fracture of femur: PLAN: Acute right subcapital fracture Hip/pelvis x-ray was independently interpreted, consistent with acute right subcapital fracture. Orthopedic surgeon Dr. Iyer consulted. Pain control on oxycodone IV morphine and Tylenol. ACS NSQIP surgical risk was high therefore pest control chemical technician was consulted. S/P right hip hemiarthoplasty on 03/31. PT and OT. Dressing on the hip surgery to be left for 5 days postop. On April 05 he developed prior to first shower. 04/04: Patient felt mildly nauseous but denies dizziness. Her blood pressure understanding was low in systolic 80s. 1 L Ringer lactate given. Blood pressure improved in systolic 100s. Hold antihypertensive medication. (2) Paroxysmal atrial fibrillation: PLAN: Currently rate controlled Home metoprolol ordered at the ED. Cardizem 10 mg IV push ordered at the ED. Place on PCU on telemetry Obtain echo No anticoagulation in the setting of hip fracture. Potassium level is normal. Cardiology consult Anticoagulated with apixaban (3) Essential hypertension: PLAN: Hypertension Blood pressure is stable Home blood pressure medication continued. T (4) Hypothyroidism: QUALIFIERS: Hypothyroidism type: unspecified Qualified Code(s): E03.9 - Hypothyroidism, unspecified PLAN: Hypothyroidism In the setting of A. fib with RVR TSH ordered. Home Synthroid continued. (5) Vitamin D deficiency: PLAN: replace with ergocalciferol 50,000k units weekly for 8 weeks follow up level in 2 months PLAN: Plan Tobacco abuse Risk of tobacco was discussed. Counseled. Nicotine patch ordered. DVT Prophylaxis: anticoagulated Disposition: To long term facility pending insurance authorization. Likely will have authorization until the 6 at the earliest. Charges/Coding Visit Charges Inpatient E&M: 46841 Subs Hosp L2
[2022-04-04] MEDS: Metoprolol(XL)Succ 25 MG Tablet PO (07:54)
[2022-04-04] MEDS: Cyanocobalamin 500 MCG Tablet 1000 MCG PO (07:54)
[2022-04-04] MEDS: Paroxetine 20 MG Tablet 40 MG PO (07:56)
[2022-04-04] MEDS: Tolterodine Tartrate 4 MG CAP.SA PO (07:57)
[2022-04-04] MEDS: Docusate Sodium 100 MG Capsule PO ×2 (07:57→20:19)
[2022-04-04] MEDS: hydroCHLOROthiazide 12.5mg 12.5 MG PO (07:57)
[2022-04-04] MEDS: APIXABAN 2.5 MG TABLET PO ×2 (07:57→20:19)
[2022-04-04] MEDS: oxyCODONE 5 MG Tablet PO (08:03)
[2022-04-04] MEDS: Calcium Carbonate 500 MG Tablet PO ×2 (08:03→11:08)
[2022-04-04] MEDS: Lactated Ringers 1,000 ML 999 ML IV (09:59)
[2022-04-04] MEDS: 0.9% Saline Lock 10 ML Syringe IV (10:07)
[2022-04-04 12:56] LABS: Absolute Lymphocyte Count 1.13 X10^3/uL (0.83-4.51); Absolute Neutrophil Count 10.8 X10^3/uL (2.0-7.7); Basophil# 0.02 X10^3/uL; Basophil% 0.2 % (0-1); Eosinophil# 0.15 X10^3/uL; Eosinophils% 1.2 % (0-5); Hematocrit 30.6 % (37-47); Hemoglobin 9.9 g/dL (12.0-15.0); Lymphocyte # 1.13 X10^3/ul (0.83-4.51); Lymphocyte % 8.9 % (19-41); Mean Corp Hgb Conc 32.4 g/dL (32-36); Mean Corpuscular Hgb 30.8 pg (27.0-32.0); Mean Corpuscular Volume 95.3 fL (81-99); Mean Platelet Vol. 9.3 fl (6.2-12.0); Monocyte# 0.54 X10^3/uL; Monocyte% 4.3 % (0-10); NRBC Flagged by Analyzer 0 % (0-5); Neutrophil # 10.75 X10^3/uL (2.7-7.7); Neutrophil % 84.7 % (47-70); Platelet Count 380 K/mm3 (150-450); RBC Distribution Width CV 15.1 % (11.6-14.6); Red Blood Count 3.21 M/mm3 (4.2-5.4); White Blood Count 12.7 K/mm3 (4.4-11.0)
[2022-04-04] MEDS: Lactated Ringers 1,000 ML 100 ML IV (13:50)
[2022-04-04] MEDS: Acetaminophen 325 MG Tablet 650 MG PO (13:50)
[2022-04-04] MEDS: Lactated Ringers 500 ML 999 ML IV (14:40)
[2022-04-04] MEDS: Atorvastatin Calcium 80 MG Tablet PO (20:20)
[2022-04-04] MEDS: Levothyroxine 75 MCG Tablet PO (20:20)
[2022-04-04] MEDS: MELATONIN 3 MG TABLET PO (23:06)
[2022-04-05] VITALS (9 sets, daily range): BP systolic 106–109; BP diastolic 60–63; PULSE 93–114; RESP 16–18; TEMP 36.4–37.1; O2SAT 93–99
[2022-04-05] MEDS: Cyanocobalamin 500 MCG Tablet 1000 MCG PO (08:48)
[2022-04-05] MEDS: APIXABAN 2.5 MG TABLET PO (08:49)
[2022-04-05] MEDS: Tolterodine Tartrate 4 MG CAP.SA PO (08:49)
[2022-04-05] MEDS: Paroxetine 20 MG Tablet 40 MG PO (08:49)
[2022-04-05] MEDS: Metoprolol(XL)Succ 50 MG Tablet PO (08:49)
[2022-04-05] MEDS: Calcium Carbonate 500 MG Tablet PO ×2 (08:51→12:14)
--- NOTE | 2022-04-05 10:20 | TREXTCAR_ITS ---
Diet Diet Order/Speech Therapy: 04/01/22 06:35 Diet: Regular - General Is pt able to select menu?: Yes Diet Comments: chocolate ice cream w/ lunch Routine Orders/Code Status Suppository Type: Dulcolax 10mg Suppository Frequency: Daily PRN Code Status: DNRCC-A (With intubation) Wound(s) Left Fabian: Wound Type: Abrasion Right Forearm: Wound Type: Surgical Incision rt hip: Wound Type: Surgical Incision Therapies Weight Bearing: Weight bearing as tolerated Extremity Affected:: Right Lower Physical Therapy: Eval and Treat Occupational Therapy: Eval and Treat Speech Therapy: Eval and Treat Problem/Diagnosis (1) Subcapital fracture of femur: Status: Acute Code(s): S72.019A - Unspecified intracapsular fracture of unspecified femur, initial encounter for closed fracture Plan: Acute right subcapital fracture Hip/pelvis x-ray was independently interpreted, consistent with acute right subcapital fracture. Orthopedic surgeon Dr. Iyer consulted. Pain control on oxycodone IV morphine and Tylenol. ACS NSQIP surgical risk was high therefore medical case manager was consulted. S/P right hip hemiarthoplasty on 03/31. PT and OT. Dressing on the hip surgery to be left for 5 days postop. On April 05 he developed prior to first shower. 04/04: Patient felt mildly nauseous but denies dizziness. Her blood pressure understanding was low in systolic 80s. 1 L Ringer lactate given. Blood pressure improved in systolic 100s. Hold antihypertensive medication. (2) Essential hypertension: Status: Chronic Code(s): I10 - Essential (primary) hypertension Plan: Hypertension Blood pressure is stable Home blood pressure medication continued. T (3) Hypothyroidism: Status: Chronic Code(s): E03.9 - Hypothyroidism, unspecified Plan: Hypothyroidism In the setting of A. fib with RVR TSH ordered. Home Synthroid continued. Plan Tobacco abuse Risk of tobacco was discussed. Counseled. Nicotine patch ordered. DVT Prophylaxis: anticoagulated Disposition: To retirement facility pending insurance authorization. Likely will have authorization until the 6 at the earliest. Allergies/Procedures Done in Hospital Allergies isopropyl alcohol Allergy (Verified 03/31/22 08:31) Rash pt says she is allergic to rubbing alcohol Egg Derived Adverse Reaction (Severe, Verified 03/30/22 13:17) Swelling Reports reaction to vaccine containing egg product. Does not eat eggs individually- I can't digest those but eats eggs when used as an ingredient in foods NSAIDS (Non-Steroidal Anti-Inflamma Adverse Reaction (Verified 03/29/22 18:47) instant headache Type of Care/Length of Stay Estimated LOS: Convalescent Care Less Than 30 days Type of Care Needed: Skilled Rehab Potential: Good Prognosis: Good Additional Orders/Day of Discharge Day of Discharge: 04/05/22 Dietary and Speech Recommendations Dietitian Recommendations/Changes: regular diet given advanced age, risk for malnutrition. Pt refusing ONS- will d/c, asking for chocolate ice cream w/ lunch instead. Discharge Plan Admission Admit Date/Time: 03/29/22 22:05 Primary Reason for Your Visit: Acute right subcapital femoral neck fracture Attending Provider: Alek Esquivel Primary Care Provider: Nayana Adam Consulting Providers: Sandro Caal ; Savage Lieberman ; Aleksey Santana ; Martin Kingsley Discharge Orders/Prescriptions Prescriptions: New sennosides-docusate sodium [Stool Softener-Stimulant Laxat] 8.6-50 mg Tablet 2 tab PO BID Qty: 0 0RF oxycodone 5 mg Tablet 2.5 mg PO Q4H PRN PRN (Reason: Pain Score 6-10) 21 Days Qty: 7 0RF acetaminophen [Tylenol] 325 mg Tablet 650 mg PO Q6H PRN PRN (Reason: Pain Score 1-10/Temp > 100.7 F) Qty: 0 0RF nicotine 14 mg/24 hr Patch 24 Hour 14 mg transdermal DAILY Qty: 0 0RF calcium carbonate 200 mg calcium (500 mg) Tablet,Chewable 500 mg PO TIDCM Qty: 0 0RF ergocalciferol (vitamin D2) [Vitamin D2] 1,250 mcg (50,000 unit) Capsule 1.25 mg PO Q7D Qty: 0 0RF Rx Instructions: For 4 weeks Continued atorvastatin 80 mg tablet 80 mg PO QHS doxepin 50 mg capsule 50 mg PO QHS metoprolol succinate 25 mg tablet extended release 24 hr 12.5 mg PO DAILY Qty: 45 3RF tolterodine 4 MG capsule,extended release 24hr 4 mg PO DAILY Label Comments: oab cyanocobalamin (vitamin B-12) 1,000 MCG tablet 1,000 mcg PO DAILY Label Comments: supplement acetaminophen 650 MG tablet extended release 650 mg PO Q6H PRN PRN (Reason: nerve pain) Label Comments: nerve pain levothyroxine 75 MCG tablet 75 mcg PO QHS Label Comments: thyroid paroxetine HCl 40 MG tablet 40 mg PO DAILY Label Comments: TAKE 1 TABLET BY MOUTH DAILY depression minocycline 50 MG tablet 1 tab PO DAILY Label Comments: TAKE 1 TABLET BY MOUTH ONCE DAILY lysine 500 mg tablet 500 mg PO DAILY ferrous sulfate 325 mg (65 mg iron) Capsule, Extended Release 325 mg PO DAILY B12 Active 1,000 mcg Tablet,Chewable PO apixaban 2.5 mg tablet 2.5 mg PO BID Qty: 180 4RF Label Comments: blood thinner Changed hydrochlorothiazide 12.5 mg tablet 6.25 mg PO DAILY Qty: 30 0RF Rx Instructions: Reduced to 6.25 mg daily. Hold for SBP less than 130 mmHg Discontinued aspirin 81 MG tablet,chewable 81 mg PO DAILY@0800 Qty: 30 0RF Referrals / Follow Up: Nayana Adam MD [Primary Care Provider] - Sandro Iyer DO [Med Staff - Active Staff] - Within 1 Week (RIGHT HIP hemiarthroplasty) Disposition Disposition (needs filled in before D/C Order can be placed): Senior Living Facility (1) Hypothyroidism Qualifiers: Hypothyroidism type: unspecified Qualified Code(s): E03.9 - Hypothyroidism, unspecified
[2022-04-05] MEDS: Acetaminophen 325 MG Tablet 650 MG PO (12:26)
--- NOTE | 2022-04-05 14:10 | CASEMGMT ---
Discharge Butt Maker Lara reached out from [email or web address]. Pre-cert has been obtained. Patient can go to [facility] when medically ready. SNEHAL Reece has been notified. Plan: [email or web address], When medically ready Sabina Marie Discharge Butt Maker
--- NOTE | 2022-04-05 14:13 | CASEMGMT ---
Social Work This social and human services assistant updated by discharge sales planning managerSabina that pre-cert has been obtained and that patient can discharge to [facility] today. This social and human services assistant updated Dr. Esquivel. Dr. Esquivel reports that patient is medically cleared. 7000 completed in [facility]. Transportation set up through [facility] for today at 16:00. Transportation form completed and placed with patient discharge packet. This social and human services assistant updated patient, patient support person (Joellen Rubio), medical team, and [facility] on transportation time. This social and human services assistant faxed transfer to extended care facility, COVID-19 results, 7000 results, and signed medication list faxed to [facility]. PLAN: [facility], skilled. Per FERRARA, MAK-S
--- NOTE | 2022-04-05 14:27 | DS.PCM_ITS ---
Providers Date of Admission: 03/29/22 Date of Discharge: 04/05/22 Primary Care Physician: Dr. Nayana Adam MD Consultations 03/30/22 00:03 Consult: Cardiology Routine Consulting Provider: Savage Lieberman Reason for Consult: Pre-operative eval EMERGENT Consult: No Notified: Yes Date Notified: 03/30/22 Time Notified: 06:49 Method of Notification: Verbal Method of Consult:: In-Person Consult: Orthopedics Routine Consulting Provider: Aleksey Santana Reason for Consult: Acute right subcapital fracture EMERGENT Consult: No Notified: Yes Date Notified: 03/30/22 Time Notified: 08:05 Method of Notification: telephone Reason For Visit: ACUTE RIGHT SUBCAPITAL FRACTURE Diagnosis Discharge Diagnosis (1) Subcapital fracture of femur: Status: Acute Code(s): S72.019A - Unspecified intracapsular fracture of unspecified femur, initial encounter for closed fracture Plan: Acute right subcapital fracture Hip/pelvis x-ray was independently interpreted, consistent with acute right subcapital fracture. Orthopedic surgeon Dr. Iyer consulted. Pain control on oxycodone IV morphine and Tylenol. ACS NSQIP surgical risk was high therefore superintendent refuse disposal was consulted. S/P right hip hemiarthoplasty on 03/31. PT and OT. Dressing on the hip surgery to be left for 5 days postop. On April 05 he developed prior to first shower. 04/04: Patient felt mildly nauseous but denies dizziness. Her blood pressure understanding was low in systolic 80s. 1 L Ringer lactate given. Blood pressure improved in systolic 100s. Hold antihypertensive medication. (2) Essential hypertension: Status: Chronic Code(s): I10 - Essential (primary) hypertension Plan: Hypertension Blood pressure is stable Home blood pressure medication continued. T (3) Hypothyroidism: Status: Chronic Code(s): E03.9 - Hypothyroidism, unspecified Qualifiers: Hypothyroidism type: unspecified Qualified Code(s): E03.9 - Hypothyroidism, unspecified Plan: Hypothyroidism In the setting of A. fib with RVR TSH ordered. Home Synthroid continued. Plan Tobacco abuse Risk of tobacco was discussed. Counseled. Nicotine patch ordered. DVT Prophylaxis: anticoagulated Disposition: To jail facility pending insurance authorization. Likely will have authorization until the 6 at the earliest. Medications at Discharge Home Medications acetaminophen 650 mg tablet,extended release 650 mg PO Q6H PRN PRN nerve pain 02/08/19 cyanocobalamin (vitamin B-12) 1,000 mcg tablet 1,000 mcg PO DAILY supplement 02/08/19 levothyroxine 75 mcg tablet 75 mcg PO QHS thyroid 02/08/19 paroxetine HCl 40 mg tablet 40 mg PO DAILY depression 02/08/19 tolterodine 4 mg capsule,extended release 24 hr 4 mg PO DAILY overactive bladder 02/08/19 minocycline 50 mg tablet 1 tab PO DAILY infection 09/06/19 atorvastatin 80 mg tablet 80 mg PO QHS 02/26/20 lysine 500 mg tablet 500 mg PO DAILY dietary supplement 02/26/20 apixaban 2.5 mg tablet 2.5 mg PO BID blood thinner #180 tabs 09/06/21 doxepin 50 mg capsule 50 mg PO QHS 11/30/21 metoprolol succinate 25 mg tablet,extended release 24 hr 12.5 mg PO DAILY #45 tabs 01/14/22 ferrous sulfate 325 mg (65 mg iron) capsule,extended release 325 mg PO DAILY 03/29/22 mecobalamin (vitamin B12) 1,000 mcg chewable tablet (B12 Active) mcg PO 03/29/22 acetaminophen 325 mg tablet (Tylenol) 650 mg PO Q6H PRN PRN Pain Score 1-10/Temp > 100.7 F #0 tabs 04/05/22 calcium carbonate 200 mg calcium (500 mg) chewable tablet 500 mg PO TIDCM #0 tabs 04/05/22 ergocalciferol (vitamin D2) 1,250 mcg (50,000 unit) capsule (Vitamin D2) 1.25 mg PO Q7D #0 caps 04/05/22 hydrochlorothiazide 12.5 mg tablet 6.25 mg PO DAILY #30 tabs 04/05/22 nicotine 14 mg/24 hr daily transdermal patch 14 mg transdermal DAILY #0 ea 04/05/22 oxycodone 5 mg tablet 2.5 mg PO Q4H PRN PRN Pain Score 6-10 3 weeks #7 tabs 04/05/22 sennosides 8.6 mg-docusate sodium 50 mg tablet (Stool Softener-Stimulant Laxative) 2 tab PO BID #0 tabs 04/05/22 Hospital Course Summary of Care Provided Hospital Course: This 31-year-old female with history of A. fib, CVA and tobacco use was admitted with fall And pain over her right hip. On further imaging was found to have right sided subacute fracture of femur neck. 1. Acute right subcapital fracture of neck of femur with with valgus displaced PLAN: Acute right subcapital impacted fracture Hip/pelvis x-ray was? independently interpreted, consistent with acute right subcapital impacted fracture.? Orthopedic surgeon Dr. Iyer consulted.? Pain control on oxycodone IV morphine and Tylenol.? ACS NSQIP surgical risk was high therefore superintendent refuse disposal was consulted. S/P right hip hemiarthoplasty on 03/31.? PT and OT.? Dressing on the hip surgery to be left for 5 days postop.? On April 05 he developed prior to first shower. 04/04: Patient felt mildly nauseous but denies dizziness.? Her blood pressure understanding was low in systolic 80s.? 1 L Ringer lactate given.? Blood pressure improved in systolic 100s.? Hold antihypertensive medication. 04/05: Blood pressure systolic 100. Patient not feeling dizzy lightheaded or headache. (2) Paroxysmal atrial fibrillation with RVR: Patient heart rate was 114 in ED and was controlled with Cardizem 10 mg IV push. Heart rate is controlled Home metoprolol ordered at the ED.? Cardizem 10 mg IV push ordered at the ED. 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 2D echo EF 55%, LA mildly enlarged, 1-2+ MR, 2+ TR suggestive of chronic HFpEF. Electrolytes in normal range (3) Essential hypertension: PLAN: Hypertension Blood pressure is stable Home blood pressure medication continued.? (4) Hypothyroidism: TSH normal ? Home Synthroid continued. (5) Vitamin D deficiency: replace with ergocalciferol 50,000k units weekly for 8 weeks. Follow-up level in 8 weeks Tobacco abuse Risk of tobacco was discussed. Counseled. Nicotine patch DVT Prophylaxis: anticoagulated Discharge medication reconciliation done. Discharge follow-up instructions c ompleted. Discharge process discussed with the patient and all questions were answered to patient's satisfaction. Being discharged to SNF Total time spent, exact 35 minutes on discharge meds reconciliation, examination, coordination of care with nurses and ancillary staff, review of imaging and blood test and discussion with the patient on follow-up instructions. Clinical Impression(s) from Imaging Studies Hip/Pelvis X-Ray 03/29/22 21:23 IMPRESSION: Acute right subcapital fracture. Electronically Signed: Kurt Camp MD at 21:45 EDT , Echocardiogram 03/30/22 05:55 Interpretation Summary The study was technically difficult. Left ventricular systolic function is normal. The estimated ejection fraction is 55 %. The left atrium is mildly enlarged. The right atrium is mildly enlarged. Mild-Moderate (1-2+) mitral valve insufficiency. Moderate (2+) tricuspid valve insufficiency. Trivial pericardial effusion. There are no echocardiographic indications of cardiac tamponade. Right ventricular systolic pressure estimated to be 36 mmHg. Unable to assess diastolic dysfunction. Ordering Physician: Sandro Caal Referring Physician: Nayana Adam Performed By: Kristie Rivera, [facility], RVT Shoulder X-Ray 03/30/22 12:34 IMPRESSION: Moderate degree of joint space narrowing of the glenohumeral joint with degenerative spur formation along the medial inferior aspect of the humeral head. Electronically Signed: Billy Gomez MD at 14:20 EDT , Chest X-Ray 03/31/22 05:55 IMPRESSION: Findings suggestive of an infiltrate in the lingular segment of the left upper lobe. Hip X-Ray 03/31/22 16:08 IMPRESSION: Status post recent right hip arthroplasty. Physical Exam Narrative Seen and examined on the day of discharge. Patient not feeling dizzy lightheaded or headache. Blood pressure is better after IV fluid given yesterday. No chest pain or shortness of breath or palpitation. General: Alert, Oriented x3, Cooperative, frail. HEENT: Atraumatic, PERRLA, EOMI, Normocephalic Oral: No Gingival or Mucosal Lesions/ Ulcerations Neck: Supple, No JVD, Negative Carotid Bruits Lungs: Air entry diminished in bilateral lung bases. No crepitation/rhonchi Cardiovascular: Regular rate, Regular Rhythm, Normal S1, Normal S2, No murmurs Abdomen: Bowel Sounds Present, Soft, Non Tender, Non-Distended : No renal angle tenderness. No suprapubic tenderness. Extremities: No edema, Capillary Refill Less than 3 Seconds Skin: No rashes, No breakdown Musculoskeletal: Mild tenderness over left shoulde and right thighs perioperatively. Right surgical wound healed. Neurological: Cranial nerves II-XII grossly intact, DTR 2+/4. Psych/Mental Status: Flat affect. Weight / BMI Weight Weight: 149 lb 0.52 oz Body Mass Index (BMI) 24.7 ABG / Lab / Microbiology Data Result Diagrams: 04/04/22 12:40 04/01/22 05:55 Meaningful Use Info Meaningful Use Diagnoses (Choose all that apply): None applicable Discharge Plan Admission Admit Date/Time: 03/29/22 22:05 Primary Reason for Your Visit: Acute right subcapital femoral neck fracture Attending Provider: Alek Esquivel Primary Care Provider: Nayana Adam Consulting Providers: Sandro Caal ; Savage Lieberman ; Aleksey Santana ; Martin Kingsley Discharge Orders/Prescriptions Prescriptions: New sennosides-docusate sodium [Stool Softener-Stimulant Laxat] 8.6-50 mg Tablet 2 tab PO BID Qty: 0 0RF oxycodone 5 mg Tablet 2.5 mg PO Q4H PRN PRN (Reason: Pain Score 6-10) 21 Days Qty: 7 0RF acetaminophen [Tylenol] 325 mg Tablet 650 mg PO Q6H PRN PRN (Reason: Pain Score 1-10/Temp > 100.7 F) Qty: 0 0RF nicotine 14 mg/24 hr Patch 24 Hour 14 mg transdermal DAILY Qty: 0 0RF calcium carbonate 200 mg calcium (500 mg) Tablet,Chewable 500 mg PO TIDCM Qty: 0 0RF ergocalciferol (vitamin D2) [Vitamin D2] 1,250 mcg (50,000 unit) Capsule 1.25 mg PO Q7D Qty: 0 0RF Rx Instructions: For 4 weeks Continued atorvastatin 80 mg tablet 80 mg PO QHS doxepin 50 mg capsule 50 mg PO QHS metoprolol succinate 25 mg tablet extended release 24 hr 12.5 mg PO DAILY Qty: 45 3RF tolterodine 4 MG capsule,extended release 24hr 4 mg PO DAILY Label Comments: oab cyanocobalamin (vitamin B-12) 1,000 MCG tablet 1,000 mcg PO DAILY Label Comments: supplement acetaminophen 650 MG tablet extended release 650 mg PO Q6H PRN PRN (Reason: nerve pain) Label Comments: nerve pain levothyroxine 75 MCG tablet 75 mcg PO QHS Label Comments: thyroid paroxetine HCl 40 MG tablet 40 mg PO DAILY Label Comments: TAKE 1 TABLET BY MOUTH DAILY depression minocycline 50 MG tablet 1 tab PO DAILY Label Comments: TAKE 1 TABLET BY MOUTH ONCE DAILY lysine 500 mg tablet 500 mg PO DAILY ferrous sulfate 325 mg (65 mg iron) Capsule, Extended Release 325 mg PO DAILY B12 Active 1,000 mcg Tablet,Chewable PO apixaban 2.5 mg tablet 2.5 mg PO BID Qty: 180 4RF Label Comments: blood thinner Changed hydrochlorothiazide 12.5 mg tablet 6.25 mg PO DAILY Qty: 30 0RF Rx Instructions: Reduced to 6.25 mg daily. Hold for SBP less than 130 mmHg Discontinued aspirin 81 MG tablet,chewable 81 mg PO DAILY@0800 Qty: 30 0RF Referrals / Follow Up: Sandro Iyer DO [Med Staff - Active Staff] - Within 1 Week (RIGHT HIP hemiarthroplasty) Nayana Adam MD [Primary Care Provider] - Disposition Disposition (needs filled in before D/C Order can be placed): [facility]
== END 2022-04-05 15:56 | DRG 522 ==
LOC: ED 22:27 → PCU 23:08
PROVIDERS: Anesthesiology; Orthopaedic Surgery; Admitting Provider Hospitalist; Emergency Provider Emergency Medicine; PCP Internal Medicine Infectious Disease; Visit Provider Internal Medicine
PROC: 0SRR0JA Replacement of Right Hip Joint, Femoral Surface with Synthetic Substitute, Uncemented, Open Approach (ICD-10-PCS; CPT 27125; principal; 2022-03-31 11:40)
DX: S72.011A Unspecified intracapsular fracture of right femur, initial encounter for closed fracture (principal); I48.92 Unspecified atrial flutter; I48.0 Paroxysmal atrial fibrillation; D64.9 Anemia, unspecified; E89.0 Postprocedural hypothyroidism; E78.5 Hyperlipidemia, unspecified; I10 Essential (primary) hypertension; F17.210 Nicotine dependence, cigarettes, uncomplicated; E55.9 Vitamin D deficiency, unspecified; W01.0XXA Fall on same level from slipping, tripping and stumbling without subsequent striking against object, initial encounter; Z79.82 Long term (current) use of aspirin; Z79.01 Long term (current) use of anticoagulants; Z79.1 Long term (current) use of non-steroidal anti-inflammatories (NSAID); Z66 Do not resuscitate; Z51.5 Encounter for palliative care; Z86.73 Personal history of transient ischemic attack (TIA), and cerebral infarction without residual deficits
CPT/HCPCS: 36415; 71045; 73030; 73502; 80048; 82306; 83735; 84443; 85025; 85027; 85610; 85730; 86850; 86900; 86901; 87811; 88305; 88307; 88311; 93005; 93306; 97116; 97162; 97166; 97530; 97535; 97802; 97803; 99251; 99284; 99406; C1776; J7030; J7120; A4216; G0463; J2405

== ENCOUNTER → 2022-12-16 | Outpatient (CLI) | payer MEDICARE, OTHER, SELFPAY ==
[2022-12-16 15:30] LABS: Absolute Lymphocyte Count 1.35 X10^3/uL (0.83-4.51); Absolute Neutrophil Count 6.1 X10^3/uL (2.0-7.7); Basophil# 0.03 X10^3/uL; Basophil% 0.4 % (0-1); Eosinophil# 0.29 X10^3/uL; Eosinophils% 3.5 % (0-5); Hematocrit 39.9 % (37-47); Hemoglobin 12.6 g/dL (12.0-15.0); Lymphocyte # 1.35 X10^3/ul (0.83-4.51); Lymphocyte % 16.4 % (19-41); Mean Corp Hgb Conc 31.6 g/dL (32-36); Mean Corpuscular Hgb 30.2 pg (27.0-32.0); Mean Corpuscular Volume 95.7 fL (81-99); Mean Platelet Vol. 9.1 fl (6.2-12.0); Monocyte# 0.46 X10^3/uL; Monocyte% 5.6 % (0-10); NRBC Flagged by Analyzer 0 % (0-5); Neutrophil # 6.08 X10^3/uL (2.7-7.7); Neutrophil % 73.9 % (47-70); Platelet Count 408 K/mm3 (150-450); RBC Distribution Width CV 15.2 % (11.6-14.6); Red Blood Count 4.17 M/mm3 (4.2-5.4); White Blood Count 8.2 K/mm3 (4.4-11.0)
[2022-12-16 16:00] LABS: BNP,B-Type NATRIURETIC PEPTIDE 186.4 pg/mL (0-100)
[2022-12-16 16:03] LABS: Anion Gap 6 (5-15); BUN 16 mg/dL (7-18); BUN/Creat Ratio 13.2 RATIO (10-20); Calcium,Total 8.2 mg/dL (8.5-10.1); Chloride 105 mmol/L (98-107); Creatinine, Serum 1.21 mg/dL (0.55-1.02); EST Glomerular Filtration Rate 45 mL/min (>60); Est Glom Filt Rate - Afr Amer 55 mL/min (>60); Glucose 69 mg/dL (74-106); Potassium 3.6 mmol/L (3.5-5.1); Sodium Level 138 mmol/L (136-145)
== END | disposition home or self-care (01) ==
LOC: LAB 13:51
PROVIDERS: PCP Internal Medicine Infectious Disease; Referring Provider Nurse Practitioner Gerontology; Visit Provider Nurse Practitioner Gerontology
DX: R06.09 Other forms of dyspnea (principal)
CPT/HCPCS: 36415; 80048; 83880; 85025

== ENCOUNTER → 2022-12-20 | Outpatient (CLI) | payer MEDICARE, OTHER, SELFPAY ==
[2022-12-20 14:04] LABS: Anion Gap 8 (5-15); BUN 22 mg/dL (7-18); BUN/Creat Ratio 14.2 RATIO (10-20); Calcium,Total 8.8 mg/dL (8.5-10.1); Chloride 100 mmol/L (98-107); Creatinine, Serum 1.55 mg/dL (0.55-1.02); EST Glomerular Filtration Rate 34 mL/min (>60); Est Glom Filt Rate - Afr Amer 41 mL/min (>60); Glucose 110 mg/dL (74-106); Potassium 3.1 mmol/L (3.5-5.1); Sodium Level 137 mmol/L (136-145)
== END | disposition home or self-care (01) ==
LOC: LAB 13:16
PROVIDERS: PCP Internal Medicine Infectious Disease; Referring Provider Nurse Practitioner Gerontology; Visit Provider Nurse Practitioner Gerontology
DX: R06.09 Other forms of dyspnea (principal)
CPT/HCPCS: 36415; 80048

== ENCOUNTER → 2022-12-27 | Outpatient (CLI) | payer MEDICARE, OTHER, SELFPAY ==
[2022-12-27 13:57] LABS: Anion Gap 8 (5-15); BUN 32 mg/dL (7-18); BUN/Creat Ratio 18.7 RATIO (10-20); Chloride 104 mmol/L (98-107); Creatinine, Serum 1.71 mg/dL (0.55-1.02); EST Glomerular Filtration Rate 30 mL/min (>60); Est Glom Filt Rate - Afr Amer 37 mL/min (>60); Glucose 102 mg/dL (74-106); Potassium 3.9 mmol/L (3.5-5.1); Sodium Level 138 mmol/L (136-145)
== END | disposition home or self-care (01) ==
LOC: LAB 13:16
PROVIDERS: PCP Internal Medicine Infectious Disease; Visit Provider Nurse Practitioner Gerontology
DX: E87.6 Hypokalemia (principal)
CPT/HCPCS: 36415; 80048

== ENCOUNTER 2023-06-15 15:04 | Observation (INO) | payer MEDICARE, OTHER, SELFPAY ==
[2023-06-15] VITALS (10 sets, daily range): BP systolic 117–146; BP diastolic 69–93; PULSE 100–109; RESP 16–22; TEMP 36.2–36.9; O2SAT 97–100; BMI 26.4; BMI 25.0
--- NOTE | 2023-06-15 16:05 | CT_ITS ---
STUDY: CTA HEAD AND NECK WITH CONTRAST REASON FOR EXAM: Female, 82 years old. Neuro deficit, acute, stroke suspected RADIATION DOSAGE (If Supplied By Facility): CTDIvol = ( 29.29 ) mGy, DLP = ( 1445.37 ) mGycm TECHNIQUE: CT angiography was performed with a multi-detector CT scanner. Data acquisition was obtained from the skull base through the vertex following intravenous administration of IV 100mL Isovue-370. MIP images were reconstructed from the axial data set. Post-processing of the angiographic images was performed, with multiplanar reformation and 3D reconstruction. Individualized dose optimization techniques were used for this CT. COMPARISON: 02/18/2020 FINDINGS: Normal bilateral petrous carotid arteries. Normal right cavernous carotid artery with a normal supraclinoid bifurcation. Normal left cavernous carotid artery with a normal supraclinoid bifurcation. Normal right A1 segments of the anterior cerebral artery. Normal left A1 segments of the anterior cerebral artery. Normal intact anterior communicating artery (ACOM). Normal bilateral A2 segments of the anterior cerebral arteries. Normal right M1 and M2 segments of the middle cerebral arteries, with a normal M1 bifurcation. Normal left M1 and M2 segments of the middle cerebral arteries, with a normal M1 bifurcation. Normal right posterior communicating artery (PCOM). Normal left posterior communicating artery (PCOM). Normal bilateral vertebral arteries. Normal basilar artery with a normal basilar bifurcation. The visualized bilateral superior cerebellar (SCA) arteries are normal. Normal bilateral P1, P2 and visualized P3 segments of the posterior cerebral arteries. There is no demonstrated aneurysm of the [place]. There is no demonstrated abnormality of the visualized brain. AORTIC ARCH: Normal visualized aortic arch. Normal origins of the brachiocephalic, left common carotid, and left subclavian arteries. RIGHT CAROTID ARTERIES: Normal right common carotid artery (CCA). Normal right common carotid bulb. Normal origin of the right internal carotid (ICA) artery without a hemodynamically significant stenosis. Normal visualized cervical portion of the right internal carotid artery. Normal origin of the right external carotid artery (ECA). LEFT CAROTID ARTERIES: Normal left common carotid artery (CCA). Normal left common carotid bulb. Normal origin of the left internal carotid (ICA) artery without a hemodynamically significant stenosis. Normal visualized cervical portion of the left internal carotid artery. Normal origin of the left external carotid artery (ECA). VERTEBRAL ARTERIES: Normal bilateral vertebral arteries. CT/CTA Head AND Neck W/ Contrast IMPRESSION: Normal CTA Head and neck with contrast. Electronically Signed: Anil Simms MD at 17:39 EST ,
--- NOTE | 2023-06-15 16:05 | EKG12_ITS ---
Test Reason : CHEST PAIN Blood Pressure : / mmHG Vent. Rate : 105 BPM Atrial Rate : 105 BPM P-R Int : 098 ms QRS Dur : 078 ms QT Int : 356 ms P-R-T Axes : 000 066 029 degrees QTc Int : 470 ms Atrial flutter Nonspecific ST abnormality Abnormal ECG Confirmed by LEONA LONDONO, JERI ([id number]), editor in chief newspaper INGA GUERRERO ([id number]) on 06/21/2023 11:57:05 AM Referred By: Confirmed By:JERI DELGADILLO MD
--- NOTE | 2023-06-15 16:06 | ED.VIS.STROK ---
HPI History of Present Illness Chief Complaint: Neuro S/Sx Informant: patient and EMS Narrative Narrative: 82-year-old female presenting to the emergency room with chief complaint of dysarthria and aphasia. Patient states that she was sitting in her chair and her son called to check on her. She states that he calls and checks every day. She tried to get out of her chair but was having difficulty and when she attempted to speak on the phone what she was hearing in her head was not what was coming out on the phone. She states her son could not understand him and called EMS. She has a history of atrial fibrillation and is supposed to be on apixaban. However she states she has been out of the medicine for about 1 month because when she calls [facility] they state they cannot understand her. She does not believe she is out of her other medications. She states that last week she was seen at another emergency department and diagnosed with COVID but was not sick enough to stay in the hospital. She states that 3 days ago she felt very poorly but cannot really say exactly what was going on. She states that she seems to have recovered from the COVID and was doing okay until the symptoms today. She notes a occipital upper neck pain but states that has been there for months if not longer. She does not know what time her son called her really what time her symptoms began she was not speaking with anybody else yet. She states that she is feeling better but still does not quite back to her normal self. [facility] Medical History Anemia Anxiety and depression Cephalgia Depression with anxiety Essential hypertension History of CVA (cerebrovascular accident) (08/2019) Hyperlipidemia Hypothyroidism Hypothyroidism Paroxysmal atrial fibrillation Subcapital fracture of femur Tobacco dependence due to cigarettes Vitamin D deficiency Home Medications cyanocobalamin (vitamin B-12) 1,000 mcg tablet 1,000 mcg PO DAILY SUPPLEMENT 02/08/19 [History Last Taken 06/14/23] levothyroxine 75 mcg tablet 75 mcg PO QHS THYROID 02/08/19 [History Last Taken 06/14/23] paroxetine HCl 40 mg tablet 40 mg PO DAILY DEPRESSION 02/08/19 [History Last Taken 06/14/23] atorvastatin 80 mg tablet 80 mg PO QHS CHOLESTEROL 02/26/20 [History Last Taken 06/14/23] lysine 500 mg tablet 500 mg PO DAILY SUPPLEMENT 02/26/20 [History Last Taken 06/14/23] hydrochlorothiazide 12.5 mg tablet 6.25 mg (1/2 x 12.5 mg) PO DAILY FLUID #30 tabs 04/05/22 [Rx Last Taken 06/14/23] aspirin 81 mg tablet,delayed release (Adult Low Dose Aspirin) 81 mg PO DAILY HEART HEALTH 12/16/22 [History Last Taken 06/14/23] apixaban 2.5 mg tablet 2.5 mg PO BID #60 tabs 01/13/23 [Rx Last Taken Unknown] metoprolol tartrate 25 mg tablet 25 mg PO BID BLOOD PRESSURE 06/15/23 [History Last Taken 06/14/23] Allergy/AdvReac Type Severity Reaction Status Date / Time isopropyl alcohol Allergy Rash Verified 12/16/22 13:23 Egg Derived AdvReac Severe Swelling Verified 12/16/22 13:23 NSAIDS (Non-Steroidal AdvReac instant Verified 12/16/22 13:23 Anti-Inflamma headache Family History Father Hypertension Mother Hypertension CAD (coronary artery disease) [place] Brother Heart disease Sister Heart disease Surgical History History of cholecystectomy History of hysterectomy History of right hip hemiarthroplasty History of thyroidectomy Social History Smoking Status: Current every day smoker tobacco type: cigarettes alcohol intake: current alcohol intake frequency: a few times a month Alcohol type: beer substance use type: marijuana caffeine: Yes Type: coffee Number of servings: 1 ROS ROS ED Constitutional Constitutional ED: Denies chills, fever(s) or weight loss Eyes Eyes: Denies change in vision or diplopia ENT ENT ED: Reports rhinorrhea; Denies ear pain or sore throat Cardiovascular Cardiovascular: Denies chest pain, orthopnea, palpitations or racing heartbeat Respiratory/Chest Respiratory/Chest: Reports cough and dyspnea; Denies orthopnea Gastrointestinal Gastrointestinal: Denies abdominal pain, diarrhea, nausea or vomiting Genitourinary Genitourinary ED: Denies dysuria, hematuria or urinary frequency Musculoskeletal Musculoskeletal: Reports neck pain; Denies arthralgias or myalgias Integumentary Denies abscess or rash Neurologic Neurologic: Reports headache(s) and other Details: Speech difficulty ; Denies paresthesias or weakness Psychiatric Psychiatric: Denies anxiety, depression, suicidal ideation or suicidal thoughts Endocrine Endocrinology: Denies polydipsia, polyphagia or polyuria Allergic/Immunologic Allergic/Immunologic ED: Denies mouth swelling, tongue swelling or urticaria EXAM Physical Exam Const Vital Signs: 06/15/23 15:05 06/15/23 15:14 06/15/23 15:17 Temperature 97.1 F L Temperature Source Temporal Pulse Rate 109 H Respiratory Rate 16 Respiratory Effort Normal Blood Pressure 117/69 Blood Pressure Mean 85 Pulse Ox 99 Oxygen Delivery Method Room Air 06/15/23 15:30 06/15/23 16:35 06/15/23 17:05 Temperature Temperature Source Pulse Rate 106 H 100 108 H Respiratory Rate 20 H 16 18 Respiratory Effort Blood Pressure 144/84 H 137/88 H 144/84 H Blood Pressure Mean 104 104 104 Pulse Ox 97 100 98 Oxygen Delivery Method Room Air Room Air Room Air 06/15/23 17:30 Temperature Temperature Source Pulse Rate 105 H Respiratory Rate 22 H Respiratory Effort Blood Pressure 146/93 H Blood Pressure Mean 110 Pulse Ox 98 Oxygen Delivery Method Room Air Positive well nourished and well developed General Appearance ED: well developed HEENT Reports normocephalic, head/scalp atraumatic and moist mucous membranes Eyes PERRL and EOMs intact bilaterally Neck no lymphadenopathy, supple and no JVD Resp normal respiratory effort and clear to auscultation bilaterally Cardio regular rate, regular rhythm and no murmurs GI normal to inspection, nondistended, normoactive bowel sounds and non-tender Palpation: soft Back/Spine no CVA tenderness and normal ROM Extremity normal to inspection General Extremety ED: Negative for edema General Extremity: Negative for edema Neuro oriented x3, CN's II-XII intact bilaterally and no sensory deficits noted Sensorium / Orientation: alert Motor Exam: strength 5/5 throughout Psych mental status grossly normal Mood & Affect: Negative for depressed or tearful Skin no rashes or lesions noted and no wounds NIHSS NIHSS Initial: 1a Level of Consciousness: 0 1b LOC Questions (Score 2 if aphasic/stupor): 0 1c LOC Commands (Only score 1st attempt): 0 2 Best Gaze (If aphasic, use reflexive mvmts.): 0 3 Visual: 0 4 Facial Palsy: 0 5 Motor Arm Right (UN = amputation/fusion): 0 5 Motor Arm Left: 0 6 Motor Leg Right: 0 6 Motor Leg Left: 0 7 Limb ataxia (Only + if out of proportion): 0 8 Sensory (Aphasia/stupor=0 or 1, coma=2): 0 9 Best Language: 0 10 Dysarthria (mute, coma=2, intubated=UN): 1 11 Extinction and Inattention (only scored if +): 0 Total Score: 1 MDM MDM MDM Narrative Medical decision making narrative: Patient's neurologic exam is stable with an age of 1. Basic blood work showed a creatinine 1.32. Normal troponin. My independent interpretation of the chest x-ray is no acute process. Head and neck CTA shows no acute findings. I suspect that the patient has cardiac emboli from untreated atrial fibrillation due to being out of her apixaban. We went ahead and gave her a dose of apixaban in addition to aspirin. We will plan on an observational stay. History & Record Review Discussion w/independent historian: EMS personnel and Patient Additional record(s) reviewed:: Prior ED visit and Prior labs Lab Data Attestation: I reviewed the patient's lab results. Labs: Laboratory Results - last 24 hr 06/15/23 16:00 WBC 10.5 RBC 3.87 L Hgb 11.6 L Hct 37.7 MCV 97.4 MCH 30.0 MCHC 30.8 L RDW Std Deviation 51.5 H RDW Coeff of Patrick 14.3 Plt Count 518 H MPV 9.3 Immature Gran % (Auto) 0.500 Neut % (Auto) 76.5 H Lymph % (Auto) 15.7 L [place] % (Auto) 4.2 Eos % (Auto) 2.7 Baso % (Auto) 0.4 Absolute Neuts (auto) 8.1 H Absolute Lymphs (auto) 1.65 Nucleated RBC % 0 PT 14.4 INR 1.1 APTT 39.6 H Sodium 139 Potassium 3.6 Chloride 106 Carbon Dioxide 26.0 Anion Gap 7 BUN 22 H Creatinine 1.32 H Estim Creat Clear Calc 29.06 Est GFR (MDRD) Af Amer 49 L Est GFR (MDRD) Non-Af 41 L BUN/Creatinine Ratio 16.7 Glucose 111 H Calcium 8.3 L Troponin I High Sens 17 Radiography Diagnostic Testing: Clinical Impression(s) from Imaging Studies Head/Neck CTA 06/15/23 16:05 IMPRESSION: Normal CTA Head and neck with contrast. Electronically Signed: Anil Simms MD at 17:39 EST , Chest X-Ray 06/15/23 16:55 IMPRESSION: Normal x-ray examination of the chest. Electronically Signed: Anil Simms MD at 17:24 EST , EKG Initial EKG: Attestation: I personally reviewed and interpreted this EKG as follows: Comments: Narrow complex tachycardia with a ventricular rate of 105 bpm. Management Discussion w/another healthcare provider: Hospitalist Discharge Plan Triage Chief Complaint: Neuro S/Sx Other Complaint: Weakness ED Provider: Tye Zhu Dx/Rx/DC Orders Primary Care Provider: Nayana Adam
[2023-06-15 16:16] LABS: Absolute Lymphocyte Count 1.65 X10^3/uL (0.83-4.51); Absolute Neutrophil Count 8.1 X10^3/uL (2.0-7.7); Basophil# 0.04 X10^3/uL; Basophil% 0.4 % (0-1); Eosinophil# 0.28 X10^3/uL; Eosinophils% 2.7 % (0-5); Hematocrit 37.7 % (37-47); Hemoglobin 11.6 g/dL (12.0-15.0); Lymphocyte # 1.65 X10^3/ul (0.83-4.51); Lymphocyte % 15.7 % (19-41); Mean Corp Hgb Conc 30.8 g/dL (32-36); Mean Corpuscular Volume 97.4 fL (81-99); Mean Platelet Vol. 9.3 fl (6.2-12.0); Monocyte# 0.44 X10^3/uL; Monocyte% 4.2 % (0-10); NRBC Flagged by Analyzer 0 % (0-5); Neutrophil # 8.07 X10^3/uL (2.7-7.7); Neutrophil % 76.5 % (47-70); Platelet Count 518 K/mm3 (150-450); RBC Distribution Width CV 14.3 % (11.6-14.6); RBC Distribution Width SD 51.5 fl (35.1-43.9); Red Blood Count 3.87 M/mm3 (4.2-5.4); White Blood Count 10.5 K/mm3 (4.4-11.0)
[2023-06-15 16:21] LABS: International Normalized Ratio 1.1; Prothrombin Time (Protime)PT. 14.4 SECONDS (11.7-14.9)
[2023-06-15 16:33] LABS: Anion Gap 7 (5-15); BUN 22 mg/dL (7-18); BUN/Creat Ratio 16.7 RATIO (10-20); Calcium,Total 8.3 mg/dL (8.5-10.1); Chloride 106 mmol/L (98-107); Creatinine, Serum 1.32 mg/dL (0.55-1.02); EST Glomerular Filtration Rate 41 mL/min (>60); Est Glom Filt Rate - Afr Amer 49 mL/min (>60); Estimated Creatinine Clearance 29.06 ml/min; Glucose 111 mg/dL (74-106); Potassium 3.6 mmol/L (3.5-5.1); Sodium Level 139 mmol/L (136-145); Troponin-I HS 17 pg/mL (3.0-54.0)
[2023-06-15 16:37] LABS: Partial Thromboplast Time 39.6 Seconds (24.1-36.2)
--- NOTE | 2023-06-15 16:55 | RAD_ITS ---
STUDY: X-RAY CHEST REASON FOR EXAM: Female, 82 years old. Neuro deficit, acute, stroke suspected TECHNIQUE: Single AP portable view of the chest. COMPARISON: 03/31/2022 FINDINGS: The lungs are clear and expanded. There is no demonstrated pleural abnormality. Normal size heart. Normal mediastinum and marcus. Normal visualized pulmonary arteries. Normal visualized aortic arch and descending thoracic aorta. There is a levoscoliosis of the thoracic spine. Normal visualized ribs, clavicles, and shoulders. There is no demonstrated abnormality of the visualized soft tissue structures of the upper abdomen. RAD/Chest 1 View IMPRESSION: Normal x-ray examination of the chest. Electronically Signed: Anil Simms MD at 17:24 EST ,
--- NOTE | 2023-06-15 17:48 | HP.PCM.HOS_ITS ---
HPI - General General Date of Admission: 06/15/23 Date of Service: 06/15/23 Chief Complaint: Dysarthria, aphasia. HPI Narrative The patient is an 82 y/o F w/ PMHx: CKD stage III unclear subtype, Tobacco use, PAF, HTN, HLD, Hypothyroidism, Anxiety and Depression, Chronic anemia, Hx CVA who presents to the [facility] ED on 06/15/23 with history of being at home resting her chair when her son called her to check on her with significant difficulty even attempting to get out of her chair which is abnormal for her and when she attempted to speak to her son when she got to the phone what she was saying was not what she was attempting to say and unfortunately her son could not understand her prompting immediate EMS call. Patient unfortunately has been out of apixaban for 1 month and has not been taking this medication as result. She notes that she has been having issues with [facility]. Patient was seen the week prior and diagnosed with COVID at that time unfortunately she has still felt poorly although she feels as though she is recovered from COVID but complains currently of upper neck discomfort its been present for several weeks. In the ED patient eventually notes feeling back to her normal self. In the ED physician NIH stroke score assessment noted to be 1 for dysarthria. Work-up in the ED included T97.1, heart rate 109, BP 117/69 with most recent repeat 144/84, respiratory rate 16, 99% on room air, CBC with WC 10.5, hemoglobin 0.6, MCV 97.4, platelet 518 with left shift, BMP with BUN/creatinine 22/1.32, glucose 11 1, calcium 8.3, unremarkable coags assigned PTT 39.6, troponin 17, CTA head and neck with no acute findings, chest x-ray with no acute cardiopulmonary findings, EKG with afib, narrow complex tachycardia with rate 104. In the ED patient started apixaban 2.5 mg p.o. x1. In the ED patient administered full-strength aspirin therapy as well. In the ED patient and family do feel she has continued to improve. [facility] Medical History Anemia Anxiety Anxiety and depression Cephalgia Depression Depression with anxiety Essential hypertension History of CVA (cerebrovascular accident) (08/2019) Hyperlipidemia Hypertension Hypothyroidism Hypothyroidism Migraines Paroxysmal atrial fibrillation Smoker Subcapital fracture of femur Tobacco dependence due to cigarettes Vitamin D deficiency Home Medications cyanocobalamin (vitamin B-12) 1,000 mcg tablet 1,000 mcg PO DAILY SUPPLEMENT 02/08/19 [History Last Taken 06/14/23] levothyroxine 75 mcg tablet 75 mcg PO QHS THYROID 02/08/19 [History Last Taken 06/14/23] paroxetine HCl 40 mg tablet 40 mg PO DAILY DEPRESSION 02/08/19 [History Last Taken 06/14/23] atorvastatin 80 mg tablet 80 mg PO QHS CHOLESTEROL 02/26/20 [History Last Taken 06/14/23] lysine 500 mg tablet 500 mg PO DAILY SUPPLEMENT 02/26/20 [History Last Taken 06/14/23] hydrochlorothiazide 12.5 mg tablet 6.25 mg (1/2 x 12.5 mg) PO DAILY FLUID #30 tabs 04/05/22 [Rx Last Taken 06/14/23] aspirin 81 mg tablet,delayed release (Adult Low Dose Aspirin) 81 mg PO DAILY HEART HEALTH 12/16/22 [History Last Taken 06/14/23] apixaban 2.5 mg tablet 2.5 mg PO BID #60 tabs 01/13/23 [Rx Last Taken Unknown] metoprolol tartrate 25 mg tablet 25 mg PO BID BLOOD PRESSURE 06/15/23 [History Last Taken 06/14/23] Allergy/AdvReac Type Severity Reaction Status Date / Time isopropyl alcohol Allergy Rash Verified 06/15/23 18:35 Egg Derived AdvReac Severe Swelling Verified 06/15/23 18:35 NSAIDS (Non-Steroidal AdvReac instant Verified 06/15/23 18:35 Anti-Inflamma headache Family History Father Hypertension Mother Hypertension CAD (coronary artery disease) [place] Brother Heart disease Sister Heart disease Surgical History History of appendectomy History of cholecystectomy History of hysterectomy History of right hip hemiarthroplasty History of thyroidectomy Social History (Updated 06/15/23 @ 19:[address] Sho Novak MD) household members: none Smoking Status: Current every day smoker tobacco type: cigarettes Smoking packs per day: 0.5 Smoking cigarettes per day: 10.0 alcohol intake: current alcohol intake frequency: a few times a month Alcohol type: beer substance use type: marijuana caffeine: Yes Type: coffee Number of servings: 1 ROS ROS Narrative Admission Review of Systems: CONSTITUTIONAL: No weight loss, fever, chills, + weakness or fatigue. HEENT: Eyes: No visual loss, blurred vision, double vision or yellow sclerae. Ears, Nose, Throat: No hearing loss, sneezing, congestion, runny nose or sore throat. SKIN: No rash or itching, lesions, wounds. CARDIOVASCULAR: No chest pain, chest pressure or chest discomfort, palpitations, edema, orthopnea, syncopal events. RESPIRATORY: No shortness of breath, cough or sputum, wheezing, hemoptysis. GASTROINTESTINAL: No anorexia, nausea, vomiting or diarrhea, abdominal pain, melena, BRBPR. GENITOURINARY: No dysuria, frequency, urgency or retention. NEUROLOGICAL: + Dysarthria, aphasia. No headache, dizziness, syncope, paralysis, ataxia, numbness or tingling in the extremities, focal weakness, change in bowel or bladder control, seizure. MUSCULOSKELETAL: + muscle, back pain, joint pain or stiffness. HEMATOLOGIC: + anemia, easy bleeding/bruising. LYMPHATICS: No enlarged nodes. No history of splenectomy. PSYCHIATRIC: + history of depression or anxiety/history of panic attacks. ENDOCRINOLOGIC: No reports of sweating, cold or heat intolerance. No polyuria or polydipsia. ALLERGIES: No history of asthma, hives, eczema or rhinitis. Vital Signs Vital Signs Vital Signs: 06/15/23 15:05 06/15/23 15:14 06/15/23 15:17 Temperature 97.1 F L Temperature Source Temporal Pulse Rate 109 H Respiratory Rate 16 Respiratory Effort Normal Blood Pressure 117/69 Blood Pressure Mean 85 Pulse Ox 99 Oxygen Delivery Method Room Air 06/15/23 15:30 Temperature Temperature Source Pulse Rate 106 H Respiratory Rate 20 H Respiratory Effort Blood Pressure 144/84 H Blood Pressure Mean 104 Pulse Ox 97 Oxygen Delivery Method Room Air Weight Weight: 159 lb 2.78 oz Body Mass Index (BMI) 26.4 Physical Exam Narrative Physical Examination: General: Awake, alert, oriented to self, place and recent events, remains cooperative, seated upright in the ED bed, no acute distress, aphasia significantly improved with only mild dysarthria still. Skin: Normal color, normal turgor, no icterus, no cyanosis except occasional staged ecchymoses, abrasion. HEENT: AT/NC, EOMI, PERRLA, mildly dry MM, no carotid bruits or JVD noted. Lungs: Diminished, good bases, proper effort, no rales, ronchi or wheezing. Heart: Tachycardic, irregular; no gallop, rub audible. Abdomen: Soft, NTTP, ND, normal BS, no HSM. Extremities: No cyanosis, clubbing, or edema. Neurological: Patient awake, alert, oriented as noted, cognitive function appears baseline intact; pupils equally reactive to light and accommodation, cranial nerves grossly normal, moving all 4 extremities, no new focal deficits, strength moderately globally decreased, finger-nose and [id number] appropriate, equivocal Babinski, sensation appropriate, still mild dysarthria noted but family and patient feel as though she is improved since initial ED arrival. Psychiatric: Affect appears fatigued otherwise normal, no acute evidence of depressive or anxiety feelings but does have underlying history. Results Lab / Micro Data 06/15/23 16:00 06/15/23 16:00 Labs: Laboratory Results - last 24 hr 06/15/23 16:00: WBC 10.5, RBC 3.87 L, Hgb 11.6 L, Hct 37.7, MCV 97.4, MCH 30.0, MCHC 30.8 L, RDW Std Deviation 51.5 H, RDW Coeff of Patrick 14.3, Plt Count 518 H, MPV 9.3, Immature Gran % (Auto) 0.500, Neut % (Auto) 76.5 H, Lymph % (Auto) 15.7 L, Gove % (Auto) 4.2, Eos % (Auto) 2.7, Baso % (Auto) 0.4, Absolute Neuts (auto) 8.1 H, Absolute Lymphs (auto) 1.65, Nucleated RBC % 0, PT 14.4, INR 1.1, APTT 39.6 H, Sodium 139, Potassium 3.6, Chloride 106, Carbon Dioxide 26.0, Anion Gap 7, BUN 22 H, Creatinine 1.32 H, Estim Creat Clear Calc 29.06, Est GFR (MDRD) Af Amer 49 L, Est GFR (MDRD) Non-Af 41 L, BUN/Creatinine Ratio 16.7, Glucose 111 H, Calcium 8.3 L, Troponin I High Sens 17 Radiology Impression Head/Neck CTA 06/15/23 16:05 IMPRESSION: Normal CTA Head and neck with contrast. Electronically Signed: Anil Simms MD at 17:39 EST Reading Location ID and State: [id number] / [employer] Tel , Service support , Chest X-Ray 06/15/23 16:55 IMPRESSION: Normal x-ray examination of the chest. Electronically Signed: Anil Simms MD at 17:24 EST , Assessment & Plan Assessment/Plan (1) Stroke: PLAN: Plan The patient is an 82 y/o F w/ PMHx: CKD stage III unclear subtype, Tobacco use, PAF, HTN, HLD, Hypothyroidism, Anxiety and Depression, Chronic anemia, Hx CVA who presents to the [facility] ED on 06/15/23 with history of being at home resting her chair when her son called her to check on her with significant difficulty even attempting to get out of her chair which is abnormal for her and when she attempted to speak to her son when she got to the phone what she was saying was not what she was attempting to say and unfortunately her son could not understand her prompting immediate EMS call. #1. Acute dysarthria and aphasia concerning for Acute TIA/CVA w/ Prior CVA History: Will admit to PCU, will obtain MRI Brain, MRA Head and Neck, noted prior ECHO with negative bubble study thus will not repeat, PT/OT/Speech/Nutrition evaluation per protocol. Will allow permissive HTN, maintain on asa/plavix, statin w/ AM FLP, fall precautions. Mag, TSH, FLP, HgbA1c requested. Maintain on fall and aspiration precautions. Will need assistance with case management/social work for ensuring that patient gets her apixaban from [facility] and potentially an alternate source may be needed. #2. Chronic normocytic anemia: Admission hemoglobin 11.6, MCV 97.4, baseline hemoglobin noted prior most recently 12/16/2022 hemoglobin 12.6 but prior to this had vacillated from the 9-11 range, will continue to trend. #3. PAF: Temporally holding metoprolol given acute presentation for permissive hypertension, add back once appropriate, we will restart home apixaban regimen. #4. Chronic Kidney Disease Stage III unclear subtype per GFR trending: Admission BUN/Cr 22/1.32, baseline renal function primarily 1.2 to most recently 1.71 on 12/27/2022, repeat BMP in AM. #5. Hypothyroidism: Continue home synthroid regimen, TSH and free T4 pending. #6. Hypertension: Given presentation we will continue permissive hypertension pending work-up as noted with parent agents per stroke protocol. #7. Hyperlipidemia: Continue home statin regimen. AM FLP. #8. Anxiety and depression: We will continue patient home BuSpar low-dose, doxepin as well as paroxetine home regimen. #9. Chronic cannabis usage: Given advanced age and fall risk would certainly recommend avoidance. UDS requested. #10. Tobacco Abuse: Encouraged cessation, inpatient consultation per RT, NR if desired. #11. DVT prophylaxis: We will restart patient home apixaban regimen. #12. CODE status: Patient does not have healthcare power district attorney or living will in place but notes that if she needed decisions made she would want Joellen who is like her son and is present currently to be her decision-maker. Discussed CODE status at length including difference between FULL code, DNR-CCA and DNR-CC status. Following discussions about the differences in these status, requested DNR-CCA, no intubation status. Advanced Care Planning Face to Face Time: 16 minutes. Charges/Coding Visit Charges Inpatient E&M: 84424 Init Hosp L3 Procedures Hospitalists Procedures: 77570 Advncd Care Plan 30 Min
[2023-06-15] MEDS: APIXABAN 2.5 MG TABLET (WCH) PO (18:02)
[2023-06-15] MEDS: Aspirin 325 MG Tablet PO (18:08)
[2023-06-15 18:36] LABS: Magnesium 2.1 mg/dL (1.6-2.6)
--- NOTE | 2023-06-15 18:37 | MRI_ITS ---
We are attempting to reach an attending provider to discuss findings. An addendum with communication details will be sent when the communication is complete. STUDY: MRI BRAIN WITHOUT CONTRAST REASON FOR EXAM: Female, 82 years old. CVA TECHNIQUE: Standardized multiplanar fat and water weighted pulse sequences were obtained. COMPARISON: 02/19/2020, head CT earlier today FINDINGS: There is moderate cerebral atrophy with widening of the extra-axial spaces and ventricular dilatation. There are multiple white matter hyperintensities, distributed throughout the deep white matter tracts of the cerebral hemispheres, consistent with moderate chronic white matter ischemic changes. 1 cm hyperintensity in the periventricular white matter of the right parietal lobe demonstrates restricted diffusion consistent with an acute/subacute infarct. Normal T2* images of the brain without demonstrated susceptibility artifact. There is no demonstrated hemosiderin stain. Normal bilateral basal ganglia. Normal thalami. There is no extra-axial fluid accumulation. Normal flow voids within the major intracranial circulation suggesting patency by spin echo criteria. Normal sella turcica, pituitary gland, infundibular stalk, optic chiasm and hypothalamus. Normal tectal plate and pineal gland. Normal midbrain, ravi and medulla. Normal cerebellum. Normal basal cisterns. Normal bilateral temporal bones. Normal bilateral internal auditory canals. There are bilateral ocular lens implants with otherwise normal intraorbital contents. Normal visualized paranasal sinuses. Normal calvarium and skull base. Normal visualized soft tissue structures. Normal visualized upper cervical spine. MRI/Brain without Contrast IMPRESSION: Involutional changes of the brain, as described above. Small acute/subacute of the infarct of the paravertebral white matter of the right parietal lobe. Electronically Signed: Anil Simms MD at 22:47 EST ,
[2023-06-15] MEDS: 0.9% Normal Saline (1000mL) 1,000 ML 100 ML IV (20:57)
[2023-06-15] MEDS: 0.9% Saline Lock 10 ML Syringe IV (20:57)
[2023-06-15] MEDS: Ondansetron 4 MG/2 ML Vial IV (21:08)
[2023-06-15] MEDS: Atorvastatin Calcium 80 MG Tablet PO (21:10)
[2023-06-15] MEDS: Levothyroxine 75 MCG Tablet PO (22:00)
[2023-06-15] MEDS: MELATONIN 3 MG TABLET PO (22:00)
[2023-06-16] VITALS (11 sets, daily range): BP systolic 108–133; BP diastolic 67–87; PULSE 86–110; RESP 16–18; TEMP 36.1–36.8; O2SAT 94–99; BMI 25.0; BMI 25.4
[2023-06-16 07:33] LABS: Absolute Lymphocyte Count 1.56 X10^3/uL (0.83-4.51); Absolute Neutrophil Count 5.1 X10^3/uL (2.0-7.7); Basophil# 0.03 X10^3/uL; Basophil% 0.4 % (0-1); Eosinophil# 0.32 X10^3/uL; Eosinophils% 4.3 % (0-5); Hematocrit 34.9 % (37-47); Hemoglobin 10.9 g/dL (12.0-15.0); Lymphocyte # 1.56 X10^3/ul (0.83-4.51); Lymphocyte % 21.1 % (19-41); Mean Corp Hgb Conc 31.2 g/dL (32-36); Mean Corpuscular Hgb 30.5 pg (27.0-32.0); Mean Corpuscular Volume 97.8 fL (81-99); Mean Platelet Vol. 8.9 fl (6.2-12.0); Monocyte# 0.38 X10^3/uL; Monocyte% 5.1 % (0-10); NRBC Flagged by Analyzer 0 % (0-5); Neutrophil # 5.07 X10^3/uL (2.7-7.7); Neutrophil % 68.7 % (47-70); Platelet Count 458 K/mm3 (150-450); RBC Distribution Width CV 14.1 % (11.6-14.6); RBC Distribution Width SD 50.3 fl (35.1-43.9); Red Blood Count 3.57 M/mm3 (4.2-5.4); White Blood Count 7.4 K/mm3 (4.4-11.0)
[2023-06-16 08:46] LABS: ALB/GLOB Ratio 0.6 RATIO (0.9-2.4); AST(SGOT) 20 U/L (15-37); Alanine Aminotransfer ALT/SGPT 10 U/L (13-56); Albumin, Serum 2.4 g/dL (3.2-5.0); Alkaline Phosphatase 99 U/L (45-117); Anion Gap 5 (5-15); BUN 15 mg/dL (7-18); BUN/Creat Ratio 13.3 RATIO (10-20); Calcium,Total 8.1 mg/dL (8.5-10.1); Chloride 107 mmol/L (98-107); Cholesterol 113 mg/dL (200); Creatinine, Serum 1.13 mg/dL (0.55-1.02); EST Glomerular Filtration Rate 49 mL/min (>60); Est Glom Filt Rate - Afr Amer 59 mL/min (>60); Estimated Creatinine Clearance 33.94 ml/min; Globulin 4.3 g/dL (2.2-4.2); Glucose 80 mg/dL (74-106); High Density Lipoprotein 47 mg/dL; Potassium 3.8 mmol/L (3.5-5.1); Protein, Total 6.7 g/dL (6.4-8.2); Sodium Level 139 mmol/L (136-145); Thyroid Stim Hormone (TSH) 3.46 uIU/mL (0.358-3.74); Triglycerides 90 mg/dL; Very Low Density Lipoprotein 18 mg/dL (5-40)
[2023-06-16 09:37] LABS: Hemoglobin A1c 5.9 % (3.8-5.6)
[2023-06-16] MEDS: APIXABAN 2.5 MG TABLET (WCH) PO ×2 (10:31→20:39)
[2023-06-16] MEDS: Paroxetine 20 MG Tablet 40 MG PO (10:31)
[2023-06-16] MEDS: Aspirin E.C. 81 MG Tablet PO (10:31)
--- NOTE | 2023-06-16 10:35 | CASEMGMT ---
Addendum entered by Yue Ogden 06/16/23 12:25: Social Work SW did give pt a list of mental health agencies, though pt does not anticipate following up w/counseling. WALTER Carbone Original Note: Social Work SW completed a PHQ-9 w/pt, as pt had a stroke. Pt states she experiences many of the symptoms on the PHQ-9, however pt states she has depression at her baseline so this is not different than how she normally feels. Pt states she has little interest in doing things, feels down, has little energy, poor appetite, feels bad about herself. She explains has been feeling so sick at times she has wondered if she would be better off , however does not want to and has no thoughts of wanting to harm herself in any way. She states she just has been struggling w/health issues, but wants to feel better. Pt has no plans to harm herself. SW spoke w/pt about medication, she takes Paxil which she states helps her sometimes. SW asked about counseling, pt declined wanting to go to counseling, does not feel it helps. Pt states her 7 dogs and 2 horses help her to feel better. Her friend Joellen helps her to care for the animals. No referrals at this time as pt is not interested. SW remains available should resources be needed. WALTER Carbone
[2023-06-16] MEDS: Metoprolol Tartrate 25 MG Tablet PO ×2 (11:15→20:39)
--- NOTE | 2023-06-16 11:15 | CASEMGMT ---
RN SIRI Face to Face with patient for initial transition planning/care coordination assessment. RN CM introduced self and role at [facility]. Patient lying in bed, alert and oriented. Patient willing to participate in assessment and is able to answer all questions appropriately. Care providers, pharmacy, and demographics verified. Patient wishes to discharge home, will monitor progress with therapy. Patient states she has no further needs or concerns at this time. CM to follow for discharge planning needs that may arise. PCP: Kia Specialists: DIANN, stoper Preferred Pharmacy: [facility] retail at discharge Insurance: [employer] [facility] Prescription Benefit: yes Living Will/HPOA: none, would like to complete SW aware LNOK: , friend Living Arrangements: Patient lives with friend in a 2 story home with bed and bath on first floor, 4 steps and railing to enter the home. is currently in [facility]. Patient states she was independent at home. Transportation: friend Joellen DME/HHC: Patient has shower chair, raised toilet, cane, walker, wheelchair, and grab bars at home. Patient has been to [facility] in the past. No previous HHC. Patient states she smokes 1/2 PPD of cigarette and 1/2 joint of marijuana every night. Disposition Plan: TBD, anticipate HHC vs SNF, will monitor progress with therapy. Dede BOJORQUEZ, RN, CM
--- NOTE | 2023-06-16 12:17 | CASEMGMT ---
Social Work SW spoke w/pt in room in regard to discharge plan. Pt is agreeable to going to a snf facility now that she has had therapy. Pt states she lives with Joellen but he is not there all the time. She does recognize that she would have a difficult time at home at present. SW gave pt a list of snf facilities via [employer] network w/insurance, in her preferred geographic area,complete with quality and resource use data. Pt states that her is in [facility] [place], she has been there before and did not have a good experience there. SW reviewed the list w/pt, she still would like a referral to [facility]. SW also completed POA w/pt, she made Joellen Bergeron her POA. SW gave pt the original and a copy, and copies placed on the chart. Referral made to [facility] via [facility], SW will continue to follow. WALTER Carbone
--- NOTE | 2023-06-16 14:56 | PN.HOSP_ITS ---
Reason for Visit Reason for Visit: Diagnoses Cerebral infarction, unspecified (06/15/23) Subjective Subjective Patient admitted yesterday afternoon for dysarthria, stroke rule out. Was found to have a small acute versus subacute infarct of the right parietal lobe. Notably had run out of her Eliquis for A-fib, had not taken for the last month. No acute events overnight. Patient seen at bedside this morning. Laying comfortably in bed, no acute distress. Patient continues to have intermittent slurring of speech and reports mild left-sided hand and left lower leg paresthesias, improved from yesterday. Denies any vision issues or motor d eficits of her arms or legs. Otherwise denies any pain or discomfort. Denies any fevers or chills. No other acute concerns morning. Objective Data Objective Data Vital Signs: Vital Signs Temp Pulse Resp BP Pulse Ox O2 Del Method 97.0 F L 86 18 108/67 98 Room Air 06/16/23 14:21 06/16/23 14:21 06/16/23 14:21 06/16/23 14:21 06/16/23 14:21 06/16/23 14:21 Oxygen Delivery Method Room Air Weight: 69.3 kg Body Mass Index (BMI) 25.4 Intake & Output: Intake and Output for Last 24 Hours 06/14/23 06/15/23 06/16/23 23:59 23:59 23:59 Intake Total 120 / 120 605 / 605 Output Total 100 / 100 Balance 120 / 120 505 / 505 Medical Nutrition Assessment Dietitian: Malnutrition Criteria Met Start: 06/16/23 13: 24 Freq: Status: Active Protocol: Document 06/16/23 13:24 RAMÍREZ (Rec: 06/16/23 13:24 RAMÍREZ Desktop) Nutrition Malnutrition Evidence of Malnutrition Exists Yes Malnutrition (severe): Acute Illness/Injury Evidenced By Suboptimal Energy Intake ( Severe),Weight Loss (Severe) Clinical Problem Acute Disease or Injury Related Malnutrition Etiology related to recent covid and inadequate energy intake Signs/Symptoms as evidenced by unplanned 5% wt loss and po intake meeting <50% of est nutritional needs x <2 wks Status Active Problem Recommendation Dietitian Recommendations/Changes Will liberalize diet to regular d/t signs and symptoms of malnutrition Will order 4 oz ensure plus high protein tid w/ medpass for increased nutrition if consumed. Lab / Micro Data 06/16/23 07:05 06/16/23 07:05 Labs: Laboratory Results - last 24 hr 06/15/23 16:00: WBC 10.5, RBC 3.87 L, Hgb 11.6 L, Hct 37.7, MCV 97.4, MCH 30.0, MCHC 30.8 L, RDW Std Deviation 51.5 H, RDW Coeff of Patrick 14.3, Plt Count 518 H, MPV 9.3, Immature Gran % (Auto) 0.500, Neut % (Auto) 76.5 H, Lymph % (Auto) 15.7 L, [place] % (Auto) 4.2, Eos % (Auto) 2.7, Baso % (Auto) 0.4, Absolute Neuts (auto) 8.1 H, Absolute Lymphs (auto) 1.65, Nucleated RBC % 0, PT 14.4, INR 1.1, APTT 39.6 H, Sodium 139, Potassium 3.6, Chloride 106, Carbon Dioxide 26.0, Anion Gap 7, BUN 22 H, Creatinine 1.32 H, Estim Creat Clear Calc 29.06, Est GFR (MDRD) Af Amer 49 L, Est GFR (MDRD) Non-Af 41 L, BUN/Creatinine Ratio 16.7, Glucose 111 H, Calcium 8.3 L, Magnesium 2.1, Troponin I High Sens 17 06/16/23 07:05: WBC 7.4, RBC 3.57 L, Hgb 10.9 L, Hct 34.9 L, MCV 97.8, MCH 30.5, MCHC 31.2 L, RDW Std Deviation 50.3 H, RDW Coeff of Patrick 14.1, Plt Count 458 H, MPV 8.9, Immature Gran % (Auto) 0.400, Neut % (Auto) 68.7, Lymph % (Auto) 21.1, [place] % (Auto) 5.1, Eos % (Auto) 4.3, Baso % (Auto) 0.4, Absolute Neuts (auto) 5.1, Absolute Lymphs (auto) 1.56, Nucleated RBC % 0, Sodium 139, Potassium 3.8, Chloride 107, Carbon Dioxide 27.0, Anion Gap 5, BUN 15, Creatinine 1.13 H, Estim Creat Clear Calc 33.94, Est GFR (MDRD) Af Amer 59 L, Est GFR (MDRD) Non-Af 49 L, BUN/Creatinine Ratio 13.3, Glucose 80, Hemoglobin A1c 5.9 H, Calcium 8.1 L, Total Bilirubin 0.60, AST 20, ALT 10 L, Alkaline Phosphatase 99, Total Protein 6.7, Albumin 2.4 L, Globulin 4.3 H, Albumin/Globulin Ratio 0.6 L, Triglycerides 90, Cholesterol 113, LDL Cholesterol 48, VLDL Cholesterol 18, HDL Cholesterol 47, TSH 3.46 Radiography Diagnostic Testing: Radiology Impression Head/Neck CTA 06/15/23 16:05 IMPRESSION: Normal CTA Head and neck with contrast. Electronically Signed: Anil Simms MD at 17:39 EST Reading Location ID and State: [facility] , Service support , Chest X-Ray 06/15/23 16:55 IMPRESSION: Normal x-ray examination of the chest. Electronically Signed: Anil Simms MD at 17:24 EST Reading Location ID and State: [facility] , Service support , Brain MRI 06/15/23 18:37 IMPRESSION: Involutional changes of the brain, as described above. Small acute/subacute of the infarct of the paravertebral white matter of the right parietal lobe. Electronically Signed: Anil Simms MD at 22:47 EST Reading Location ID and State: [facility] , Service support , ADDENDUM: 06/15/23 2308 IMPRESSION: Involutional changes of the brain, as described above. Small acute/subacute of the infarct of the paravertebral white matter of the right parietal lobe. N.B. : The above Results were Read Back by Anil Simms MD to Alethea Johnson DO, and understanding confirmed on 06/15/2023 23:01:51 (ET). Electronically Signed: Anil Simms MD at 22:47 EST , Physical Exam Const alert, oriented x3, no apparent distress and average body habitus Constitutional Narrative: Pleasant elderly female, chronically ill-appearing, laying comfortably in bed, no acute distress. Mild intermittent slurred speech noted but answering all questions appropriately. General Appearance: cooperative and comfortable HEENT normocephalic, head/scalp atraumatic, hearing grossly normal bilaterally, nasal mucous membranes and turbinates normal and moist oral mucous membranes Eyes PERRL, EOMs intact bilaterally and conjunctivae normal Neck full ROM, no lymphadenopathy and supple Lymph Lymphatic: no lymphadenopathy noted Chest inspection of chest normal Resp normal respiratory effort, normal air movement, no use of accessory muscles and clear to auscultation bilaterally Cardio regular rate, regular rhythm, no murmurs and peripheral pulses 2+ throughout GI normal to inspection, nondistended, normoactive bowel sounds, soft to palpation, non-tender and non-distended Back/Spine normal ROM Extremity normal to inspection, full ROM and no pedal edema Skin no rashes or lesions noted Neuro moves all extremities and no focal motor deficits Motor Exam: strength 5/5 throughout Psych mental status grossly normal Assessment & Plan Assessment/Plan (1) Stroke: (2) Atrial fibrillation: PLAN: Plan Patient is an 82-year-old female who presented to [facility] ED on 06/15/2023 with slurred speech. 1. 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 Stroke presumed secondary to emboli from A-fib due to nonadherence to home Eliquis. MRI brain on admit showed small acute/subacute infarct of paravertebral white matter of right parietal lobe. ? Restarted home Eliquis as noted below. Continue home aspirin and high-dose statin. PT/OT/case management following, planning for SNF placement on discharge as noted below. 2. Paroxysmal atrial fibrillation On home metoprolol and Eliquis. However, patient reports she was unable to get her Eliquis refilled and has been out of it now for 1 to 2 months. EKG on admit showed rate controlled A-fib. ? Continue home metoprolol, restarted home Eliquis. Patient notably is on Eliquis 2.5 mg twice daily given her age and kidney function. Monitor telemetry. 3. Debility ? Patient reports living alone, has caregiver 20/02 who does most things around the house for her. PT/OT/case management following. Therapy recommending SNF placement with likely need for long-term care placement, patient is agreeable to SNF placement at this time. We will follow-up. Chronic medical conditions: ? Chronic normocytic anemia: Baseline hemoglobin around 9-11, hemoglobin 11.6 on admit. ? CKD stage III: Baseline creatinine somewhere between 1.2 and 1.7. Creatinine 1.3 on admission. ? Hypothyroidism: Continue home Synthroid. ? Hypertension: Continue home metoprolol, holding home home hydrochlorothiazide for now, restart as needed. ? Hyperlipidemia: Continue home statin. ? Chronic cannabis usage: Reports smoking 1 joint every evening. Given advanced age and fall risk, would recommend avoidance going forward. ? Tobacco abuse: Encouraged cessation, nicotine replacement inpatient as needed. DVT prophylaxis: Eliquis CODE STATUS: DNR CCA, DO NOT INTUBATE Expected disposition: SNF, TBD Total clinical time spent by myself addressing the patient's medical issues, reviewing all the data, and collaborating with patient's care team: 35 minutes. Charges/Coding Visit Charges Inpatient E&M: 51799 Subs Hosp L2
--- NOTE | 2023-06-16 14:56 | CASEMGMT ---
SNEHAL called Anna at [facility] and checked on the referral. Anna said she did get the referral, but does not have an answer yet. Plan: SNF pending [facility]'s acceptance and pre-cert. Leyla CORADO
[2023-06-16] MEDS: Ensure Plus High Protein 120 ML LIQUID PO (16:58)
--- NOTE | 2023-06-16 17:42 | CASEMGMT ---
LEON CM in to discuss BAKER form with patient. RN CM explained BAKER form, patient voiced understanding. Pt signed form and filed in chart. Pt provided with a copy of signed BAKER form. Patient had no further questions or concerns at this time.
[2023-06-16] MEDS: 0.9% Saline Lock 10 ML Syringe IV (20:36)
[2023-06-16] MEDS: proCHLORPERazine 10 MG/2 ML Vial 5 MG IV (20:36)
[2023-06-16] MEDS: Atorvastatin Calcium 80 MG Tablet PO (20:39)
[2023-06-16] MEDS: Levothyroxine 75 MCG Tablet PO (20:39)
[2023-06-16] MEDS: Menthol/Lanolin/Calamine/Znox 113 GM Tube 1 APPLIC TOPICAL (20:40)
[2023-06-17] VITALS (7 sets, daily range): BP systolic 101–135; BP diastolic 66–85; PULSE 82–100; RESP 15–18; TEMP 36.1–37.1; O2SAT 97–100; BMI 25.7
[2023-06-17 10:01] LABS: Anion Gap 5 (5-15); BUN 17 mg/dL (7-18); BUN/Creat Ratio 16.7 RATIO (10-20); Calcium,Total 8.1 mg/dL (8.5-10.1); Chloride 108 mmol/L (98-107); Creatinine, Serum 1.02 mg/dL (0.55-1.02); EST Glomerular Filtration Rate 55 mL/min (>60); Est Glom Filt Rate - Afr Amer 66 mL/min (>60); Glucose 87 mg/dL (74-106); Potassium 4.1 mmol/L (3.5-5.1); Sodium Level 138 mmol/L (136-145)
[2023-06-17] MEDS: APIXABAN 2.5 MG TABLET (WCH) PO ×2 (10:13→22:34)
[2023-06-17] MEDS: Aspirin E.C. 81 MG Tablet PO (10:13)
[2023-06-17] MEDS: Menthol/Lanolin/Calamine/Znox 113 GM Tube 1 APPLIC TOPICAL ×4 (10:14→22:35)
[2023-06-17] MEDS: Paroxetine 20 MG Tablet 40 MG PO (10:14)
[2023-06-17] MEDS: Metoprolol Tartrate 25 MG Tablet PO ×2 (10:15→22:34)
[2023-06-17] MEDS: Ensure Plus High Protein 120 ML LIQUID PO ×2 (13:30→17:49)
[2023-06-17] MEDS: Acetaminophen 325 MG Tablet 650 MG PO (13:34)
--- NOTE | 2023-06-17 14:17 | PN.HOSP_ITS ---
Reason for Visit Reason for Visit: Diagnoses Unspecified atrial fibrillation (06/15/23) Cerebral infarction, unspecified (06/15/23) Subjective Subjective No acute events overnight. Patient seen at bedside this morning. Laying comfortably in bed, conversing normally, no acute distress. Patient's slurred speech appears to be improved this morning. Patient reports feeling improved this morning. Denies any paresthesias of her left leg or arm. Feels like her speech is improved morning. Continues to feel fairly weak, but this is similar to her baseline. She denies any fevers or chills, chest pain, shortness of breath. No other acute concerns this morning. Objective Data Objective Data Vital Signs: Vital Signs Temp Pulse Resp BP Pulse Ox O2 Del Method 98.8 F 88 16 108/66 100 Room Air 06/17/23 13:49 06/17/23 13:49 06/17/23 13:49 06/17/23 13:49 06/17/23 13:49 06/17/23 13:49 Oxygen Delivery Method Room Air Weight: 70 kg Body Mass Index (BMI) 25.7 Intake & Output: Intake and Output for Last 24 Hours 06/15/23 06/16/23 06/17/23 23:59 23:59 23:59 Intake Total 120 / 120 1105 / 1105 100 / 100 Output Total 550 / 550 200 / 200 Balance 120 / 120 555 / 555 -100 / -100 Medical Nutrition Assessment Dietitian: Malnutrition Criteria Met Start: 06/16/23 13:24 Freq: Status: Active Protocol: Document 06/16/23 13:24 RAMÍREZ (Rec: 06/16/23 13:24 RAMÍREZ Desktop) Nutrition Malnutrition Evidence of Malnutrition Exists Yes Malnutrition (severe): Acute Illness/Injury Evidenced By Suboptimal Energy Intake ( Severe),Weight Loss (Severe) Clinical Problem Acute Disease or Injury Related Malnutrition Etiology related to recent covid and inadequate energy intake Signs/Symptoms as evidenced by unplanned 5% wt loss and po intake meeting <50% of est nutritional needs x <2 wks Status Active Problem Recommendation Dietitian Recommendations/Changes Will liberalize diet to regular d/t signs and symptoms of malnutrition Will order 4 oz ensure plus high protein tid w/ medpass for increased nutrition if consumed. Lab / Micro Data 06/16/23 07:05 06/17/23 08:40 Labs: Laboratory Results - last 24 hr 06/17/23 08:40: Sodium 138, Potassium 4.1, Chloride 108 H, Carbon Dioxide 25.0, Anion Gap 5, BUN 17, Creatinine 1.02, Estim Creat Clear Calc 37.60, Est GFR (MDRD) Af Amer 66, Est GFR (MDRD) Non-Af 55 L, BUN/Creatinine Ratio 16.7, Glucose 87, Calcium 8.1 L Physical Exam Const alert, oriented x3, no apparent distress and average body habitus Constitutional Narrative: Pleasant elderly female, chronically ill-appearing, laying comfortably in bed, no acute distress. Slurred speech improved. General Appearance: cooperative and comfortable HEENT normocephalic, head/scalp atraumatic, hearing grossly normal bilaterally, nasal mucous membranes and turbinates normal and moist oral mucous membranes Eyes PERRL, EOMs intact bilaterally and conjunctivae normal Neck full ROM, no lymphadenopathy and supple Lymph Lymphatic: no lymphadenopathy noted Chest inspection of chest normal Resp normal respiratory effort, normal air movement, no use of accessory muscles and clear to auscultation bilaterally Cardio regular rate, regular rhythm, no murmurs and peripheral pulses 2+ throughout GI normal to inspection, nondistended, normoactive bowel sounds, soft to palpation, non-tender and non-distended Back/Spine normal ROM Extremity normal to inspection, full ROM and no pedal edema Skin no rashes or lesions noted Neuro moves all extremities and no focal motor deficits Motor Exam: strength 5/5 throughout Psych mental status grossly normal Assessment & Plan Assessment/Plan (1) Stroke: (2) Atrial fibrillation: PLAN: Plan Patient is an 82-year-old female who presented to [facility] ED on 06/15/2023 with slurred speech. 1. 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 Stroke presumed secondary to emboli from A-fib due to nonadherence to home Eliquis. MRI brain on admit showed small acute/subacute infarct of paravertebral white matter of right parietal lobe. ? Restarted home Eliquis on admission as noted below. Continue home aspirin and high-dose statin. Slurred speech and paresthesias resolved by 06/17. PT/OT/case management following, planning for SNF placement on discharge as noted below. 2. Paroxysmal atrial fibrillation On home metoprolol and Eliquis. However, patient reports she was unable to get her Eliquis refilled and has been out of it now for 1 to 2 months. EKG on admit showed rate controlled A-fib. ? Continue home metoprolol, restarted home Eliquis. Patient notably is on Eliquis 2.5 mg twice daily given her age and kidney function. Monitor telemetry. 3. Debility ? Patient reports living alone, has caregiver 20/02 who does most things around the house for her. PT/OT/case management following. Therapy recommending SNF placement with likely need for long-term care placement, patient is agreeable to SNF placement at this time. Referrals pending. Chronic medical conditions: ? Chronic normocytic anemia: Baseline hemoglobin around 9-11, hemoglobin 11.6 on admit. ? CKD stage III: Baseline creatinine somewhere between 1.2 and 1.7. Creatinine 1.3 on admission. ? Hypothyroidism: Continue home Synthroid. ? Hypertension: Continue home metoprolol, holding home home hydrochlorothiazide for now, restart as needed. ? Hyperlipidemia: Continue home statin. ? Chronic cannabis usage: Reports smoking 1 joint every evening. Given advanced age and fall risk, would recommend avoidance going forward. ? Tobacco abuse: Encouraged cessation, nicotine replacement inpatient as needed. DVT prophylaxis: Eliquis CODE STATUS: DNR CCA, DO NOT INTUBATE Expected disposition: SNF, medically stable for discharge, referrals pending Total clinical time spent by myself addressing the patient's medical issues, re viewing all the data, and collaborating with patient's care team: 35 minutes. Charges/Coding Visit Charges Inpatient E&M: 56143 Subs Hosp L2
[2023-06-17] MEDS: Levothyroxine 75 MCG Tablet PO (22:34)
[2023-06-17] MEDS: Atorvastatin Calcium 80 MG Tablet PO (22:34)
[2023-06-17] MEDS: Ondansetron 4 MG/2 ML Vial IV (22:53)
[2023-06-17] MEDS: 0.9% Saline Lock 10 ML Syringe IV (22:53)
[2023-06-18] VITALS (9 sets, daily range): BP systolic 107–135; BP diastolic 60–84; PULSE 74–95; RESP 14–18; TEMP 36.6–36.9; O2SAT 92–97; BMI 25.9
[2023-06-18 07:54] LABS: Anion Gap 5 (5-15); BUN 17 mg/dL (7-18); BUN/Creat Ratio 17.5 RATIO (10-20); Chloride 109 mmol/L (98-107); Creatinine, Serum 0.97 mg/dL (0.55-1.02); EST Glomerular Filtration Rate 58 mL/min (>60); Est Glom Filt Rate - Afr Amer 70 mL/min (>60); Estimated Creatinine Clearance 39.54 ml/min; Glucose 90 mg/dL (74-106); Potassium 4.2 mmol/L (3.5-5.1); Sodium Level 138 mmol/L (136-145)
[2023-06-18] MEDS: Menthol/Lanolin/Calamine/Znox 113 GM Tube 1 APPLIC TOPICAL ×2 (08:31→22:37)
[2023-06-18] MEDS: Ensure Plus High Protein 120 ML LIQUID PO ×3 (08:31→18:04)
[2023-06-18] MEDS: Aspirin E.C. 81 MG Tablet PO (08:32)
[2023-06-18] MEDS: APIXABAN 2.5 MG TABLET (WCH) PO ×2 (08:32→22:36)
[2023-06-18] MEDS: Metoprolol Tartrate 25 MG Tablet PO ×2 (08:32→22:37)
[2023-06-18] MEDS: Paroxetine 20 MG Tablet 40 MG PO (08:33)
[2023-06-18] MEDS: Acetaminophen 325 MG Tablet 650 MG PO (08:34)
--- NOTE | 2023-06-18 12:45 | PCM.PN.HOSP ---
Reason for Visit Reason for Visit: Diagnoses Unspecified atrial fibrillation (06/15/23) Cerebral infarction, unspecified (06/15/23) Subjective Subjective Patient seen at bedside this morning. Laying comfortably in bed, conversing normally, no acute distress. Patient states that she had a small episode of vomiting overnight, and has had these episodes of vomiting at night for the past several weeks. She is unsure why she is having these episodes. States she wakes up from sleep with nausea, has an episode of emesis and then is able to go back to sleep without issue. Patient otherwise denies any acute pain or discomfort this morning. Denies any chest pain, shortness of breath, fevers or chills. No other acute concerns today. Objective Data Objective Data Vital Signs: Vital Signs Temp Pulse Resp BP Pulse Ox O2 Del Method 97.8 F 74 16 107/60 96 Room Air 06/18/23 11:57 06/18/23 11:57 06/18/23 11:57 06/18/23 11:57 06/18/23 11:57 06/18/23 11:57 Oxygen Delivery Method Room Air Weight: 70.6 kg Body Mass Index (BMI) 25.9 Intake & Output: Intake and Output for Last 24 Hours 06/16/23 06/17/23 06/18/23 23:59 23:59 23:59 Intake Total 1105 / 1105 200 / 500 540 / 540 Output Total 550 / 550 350 / 350 400 / 400 Balance 555 / 555 -150 / 150 140 / 140 Medical Nutrition Assessment Dietitian: Malnutrition Criteria Met Start: 06/16/23 13:24 Freq: Status: Active Protocol: Document 06/16/23 13:24 RAMÍREZ (Rec: 06/16/23 13:24 RAMÍREZ Desktop) Nutrition Malnutrition Evidence of Malnutrition Exists Yes Malnutrition (severe): Acute Illness/Injury Evidenced By Suboptimal Energy Intake ( Severe),Weight Loss (Severe) Clinical Problem Acute Disease or Injury Related Malnutrition Etiology related to recent covid and inadequate energy intake Signs/Symptoms as evidenced by unplanned 5% wt loss and po intake meeting <50% of est nutritional needs x <2 wks Status Active Problem Recommendation Dietitian Recommendations/Changes Will liberalize diet to regular d/t signs and symptoms of malnutrition Will order 4 oz ensure plus high protein tid w/ medpass for increased nutrition if consumed. Lab / Micro Data 06/16/23 07:05 06/18/23 06:53 Labs: Laboratory Results - last 24 hr 06/18/23 06:53: Sodium 138, Potassium 4.2, Chloride 109 H, Carbon Dioxide 24.0, Anion Gap 5, BUN 17, Creatinine 0.97, Estim Creat Clear Calc 39.54, Est GFR (MDRD) Af Amer 70, Est GFR (MDRD) Non-Af 58 L, BUN/Creatinine Ratio 17.5, Glucose 90, Calcium 8.0 L Physical Exam Const alert, oriented x3, no apparent distress and average body habitus Constitutional Narrative: Pleasant elderly female, chronically ill-appearing, laying comfortably in bed, no acute distress. Slurred speech improved. General Appearance: cooperative and comfortable HEENT normocephalic, head/scalp atraumatic, hearing grossly normal bilaterally, nasal mucous membranes and turbinates normal and moist oral mucous membranes Eyes PERRL, EOMs intact bilaterally and conjunctivae normal Neck full ROM, no lymphadenopathy and supple Lymph Lymphatic: no lymphadenopathy noted Chest inspection of chest normal Resp normal respiratory effort, normal air movement, no use of accessory muscles and clear to auscultation bilaterally Cardio regular rate, regular rhythm, no murmurs and peripheral pulses 2+ throughout GI normal to inspection, nondistended, normoactive bowel sounds, soft to palpation, non-tender and non-distended Back/Spine normal ROM Extremity normal to inspection, full ROM and no pedal edema Skin no rashes or lesions noted Neuro moves all extremities and no focal motor deficits Motor Exam: strength 5/5 throughout Psych mental status grossly normal Assessment & Plan Assessment/Plan (1) Stroke: (2) Atrial fibrillation: PLAN: Plan Patient is an 82-year-old female who presented to [facility] ED on 06/15/2023 with slurred speech. 1. 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 Stroke presumed secondary to emboli from A-fib due to nonadherence to home Eliquis. MRI brain on admit showed small acute/subacute infarct of paravertebral white matter of right parietal lobe. ? Restarted home Eliquis on admission as noted below. Continue home aspirin and high-dose statin. Slurred speech and paresthesias resolved by 06/17. PT/OT/case management following, planning for SNF placement on discharge as noted below. 2. Paroxysmal atrial fibrillation On home metoprolol and Eliquis. However, patient reports she was unable to get her Eliquis refilled and has been out of it now for 1 to 2 months. EKG on admit showed rate controlled A-fib. ? Continue home metoprolol, restarted home Eliquis. Patient notably is on Eliquis 2.5 mg twice daily given her age and kidney function. Monitor telemetry. 3. Debility ? Patient reports living alone, has caregiver 20/02 who does most things around the house for her. PT/OT/case management following. Therapy recommending SNF placement with likely need for long-term care placement, patient is agreeable to SNF placement at this time. Referrals pending. Chronic medical conditions: ? Chronic normocytic anemia: Baseline hemoglobin around 9-11, hemoglobin 11.6 on admit. ? CKD stage III: Baseline creatinine somewhere between 1.2 and 1.7. Creatinine 1.3 on admission. ? Hypothyroidism: Continue home Synthroid. ? Hypertension: Continue home metoprolol, holding home home hydrochlorothiazide for now, restart as needed. ? Hyperlipidemia: Continue home statin. ? Chronic cannabis usage: Reports smoking 1 joint every evening. Given advanced age and fall risk, would recommend avoidance going forward. ? Tobacco abuse: Encouraged cessation, nicotine replacement inpatient as needed. DVT prophylaxis: Eliquis CODE STATUS: DNR CCA, DO NOT INTUBATE Expected disposition: SNF, medically stable for discharge, referrals pending Total clinical time spent by myself addressing the patient's medical issues, reviewing all the data, and collaborating with patient's care team: 35 minutes. Charges/Coding Visit Charges Inpatient E&M: 45830 Subs Hosp L2
[2023-06-18] MEDS: Ondansetron 4 MG/2 ML Vial IV ×2 (15:28→23:44)
[2023-06-18] MEDS: 0.9% Saline Lock 10 ML Syringe IV ×2 (15:29→23:44)
[2023-06-18 18:42] LABS: Amphetamine Urine VISTA NEGATIVE (<1000 ng/mL); Barbiturate Urine VISTA NEGATIVE (< 200 ng/mL); Benzodiazepine Urine VISTA NEGATIVE (< 200 ng/mL); Cocaine Urine VISTA NEGATIVE (< 300 ng/mL); Ecstacy Urine VISTA NEGATIVE (< 500 ng/mL); Methadone Urine VISTA NEGATIVE (< 300 ng/mL); PCP Urine VISTA NEGATIVE (< 25 ng/mL); THC Urine VISTA POSITIVE (< 50 ng/mL); Vista UDS pH Range 6
[2023-06-18] MEDS: Levothyroxine 75 MCG Tablet PO (22:36)
[2023-06-18] MEDS: Atorvastatin Calcium 80 MG Tablet PO (22:37)
[2023-06-19 02:00] VITALS: BP 122/73; PULSE 93; RESP 18; TEMP 37.1; O2SAT 98
[2023-06-19 03:21] VITALS: BMI 25.8
[2023-06-19 05:26] VITALS: BP 133/83; PULSE 92; RESP 18; TEMP 36.8; O2SAT 93
[2023-06-19] MEDS: Ensure Plus High Protein 120 ML LIQUID PO (08:06)
[2023-06-19] MEDS: Menthol/Lanolin/Calamine/Znox 113 GM Tube 1 APPLIC TOPICAL (08:07)
[2023-06-19 08:08] VITALS: BP 134/89; PULSE 97
[2023-06-19] MEDS: Metoprolol Tartrate 25 MG Tablet PO (08:08)
[2023-06-19] MEDS: APIXABAN 2.5 MG TABLET (WCH) PO (08:08)
[2023-06-19] MEDS: Aspirin E.C. 81 MG Tablet PO (08:08)
[2023-06-19] MEDS: Paroxetine 20 MG Tablet 40 MG PO (08:09)
--- NOTE | 2023-06-19 09:04 | CASEMGMT ---
[facility] is unable to take patient as they are not in network with her insurance. SW met with patient and told her about [facility] being out of network. SW asked patient if she wanted to try [facility] as it is also in [place]. Patient said she would do that, but she said she really prefers to go home. SW told patient we can see how she does with therapy today and then talk again. Leyla Lopez METAL ANNEALER MAK
[2023-06-19 09:25] VITALS: BP 134/89; PULSE 97; RESP 16; TEMP 36.2; O2SAT 98
--- NOTE | 2023-06-19 11:18 | PN.HOSP_ITS ---
Subjective Subjective Doing well, no issues overnight Objective Data Objective Data Vital Signs: Vital Signs Temp Pulse Resp BP Pulse Ox O2 Del Method 98.3 F 97 18 134/89 H 93 Room Air 06/19/23 05:26 06/19/23 08:08 06/19/23 05:26 06/19/23 08:08 06/19/23 05:26 06/19/23 05:26 Oxygen Delivery Method Room Air Weight: 155 lb 3.287 oz Body Mass Index (BMI) 25.8 Intake & Output: Intake and Output for Last 24 Hours 06/18/23 06/19/23 06/20/23 03:59 03:59 03:59 Intake Total 500 / 500 540 / 540 200 / 200 Output Total 350 / 350 1000 / 1000 250 / 250 Balance 150 / 150 -460 / -460 -50 / -50 Medical Nutrition Assessment Dietitian: Malnutrition Criteria Met Start: 06/16/23 13:24 Freq: Status: Active Protocol: Document 06/16/23 13:24 SLA (Rec: 06/16/23 13:24 SLA Desktop) Nutrition Malnutrition Evidence of Malnutrition Exists Yes Malnutrition (severe): Acute Illness/Injury Evidenced By Suboptimal Energy Intake ( Severe),Weight Loss (Severe) Clinical Problem Acute Disease or Injury Related Malnutrition Etiology related to recent covid and inadequate energy intake Signs/Symptoms as evidenced by unplanned 5% wt loss and po intake meeting <50% of est nutritional needs x <2 wks Status Active Problem Recommendation Dietitian Recommendations/Changes Will liberalize diet to regular d/t signs and symptoms of malnutrition Will order 4 oz ensure plus high protein tid w/ medpass for increased nutrition if consumed. Lab / Micro Data 06/16/23 07:05 06/18/23 06:53 Labs: Laboratory Results - last 24 hr 06/18/23 18:07: Urine Opiates Screen NEGATIVE, Urine Methadone Screen NEGATIVE, Ur Barbiturates Screen NEGATIVE, Ur Phencyclidine Scrn NEGATIVE, Ur Amphetamines Screen NEGATIVE, MDMA (Ecstasy) Screen NEGATIVE, U Benzodiazepines Scrn NEGATIVE, Urine Cocaine Screen NEGATIVE, U Cannabinoids Screen POSITIVE H, Ur Drug Screen Comment Physical Exam Narrative General: Alert, Oriented x3, Cooperative, No apparent distress HEENT: Atraumatic, PERRLA, EOMI, Normocephalic Oral: Moist Mucosa Neck: Supple, No JVD Lungs: Diminished, Normal air movement, No rhonchi, No wheeze, No rales Cardiovascular: Regular rate, Regular Rhythm, Normal S1, Normal S2, No murmurs Abdomen: Soft, Non Tender, Non-Distended, No Hepato-splenomegaly Extremities: No edema, Capillary Refill Less than 3 Seconds Skin: No rashes, No breakdown Musculoskeletal: No Tenderness to Palpation of Joints or Extremities Neurological: Motor Exam 5/5 strength throughout, Sensory exam intact to light touch and pain Psych/Mental Status: Normal Affect, Appropriate Assessment & Plan Assessment/Plan (1) Stroke: (2) Atrial fibrillation: PLAN: Plan 1. 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 Stroke presumed secondary to emboli from A-fib due to nonadherence to home Eliquis. MRI brain on admit showed small acute/subacute infarct of paravertebral white matter of right parietal lobe. ? Restarted home Eliquis on admission as noted below. Continue home aspirin and high-dose statin. Slurred speech and paresthesias resolved by 06/17. PT/OT/c ase management following, planning for SNF placement on discharge as noted below. 06/19/2023: Awaiting pre-CERT for SNF placement 2. Paroxysmal atrial fibrillation On home metoprolol and Eliquis. However, patient reports she was unable to get her Eliquis refilled and has been out of it now for 1 to 2 months. EKG on admit showed rate controlled A-fib. ? Continue home metoprolol, restarted home Eliquis. Patient notably is on Eliquis 2.5 mg twice daily given her age and kidney function. Monitor telemetry. Chronic medical conditions: ? Chronic normocytic anemia: Baseline hemoglobin around 9-11, hemoglobin 11.6 on admit. ? CKD stage III: Baseline creatinine somewhere between 1.2 and 1.7. Creatinine 1.3 on admission. ? Hypothyroidism: Continue home Synthroid. ? Hypertension: Continue home metoprolol, holding home home hydrochlorothiazide for now, restart as needed. ? Hyperlipidemia: Continue home statin. ? Chronic cannabis usage: Reports smoking 1 joint every evening. Given advanced age and fall risk, would recommend avoidance going forward. ? Tobacco abuse: Encouraged cessation, nicotine replacement inpatient as needed. DVT: Eliquis Charges/Coding Visit Charges Inpatient E&M: 59660 Subs Hosp L2
--- NOTE | 2023-06-19 12:10 | CASEMGMT ---
Discharge Planning Referral sent to Maylin Darling via [facility]. Cindy Hernandez, Discharge Planning Asst.
--- NOTE | 2023-06-19 14:52 | CASEMGMT ---
Discharge Planning A list of?HH providers including quality and resource use data and consistent with the patient's preferred geographic region, medical needs, and insurance network was created in [facility] [facility].? This list was provided to the RN SIRI. Cinyd Hernandez, Discharge Planning Asst.
--- NOTE | 2023-06-19 15:45 | CASEMGMT ---
LEON CM to room to discuss needs and plans at discharge after being updated by SNEHAL that patient wanted to go home and did well with therapy. Friend and POA Joellen at bedside. Reviewed [facility] vs Outpatient therapy with patient and POA. Patient would like outpatient therapy in [place] due to dogs in the home. Joellen agreeable to plan, lives with patient. Joellen states he will schedule outpatient therapy appt. Script received and provided in discharge packet with [facility] Outpatient therapy information. Patient and Joellen denied further questions or concerns.
--- NOTE | 2023-06-19 15:57 | DCINST_ITS ---
Discharge Instructions Diet Discharge Diet: Low fat / Low cholesterol Activity Discharge Activity: Return to Normal Activity Dressing / Incision Call your doctor if you observe: Fever of 101 or Higher, Shortness of breath, Dizziness, Fainting spells, Swelling in the ankles, Chest pain and Increased palpitations (irregular heartbeat) Follow Up Care Test Results: Test results from this visit will be discussed in further detail at your follow- up appointment, if applicable. Discharge Plan Admission Admit Date/Time: 06/15/23 17:49 Attending Provider: Mick Thorpe Primary Care Provider: Nayana Adam Consulting Providers: Sho Novak; Wilver Payton Instructions Additional Instructions / Restrictions: Obtain an outpatient neurology referral to evaluate as an outpatient for your stroke Discharge Orders/Prescriptions Prescriptions: New Eliquis 5 mg Tablet 5 mg PO BID Qty: 60 0RF Continued atorvastatin 80 mg tablet 80 mg PO QHS aspirin [Adult Low Dose Aspirin] 81 mg tablet,delayed release (DR/EC) 81 mg PO DAILY cyanocobalamin (vitamin B-12) 1,000 MCG tablet 1,000 mcg PO DAILY levothyroxine 75 MCG tablet 75 mcg PO QHS paroxetine HCl 40 MG tablet 40 mg PO DAILY lysine 500 mg tablet 500 mg PO DAILY hydrochlorothiazide 12.5 mg tablet 6.25 mg PO DAILY Qty: 30 0RF Hold Instructions: vomiting and nausea, leg cramps Rx Instructions: Reduced to 6.25 mg daily. Hold for SBP less than 130 mmHg metoprolol tartrate 25 mg tablet 25 mg PO BID Discontinued apixaban 2.5 mg tablet 2.5 mg PO BID Qty: 60 11RF Patient Comments: pt. has not been taking because krista white fill it Referrals / Follow Up: Nayana Adam MD [Primary Care Provider] - Disposition Disposition (needs filled in before D/C Order can be placed): Home, Self Care
[2023-06-19 16:01] VITALS: BP 135/89; PULSE 99; RESP 17; TEMP 36.3; O2SAT 98
--- NOTE | 2023-06-19 16:02 | DS.PCM_ITS ---
Providers Date of Admission: 06/15/23 Primary Care Physician: Dr. Nayana Adam MD Reason For Visit: TIA/CVA Diagnosis Discharge Diagnosis (1) Stroke: Status: Acute Code(s): I63.9 - Cerebral infarction, unspecified (2) Atrial fibrillation: Status: Acute Code(s): I48.91 - Unspecified atrial fibrillation Medications at Discharge Home Medications cyanocobalamin (vitamin B-12) 1,000 mcg tablet 1,000 mcg PO DAILY SUPPLEMENT 02/08/19 levothyroxine 75 mcg tablet 75 mcg PO QHS THYROID 02/08/19 paroxetine HCl 40 mg tablet 40 mg PO DAILY DEPRESSION 02/08/19 atorvastatin 80 mg tablet 80 mg PO QHS CHOLESTEROL 02/26/20 lysine 500 mg tablet 500 mg PO DAILY SUPPLEMENT 02/26/20 hydrochlorothiazide 12.5 mg tablet 6.25 mg (1/2 x 12.5 mg) PO DAILY FLUID #30 tabs 04/05/22 aspirin 81 mg tablet,delayed release (Adult Low Dose Aspirin) 81 mg PO DAILY HEART HEALTH 12/16/22 metoprolol tartrate 25 mg tablet 25 mg PO BID BLOOD PRESSURE 06/15/23 apixaban 5 mg tablet (Eliquis) 5 mg PO BID #60 tabs 06/19/23 Hospital Course Operations None Procedures None Summary of Care Provided Minutes Spent on Discharge: 36 Hospital Course: Per HPI: The patient is an 82 y/o F w/ PMHx: CKD stage III unclear subtype, Tobacco use, PAF, HTN, HLD, Hypothyroidism, Anxiety and Depression, Chronic anemia, Hx CVA who presents to the [facility] ED on 06/15/23 with history of being at home resting her chair when her son called her to check on her with significant difficulty even attempting to get out of her chair which is abnormal for her and when she attempted to speak to her son when she got to the phone what she was saying was not what she was attempting to say and unfortunately her son could not understand her prompting immediate EMS call. Patient unfortunately has been out of apixaban for 1 month and has not been taking this medication as result. She notes that she has been having issues with [facility]. Patient was seen the week prior and diagnosed with COVID at that time unfortunately she has still felt poorly although she feels as though she is recovered from COVID but complains currently of upper neck discomfort its been present for several weeks. In the ED patient eventually notes feeling back to her normal self. In the ED physician NIH stroke score assessment noted to be 1 for dysarthria. Work-up in the ED included T97.1, heart rate 109, BP 117/69 with most recent repeat 144/84, respiratory rate 16, 99% on room air, CBC with WC 10.5, hemoglobin 0.6, MCV 97.4, platelet 518 with left shift, BMP with BUN/creatinine 22/1.32, glucose 111, calcium 8.3, unremarkable coags assigned PTT 39.6, troponin 17, CTA head and neck with no acute findings, chest x-ray with no acute cardiopulmonary findings, EKG with afib, narrow complex tachycardia with rate 104. In the ED patient started apixaban 2.5 mg p.o. x1. In the ED patient administered full- strength aspirin therapy as well. In the ED patient and family do feel she has continued to improve. Hospital Course: 1. Small acute/subacute CVA of the right parietal lobe with debility/A-fib? 82-year-old female presented to the hospital with weakness and aphasia. These have resolved and she would like to go home today. She did have an MRI that did show small cysts acute/subacute infarct of the right parietal lobe. She is on Eliquis at 2.5 mg, based on age and her renal function with a creatinine less than 1.5 and a weight greater than 60 kg, she should have Eliquis at 5 mg p.o. twice daily this will be increased on discharge. She would like to go home with her stepson and with outpatient therapy her case management she did have improvement with physical therapy today so I discussed with her the plan for discharge and she expressed understanding of the risks and benefits of going home and would like to go home today. I do recommend that she follow-up with her PCP in 3 to 5 days to obtain an outpatient referral for neurology. She has had echoes in the past that did not demonstrate a PFO therefore repeat echo was not performed on this admission. 2. Chronic normocytic anemia, CKD 3, hypothyroidism, hypertension, hyperlipidemia, tobacco abuse, chronic cannabis usage all chronic medical conditions which complicate her care. Her home medications were continued where appropriate Medical Records Data Medical Nutrition Assessment Dietitian: Malnutrition Criteria Met Start: 11/17/23 13:24 Freq: Status: Active Protocol: Document 06/19/23 11:19 RMA (Rec: 06/19/23 11:23 RMA [id number]) Nutrition Malnutrition Evidence of Malnutrition Exists Yes Malnutrition (severe): Acute Illness/Injury Evidenced By Suboptimal Energy Intake ( Severe),Weight Loss (Severe) Clinical Problem Acute Disease or Injury Related Malnutrition Etiology Severe protein-calorie malnutrition in the context of acute disease related to recent covid illness and inadequate energy/oral intake Signs/Symptoms as evidenced by ~5% unintentional weight loss in less than 2 weeks and oral intake meeting <50% of estimated nutritional needs x 2 weeks Status Active Problem Recommendation Dietitian Recommendations/Changes Continue liberalized regular diet due to signs and symptoms of malnutrition. Continue 4 oz ensure plus high protein 3 times per day with medpass. Additional ONS as needed if weight declines and/or PO fails. Weight / BMI Weight Weight: 155 lb 3.287 oz Body Mass Index (BMI) 25.8 ABG / Lab / Microbiology Data 06/16/23 07:05 06/18/23 06:53 Laboratory: Laboratory Results - last 24 hr 06/18/23 18:07: Urine Opiates Screen NEGATIVE, Urine Methadone Screen NEGATIVE, Ur Barbiturates Screen NEGATIVE, Ur Phencyclidine Scrn NEGATIVE, Ur Amphetamines Screen NEGATIVE, MDMA (Ecstasy) Screen NEGATIVE, U Benzodiazepines Scrn NE GATIVE, Urine Cocaine Screen NEGATIVE, U Cannabinoids Screen POSITIVE H, Ur Drug Screen Comment D/C Instructions Discharge Diet: Low fat / Low cholesterol Call your doctor if you observe: Fever of 101 or Higher, Shortness of breath, Dizziness, Fainting spells, Swelling in the ankles, Chest pain and Increased palpitations (irregular heartbeat) Meaningful Use Info Meaningful Use Diagnoses (Choose all that apply): None applicable Discharge Plan Admission Admit Date/Time: 06/15/23 17:49 Attending Provider: Mick Thorpe Primary Care Provider: Nayana Adam Consulting Providers: Sho Novak; Wilver Payton Instructions Additional Instructions / Restrictions: Obtain an outpatient neurology referral to evaluate as an outpatient for your stroke Discharge Orders/Prescriptions Prescriptions: New Eliquis 5 mg Tablet 5 mg PO BID Qty: 60 0RF Continued atorvastatin 80 mg tablet 80 mg PO QHS aspirin [Adult Low Dose Aspirin] 81 mg tablet,delayed release (DR/EC) 81 mg PO DAILY cyanocobalamin (vitamin B-12) 1,000 MCG tablet 1,000 mcg PO DAILY levothyroxine 75 MCG tablet 75 mcg PO QHS paroxetine HCl 40 MG tablet 40 mg PO DAILY lysine 500 mg tablet 500 mg PO DAILY hydrochlorothiazide 12.5 mg tablet 6.25 mg PO DAILY Qty: 30 0RF Hold Instructions: vomiting and nausea, leg cramps Rx Instructions: Reduced to 6.25 mg daily. Hold for SBP less than 130 mmHg metoprolol tartrate 25 mg tablet 25 mg PO BID Discontinued apixaban 2.5 mg tablet 2.5 mg PO BID Qty: 60 11RF Patient Comments: pt. has not been taking because mumtaz white fill it Referrals / Follow Up: Nayana Adam MD [Primary Care Provider] - Disposition Disposition (needs filled in before D/C Order can be placed): Home, Self Care Charges/Coding Visit Charges Inpatient E&M: 71042 Disch Hosp >30min
--- NOTE | 2023-06-19 16:05 | PHA.DC.MR.R ---
Pharmacy [place] Med Reconciliation Pharmacy Service has performed discharge medication reconciliation for this patient. The patient's discharge medication list was reviewed for discrepancies and discrepancies were resolved. Medications at Discharge Home Medications cyanocobalamin (vitamin B-12) 1,000 mcg tablet 1,000 mcg PO DAILY SUPPLEMENT 02/08/19 levothyroxine 75 mcg tablet 75 mcg PO QHS THYROID 02/08/19 paroxetine HCl 40 mg tablet 40 mg PO DAILY DEPRESSION 02/08/19 atorvastatin 80 mg tablet 80 mg PO QHS CHOLESTEROL 02/26/20 lysine 500 mg tablet 500 mg PO DAILY SUPPLEMENT 02/26/20 hydrochlorothiazide 12.5 mg tablet 6.25 mg (1/2 x 12.5 mg) PO DAILY FLUID #30 tabs 04/05/22 aspirin 81 mg tablet,delayed release (Adult Low Dose Aspirin) 81 mg PO DAILY HEART HEALTH 12/16/22 metoprolol tartrate 25 mg tablet 25 mg PO BID BLOOD PRESSURE 06/15/23 apixaban 5 mg tablet (Eliquis) 5 mg PO BID #60 tabs 06/19/23
== END 2023-06-19 17:48 | disposition home or self-care (01) ==
LOC: ED 16:08 → PCU 18:01
PROVIDERS: Hospitalist; Admitting Provider Family Medicine; Emergency Provider Emergency Medicine; PCP Internal Medicine Infectious Disease; Visit Provider Family Medicine
DX: I63.9 Cerebral infarction, unspecified (principal); I48.0 Paroxysmal atrial fibrillation; N18.30 Chronic kidney disease, stage 3 unspecified; Z79.82 Long term (current) use of aspirin; F41.8 Other specified anxiety disorders; R47.01 Aphasia; Z86.16 Personal history of COVID-19; E78.5 Hyperlipidemia, unspecified; D64.9 Anemia, unspecified; R53.81 Other malaise; R47.1 Dysarthria and anarthria; F17.210 Nicotine dependence, cigarettes, uncomplicated; I12.9 Hypertensive chronic kidney disease with stage 1 through stage 4 chronic kidney disease, or unspecified chronic kidney disease; Z79.899 Other long term (current) drug therapy; Z79.890 Hormone replacement therapy; E03.9 Hypothyroidism, unspecified
CPT/HCPCS: 36415; 70496; 70498; 70551; 71045; 80048; 80053; 80061; 80307; 83036; 83735; 84443; 84484; 85025; 85610; 85730; 92507; 92523; 93005; 94668; 94762; 96361; 96374; 96375; 96376; 97110; 97116; 97162; 97166; 97530; 97535; 97802; 99221; 99285; J7030; Q9967; A4216; G0378; J2405

== ENCOUNTER → 2023-07-10 | Outpatient (CLI) | payer MEDICARE, OTHER, SELFPAY | END | disposition home or self-care (01) | LOC: PSN 12:22 | PROVIDERS: PCP Internal Medicine Infectious Disease; Referring Provider Nurse Practitioner Gerontology; Visit Provider Nurse Practitioner Gerontology | DX: I48.91 Unspecified atrial fibrillation (principal) | CPT/HCPCS: 93225; 93226 ==

== ENCOUNTER 2024-03-07 16:09 | Inpatient (IN) | payer MEDICARE, OTHER, SELFPAY ==
[2024-03-07] VITALS (9 sets, daily range): BP systolic 79–155; BP diastolic 46–98; PULSE 49–128; RESP 16–25; TEMP 35.8–37.2; O2SAT 98–100; BMI 24.9; BMI 23.5
--- NOTE | 2024-03-07 16:37 | EKG12_ITS ---
Test Reason : Blood Pressure : / mmHG Vent. Rate : 131 BPM Atrial Rate : 000 BPM P-R Int : 000 ms QRS Dur : 084 ms QT Int : 344 ms P-R-T Axes : 000 048 093 degrees QTc Int : 507 ms Atrial fibrillation with rapid ventricular response Nonspecific ST and T wave abnormality Abnormal ECG Confirmed by AZRA LONDONO, BRANDON ([id number]), editor publications ANDRE ANSARI ([id number]) on 03/11/2024 8:45:01 AM Referred By: Confirmed By:RAMONA OQUENDO MD
--- NOTE | 2024-03-07 17:05 | RAD_ITS ---
STUDY: X-RAY CHEST REASON FOR EXAM: Female, 83 years old. weakness TECHNIQUE: Single frontal view of the chest. COMPARISON: Chest x-ray June 15, 2023 FINDINGS: Lungs are hyperaerated. The lungs are clear and expanded. There is no demonstrated pleural abnormality. Normal size heart. Normal mediastinum and marcus. Normal visualized pulmonary arteries. Normal visualized aortic arch and descending thoracic aorta. Normal visualized thoracic spine. Normal visualized ribs, clavicles, and shoulders. There is no demonstrated abnormality of the visualized soft tissue structures of the upper abdomen. RAD/Chest 1 View (Portable) IMPRESSION: COPD Electronically Signed: Israel Suresh MD at 18:37 EDT ,
--- NOTE | 2024-03-07 17:08 | CT_ITS ---
STUDY: CT ABDOMEN AND PELVIS WITHOUT CONTRAST REASON FOR EXAM: Female, 83 years old. vomiting RADIATION DOSAGE (If Supplied By Facility): CTDIvol = ( 7.40 ) mGy, DLP = ( 337.47 ) mGycm TECHNIQUE: Transaxial images were obtained from the dome of the diaphragm to the symphysis pubis without oral contrast, and without intravenous contrast. Sagittal and coronal images were reconstructed. Individualized dose optimization techniques were used for this CT. The protocol utilizes one or more of the following dose reduction techniques: automated exposure control, adjustment of mA and/or kV according to patient size,and/or use of iterative reconstruction technique. COMPARISON: None. FINDINGS: The visualized lung bases are unremarkable. The visualized portions of the heart are within normal limits. Normal liver. Gallbladder surgically absent. Splenic calcifications. Normal pancreas. 17 mm hypodense nodule left adrenal. Right adrenal normal. Normal right kidney. Normal left kidney. Moderate hiatal hernia. Normal small intestine. Normal colon. Appendix is not identified. Calcified plaque along the aorta and its branches. Normal inferior vena cava. Normal retroperitoneum. Normal urinary bladder. Right total hip arthroplasty. Normal abdominal wall. Normal osseous structures. CT/Abdomen/Pelvis without Cont IMPRESSION: No acute disease. Left adrenal adenoma. Moderate hiatal hernia. Electronically Signed: Israel Suresh MD at 19:12 EDT ,
--- NOTE | 2024-03-07 17:18 | EX.ED.DYSGE1 ---
HPI History of Present Illness Chief Complaint: Weakness Informant: patient Narrative Narrative: Patient is an 83-year-old female with history of atrial fibrillation, prior stroke, chronic shortness of breath and hypertension presenting with lightheadedness and low blood pressure. Patient states her son had her check her blood pressure today because she was not feeling good. Her blood pressure was in the 70s systolic. She states was just feeling really weak and could not move. She notes over the past weeks has been having nightly episodes of vomiting. She states she has been having overall regular bowel movements and not had bowel movement today. She took her morning medications. Denies any recent medication changes. Notes that she has chronic lightheadedness since her prior stroke. She states she feels chronically short of breath with no change in this. Denies any chest pain, new numbness or weakness. Did receive a liter of fluid and route via EMS and states that she is now feeling better. Denies any dysuria but notes that she does have a funny feeling with urination. No other complaints or concerns reported at this time [facility] Medical History Anxiety Depression Smoker Hypertension Migraines Vitamin D deficiency Subcapital fracture of femur Tobacco dependence due to cigarettes History of CVA (cerebrovascular accident) (08/2019) Anemia Cephalgia Hypothyroidism Anxiety and depression Essential hypertension Paroxysmal atrial fibrillation Hypothyroidism Depression with anxiety Hyperlipidemia Home Medications ?Medication ?Instructions ?Recorded ?Last Taken ?Type cyanocobalamin (vitamin B-12) 1,000 mcg PO DAILY SUPPLEMENT 02/08/19 06/14/23 History 1,000 mcg tablet levothyroxine 75 mcg tablet 75 mcg PO QHS THYROID 02/08/19 06/14/23 History paroxetine HCl 40 mg tablet 40 mg PO DAILY DEPRESSION 02/08/19 06/14/23 History atorvastatin 80 mg tablet 80 mg PO QHS CHOLESTEROL 02/26/20 06/14/23 History lysine 500 mg tablet 500 mg PO DAILY SUPPLEMENT 02/26/20 06/14/23 History hydrochlorothiazide 12.5 mg tablet 6.25 mg (1/2 x 12.5 mg) PO DAILY 04/05/22 06/14/23 Rx FLUID #30 tabs aspirin 81 mg tablet,delayed 81 mg PO DAILY HEART HEALTH 12/16/22 06/14/23 History release (Adult Low Dose Aspirin) metoprolol tartrate 25 mg tablet 12.5 mg PO BID BLOOD PRESSURE 06/29/23 Unknown History apixaban 5 mg tablet (Eliquis) 5 mg PO BID #180 tabs 07/25/23 Unknown Rx doxepin 50 mg capsule 50 mg PO QHS Depression 03/07/24 Unknown History Allergy/AdvReac Type Severity Reaction Status Date / Time isopropyl alcohol Allergy Rash Verified 03/07/24 16:09 Egg Derived AdvReac Severe Swelling Verified 03/07/24 16:09 NSAIDS (Non-Steroidal AdvReac instant Verified 03/07/24 16:09 Anti-Inflamma headache Family History Father Hypertension Mother Hypertension CAD (coronary artery disease) [place] Brother Heart disease Sister Heart disease Surgical History History of appendectomy History of right hip hemiarthroplasty History of hysterectomy History of cholecystectomy History of thyroidectomy Social History household members: none Smoking Status: Current every day smoker tobacco type: cigarettes alcohol intake: current alcohol intake frequency: a few times a month Alcohol type: beer substance use type: marijuana caffeine: Yes Type: coffee Number of servings: 1 ROS ROS ED Constitutional Constitutional ED: Denies chills or fever(s) Eyes Eyes: Denies change in vision Cardiovascular Cardiovascular: Denies chest pain or palpitations Respiratory/Chest Respiratory/Chest: Reports dyspnea; Denies cough Gastrointestinal Gastrointestinal: Reports vomiting; Denies abdominal pain, constipation, diarrhea, melena or nausea Genitourinary Genitourinary ED: Reports dysuria; Denies hematuria Musculoskeletal Musculoskeletal: Denies arthralgias or myalgias Integumentary Denies rash Neurologic Neurologic: Reports weakness; Denies headache(s) Psychiatric Psychiatric: Denies anxiety Hematologic/Lymphatic Hematologic/Lymphatic: Reports easy bleeding and other Details: on Eliquis EXAM Physical Exam Const Vital Signs: 03/07/24 16:09 03/07/24 16:09 03/07/24 17:09 Temperature 98.9 F Temperature Source Oral Pulse Rate 128 H 110 H Respiratory Rate 18 18 Respiratory Effort Normal Non-Labored Respiratory Pattern Normal Blood Pressure 116/83 H 148/93 H Blood Pressure Mean 94 111 Pulse Ox 100 98 Oxygen Delivery Method Room Air Room Air Oxygen Flow Rate (L/min) 03/07/24 18:00 03/07/24 19:00 Temperature Temperature Source Pulse Rate 110 H 123 H Respiratory Rate 23 H 25 H Respiratory Effort Respiratory Pattern Blood Pressure 132/98 H 155/85 H Blood Pressure Mean 109 108 Pulse Ox 100 100 Oxygen Delivery Method Room Air Nasal Cannula Oxygen Flow Rate (L/min) 2 Positive well nourished and well developed General Appearance ED: well developed and NAD HEENT Reports dry mucous membranes Mouth ED: Yes dry mucous membranes Mouth: dry mucous membranes Eyes PERRL and EOMs intact bilaterally Neck supple and no JVD Chest Wall inspection of chest normal Resp normal respiratory effort and clear to auscultation bilaterally Cardio Rate: tachycardic Rhythm: abnormal rhythm irregularly irregular GI normal to inspection, nondistended, normoactive bowel sounds and non-tender GI Narrative: Brown stool is guaiac negative on rectal exam Auscultation: normoactive bowel sounds Palpation: soft; Negative for tender or guarding Extremity normal to inspection General Extremety ED: Negative for edema General Extremity: Negative for edema Neuro oriented x3 and no sensory deficits noted Sensorium / Orientation: alert Motor Exam: strength 5/5 throughout and general weakness Psych mental status grossly normal Skin no rashes or lesions noted and no wounds MDM MDM MDM Narrative Medical decision making narrative: Patient is evaluated for generalized weakness and low blood pressure at home. Initially patient is tachycardic upon arrival but appears to be in atrial fibrillation with RVR. Blood pressure is normal.slightly elevated but she received a liter of fluid en route via EMS and that seems to have helped with her low blood pressure. Patient overall is mentating well and is well-appearing. Lab work is obtained looking for further abnormalities that could cause hypotension and weakness in an 83-year-old female. She is found to be significantly anemic with a hemoglobin of 6.8. This appears to be new to some degree as her hemoglobin in May 2023 was 10.9. Patient is on Eliquis. She denies any bleeding. She also reports has been having nightly vomiting so I did obtain a CT of the abdomen and pelvis. This was negative for any acute processes that show a hiatal hernia. I question of that because no vomiting. Patient's heart rate did improve in the ER with fluids but she continues to mildly tachycardic. Is given 1 dose of IV metoprolol (5 mg) and then 12.5 mg of oral metoprolol for further rate control. Discussed recommendation for blood transfusion given previous hypotension and this acute anemia. Patient is agreeable. 1 unit of blood is ordered. Patient be admitted for further evaluation of this anemia and monitoring of her blood pressure. Case discussed with admitting physician, Dr. Novak. Patient does not have any findings on exam consistent with infection or symptoms localizing to infection and I do not think requires a lactate a workup for sepsis at this time. Lab Data Attestation: I reviewed the patient's lab results. Labs: Laboratory Results - last 24 hr 03/07/24 03/07/24 03/07/24 16:15 17:03 18:08 WBC 11.7 H RBC 3.02 L Hgb 6.8 L Hct 23.5 L MCV 77.8 L MCH 22.5 L MCHC 28.9 L RDW Std Deviation 44.7 H RDW Coeff of Patrick 15.9 H Plt Count 615 H MPV 9.1 Immature Gran % (Auto) 0.500 Neut % (Auto) 79.2 H Lymph % (Auto) 13.6 L Armstrong % (Auto) 5.2 Eos % (Auto) 1.2 Baso % (Auto) 0.3 Absolute Neuts (auto) 9.3 H Absolute Lymphs (auto) 1.60 Nucleated RBC % 0 Sodium 136 Potassium 3.7 Chloride 100 Carbon Dioxide 27.0 Anion Gap 9 BUN 23 H Creatinine 1.31 H Estim Creat Clear Calc 30.27 Est GFR (MDRD) Af Amer 50 L Est GFR (MDRD) Non-Af 41 L BUN/Creatinine Ratio 17.6 Glucose 101 Lactic Acid 1.3 Calcium 8.3 L Iron 11 L TIBC 383 Iron Saturation 2.9 L Ferritin 17 Total Bilirubin 0.50 AST 21 ALT 14 Alkaline Phosphatase 116 Troponin I High Sens 10 Total Protein 7.5 Albumin 3.0 L Globulin 4.5 H Albumin/Globulin Ratio 0.7 L Lipase 50 Blood Type Cancelled Antibody Screen Cancelled Crossmatch See Detail 03/07/24 18:34 WBC RBC Hgb Hct MCV MCH MCHC RDW Std Deviation RDW Coeff of Patrick Plt Count MPV Immature Gran % (Auto) Neut % (Auto) Lymph % (Auto) Armstrong % (Auto) Eos % (Auto) Baso % (Auto) Absolute Neuts (auto) Absolute Lymphs (auto) Nucleated RBC % Sodium Potassium Chloride Carbon Dioxide Anion Gap BUN Creatinine Estim Creat Clear Calc Est GFR (MDRD) Af Amer Est GFR (MDRD) Non-Af BUN/Creatinine Ratio Glucose Lactic Acid Calcium Iron TIBC Iron Saturation Ferritin Total Bilirubin AST ALT Alkaline Phosphatase Troponin I High Sens Total Protein Albumin Globulin Albumin/Globulin Ratio Lipase Blood Type O POSITIVE Antibody Screen NEGATIVE Crossmatch See Detail Radiography Chest X-Ray - ED: 1 View, Read by ED Physician, Read by Radiologist, No Acute Disease and Chronic Changes Diagnostic Testing: Clinical Impression(s) from Imaging Studies Chest X-Ray 03/07/24 17:05 IMPRESSION: COPD Electronically Signed: Israel Suresh MD at 18:37 EDT Reading Location ID and State: [address] [place] [address] Tel , Service support , Abdomen/Pelvis CT 03/07/24 17:08 IMPRESSION: No acute disease. Left adrenal adenoma. Moderate hiatal hernia. Electronically Signed: Israel Suresh MD at 19:12 EDT Reading Location ID and State: [place] / [place] Tel , Service support , Rhythm Strip Rhythm Strip: A-fib Rate: 131 Ectopy: None EKG Initial EKG: Attestation: I personally reviewed and interpreted this EKG as follows: Interpretation: Atrial Fibrillation Comments: Atrial fibrillation with rapid ventricular response at a rate of 131 bpm Normal axis Normal QRS and QTc Nonspecific T wave changes Compared to prior EKG on 02/09/2024, patient no longer has a left axis deviation with no other significant changes Management Discussion w/another healthcare provider: Hospitalist Discharge Plan Dx/Rx/DC Orders Clinical Impression: Acute anemia, Atrial fibrillation Disposition Disposition: [facility] ([facility] Care [facility] Discharge Date/Time: 03/07/24 19:58
[2024-03-07 17:19] LABS: Absolute Neutrophil Count 9.3 X10^3/uL (2.0-7.7); Basophil# 0.03 X10^3/uL; Basophil% 0.3 % (0-1); Eosinophil# 0.14 X10^3/uL; Eosinophils% 1.2 % (0-5); Hematocrit 23.5 % (37-47); Hemoglobin 6.8 g/dL (12.0-15.0); Lymphocyte % 13.6 % (19-41); Mean Corp Hgb Conc 28.9 g/dL (32-36); Mean Corpuscular Hgb 22.5 pg (27.0-32.0); Mean Corpuscular Volume 77.8 fL (81-99); Mean Platelet Vol. 9.1 fl (6.2-12.0); Monocyte# 0.61 X10^3/uL; Monocyte% 5.2 % (0-10); NRBC Flagged by Analyzer 0 % (0-5); Neutrophil % 79.2 % (47-70); Platelet Count 615 K/mm3 (150-450); RBC Distribution Width CV 15.9 % (11.6-14.6); RBC Distribution Width SD 44.7 fl (35.1-43.9); Red Blood Count 3.02 M/mm3 (4.2-5.4); White Blood Count 11.7 K/mm3 (4.4-11.0)
[2024-03-07 17:36] LABS: ALB/GLOB Ratio 0.7 RATIO (0.9-2.4); AST(SGOT) 21 U/L (15-37); Alanine Aminotransfer ALT/SGPT 14 U/L (13-56); Alkaline Phosphatase 116 U/L (45-117); Anion Gap 9 (5-15); BUN 23 mg/dL (7-18); BUN/Creat Ratio 17.6 RATIO (10-20); Calcium,Total 8.3 mg/dL (8.5-10.1); Chloride 100 mmol/L (98-107); Creatinine, Serum 1.31 mg/dL (0.55-1.02); EST Glomerular Filtration Rate 41 mL/min (>60); Est Glom Filt Rate - Afr Amer 50 mL/min (>60); Estimated Creatinine Clearance 30.27 ml/min; Globulin 4.5 g/dL (2.2-4.2); Glucose 101 mg/dL (74-106); Lipase 50 U/L (13-75); Potassium 3.7 mmol/L (3.5-5.1); Protein, Total 7.5 g/dL (6.4-8.2); Sodium Level 136 mmol/L (136-145); Troponin-I HS 10 pg/mL (3.0-54.0)
[2024-03-07 17:39] LABS: Lactic Acid 1.3 mmol/L (0.4-1.9)
--- NOTE | 2024-03-07 18:20 | NURSING ---
TYPE AND SCREEN NEEDS REDRAWN, NAME MISSPELLED
[2024-03-07] MEDS: 0.9% Normal Saline (1000mL) 1,000 ML 150 ML IV (18:31)
--- NOTE | 2024-03-07 19:16 | HP.PCM.HOS_ITS ---
HPI - General General Date of Admission: 03/07/24 Date of Service: 03/07/24 Chief Complaint: Lightheaded, dizziness, N/V HPI Narrative The patient is an 83 y/o F w/ PMHx: Anxiety and Depression, Tobacco use, HTN, HLD, Chronic migraines, Hx CVA, Chronic anemia, Hypothyroidism, PAF, CKD stage III unclear subtype, Chronic cannabis usage who presents to the [facility] ED on 03/07/24 with onset of lightheadedness, dizziness and low blood pressures with reportedly systolic in the 70s upon home checked by her son with increased weakness and fatigue as well as occasional nausea and emesis at night with reportedly normal bowel movements however no bowel movement on day of presentation with no recent medication changes with chronic unchanged dyspnea with no chest discomfort or any new neurological changes prompting EMS call. Patient does report feeling improved following EMS ministration of 1 L. She denies any dark black stools or BRBPR. Patient does report abnormal sensation when she has recently been urinating otherwise no complaints. Workup in the ED included T98.9, heart rate 128, BP 116/83, respiratory rate 18, 100% on room air, CBC with WBC 11.7, hemoglobin 6.8, MCV 77.8, platelets 615 with left shift, CMP with BUN/current 23/1.31, GFR 41, calcium 8.3, hepatic profile not marked appearing, lipase 50, lactic acid 1.3, type and cross initiated per ED physician for 1 u PRBC, chest x-ray with chronic COPD type changes, stool guaiac pending upon evaluation, CT abdomen and pelvis penidng upon evaluation, EKG with atrial fibrillation with RVR with rate 131 initially with nonspecific T wave changes with no acute evidence of ischemia. In the ED patient administered 1 L normal saline in addition to continue maintenance IV fluids at 150 cc/h. Given tachycardia with improved BP in the ED patient also being administered lopressor IV low dose and also her home metoprolol 12.5 mg orally as she has not taken this today. [facility] Medical History Anxiety Depression Smoker Hypertension Migraines Vitamin D deficiency Subcapital fracture of femur Tobacco dependence due to cigarettes History of CVA (cerebrovascular accident) (08/2019) Anemia Cephalgia Hypothyroidism Anxiety and depression Essential hypertension Paroxysmal atrial fibrillation Hypothyroidism Depression with anxiety Hyperlipidemia Home Medications ?Medication ?Instructions ?Recorded ?Last Taken ?Type cyanocobalamin (vitamin B-12) 1,000 mcg PO DAILY SUPPLEMENT 02/08/19 06/14/23 History 1,000 mcg tablet levothyroxine 75 mcg tablet 75 mcg PO QHS THYROID 02/08/19 06/14/23 History paroxetine HCl 40 mg tablet 40 mg PO DAILY DEPRESSION 02/08/19 06/14/23 History atorvastatin 80 mg tablet 80 mg PO QHS CHOLESTEROL 02/26/20 06/14/23 History lysine 500 mg tablet 500 mg PO DAILY SUPPLEMENT 02/26/20 06/14/23 History hydrochlorothiazide 12.5 mg tablet 6.25 mg (1/2 x 12.5 mg) PO DAILY 04/05/22 06/14/23 Rx FLUID #30 tabs aspirin 81 mg tablet,delayed 81 mg PO DAILY HEART HEALTH 12/16/22 06/14/23 History release (Adult Low Dose Aspirin) metoprolol tartrate 25 mg tablet 12.5 mg PO BID BLOOD PRESSURE 06/29/23 Unknown History apixaban 5 mg tablet (Eliquis) 5 mg PO BID #180 tabs 07/25/23 Unknown Rx doxepin 50 mg capsule 50 mg PO QHS 03/07/24 Unknown History Allergy/AdvReac Type Severity Reaction Status Date / Time isopropyl alcohol Allergy Rash Verified 03/07/24 16:09 Egg Derived AdvReac Severe Swelling Verified 03/07/24 16:09 NSAIDS (Non-Steroidal AdvReac instant Verified 03/07/24 16:09 Anti-Inflamma headache Family History Father Hypertension Mother Hypertension CAD (coronary artery disease) [place] Brother Heart disease Sister Heart disease Surgical History History of appendectomy History of right hip hemiarthroplasty History of hysterectomy History of cholecystectomy History of thyroidectomy Social History household members: none Smoking Status: Current every day smoker tobacco type: cigarettes alcohol intake: current alcohol intake frequency: a few times a month Alcohol type: beer substance use type: marijuana caffeine: Yes Type: coffee Number of servings: 1 ROS ROS Narrative Admission Review of Systems: CONSTITUTIONAL: No weight loss, fever, chills, + weakness or fatigue. HEENT: + Lightheadedness, dizziness. Eyes: No visual loss, blurred vision, double vision or yellow sclerae. Ears, Nose, Throat: No hearing loss, sneezing, congestion, runny nose or sore throat. SKIN: No rash or itching, lesions, wounds. CARDIOVASCULAR: + Lightheadedness, dizziness. No chest pain, chest pressure or chest discomfort, palpitations, edema, orthopnea, syncopal events. RESPIRATORY: + Shortness of breath. No cough or sputum, wheezing, hemoptysis. GASTROINTESTINAL: + Occasional nausea, emesis, primarily evening. No anorexia, diarrhea, abdominal pain, melena, BRBPR. GENITOURINARY: No dysuria, frequency, urgency or retention. NEUROLOGICAL: + Lightheadedness, dizziness, mild dysarthria but could be lack of dentures/teeth but has prior CVA history and noted during prior admission, Chronic migraines. No headache, syncope, paralysis, ataxia, numbness or tingling in the extremities, focal weakness, change in bowel or bladder control, seizure. MUSCULOSKELETAL: + Muscle, back pain, joint pain or stiffness. HEMATOLOGIC: + Anemia, easy bleeding/bruising. LYMPHATICS: No enlarged nodes. No history of splenectomy. PSYCHIATRIC: + History of depression or anxiety/history of panic attacks. ENDOCRINOLOGIC: No reports of sweating, cold or heat intolerance. No polyuria or polydipsia. ALLERGIES: No history of asthma, hives, eczema or rhinitis. Vital Signs Vital Signs Vital Signs: 03/07/24 16:09 03/07/24 16:09 03/07/24 17:09 Temperature 98.9 F Temperature Source Oral Pulse Rate 128 H 110 H Respiratory Rate 18 18 Respiratory Effort Normal Non-Labored Respiratory Pattern Normal Blood Pressure 116/83 H 148/93 H Blood Pressure Mean 94 111 Pulse Ox 100 98 Oxygen Delivery Method Room Air Room Air Oxygen Flow Rate (L/min) 03/07/24 18:00 03/07/24 19:00 Temperature Temperature Source Pulse Rate 110 H 123 H Respiratory Rate 23 H 25 H Respiratory Effort Respiratory Pattern Blood Pressure 132/98 H 155/85 H Blood Pressure Mean 109 108 Pulse Ox 100 100 Oxygen Delivery Method Room Air Nasal Cannula Oxygen Flow Rate (L/min) 2 Weight Weight: 149 lb 11.102 oz Body Mass Index (BMI) 24.9 Physical Exam Narrative Physical Examination: General: Awake, alert, oriented x 3, cooperative, seated upright in the ED bed, no acute distress, mild dysarthria but could be lack of dentures/teeth but has prior CVA history and noted during prior admission from review. Skin: Normal color, normal turgor, no icterus, no cyanosis except occasional staged ecchymoses, abrasion. HEENT: AT/NC, EOMI, PERRLA, mildly dry MM, no carotid bruits or JVD noted. Lungs: Diminished, > bases, proper effort, no rales, ronchi or wheezing. Heart: Tachycardic, irregular; no gallop, rub audible. Abdomen: Soft, NTTP, ND, mildly hyperactive BS, no HSM. Extremities: No cyanosis, clubbing, or edema. Neurological: Patient awake, alert, oriented as noted, cognitive function appears baseline intact; pupils equally reactive to light and accommodation, cranial nerves grossly normal, moving all 4 extremities, no new focal deficits, strength moderately to severely globally decreased athough she notes feeling improved after IVFs, mild dysarthria but could be lack of dentures/teeth but has prior CVA history. Psychiatric: Affect appears fatigued otherwise normal, no acute evidence of depressive or anxiety feelings but does have underlying history. Results Lab / Micro Data 03/07/24 17:03 03/07/24 17:03 Labs: Laboratory Results - last 24 hr 03/07/24 17:03: WBC 11.7 H, RBC 3.02 L, Hgb 6.8 L, Hct 23.5 L, MCV 77.8 L, MCH 22.5 L, MCHC 28.9 L, RDW Std Deviation 44.7 H, RDW Coeff of Patrick 15.9 H, Plt Count 615 H, MPV 9.1, Immature Gran % (Auto) 0.500, Neut % (Auto) 79.2 H, Lymph % (Auto) 13.6 L, [place] % (Auto) 5.2, Eos % (Auto) 1.2, Baso % (Auto) 0.3, A bsolute Neuts (auto) 9.3 H, Absolute Lymphs (auto) 1.60, Nucleated RBC % 0, Sodium 136, Potassium 3.7, Chloride 100, Carbon Dioxide 27.0, Anion Gap 9, BUN 23 H, Creatinine 1.31 H, Estim Creat Clear Calc 30.27, Est GFR (MDRD) Af Amer 50 L, Est GFR (MDRD) Non-Af 41 L, BUN/Creatinine Ratio 17.6, Glucose 101, Lactic Acid 1.3, Calcium 8.3 L, Total Bilirubin 0.50, AST 21, ALT 14, Alkaline Phosphatase 116, Troponin I High Sens 10, Total Protein 7.5, Albumin 3.0 L, G lobulin 4.5 H, Albumin/Globulin Ratio 0.7 L, Lipase 50 03/07/24 18:08: Blood Type Cancelled, Antibody Screen Cancelled, Crossmatch See Detail 03/07/24 18:34: Crossmatch See Detail Rhythm Strip Rhythm Strip: A-fib Rate: 131 Ectopy: None Imaging Radiology Impression Chest X-Ray 03/07/24 17:05 IMPRESSION: COPD Electronically Signed: Israel Suresh MD at 18:37 EDT Reading Location ID and State: [address] [place] [address] Tel , Service support , Abdomen/Pelvis CT 03/07/24 17:08 IMPRESSION: No acute disease. Left adrenal adenoma. Moderate hiatal hernia. Electronically Signed: Israel Suresh MD at 19:12 EDT , Assessment & Plan Assessment/Plan (1) Acute anemia: PLAN: Plan The patient is an 83 y/o F w/ PMHx: Anxiety and Depression, Tobacco use, HTN, HLD, Chronic migraines, Hx CVA, Chronic anemia, Hypothyroidism, PAF, CKD stage III unclear subtype who presents to the [facility] ED on 03/07/24 with onset of lightheadedness, dizziness and low blood pressures with reportedly systolic in the 70s upon home checked by her son with increased weakness and fatigue as well as occasional nausea and emesis at night with reportedly normal bowel movements however no bowel movement on day of presentation with no recent medication changes with chronic unchanged dyspnea with no chest discomfort or any new neurological changes prompting EMS call. #1. Acute on chronic anemia, currently microcytic appearing, previous history of normocytic anemia, unclear exact etiology w/ Hypotension, Lightheadedness, Dizziness suspected secondary: Initial hemoglobin 6.8, MCV 77.8, primarily 9-11, will admit to PCU, will obtain Fe panel, ferritin prior to ED initiation of PRBC, continue planned PRBC following, cycle H+H, maintain on clears given N/V complaint, maintain on IVFs, hold eliquis until ascertain etiology for anemia, maintain on IV PPI, guiac pending, pending CT A/P and once results will decide on best course of intervention/evaluation. If guiac positive or evidence GI bleed would plan to involve GI however current no obvious sign of bleeding as etiology. #2. Hx CVA History: Holding Eliquis regimen given #1, will continue hypertensive regimen as BP allows with hold on hydrochlorothiazide as noted given initial low BP upon presentation per EMS, no diabetic history, continue statin therapy. #3. PAF: Will continue patient home metoprolol regimen with hold problems as needed given #1 while closely monitoring BP, holding Eliquis regimen. #4. Chronic Kidney Disease Stage III unclear subtype per GFR trending: Admission BUN/Cr 22/1.31, GFR 41, baseline renal function primarily 0.9-1.3, has transiently been up, repeat BMP in AM. #5. Hypothyroidism: Will continue patient home levothyroxine regimen. #6. Hypertension: Will continue patient's home metoprolol temporally holding hydrochlorothiazide given initial low BP upon presentation per EMS, however low threshold to hold given presentation, as needed IV hydralazine. #7. Hyperlipidemia: Continue home statin regimen. #8. Anxiety and depression/Panic attacks: Will continue patient's home paroxetine home regimen. #9. Chronic cannabis usage: Given advanced age and fall risk would certainly recommend avoidance. UDS requested as if patient is having N/V episodes could be related. #10. Tobacco Abuse: Encouraged cessation, inpatient consultation per RT, NR if desired. #11. CT evidence Hiatal Hernia possible etiology for N/V in addition to #1: Will as noted maintain on IV PPI at this time until assure N/V improving during evaluation. As noted also UDS requested as uses cannabis chronically. #12. DVT prophylaxis: Given presentation holding patient apixaban regimen. #13. CODE status: Patient does not have healthcare power geropsychologist or living will in place but notes that if she needed decisions made she would want Joellen who is like her son to be her decision-maker if it was necessary. Discussed CODE status at length including difference between FULL code, DNR-CCA and DNR-CC status. Following discussions about the differences in these status, requested DNR-CCA, no intubation status. Advanced Care Planning Face to Face Time: 16 minutes. Charges/Coding Visit Charges Inpatient E&M: 57940 Init Hosp L3 Procedures Hospitalists Procedures: 39752 Advncd Care Plan 30 Min
[2024-03-07] MEDS: Metoprolol Tartrate 25 MG Tablet 12.5 MG PO ×2 (19:27→21:07)
[2024-03-07] MEDS: Metoprolol Tartrate 5 MG/5 ML Vial IV (19:27)
[2024-03-07 19:46] LABS: Ferritin 17 ng/mL (8-252); Iron 11 ug/dL (50-170); Iron Binding Capacity,Total 383 ug/dL (250-450); PERCENT IRON SATURATION 2.9 % (15.0-55.0)
[2024-03-07] MEDS: Pantoprazole Sodium 40 MG in 0.9% Normal Saline (100mL MB+) 100 ML 330 MG IV (20:33)
[2024-03-07] MEDS: 0.9% Normal Saline (1000mL) 1,000 ML 100 ML IV (20:34)
[2024-03-07] MEDS: Atorvastatin Calcium 80 MG Tablet PO (21:07)
[2024-03-07] MEDS: Levothyroxine 75 MCG Tablet PO (21:07)
[2024-03-07] MEDS: Ensure Clear 120 ML Liquid PO (21:20)
[2024-03-07] MEDS: MELATONIN 3 MG TABLET PO (21:20)
[2024-03-07] MEDS: Ondansetron 4 MG/2 ML Vial IV (22:46)
[2024-03-07] MEDS: 0.9% Saline Lock 10 ML Syringe IV (22:47)
[2024-03-08] VITALS (13 sets, daily range): BP systolic 90–124; BP diastolic 44–68; PULSE 47–95; RESP 15–16; TEMP 35.8–36.8; O2SAT 97–100; BMI 25.9
[2024-03-08 03:43] LABS: Absolute Lymphocyte Count 1.29 X10^3/uL (0.83-4.51); Absolute Neutrophil Count 9.8 X10^3/uL (2.0-7.7); Basophil# 0.03 X10^3/uL; Basophil% 0.3 % (0-1); Eosinophils% 0.8 % (0-5); Hematocrit 24.1 % (37-47); Hemoglobin 7.2 g/dL (12.0-15.0); Lymphocyte # 1.29 X10^3/ul (0.83-4.51); Lymphocyte % 10.9 % (19-41); Mean Corp Hgb Conc 29.9 g/dL (32-36); Mean Corpuscular Hgb 24.6 pg (27.0-32.0); Mean Corpuscular Volume 82.3 fL (81-99); Mean Platelet Vol. 9.1 fl (6.2-12.0); Monocyte# 0.49 X10^3/uL; Monocyte% 4.2 % (0-10); NRBC Flagged by Analyzer 0 % (0-5); Neutrophil # 9.82 X10^3/uL (2.7-7.7); Neutrophil % 83.2 % (47-70); Platelet Count 493 K/mm3 (150-450); RBC Distribution Width CV 16.9 % (11.6-14.6); RBC Distribution Width SD 50.4 fl (35.1-43.9); Red Blood Count 2.93 M/mm3 (4.2-5.4); White Blood Count 11.8 K/mm3 (4.4-11.0)
[2024-03-08 03:59] LABS: ALB/GLOB Ratio 0.7 RATIO (0.9-2.4); AST(SGOT) 21 U/L (15-37); Alanine Aminotransfer ALT/SGPT 9 U/L (13-56); Albumin, Serum 2.7 g/dL (3.2-5.0); Alkaline Phosphatase 98 U/L (45-117); Anion Gap 5 (5-15); BUN 23 mg/dL (7-18); BUN/Creat Ratio 17.4 RATIO (10-20); Calcium,Total 7.8 mg/dL (8.5-10.1); Chloride 104 mmol/L (98-107); Creatinine, Serum 1.32 mg/dL (0.55-1.02); EST Glomerular Filtration Rate 41 mL/min (>60); Est Glom Filt Rate - Afr Amer 49 mL/min (>60); Estimated Creatinine Clearance 28.55 ml/min; Globulin 3.9 g/dL (2.2-4.2); Glucose 114 mg/dL (74-106); Potassium 3.8 mmol/L (3.5-5.1); Protein, Total 6.6 g/dL (6.4-8.2); Sodium Level 136 mmol/L (136-145)
[2024-03-08 04:30] LABS: Mucous, Urine 0 SEEN /hpf (<or=2+); Red Blood Cells-Urine 0 SEEN /hpf (0-5); Squamous Epithelial Cells - UA 0 SEEN /hpf (5-10)
[2024-03-08 04:33] LABS: Color, Urine Yellow (Yellow); Glucose, Dipstick Normal (Normal); Ketone-Dipstick Negative (Negative); Leukocyte Esterase-Dipstick 25 /ul (Negative); Nitrite-Dipstick Positive (Negative); Occult Blood-Urine Negative /ul (Negative); Protein-Dipstick Negative (Negative); Urine Bilirubin Dipstick Negative (Negative); Urine Clarity Clear (Clear); Urine Urobilinogen Normal (Normal)
[2024-03-08 05:10] LABS: Bacteria 1+ /hpf (None Seen); White Blood Cells 0-5 SEEN /hpf (0-5)
[2024-03-08 05:34] LABS: Amphetamine Urine VISTA NEGATIVE (<1000 ng/mL); Barbiturate Urine VISTA NEGATIVE (< 200 ng/mL); Benzodiazepine Urine VISTA NEGATIVE (< 200 ng/mL); Cocaine Urine VISTA NEGATIVE (< 300 ng/mL); Ecstacy Urine VISTA NEGATIVE (< 500 ng/mL); Methadone Urine VISTA NEGATIVE (< 300 ng/mL); PCP Urine VISTA NEGATIVE (< 25 ng/mL); THC Urine VISTA POSITIVE (< 50 ng/mL); Vista UDS pH Range 7
[2024-03-08 08:24] LABS: Hematocrit 26.9 % (37-47); Hemoglobin 8.3 g/dL (12.0-15.0)
[2024-03-08] MEDS: Pantoprazole Sodium 40 MG in 0.9% Normal Saline (100mL MB+) 100 ML 330 MG IV ×2 (08:36→21:43)
[2024-03-08] MEDS: Paroxetine 20 MG Tablet 40 MG PO (08:38)
[2024-03-08] MEDS: 0.9% Normal Saline (1000mL) 1,000 ML 75 ML IV (11:51)
--- NOTE | 2024-03-08 12:00 | CASEMGMT ---
Addendum entered by Trip Sarah 03/08/24 14:03: Strata: 2 Original Note: RN SIRI Assessment: RN CM to room to meet with patient for initial transition planning/care coordination assessment. LEON HORNER introduced self and role at [facility]. Patient lying in bed, alert and oriented. Patient willing to participate in assessment and is able to answer all questions appropriately. Care providers, pharmacy, and demographics verified. 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 Pt is an active pt w/them, but states does not know if she will be returning. Preferred Pharmacy: [facility] retail at discharge Insurance: TAY Diaz [facility] Prescription Benefit: yes HCPOA: FriendJoellen, is HCPOA and document is on file @ [facility]. LNOK: friendJoellen Living Arrangements: Patient lives with friendJoellen,in a 2 story home with bed and bath on first floor, 4 steps and railing to enter the home. Patient states she was independent at home w/ADL's and manages her own medications. Joellen does grocery shopping and all other home mgnt tasks. Transportation: friend Joellen DME: Patient has shower chair, raised toilet, cane, walker, W/C, pulse ox, BP machine, and grab bars at home. She does use the walker @ baseline. She states she has a medical alert but states, I can't find it. She denies wanting any further info on medical alerts and denies needing any further DME. HHC/SNF: Patient has been to [facility] in the past. No previous HHC. She has done OP therapy @ [facility] in [place]. Pt declines wanting and HHC or OP therapy @ [facility]. Pt made aware if she changes her mind later, to discuss this w/her PCP. She voices understanding. Patient states she smokes 1/2 PPD of cigarette and a few puffs of marijuana every night. She drinks ETOH every now and then and further clarified it is approx once/month. Pt wishes to return home and states has no concerns with going home at time of discharge. Advised pt to ask for CM?if any further questions/concerns/needs arise. Voices understanding. Plan: Home Ike BOJORQUEZ RN, CM
[2024-03-08 12:34] LABS: Hematocrit 26.8 % (37-47); Hemoglobin 8.4 g/dL (12.0-15.0)
--- NOTE | 2024-03-08 14:59 | PCM.PROGNOTE ---
Subjective Subjective Patient seen and examined. She says she felt much better today. She had no active complaints. Her lightheadedness and dizziness has resolved. She was found to be hypotensive with systolic in the 70s. She admits to decreased intake. She says she vomits every night. She however admits to smoking marijuana every night and states has been doing that for the past 72 years and has no intention of quitting. Review of symptoms otherwise negative. Hemoglobin yesterday was 6.8 and she was transfused 2 units of packed red blood cells. She is now up to 8.4. Objective Data Objective Data Vital Signs: Vital Signs Temp Pulse Resp BP Pulse Ox O2 Del Method O2 Flow Rate 98.2 F 53 L 16 111/61 98 Room Air 2 03/08/24 08:20 03/08/24 08:30 03/08/24 08:20 03/08/24 08:30 03/08/24 08:20 03/08/24 08:20 03/07/24 19:00 Oxygen Flow Rate (L/min) 2 Oxygen Delivery Method Room Air Weight: 155 lb 13.869 oz Body Mass Index (BMI) 25.9 Intake & Output: Intake and Output for Last 24 Hours 03/06/24 03/07/24 03/08/24 23:59 23:59 23:59 Intake Total 1133.33 / 1133.33 1520.33 / 1520.33 Output Total 150 / 150 Balance 983.33 / 983.33 1520.33 / 1520.33 Lab / Micro Data 03/08/24 12:10 03/08/24 03:28 Labs: Laboratory Results - last 24 hr 03/07/24 16:15: Iron 11 L, TIBC 383, Iron Saturation 2.9 L, Ferritin 17 03/07/24 17:03: WBC 11.7 H, RBC 3.02 L, Hgb 6.8 L, Hct 23.5 L, MCV 77.8 L, MCH 22.5 L, MCHC 28.9 L, RDW Std Deviation 44.7 H, RDW Coeff of Patrick 15.9 H, Plt Count 615 H, MPV 9.1, Immature Gran % (Auto) 0.500, Neut % (Auto) 79.2 H, Lymph % (Auto) 13.6 L, [place] % (Auto) 5.2, Eos % (Auto) 1.2, Baso % (Auto) 0.3, Absolute Neuts (auto) 9.3 H, Absolute Lymphs (auto) 1.60, Nucleated RBC % 0, Sodium 136, Potassium 3.7, Chloride 100, Carbon Dioxide 27.0, Anion Gap 9, BUN 23 H, Creatinine 1.31 H, Estim Creat Clear Calc 30.27, Est GFR (MDRD) Af Amer 50 L, Est GFR (MDRD) Non-Af 41 L, BUN/Creatinine Ratio 17.6, Glucose 101, Lactic Acid 1.3, Calcium 8.3 L, Total Bilirubin 0.50, AST 21, ALT 14, Alkaline Phosphatase 116, Troponin I High Sens 10, Total Protein 7.5, Albumin 3.0 L, Globulin 4.5 H, Albumin/Globulin Ratio 0.7 L, Lipase 50 03/07/24 18:08: Blood Type Cancelled, Antibody Screen Cancelled, Crossmatch See Detail 03/07/24 18:34: Blood Type O POSITIVE, Antibody Screen NEGATIVE, Crossmatch See Detail 03/07/24 18:34: Crossmatch See Detail 03/07/24 23:08: Urine Color Yellow, Urine Clarity Clear, Urine pH 7.0, Ur Specific [place] 1.010, Urine Protein Negative, Urine Glucose (UA) Normal, Urine Ketones Negative, Urine Occult Blood Negative, Urine Nitrite Positive H, Urine Bilirubin Negative, Urine Urobilinogen Normal, Ur Leukocyte Esterase 25 H, Urine RBC 0 SEEN, Urine WBC 0-5 SEEN, Ur Squamous Epith Cells 0 SEEN, Urine Bacteria 1+, Urine Mucus 0 SEEN, Urine Opiates Screen NEGATIVE, Urine Methadone Screen NEGATIVE, Ur Barbiturates Screen NEGATIVE, Ur Phencyclidine Scrn NEGATIVE, Ur Amphetamines Screen NEGATIVE, MDMA (Ecstasy) Screen NEGATIVE, U Benzodiazepines Scrn NEGATIVE, Urine Cocaine Screen NEGATIVE, U Cannabinoids Screen POSITIVE H, Ur Drug Screen Comment 03/08/24 03:28: WBC 11.8 H, RBC 2.93 L, Hgb 7.2 L, Hct 24.1 L, MCV 82.3 D, MCH 24.6 L, MCHC 29.9 L, RDW Std Deviation 50.4 H, RDW Coeff of Patrick 16.9 H, Plt Count 493 H, MPV 9.1, Immature Gran % (Auto) 0.600, Neut % (Auto) 83.2 H, Lymph % (Auto) 10.9 L, [place] % (Auto) 4.2, Eos % (Auto) 0.8, Baso % (Auto) 0.3, Absolute Neuts (auto) 9.8 H, Absolute Lymphs (auto) 1.29, Nucleated RBC % 0, Sodium 136, Potassium 3.8, Chloride 104, Carbon Dioxide 27.0, Anion Gap 5, BUN 23 H, Creatinine 1.32 H, Estim Creat Clear Calc 28.55, Est GFR (MDRD) Af Amer 49 L, Est GFR (MDRD) Non-Af 41 L, BUN/Creatinine Ratio 17.4, Glucose 114 H, Calcium 7.8 L, Total Bilirubin 1.00, AST 21, ALT 9 L, Alkaline Phosphatase 98, Total Protein 6.6, Albumin 2.7 L, Globulin 3.9, Albumin/Globulin Ratio 0.7 L 03/08/24 08:06: Hgb 8.3 L, Hct 26.9 L 03/08/24 12:10: Hgb 8.4 L, Hct 26.8 L Micro: Microbiology 03/07/24 18:53 Stool Stool Occult Blood (MYRA) - Final Radiography Diagnostic Testing: Radiology Impression Chest X-Ray 03/07/24 17:05 IMPRESSION: COPD Electronically Signed: Israel Suresh MD at 18:37 EDT Reading Location ID and State: [address] [place] [address] Tel , Service support , Abdomen/Pelvis CT 03/07/24 17:08 IMPRESSION: No acute disease. Left adrenal adenoma. Moderate hiatal hernia. Electronically Signed: Israel Suresh MD at 19:12 EDT Reading Location ID and State: [facility] / [place] Tel , Service support , Rhythm Strip Rhythm Strip: A-fib Rate: 131 Ectopy: None Physical Exam Const alert, oriented x3 and no apparent distress Constitutional Narrative: frail General Appearance: cooperative HEENT normocephalic, head/scalp atraumatic and moist oral mucous membranes Eyes PERRL and EOMs intact bilaterally Neck no lymphadenopathy and supple Lymph Lymphatic: no lymphadenopathy noted and no lymphedema noted Resp normal respiratory effort, normal air movement and clear to auscultation bilaterally Cardio regular rate, regular rhythm, S1 normal heart sound, S2 normal heart sound and no murmurs GI normal to inspection, nondistended, normoactive bowel sounds, soft to palpation, non-tender and non-distended Extremity normal capillary refill, no clubbing, cyanosis or edema and no calf tenderness General Extremity: no tenderness to palpation of joints or extremities Skin General Skin Exam: no breakdown Neuro CN's II-XII intact bilaterally, no focal motor deficits, no sensory deficits noted and deep tendon reflexes 2+ bilaterally Motor Exam: strength 5/5 throughout and general weakness Psych thought process normal, cooperative and affect normal Appearance: appropriate Assessment & Plan Assessment/Plan (1) Acute anemia: (2) Atrial fibrillation: PLAN: Plan #Acute on chronic anemia Hemoglobin was 6.8 on admission. He s/p transfusion of 2 units of packed red blood cells. She is on Eliquis since this was held. I will consult gastroenterology because will be difficult to resume the Eliquis without ruling out a GI bleed. Continue gentle hydration with IV fluids. Hemoglobin is up to 8.3 after transfusion. #Hypotension: Now resolved. Continue gentle hydration with IV fluid. #Paroxysmal A-fib: Metoprolol was held on admission due to hypotension. Now hypotension has resolved will resume metoprolol. Continue holding Eliquis due to anemia #Hypothyroidism: On Synthroid #History of CVA: Eliquis on hold. BP meds held due to hypotension. Will monitor. #Hyperlipidemia: On statin #Hypertension: Hydrochlorothiazide held due to hypotension. IV hydralazine as needed #Anxiety and depression: On paroxetine #Chronic cannabis use: Patient states she has been using cannabis since she was 11 years and has used it for the past 72 years. She therefore has no intention of quitting though she says she vomits every night. She refuses to believe that this could be due to the marijuana. DVT prophylaxis: SCDs. Eliquis on hold due to acute on chronic anemia. Charges/Coding Visit Charges Inpatient E&M: 15033 Subs Hosp L3
--- NOTE | 2024-03-08 19:10 | EX.PCM.CON.G ---
HPI Consult Data Date of Consult: 03/08/24 HPI Narrative Reason for Consultation: Anemia HPI Narrative: AMADO UNGER, is a 83-year-old female with history of atrial fibrillation, prior stroke, chronic shortness of breath and hypertension presenting with lightheadedness and low blood pressure. Patient states her son had her check her blood pressure today because she was not feeling good. Her blood pressure was in the 70s systolic. She states was just feeling really weak and could not move. She notes over the past weeks has been having nightly episodes of vomiting. She states she has been having overall regular bowel movements and not had bowel movement today. She took her morning medications. Denies any recent medication changes. Notes that she has chronic lightheadedness since her prior stroke. She states she feels chronically short of breath with no change in this. Denies any chest pain, new numbness or weakness. Did receive a liter of fluid and route via EMS and states that she is now feeling better. Denies any dysuria but notes that she does have a funny feeling with urination. No other complaints or concerns reported at this time PENDING SALE TO [facility] Medical History Anxiety Depression Smoker Hypertension Migraines Vitamin D deficiency Subcapital fracture of femur Tobacco dependence due to cigarettes History of CVA (cerebrovascular accident) (08/2019) Anemia Cephalgia Hypothyroidism Anxiety and depression Essential hypertension Paroxysmal atrial fibrillation Hypothyroidism Depression with anxiety Hyperlipidemia Home Medications ?Medication ?Instructions ?Recorded ?Last Taken ?Type cyanocobalamin (vitamin B-12) 1,000 mcg PO DAILY SUPPLEMENT 02/08/19 06/14/23 History 1,000 mcg tablet levothyroxine 75 mcg tablet 75 mcg PO QHS THYROID 02/08/19 06/14/23 History paroxetine HCl 40 mg tablet 40 mg PO DAILY DEPRESSION 02/08/19 06/14/23 History atorvastatin 80 mg tablet 80 mg PO QHS CHOLESTEROL 02/26/20 06/14/23 History lysine 500 mg tablet 500 mg PO DAILY SUPPLEMENT 02/26/20 06/14/23 History hydrochlorothiazide 12.5 mg tablet 6.25 mg (1/2 x 12.5 mg) PO DAILY 04/05/22 06/14/23 Rx FLUID #30 tabs aspirin 81 mg tablet,delayed 81 mg PO DAILY HEART HEALTH 12/16/22 06/14/23 History release (Adult Low Dose Aspirin) metoprolol tartrate 25 mg tablet 12.5 mg PO BID BLOOD PRESSURE 06/29/23 Unknown History apixaban 5 mg tablet (Eliquis) 5 mg PO BID #180 tabs 07/25/23 Unknown Rx doxepin 50 mg capsule 50 mg PO QHS Depression 03/07/24 Unknown History Allergy/AdvReac Type Severity Reaction Status Date / Time isopropyl alcohol Allergy Rash Verified 03/07/24 16:09 Egg Derived AdvReac Severe Swelling Verified 03/07/24 16:09 NSAIDS (Non-Steroidal AdvReac instant Verified 03/07/24 16:09 Anti-Inflamma headache Family History Father Hypertension Mother Hypertension CAD (coronary artery disease) [place] Brother Heart disease Sister Heart disease Surgical History History of appendectomy History of right hip hemiarthroplasty History of hysterectomy History of cholecystectomy History of thyroidectomy Social History household members: none Smoking Status: Current every day smoker tobacco type: cigarettes alcohol intake: current alcohol intake frequency: a few times a month Alcohol type: beer substance use type: marijuana caffeine: Yes Type: coffee Number of servings: 1 ROS ROS Narrative Admission Review of Systems: CONSTITUTIONAL: No weight loss, fever, chills, + weakness or fatigue. HEENT: + Lightheadedness, dizziness. Eyes: No visual loss, blurred vision, double vision or yellow sclerae. Ears, Nose, Throat: No hearing loss, sneezing, congestion, runny nose or sore throat. SKIN: No rash or itching, lesions, wounds. CARDIOVASCULAR: + Lightheadedness, dizziness. No chest pain, chest pressure or chest discomfort, palpitations, edema, orthopnea, syncopal events. RESPIRATORY: + Shortness of breath. No cough or sputum, wheezing, hemoptysis. GASTROINTESTINAL: + Occasional nausea, emesis, primarily evening. No anorexia, diarrhea, abdominal pain, melena, BRBPR. GENITOURINARY: No dysuria, frequency, urgency or retention. NEUROLOGICAL: + Lightheadedness, dizziness, mild dysarthria but could be lack of dentures/teeth but has prior CVA history and noted during prior admission, Chronic migraines. No headache, syncope, paralysis, ataxia, numbness or tingling in the extremities, focal weakness, change in bowel or bladder control, seizure. MUSCULOSKELETAL: + Muscle, back pain, joint pain or stiffness. HEMATOLOGIC: + Anemia, easy bleeding/bruising. LYMPHATICS: No enlarged nodes. No history of splenectomy. PSYCHIATRIC: + History of depression or anxiety/history of panic attacks. ENDOCRINOLOGIC: No reports of sweating, cold or heat intolerance. No polyuria or polydipsia. ALLERGIES: No history of asthma, hives, eczema or rhinitis. Physical Exam Const alert, oriented x3 and no apparent distress Constitutional Narrative: frail General Appearance: cooperative HEENT normocephalic, head/scalp atraumatic and moist oral mucous membranes Eyes PERRL and EOMs intact bilaterally Neck no lymphadenopathy and supple Lymph Lymphatic: no lymphadenopathy noted and no lymphedema noted Resp normal respiratory effort, normal air movement and clear to auscultation bilaterally Cardio regular rate, regular rhythm, S1 normal heart sound, S2 normal heart sound and no murmurs GI normal to inspection, nondistended, normoactive bowel sounds, soft to palpation, non-tender and non-distended Extremity normal capillary refill, no clubbing, cyanosis or edema and no calf tenderness General Extremity: no tenderness to palpation of joints or extremities Skin General Skin Exam: no breakdown Neuro CN's II-XII intact bilaterally, no focal motor deficits, no sensory deficits noted and deep tendon reflexes 2+ bilaterally Motor Exam: strength 5/5 throughout and general weakness Psych thought process normal, cooperative and affect normal Appearance: appropriate Lab / Micro Data 03/08/24 12:10 03/08/24 03:28 Labs: Laboratory Results - last 24 hr 03/07/24 16:15: Iron 11 L, TIBC 383, Iron Saturation 2.9 L, Ferritin 17 03/07/24 18:34: Blood Type O POSITIVE, Antibody Screen NEGATIVE, Crossmatch See Detail 03/07/24 18:34: Crossmatch See Detail 03/07/24 23:08: Urine Color Yellow, Urine Clarity Clear, Urine pH 7.0, Ur Specific [place] 1.010, Urine Protein Negative, Urine Glucose (UA) Normal, Urine Ketones Negative, Urine Occult Blood Negative, Urine Nitrite Positive H, Urine Bilirubin Negative, Urine Urobilinogen Normal, Ur Leukocyte Esterase 25 H, Urine RBC 0 SEEN, Urine WBC 0-5 SEEN, Ur Squamous Epith Cells 0 SEEN, Urine Bacteria 1+, Urine Mucus 0 SEEN, Urine Opiates Screen NEGATIVE, Urine Methadone Screen NEGATIVE, Ur Barbiturates Screen NEGATIVE, Ur Phencyclidine Scrn NEGATIVE, Ur Amphetamines Screen NEGATIVE, MDMA (Ecstasy) Screen NEGATIVE, U Benzodiazepines Scrn NEGATIVE, Urine Cocaine Screen NEGATIVE, U Cannabinoids Screen POSITIVE H, Ur Drug Screen Comment 03/08/24 03:28: WBC 11.8 H, RBC 2.93 L, Hgb 7.2 L, Hct 24.1 L, MCV 82.3 D, MCH 24.6 L, MCHC 29.9 L, RDW Std Deviation 50.4 H, RDW Coeff of Patrick 16.9 H, Plt Count 493 H, MPV 9.1, Immature Gran % (Auto) 0.600, Neut % (Auto) 83.2 H, Lymph % (Auto) 10.9 L, [place] % (Auto) 4.2, Eos % (Auto) 0.8, Baso % (Auto) 0.3, Absolute Neuts (auto) 9.8 H, Absolute Lymphs (auto) 1.29, Nucleated RBC % 0, Sodium 136, Potassium 3.8, Chloride 104, Carbon Dioxide 27.0, Anion Gap 5, BUN 23 H, Creatinine 1.32 H, Estim Creat Clear Calc 28.55, Est GFR (MDRD) Af Amer 49 L, Est GFR (MDRD) Non-Af 41 L, BUN/Creatinine Ratio 17.4, Glucose 114 H, Calcium 7.8 L, Total Bilirubin 1.00, AST 21, ALT 9 L, Alkaline Phosphatase 98, Total Protein 6.6, Albumin 2.7 L, Globulin 3.9, Albumin/Globulin Ratio 0.7 L 03/08/24 08:06: Hgb 8.3 L, Hct 26.9 L 03/08/24 12:10: Hgb 8.4 L, Hct 26.8 L Micro: Microbiology 03/07/24 18:53 Stool Stool Occult Blood (MYRA) - Final Rhythm Strip Rhythm Strip: A-fib Rate: 131 Ectopy: None Imaging Radiology Impression Abdomen/Pelvis CT 03/07/24 17:08 IMPRESSION: No acute disease. Left adrenal adenoma. Moderate hiatal hernia. Electronically Signed: Israel Suresh MD at 19:12 EDT , Assessment & Plan Assessment/Plan (1) Acute anemia: PLAN: Plan 83-year-old with past medical history of paroxysmal atrial fibrillation on Eliquis therapy who comes in after having multiple episodes of vomiting. She looks to have a microcytic anemia. Hemoglobin discovered to be 6.8. Acute on chronic anemia-I would recommend an upper and lower endoscopy. She does not know if she has had a colonoscopy in the past. We can do the upper endoscopy and if it is normal then we can do the colonoscopy. Continue to hold anticoagulation at this time. Recommend continue PPI therapy. Charges/Coding Visit Charges Inpatient E&M: 82767 Subs Hosp L3
[2024-03-08] MEDS: Atorvastatin Calcium 80 MG Tablet PO (21:42)
[2024-03-08] MEDS: DOXEPIN HCL 50 MG CAPSULE PO (21:42)
[2024-03-08] MEDS: Levothyroxine 75 MCG Tablet PO (21:48)
[2024-03-09 03:00] VITALS: BP 104/68; PULSE 58; RESP 16; TEMP 36.1; O2SAT 94
[2024-03-09 04:41] VITALS: BMI 25.9
[2024-03-09 05:37] LABS: Basophil# 0.04 X10^3/uL; Basophil% 0.4 % (0-1); Eosinophil# 0.37 X10^3/uL; Hematocrit 26.6 % (37-47); Hemoglobin 8.3 g/dL (12.0-15.0); Lymphocyte % 22.8 % (19-41); Mean Corp Hgb Conc 31.2 g/dL (32-36); Mean Corpuscular Hgb 25.6 pg (27.0-32.0); Mean Corpuscular Volume 82.1 fL (81-99); Mean Platelet Vol. 9.1 fl (6.2-12.0); Monocyte# 0.62 X10^3/uL; Monocyte% 6.7 % (0-10); NRBC Flagged by Analyzer 0 % (0-5); Neutrophil # 6.04 X10^3/uL (2.7-7.7); Neutrophil % 65.7 % (47-70); Platelet Count 445 K/mm3 (150-450); RBC Distribution Width CV 16.5 % (11.6-14.6); RBC Distribution Width SD 49.6 fl (35.1-43.9); Red Blood Count 3.24 M/mm3 (4.2-5.4); White Blood Count 9.2 K/mm3 (4.4-11.0)
[2024-03-09 05:57] LABS: Anion Gap 2 (5-15); BUN 23 mg/dL (7-18); BUN/Creat Ratio 18.7 RATIO (10-20); Calcium,Total 7.6 mg/dL (8.5-10.1); Chloride 107 mmol/L (98-107); Creatinine, Serum 1.23 mg/dL (0.55-1.02); EST Glomerular Filtration Rate 44 mL/min (>60); Est Glom Filt Rate - Afr Amer 53 mL/min (>60); Estimated Creatinine Clearance 33.63 ml/min; Glucose 88 mg/dL (74-106); Potassium 3.6 mmol/L (3.5-5.1); Sodium Level 136 mmol/L (136-145)
[2024-03-09 08:12] VITALS: O2SAT 98
[2024-03-09 09:00] VITALS: BP 110/49; PULSE 53; RESP 17; TEMP 36.6; O2SAT 100
[2024-03-09 09:58] VITALS: PULSE 50
[2024-03-09] MEDS: Paroxetine 20 MG Tablet 40 MG PO (09:59)
--- NOTE | 2024-03-09 11:12 | PN_ITS ---
Subjective Subjective Patient seen and examined. She had no active complaints and felt well. Review of systems otherwise negative. She has remained hemodynamically stable. Objective Data Objective Data Vital Signs: Vital Signs Temp Pulse Resp BP Pulse Ox O2 Del Method O2 Flow Rate 96.9 F L 50 L 16 104/68 98 Room Air 2 03/09/24 03:00 03/09/24 09:58 03/09/24 03:00 03/09/24 03:00 03/09/24 08:12 03/09/24 08:12 03/07/24 19:00 Oxygen Flow Rate (L/min) 2 Oxygen Delivery Method Room Air Weight: 156 lb 4.924 oz Body Mass Index (BMI) 25.9 Intake & Output: Intake and Output for Last 24 Hours 03/07/24 03/08/24 03/09/24 23:59 23:59 23:59 Intake Total 1133.33 / 1133.33 2230.33 / 2230.33 1000 / 1000 Output Total 150 / 150 Balance 983.33 / 983.33 2230.33 / 2230.33 1000 / 1000 Lab / Micro Data 03/09/24 05:26 03/09/24 05:26 Labs: Laboratory Results - last 24 hr 03/08/24 12:10: Hgb 8.4 L, Hct 26.8 L 03/09/24 05:26: WBC 9.2, RBC 3.24 L, Hgb 8.3 L, Hct 26.6 L, MCV 82.1, MCH 25.6 L , MCHC 31.2 L, RDW Std Deviation 49.6 H, RDW Coeff of Patrick 16.5 H, Plt Count 445, MPV 9.1, Immature Gran % (Auto) 0.400, Neut % (Auto) 65.7, Lymph % (Auto) 22.8, [place] % (Auto) 6.7, Eos % (Auto) 4.0, Baso % (Auto) 0.4, Absolute Neuts (auto) 6.0, Absolute Lymphs (auto) 2.10, Nucleated RBC % 0, Sodium 136, Potassium 3.6, Chloride 107, Carbon Dioxide 27.0, Anion Gap 2 L, BUN 23 H, Creatinine 1.23 H, Estim Creat Clear Calc 33.63, Est GFR (MDRD) Af Amer 53 L, Est GFR (MDRD) Non-Af 44 L, BUN/Creatinine Ratio 18.7, Glucose 88, Calcium 7.6 L Micro: Microbiology 03/07/24 18:53 Stool Stool Occult Blood (MYRA) - Final Rhythm Strip Rhythm Strip: A-fib Rate: 131 Ectopy: None Physical Exam Const alert, oriented x3 and no apparent distress Constitutional Narrative: frail General Appearance: cooperative HEENT normocephalic, head/scalp atraumatic and moist oral mucous membranes Eyes PERRL and EOMs intact bilaterally Neck no lymphadenopathy and supple Lymph Lymphatic: no lymphadenopathy noted and no lymphedema noted Resp normal respiratory effort, normal air movement and clear to auscultation bilaterally Cardio regular rate, regular rhythm, S1 normal heart sound, S2 normal heart sound and no murmurs GI normal to inspection, nondistended, normoactive bowel sounds, soft to palpation, non-tender and non-distended Extremity normal capillary refill, no clubbing, cyanosis or edema and no calf tenderness General Extremity: no tenderness to palpation of joints or extremities Skin General Skin Exam: no breakdown Neuro CN's II-XII intact bilaterally, no focal motor deficits, no sensory deficits noted and deep tendon reflexes 2+ bilaterally Motor Exam: strength 5/5 throughout and general weakness Psych thought process normal, cooperative and affect normal Appearance: appropriate Assessment & Plan Assessment/Plan (1) Acute anemia: (2) Atrial fibrillation: PLAN: Plan #Acute on chronic anemia * Hemoglobin was 6.8 on admission. s/p transfusion of 2 units of packed red blood cells. * She is on Eliquis since this was held. I will consult gastroenterology because will be difficult to resume the Eliquis without ruling out a GI bleed. * Continue gentle hydration with IV fluids. * Hb remains 8.3 today. * GI on board. Recommends upper and lower endoscopy. #Hypotension: resolved. #Paroxysmal A-fib: metoprolol held due to hypotension. Patient has also been bradycardic, with hR now in the 50s. Continue holding Eliquis due to anemia #Hypothyroidism: On Synthroid #History of CVA: Eliquis on hold. BP meds held due to hypotension. Will monitor. #Hyperlipidemia: On statin #Hypertension: resume hydrochlorthiazide and metoprolol with holding parameters. IV hydralazine prn #Anxiety and depression: On paroxetine #Chronic cannabis use: * Patient states she has been using cannabis since she was 11 years and has used it for the past 72 years. * She therefore has no intention of quitting though she says she vomits every night. * She refuses to believe that this could be due to the marijuana. DVT prophylaxis: * SCDs. Eliquis on hold due to acute on chronic anemia. Charges/Coding Visit Charges Inpatient E&M: 34225 Subs Hosp L2
[2024-03-09 15:00] VITALS: BP 124/63; PULSE 68; RESP 18; TEMP 36.3; O2SAT 99
[2024-03-09] MEDS: Acetaminophen 325 MG Tablet 650 MG PO (20:27)
[2024-03-09 20:59] VITALS: BP 120/73; PULSE 58; RESP 16; TEMP 36.8; O2SAT 98
[2024-03-09] MEDS: Atorvastatin Calcium 80 MG Tablet PO (21:02)
[2024-03-09] MEDS: Pantoprazole Sodium 40 MG in 0.9% Normal Saline (100mL MB+) 100 ML 330 MG IV (21:02)
[2024-03-09] MEDS: Levothyroxine 75 MCG Tablet PO (21:02)
[2024-03-09] MEDS: DOXEPIN HCL 50 MG CAPSULE PO (21:02)
[2024-03-10 03:00] VITALS: BP 100/66; PULSE 98; RESP 18; TEMP 36.4; O2SAT 97
[2024-03-10 05:27] VITALS: BMI 25.9
[2024-03-10 06:04] LABS: Absolute Lymphocyte Count 1.64 X10^3/uL (0.83-4.51); Absolute Neutrophil Count 4.6 X10^3/uL (2.0-7.7); Basophil# 0.04 X10^3/uL; Basophil% 0.6 % (0-1); Eosinophil# 0.35 X10^3/uL; Eosinophils% 4.9 % (0-5); Hematocrit 26.4 % (37-47); Hemoglobin 8.1 g/dL (12.0-15.0); Lymphocyte # 1.64 X10^3/ul (0.83-4.51); Lymphocyte % 23.1 % (19-41); Mean Corp Hgb Conc 30.7 g/dL (32-36); Mean Corpuscular Hgb 25.2 pg (27.0-32.0); Mean Platelet Vol. 9.1 fl (6.2-12.0); Monocyte# 0.48 X10^3/uL; Monocyte% 6.8 % (0-10); NRBC Flagged by Analyzer 0 % (0-5); Neutrophil # 4.55 X10^3/uL (2.7-7.7); Platelet Count 465 K/mm3 (150-450); RBC Distribution Width CV 17.2 % (11.6-14.6); RBC Distribution Width SD 50.9 fl (35.1-43.9); Red Blood Count 3.22 M/mm3 (4.2-5.4); White Blood Count 7.1 K/mm3 (4.4-11.0)
[2024-03-10 08:32] LABS: Anion Gap 5 (5-15); BUN 14 mg/dL (7-18); BUN/Creat Ratio 14.8 RATIO (10-20); Calcium,Total 7.8 mg/dL (8.5-10.1); Chloride 112 mmol/L (98-107); Creatinine, Serum 0.95 mg/dL (0.55-1.02); EST Glomerular Filtration Rate 60 mL/min (>60); Est Glom Filt Rate - Afr Amer 72 mL/min (>60); Estimated Creatinine Clearance 43.54 ml/min; Glucose 82 mg/dL (74-106); Potassium 3.2 mmol/L (3.5-5.1); Sodium Level 142 mmol/L (136-145)
[2024-03-10 09:00] VITALS: BP 113/56; PULSE 111; RESP 18; TEMP 36.5; O2SAT 95
--- NOTE | 2024-03-10 09:07 | PN_ITS ---
Subjective Subjective Patient seen and examined. She had no complaints. Review of systems otherwise negative. Objective Data Objective Data Vital Signs: Vital Signs Temp Pulse Resp BP Pulse Ox O2 Del Method O2 Flow Rate 97.5 F L 98 18 100/66 97 Room Air 2 03/10/24 03:00 03/10/24 03:00 03/10/24 03:00 03/10/24 03:00 03/10/24 03:00 03/10/24 08:00 03/07/24 19:00 Oxygen Flow Rate (L/min) 2 Oxygen Delivery Method Room Air Weight: 156 lb 4.924 oz Body Mass Index (BMI) 25.9 Intake & Output: Intake and Output for Last 24 Hours 03/08/24 03/09/24 03/10/24 23:59 23:59 23:59 Intake Total 2230.33 / 2230.33 1950 / 2310 360 / 360 Output Total 600 / 1600 1700 / 1700 Balance 2230.33 / 2230.33 1350 / 710 -1340 / -1340 Lab / Micro Data 03/10/24 05:10 03/10/24 05:10 Labs: Laboratory Results - last 24 hr 03/10/24 05:10: WBC 7.1, RBC 3.22 L, Hgb 8.1 L, Hct 26.4 L, MCV 82.0, MCH 25.2 L , MCHC 30.7 L, RDW Std Deviation 50.9 H, RDW Coeff of Patrick 17.2 H, Plt Count 465 H, MPV 9.1, Immature Gran % (Auto) 0.600, Neut % (Auto) 64.0, Lymph % (Auto) 23.1, [place] % (Auto) 6.8, Eos % (Auto) 4.9, Baso % (Auto) 0.6, Absolute Neuts (auto) 4.6, Absolute Lymphs (auto) 1.64, Nucleated RBC % 0, Sodium 142, P otassium 3.2 L, Chloride 112 H, Carbon Dioxide 25.0, Anion Gap 5, BUN 14, Creatinine 0.95, Estim Creat Clear Calc 43.54, Est GFR (MDRD) Af Amer 72, Est GFR (MDRD) Non-Af 60, BUN/Creatinine Ratio 14.8, Glucose 82, Calcium 7.8 L Micro: Microbiology 03/07/24 18:53 Stool Stool Occult Blood (MYRA) - Final Rhythm Strip Rhythm Strip: A-fib Rate: 131 Ectopy: None Physical Exam Const alert, oriented x3 and no apparent distress Constitutional Narrative: frail General Appearance: cooperative HEENT normocephalic, head/scalp atraumatic and moist oral mucous membranes Eyes PERRL and EOMs intact bilaterally Neck no lymphadenopathy and supple Lymph Lymphatic: no lymphadenopathy noted and no lymphedema noted Resp normal respiratory effort, normal air movement and clear to auscultation bilaterally Cardio regular rate, regular rhythm, S1 normal heart sound, S2 normal heart sound and no murmurs GI normal to inspection, nondistended, normoactive bowel sounds, soft to palpation, non-tender and non-distended Extremity normal capillary refill, no clubbing, cyanosis or edema and no calf tenderness General Extremity: no tenderness to palpation of joints or extremities Skin General Skin Exam: no breakdown Neuro CN's II-XII intact bilaterally, no focal motor deficits, no sensory deficits noted and deep tendon reflexes 2+ bilaterally Motor Exam: strength 5/5 throughout and general weakness Psych thought process normal, cooperative and affect normal Appearance: appropriate Assessment & Plan Assessment/Plan (1) Acute anemia: (2) Atrial fibrillation: PLAN: Plan #Acute on chronic anemia * Hemoglobin was 6.8 on admission. s/p transfusion of 2 units of packed red blood cells. * She is on Eliquis since this was held. I will consult gastroenterology because will be difficult to resume the Eliquis without ruling out a GI bleed. * Continue gentle hydration with IV fluids. * Hb is 8.1 today. * GI on board. Recommends upper and lower endoscopy. * Patient to be scoped tomorrow. #Hypotension: resolved. #Paroxysmal A-fib: * metoprolol held due to hypotension. Patient has also been bradycardic, with hR now in the 50s. * Continue holding Eliquis due to anemia * Patient has had episodic bradycardia. Will continue to monitor. Heart rate now at 98 this morning. #Hypothyroidism: On Synthroid #History of CVA: Eliquis on hold. BP meds held due to hypotension. Will monitor. #Hyperlipidemia: On statin #Hypertension: resume hydrochlorothiazide and metoprolol with holding parameters. IV hydralazine prn #Anxiety and depression: On paroxetine #Chronic cannabis use: * Patient states she has been using cannabis since she was 11 years and has used it for the past 72 years. * She therefore has no intention of quitting though she says she vomits every night. * She refuses to believe that this could be due to the marijuana. DVT prophylaxis: * SCDs. Eliquis on hold due to acute on chronic anemia. Charges/Coding Visit Charges Inpatient E&M: 37087 Subs Hosp L2
[2024-03-10] MEDS: 0.9% Saline Lock 10 ML Syringe IV (09:43)
[2024-03-10] MEDS: Pantoprazole Sodium 40 MG in 0.9% Normal Saline (100mL MB+) 100 ML 330 MG IV ×2 (09:43→20:36)
[2024-03-10] MEDS: Cyanocobalamin 500 MCG Tablet 1000 MCG PO (09:43)
[2024-03-10 09:45] VITALS: BP 113/56; PULSE 111
[2024-03-10] MEDS: Metoprolol Tartrate 25 MG Tablet 12.5 MG PO (09:45)
[2024-03-10] MEDS: Paroxetine 20 MG Tablet 40 MG PO (09:45)
[2024-03-10 20:33] VITALS: BP 122/57; PULSE 52; RESP 16; TEMP 36.5; O2SAT 100
[2024-03-10] MEDS: Levothyroxine 75 MCG Tablet PO (20:35)
[2024-03-10] MEDS: DOXEPIN HCL 50 MG CAPSULE PO (20:35)
[2024-03-10 20:36] VITALS: BP 122/57; PULSE 52
[2024-03-10] MEDS: Atorvastatin Calcium 80 MG Tablet PO (20:36)
[2024-03-10 21:37] VITALS: BMI 25.9
[2024-03-10] MEDS: Potassium Chloride Oral Tablet 20 MEQ 40 MEQ PO (22:27)
[2024-03-10] MEDS: MELATONIN 3 MG TABLET PO (22:38)
[2024-03-11] VITALS (14 sets, daily range): BP systolic 120–197; BP diastolic 58–97; PULSE 57–70; RESP 16–34; TEMP 36.2–37; O2SAT 88–98; BMI 25.5
[2024-03-11] MEDS: Acetaminophen 325 MG Tablet 650 MG PO (02:03)
--- NOTE | 2024-03-11 05:00 | EKG12_ITS ---
Test Reason : AM EKG Blood Pressure : / mmHG Vent. Rate : 054 BPM Atrial Rate : 054 BPM P-R Int : 168 ms QRS Dur : 082 ms QT Int : 520 ms P-R-T Axes : 084 088 077 degrees QTc Int : 493 ms Sinus bradycardia Low voltage QRS Prolonged QT Abnormal ECG When compared with ECG of 07-MAR-2024 16:52, MANUAL COMPARISON REQUIRED, DATA IS UNCONFIRMED Confirmed by LEONA LONDONO, JERI ([id number]), assistant film editor ANDRE ANSARI ([id number]) on 03/11/2024 2:15:06 PM Referred By: Confirmed By:JERI DELGADILLO MD
[2024-03-11 05:40] LABS: Absolute Lymphocyte Count 1.78 X10^3/uL (0.83-4.51); Basophil# 0.03 X10^3/uL; Basophil% 0.3 % (0-1); Eosinophils% 3.5 % (0-5); Hematocrit 28.6 % (37-47); Hemoglobin 8.6 g/dL (12.0-15.0); Lymphocyte # 1.78 X10^3/ul (0.83-4.51); Lymphocyte % 20.5 % (19-41); Mean Corp Hgb Conc 30.1 g/dL (32-36); Mean Corpuscular Hgb 25.1 pg (27.0-32.0); Mean Corpuscular Volume 83.4 fL (81-99); Mean Platelet Vol. 9.1 fl (6.2-12.0); Monocyte# 0.56 X10^3/uL; Monocyte% 6.4 % (0-10); NRBC Flagged by Analyzer 0 % (0-5); Neutrophil # 5.98 X10^3/uL (2.7-7.7); Neutrophil % 68.8 % (47-70); Platelet Count 479 K/mm3 (150-450); RBC Distribution Width CV 17.9 % (11.6-14.6); Red Blood Count 3.43 M/mm3 (4.2-5.4); White Blood Count 8.7 K/mm3 (4.4-11.0)
[2024-03-11 05:51] LABS: International Normalized Ratio 1.4; Prothrombin Time (Protime)PT. 17.4 SECONDS (11.7-14.9)
[2024-03-11 05:52] LABS: Partial Thromboplast Time 40.1 Seconds (24.1-36.2)
[2024-03-11 06:03] LABS: Anion Gap 4 (5-15); BUN 13 mg/dL (7-18); BUN/Creat Ratio 12.7 RATIO (10-20); Chloride 107 mmol/L (98-107); Creatinine, Serum 1.02 mg/dL (0.55-1.02); EST Glomerular Filtration Rate 55 mL/min (>60); Est Glom Filt Rate - Afr Amer 66 mL/min (>60); Estimated Creatinine Clearance 40.21 ml/min; Glucose 98 mg/dL (74-106); Potassium 3.9 mmol/L (3.5-5.1); Sodium Level 135 mmol/L (136-145)
[2024-03-11] MEDS: Pantoprazole Sodium 40 MG in 0.9% Normal Saline (100mL MB+) 100 ML 330 MG IV ×2 (08:57→21:30)
[2024-03-11] MEDS: Paroxetine 20 MG Tablet 40 MG PO (10:11)
[2024-03-11] MEDS: Cyanocobalamin 500 MCG Tablet 1000 MCG PO (10:11)
--- NOTE | 2024-03-11 10:52 | PN.HOSP_ITS ---
Reason for Visit Reason for Visit: Diagnoses Anemia, unspecified (03/07/24) Unspecified atrial fibrillation (03/07/24) Subjective Subjective Saw patient at bedside this morning. Patient was laying comfortably in bed, conversing normally, in no acute distress. Her main concern was that she was hungry as she had been n.p.o. this morning for EGD. Plan was for EGD later this morning. She had no other new concerns this morning. Objective Data Objective Data Vital Signs: Vital Signs Temp Pulse Resp BP Pulse Ox O2 Del Method O2 Flow Rate 97.6 F L 57 L 16 156/92 H 98 Room Air 2 03/11/24 08:00 03/11/24 08:00 03/11/24 08:00 03/11/24 08:00 03/11/24 08:00 03/11/24 08:00 03/07/24 19:00 Oxygen Flow Rate (L/min) 2 Oxygen Delivery Method Room Air Weight: 69.6 kg Body Mass Index (BMI) 25.5 Intake & Output: Intake and Output for Last 24 Hours 03/09/24 03/10/24 03/11/24 23:59 23:59 23:59 Intake Total 1950 / 2310 580 / 820 350 / 350 Output Total 600 / 1600 1700 / 2350 850 / 850 Balance 1350 / 710 -1120 / -1530 -500 / -500 Lab / Micro Data 03/11/24 05:20 03/11/24 05:20 Labs: Laboratory Results - last 24 hr 03/11/24 05:20: WBC 8.7, RBC 3.43 L, Hgb 8.6 L, Hct 28.6 L, MCV 83.4, MCH 25.1 L , MCHC 30.1 L, RDW Std Deviation 54.0 H, RDW Coeff of Patrick 17.9 H, Plt Count 479 H, MPV 9.1, Immature Gran % (Auto) 0.500, Neut % (Auto) 68.8, Lymph % (Auto) 20.5, [place] % (Auto) 6.4, Eos % (Auto) 3.5, Baso % (Auto) 0.3, Absolute Neuts (auto) 6.0, Absolute Lymphs (auto) 1.78, Nucleated RBC % 0, PT 17.4 H, INR 1.4, APTT 40.1 H, Sodium 135 L, Potassium 3.9, Chloride 107, Carbon Dioxide 24.0, A nion Gap 4 L, BUN 13, Creatinine 1.02, Estim Creat Clear Calc 40.21, Est GFR (MDRD) Af Amer 66, Est GFR (MDRD) Non-Af 55 L, BUN/Creatinine Ratio 12.7, Glucose 98, Calcium 8.0 L Micro: Microbiology 03/07/24 18:53 Stool Stool Occult Blood (MYRA) - Final Rhythm Strip Rhythm Strip: A-fib Rate: 131 Ectopy: None Physical Exam Const alert, oriented x3, no apparent distress and average body habitus Constitutional Narrative: Pleasant elderly female, laying comfortably in bed, conversing normally, in no acute distress. General Appearance: cooperative and comfortable HEENT normocephalic, head/scalp atraumatic, hearing grossly normal bilaterally, nasal mucous membranes and turbinates normal and moist oral mucous membranes Eyes PERRL, EOMs intact bilaterally and conjunctivae normal Neck full ROM Chest inspection of chest normal Resp normal respiratory effort, normal air movement, no use of accessory muscles and clear to auscultation bilaterally Cardio regular rate, regular rhythm, no murmurs and peripheral pulses 2+ throughout GI normal to inspection, nondistended, normoactive bowel sounds, soft to palpation, non-tender and non-distended Back/Spine normal ROM Extremity normal to inspection, full ROM and no pedal edema Skin no rashes or lesions noted Neuro moves all extremities and no focal motor deficits Speech: speech normal Psych mental status grossly normal Assessment & Plan Assessment/Plan (1) Acute anemia: (2) Atrial fibrillation: (3) GI bleed: (4) Marijuana use: PLAN: Plan Patient is an 83-year-old female who presented to [facility] ED on 03/07/2024 with hypotension and presyncopal symptoms. 1. Acute on chronic anemia secondary to upper GI bleed ? GI following. Presented with presyncopal symptoms and hypotension as noted below. Hemoglobin 6.8 on admit, down from baseline hemoglobin around 9-10. S/p 2 units packed red blood cells with improvement to the 8-9 range. EGD 03/11 showed an esophageal ulcer oozing blood treated with heater probe, along with nonbleeding gastric ulcer and Castro's esophagus. Will continue IV PPI twice daily for now. Hemoglobin has remained stable in the 8-9 range, continue to trend daily CBC. Holding Eliquis for now, appreciate GI recs on timing of restarting this. 2. Hypotension, resolved ? Hypotensive to the 70s systolic on admission presumed secondary to GI bleed. Improved with blood transfusion and has remained stable since then. 3. Paroxysmal A-fib on Eliquis ? Held home Lopressor on admit due to hypotension. Had episodic bradycardia to the 50s during first few days of admission. Restarted lopressor on 03/10 and patient has remained stable. Holding Eliquis as noted above. Chronic medical conditions: ? History of CVA, hypertension, hyperlipidemia: Continue home statin. Holding home aspirin and hydrochlorothiazide for now, restart when able. ? Hypothyroidism: Continue home Synthroid. ? Anxiety/depression: Stable. Continue home Paxil. ? Chronic cannabis use: Patient reports vomiting most every night but has been using cannabis on a daily basis for about 70 years and does not believe the cannabis is causing her vomiting. Not interested in quitting. DVT prophylaxis: SCDs CODE STATUS: DNR CCA, DNI Expected disposition: Home, 1 to 2 days Total clinical time spent by myself addressing the patient's medical issues, reviewing all the data, and collaborating with patient's care team: 35 minutes. Charges/Coding Visit Charges Inpatient E&M: 41873 Subs Hosp L2
--- NOTE | 2024-03-11 12:45 | PCM.PRE.AN2 ---
ASA Classification* ASA Classification ASA Classification: 3 Assessment & Plan Anesthesia* Anesthesia Assessment Anesthesia Assessment: Discussed sedation and/or anesthesia options, risks, benefits, and alternatives with patient/parents/legal guardian/POA. Questions invited. The patient/parents/legal guardian/POA seems to understand and agrees to proceed with anesthesia plan. Reviewed the physical assessment, medical history, allergy history and patient home medications list prior to surgery/procedure/anesthetic and documented any changes. Performed airway and anesthesia risk assessments. Anesthesia Type Anesthesia Type: MAC History Source History Obtained from:: Patient and Chart Anesthesia Focused Assessment* Temperature: 97.6 F Pulse Rate: 57 Blood Pressure: 156/92 Respiratory Rate: 16 Pulse Ox: 98 Oxygen Delivery Method: Room Air Airway Assessment Mouth opens: >3 cm Mallampati Score: II Teeth Condition: Dentures (She is clear that she was) Neck Range of motion (ROM): Limited ROM Pertinent Findings EKG Pertinent Findings:: March 11, 2022. Sinus bradycardia. Prolonged QT. Focused Labs Anesthesia Preop lab: CBC WBC 8.7 K/mm3 (4.4-11.0) 03/11/24 05:20 RBC 3.43 M/mm3 (4.2-5.4) L 03/11/24 05:20 Hgb 8.6 g/dL (12.0-15.0) L 03/11/24 05:20 Hct 28.6 % (37-47) L 03/11/24 05:20 Plt Count 479 K/mm3 (150-450) H 03/11/24 05:20 CHEMISTRY Potassium 3.9 mmol/L (3.5-5.1) 03/11/24 05:20 Sodium 135 mmol/L (136-145) L 03/11/24 05:20 Magnesium 2.1 mg/dL (1.6-2.6) 06/15/23 16:00 BUN 13 mg/dL (7-18) 03/11/24 05:20 Creatinine 1.02 mg/dL (0.55-1.02) 03/11/24 05:20 Glucose 98 mg/dL (74-106) 03/11/24 05:20 POC Glucose 110 mg/dL (70-110) 02/18/20 22:09 TSH 3.46 uIU/mL (0.358-3.74) 06/16/23 07:05 COAG PT 17.4 SECONDS (11.7-14.9) H 03/11/24 05:20 Pre-Assessment Diagnosis/Proposed Procedure Planned Operative Procedure(s): Esophagogastroduodenoscopy. 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 When Was Last Pacemaker Check QUESTION #4 FULL TEXT: You/Your Family Experience fever (hyperthermia) with Anesthesia Last Oral Intake Last Oral intake: Last Oral Intake NPO since 00:00 03/10/24 21:37 Meds taken in AM with sips of No 03/10/24 21:37 water? Meds patient instructed to take am of surgery PONV PONV - general foundry worker: PONV - general foundry worker Female HX of Motion Sickness HX of N/V After Surgery Non-Smoker Duration of Surgery greater than 60 minutes Number of Risk Factors PONV Score Height & Weight Height & Weight: Anesthesia: Height & Weight Height 5 ft 5 in 03/10/24 21:37 Weight: 69.6 kg 03/11/24 04:17 Body Mass Index (BMI) 25.5 03/11/24 04:17 Respiratory Assessment Respiratory Assessment - general foundry worker: Respiratory Tract Infection Hx - general foundry worker Hx Respiratory Tract Infection No 03/10/24 21:37 STOP Sleep Apnea STOP Sleep Apnea - general foundry worker: STOP Sleep Apnea - general foundry worker Hx Hypertension Yes 03/08/24 10:29 Hx Sleep Apnea No 03/07/24 20:13 CPAP BIPAP Do you snore loudly (louder No 03/07/24 20:13 than talking or can be heard Do you often feel tired/ No 03/07/24 20:13 fatigued/ sleepy during daytime? Has anyone observed you stop No 03/07/24 20:13 breathing during sleep? STOP Results Negative 03/07/24 20:13 QUESTION #5 FULL TEXT : Do you snore loudly (louder than talking or can be heard through closed doors)? 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 Specify any problems Hx of Preganancy in last 3 No 03/07/24 20:13 Months Nurse Filling Out Transfusion HSMUCKER 03/07/24 20:13 & Questions: Date: 03/07/24 03/07/24 20:13 Time: 20:15 03/07/24 20:13 Patient unable to answer at this time (ie. confused, unrespo /Reproduction History /Reproductive History - general foundry worker: /Reproductive Hx- general foundry worker Hx Now No 03/10/24 21:37 Gestational Age (in weeks): EDC: Hx Hx Para Hx Section SAB No 03/10/24 21:37 Active Medications Active Medications: Current Medications Generic Name Dose Route Start Last Admin Trade Name Freq PRN Reason Stop Dose Admin Acetaminophen 650 mg 03/07/24 20:01 03/11/24 02:03 Acetaminophen 325 Mg Tablet PO 650 mg Q4H PRN PRN Administration Fever, pain 1-1010 Albuterol Sulfate 2.5 mg 03/07/24 20:01 Albuterol 2.5 Mg/3 Ml Vial.Neb. INHALATION Q2H PRN PRN Dyspnea, wheezing Atorvastatin Calcium 80 mg 03/07/24 22:00 03/10/24 20:36 Atorvastatin Calcium 80 Mg Tablet PO 80 mg QHS FRANCESCO Administration Cyanocobalamin 1,000 mcg 03/10/24 10:00 03/11/24 10:11 Cyanocobalamin 500 Mcg Tablet PO 1,000 mcg DAILY FRANCESCO Administration Doxepin HCl 50 mg 03/07/24 22:15 03/10/24 20:35 Doxepin Hcl 50 Mg Capsule PO 50 mg QHS FRANCESCO Administration Hydralazine HCl 10 mg 03/07/24 20:01 Hydralazine 20 Mg/Ml Vial IV Q4H PRN PRN SBP > 160 Protocol Pantoprazole Sodium 40 mg/ 110 mls @ 330 mls/hr 03/07/24 21:00 03/11/24 09:20 Sodium Chloride IV Infused Q12 FRANCESCO Infusion Sodium Chloride 500 mls @ 15 mls/hr 03/07/24 20:18 IV PRN PRN Blood Transfusion Sodium Chloride 250 mls @ 15 mls/hr 03/07/24 20:18 IV .[id number] PRN Additional IVPB Infusion Sodium Chloride 250 mls @ 15 mls/hr 03/07/24 20:18 IV .[id number] PRN Saline Flush Levothyroxine Sodium 75 mcg 03/07/24 22:00 03/10/24 20:35 Levothyroxine 75 Mcg Tablet PO 75 mcg QHS [facility] Administration Melatonin 3 mg 03/07/24 20:01 03/10/24 22:38 Melatonin 3 Mg Tablet PO 3 mg QHS PRN PRN Administration INSOMNIA Metoprolol Tartrate 12.5 mg 03/07/24 22:00 03/11/24 10:12 Metoprolol Tartrate 25 Mg Tablet PO Not Given BID [facility] Protocol Ondansetron HCl 4 mg 03/07/24 20:01 03/07/24 22:46 Ondansetron 4 Mg/2 Ml Vial IV 4 mg Q8H PRN PRN Administration NAUSEA/VOMITING Paroxetine HCl 40 mg 03/08/24 10:00 03/11/24 10:11 Paroxetine 20 Mg Tablet PO 40 mg DAILY FRANCESCO Administration Prochlorperazine Edisylate 5 mg 03/07/24 20:01 Prochlorperazine 10 Mg/2 Ml Vial IV Q4H PRN PRN Breakthrough Nausea/Vomiting Senna/Docusate Sodium 2 tablet 03/07/24 20:01 Senna/Docusate Sodium 1 Tablet PO BID PRN PRN Constipation Sodium Chloride 10 - 40 ml 03/07/24 20:18 03/10/24 09:43 0.9% Saline Lock 10 Ml Syringe IV 10 ml UD PRN Administration SALINE FLUSH [facility] Medical History Anxiety Depression Smoker Hypertension Migraines Vitamin D deficiency Subcapital fracture of femur Tobacco dependence due to cigarettes History of CVA (cerebrovascular accident) (08/2019) Anemia Cephalgia Hypothyroidism Anxiety and depression Essential hypertension Paroxysmal atrial fibrillation Hypothyroidism Depression with anxiety Hyperlipidemia Home Medications ?Medication ?Instructions ?Recorded ?Last Taken ?Type cyanocobalamin (vitamin B-12) 1,000 mcg PO DAILY SUPPLEMENT 02/08/19 06/14/23 History 1,000 mcg tablet levothyroxine 75 mcg tablet 75 mcg PO QHS THYROID 02/08/19 06/14/23 History paroxetine HCl 40 mg tablet 40 mg PO DAILY DEPRESSION 02/08/19 03/11/24 History atorvastatin 80 mg tablet 80 mg PO QHS CHOLESTEROL 02/26/20 06/14/23 History lysine 500 mg tablet 500 mg PO DAILY SUPPLEMENT 02/26/20 06/14/23 History hydrochlorothiazide 12.5 mg tablet 6.25 mg (1/2 x 12.5 mg) PO DAILY 04/05/22 06/14/23 Rx FLUID #30 tabs aspirin 81 mg tablet,delayed 81 mg PO DAILY [facility] 12/16/22 06/14/23 History release (Adult Low Dose Aspirin) metoprolol tartrate 25 mg tablet 12.5 mg PO BID BLOOD PRESSURE 06/29/23 Unknown History apixaban 5 mg tablet (Eliquis) 5 mg PO BID #180 tabs 07/25/23 03/10/24 Rx doxepin 50 mg capsule 50 mg PO QHS Depression 03/07/24 Unknown History Allergy/AdvReac Type Severity Reaction Status Date / Time isopropyl alcohol Allergy Rash Verified 03/07/24 16:09 Egg Derived AdvReac Severe Swelling Verified 03/07/24 16:09 NSAIDS (Non-Steroidal AdvReac instant Verified 03/07/24 16:09 Anti-Inflamma headache Family History Father Hypertension Mother Hypertension CAD (coronary artery disease) [place] Brother Heart disease Sister Heart disease Surgical History History of appendectomy History of right hip hemiarthroplasty History of hysterectomy History of cholecystectomy History of thyroidectomy Social History household members: none Smoking Status: Current every day smoker tobacco type: cigarettes alcohol intake: current alcohol intake frequency: a few times a month Alcohol type: beer substance use type: marijuana caffeine: Yes Type: coffee Number of servings: 1 Review of Systems (Anesthesia) ROS Narrative System reviewed and no additional complaints, except as documented.
[2024-03-11] MEDS: Lactated Ringers 1,000 ML 15 ML IV (12:47)
[2024-03-11] MEDS: Ipratropium/Albuterol Sulfate 3 ML AMPUL.NEB INHALATION (12:58)
--- NOTE | 2024-03-11 13:30 | EGD_PTH ---
PATIENT: AMADO UNGER LOC: [facility] U#:[id number] AGE/SX: 83/F ROOM: [facility] RE03/07/[address]: Dr. Wilver Payton DO : 1940 BED: 1 DIS: 03/12/2024 SPEC #: [id number] RECD: 03/11/24 15:37 STATUS: HANNAH ARBOLEDA #: [id number] MARIANO: 03/11/24 13:[address]: Ra Jaleesahsaan DEPT: SURGICAL PATHOLOGY RECD BY: Kyara David ENTERED: 03/12/24 06:57 SP TYPE: EGD BIOPSY OTHR DR: DO Dr. Sho Sanchez MD Dr. Nana Yaa Koram, MD Dr. Yasser Omran, MD Tissues: Gastric mucous membrane Procedures: Surgery Specimen Level IV HEADER OPERATION: EGD with biopsies, cautery of gastric ulcer using gold probe PRE-OP DIAGNOSIS: Anemia, gastric ulcer TISSUE SUBMITTED: Gastric ulcer biopsy MICROSCOPIC DIAGNOSIS Gastric ulcer, biopsy Mild chronic gastritis. See comment. Geronimo 03/13/2024 COMMENT The results of immunohistochemistry for Helicobacter pylori will be reported separately ([id number]). MICROSCOPIC DESCRIPTION Slides are reviewed. GROSS DESCRIPTION Received in fixative is one container labeled with the patient's name and designated Gastric ulcer biopsy. The specimen consists of multiple irregular fragments of light berry soft tissue that in aggregate measure 0.8 x 0.5 x 0.1 cm. The specimen is totally submitted in one cassette. 03/12/2024 TC:3 CPT:69592
--- NOTE | 2024-03-11 13:30 | IMM_PTH ---
PATIENT: AMADO UNGER LOC: [facility] U#:[id number] AGE/SX: 83/F ROOM: [facility] RE03/07/[address]: Dr. Wilver Payton DO : 1940 BED: 1 DIS: 03/12/2024 SPEC #: [id number] RECD: 03/11/24 15:53 STATUS: SOUT REQ #: [id number] MARIANO: 03/11/24 13:[address]: David Lazcano DEPT: IMMUNOHISTOCHEMISTRY RECD BY: Phil Justin ENTERED: 03/11/24 15:53 SP TYPE: IMMUNO OTHR DR: DO Dr. Sho Sanchez MD Dr. Nana Yaa Koram, MD Dr. Yasser Omran, MD Tissues: Gastric mucous membrane Procedures: H Pylori (initial) Comments: @ Ordering doctor for H.PYLORI edited from to @ by THOMAS at 03/11/24 1553 @ Submitting doctor edited from to @ by THOMAS at 03/11/24 1554 PHYSICIAN & INSTITUTION [place] [id number] SPECIMEN INFORMATION: Tissue Source: Gastric ulcer biopsy Clinical Info: Shannan, gastric ulcer Specimen Number: [id number] CPT code: 91668 METHODOLOGY: Deparaffinized sections of prefer/formalin-fixed tissue or PAP/DQ stained slides are incubated with monoclonal/polyclonal antibodies/oligonucleotide probes. Localization is made via biotin free immunoperoxidase method. Appropriate controls are performed and reacted as expected. Results on target cell population are indicated in the following table: RESULTS: ANTIBODY / CLONE RESULT H Pylori (polyclonal) negative These tests were developed and their performance characteristics determined by [facility]. They may not have been cleared or approved by the U.S. Food and Drug Administration. The FDA has determined that such clearance or approval is not necessary. The above immunohistochemical/dualISH markers are ordered and reviewed by the Pathologist. INTERPRETATION: Gastric ulcer, biopsy: Negative for Helicobacter pylori organisms. CHAUNCEY/ 03/13/2024
--- NOTE | 2024-03-11 13:39 | OP.EGD_ITS ---
Patient Name: Poornima Barry Procedure Date: 03/11/2024 1:17 PM Date of : 1940 Age: 83 Procedure: Upper GI endoscopy Indications: Iron deficiency anemia, Dysphagia Providers: David Lazcano DO Medicines: Monitored Anesthesia Care Patient Profile: This is an 83 year old female. Refer to note in patient chart for documentation of history and physical. Patient has symptoms of acute epigastric abdominal pain. Complications: No immediate complications. Procedure: Pre-Anesthesia Assessment: - Prior to the procedure, a History and Physical was performed, and patient medications and allergies were reviewed. The patient is competent. The risks and benefits of the procedure and the sedation options and risks were discussed with the patient. All questions were answered and informed consent was obtained. Patient identification and proposed procedure were verified by the physician in the pre-procedure area. Mental Status Examination: alert and oriented. Airway Examination: normal oropharyngeal airway and neck mobility. Respiratory Examination: clear to auscultation. CV Examination: normal. Prophylactic Antibiotics: The patient does not require prophylactic antibiotics. Prior Anticoagulants: The patient has taken no anticoagulant or antiplatelet agents. ASA Grade Assessment: III - A patient with severe systemic disease. After reviewing the risks and benefits, the patient was deemed in satisfactory condition to undergo the procedure. The anesthesia plan was to use monitored anesthesia care (MAC). Immediately prior to administration of medications, the patient was re-assessed for adequacy to receive sedatives. The heart rate, respiratory rate, oxygen saturations, blood pressure, adequacy of pulmonary ventilation, and response to care were monitored throughout the procedure. The physical status of the patient was re-assessed after the procedure. After obtaining informed consent, the endoscope was passed under direct vision. Throughout the procedure, the patient's blood pressure, pulse, and oxygen saturations were monitored continuously. The Endoscope was introduced through the mouth, and advanced to the second part of duodenum. The upper GI endoscopy was accomplished without difficulty. The patient tolerated the procedure well. 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 One linear esophageal ulcer oozing blood was found 35 to 37 cm from the incisors. The lesion was 4 mm in largest dimension. Coagulation for hemostasis using heater probe was successful. Estimated blood loss was minimal. One non-bleeding linear gastric ulcer with no stigmata of bleeding was found in the gastric antrum. The lesion was 3 mm in largest dimension. Biopsies were taken with a cold forceps for histology. Verification of patient identification for the specimen was done. Biopsies were taken with a cold forceps for histology. Biopsies were taken with a cold forceps for Helicobacter pylori testing. Verification of patient identification for the specimen was done. Estimated blood loss was minimal. No gross lesions were noted in the first portion of the duodenum. Impression: - Castro's esophagus. - Esophageal ulcer oozing blood. Treated with a heater probe. - Non-bleeding gastric ulcer with no stigmata of bleeding. Biopsied. - No gross lesions in the first portion of the duodenum. Recommendation: - Return patient to hospital heath for ongoing care. - Resume previous diet. - Continue present medications. - Await pathology results. Procedure Code(s): --- Professional --- 14349, 59, Esophagogastroduodenoscopy, flexible, transoral; with control of bleeding, any method 81859, 51, Esophagogastroduodenoscopy, flexible, transoral; with biopsy, single or multiple CPT copyright 2021 [employer]. All rights reserved. The codes documented in this report are preliminary and upon professional fee coder review may be revised to meet current compliance requirements. David Lazcano DO 03/11/2024 1:39:36 PM This report has been signed electronically. Number of Addenda: 0 Note Initiated On: 03/11/2024 1:17 PM
--- NOTE | 2024-03-11 13:40 | OP.CCLET_ITS ---
03/11/2024 Nayana Adam [address] [place] [address] Re : Upper GI endoscopy procedure for Poornima Barry Dear Dr. Adam This procedure was performed on Monday, March 11, 2024. My impressions and recommendations are as follows: Impressions : - Castro's esophagus. - Esophageal ulcer oozing blood. Treated with a heater probe. - Non-bleeding gastric ulcer with no stigmata of bleeding. Biopsied. - No gross lesions in the first portion of the duodenum. Recommendations : - Return patient to hospital heath for ongoing care. - Resume previous diet. - Continue present medications. - Await pathology results. My findings are described in the full procedure note, which is enclosed. If I can be of further assistance, please feel free to contact me at . Sincerely, David Lazcano, 03/11/2024 1:39:36 PM This report has been signed electronically.
--- NOTE | 2024-03-11 13:45 | PCM.POST.ANE ---
Anesthesia: Postop Eval I Current Vital Signs Temperature: 97.1 F Pulse Rate: 64 Blood Pressure: 197/80 Respiratory Rate: 18 Pulse Ox: 96 Oxygen Delivery Method: Nasal Cannula Oxygen Flow Rate (L/min): 3 Assessment Airway patent: Yes Spontaneous unlabored respirations: Yes Mental status: Asleep nausea: No Vomiting: No Anesthesia Complication: No Fluid Hydration Crystalloid volume administer (ml): 200 Total IV fluid infused: 200 Progress Note Anesthesia document: Postop Eval 1 completed: Yes
--- NOTE | 2024-03-11 14:05 | PCM.POSTANE2 ---
Anesthesia Postop Eval I Sum Postop Eval Completion status Anesthesia document: Postop Eval 1 completed: Yes Anesthesia Postop Eval I Summary Anesthesia Postop Eval I Summary: Anesthesia Postop Eval I: Assessment Summary Airway patent Yes 03/11/24 13:49 [email or web address] Spontaneous unlabored Yes 03/11/24 13:49 [email or web address] respirations Mental status Asleep 03/11/24 13:49 [email or web address] nausea No 03/11/24 13:49 [email or web address] Vomiting No 03/11/24 13:49 [email or web address] Anesthesia Postop Eval I: Fluid Summary Crystalloid volume administer 200 03/11/24 13:49 [email or web address] (ml) Colloids volume administered ( ml) Blood Product volume administered (ml) Total IV fluid infused 200 03/11/24 13:49 [email or web address] Anesthesia Postop Eval I: Summary Notes Anesthesia Complication No 03/11/24 13:49 [email or web address] Anesthesia Complication Comment: Post-operative progress note Anesthesia: Postop Eval II Evaluation Mental status: Awake and Calm Pain Level: 0 nausea: No Vomiting: No Complications Anesthesia Complication: No
[2024-03-11] MEDS: Metoprolol Tartrate 25 MG Tablet 12.5 MG PO (21:22)
[2024-03-11] MEDS: DOXEPIN HCL 50 MG CAPSULE PO (21:23)
[2024-03-11] MEDS: Atorvastatin Calcium 80 MG Tablet PO (21:23)
[2024-03-11] MEDS: Levothyroxine 75 MCG Tablet PO (21:27)
[2024-03-12 03:10] VITALS: BP 119/64; PULSE 60; RESP 18; TEMP 36.8; O2SAT 93
[2024-03-12 03:16] VITALS: BMI 25.6
[2024-03-12 06:23] LABS: Hematocrit 27.4 % (37-47); Hemoglobin 8.2 g/dL (12.0-15.0); Mean Corp Hgb Conc 29.9 g/dL (32-36); Mean Corpuscular Hgb 25.2 pg (27.0-32.0); Mean Platelet Vol. 9.2 fl (6.2-12.0); Platelet Count 458 K/mm3 (150-450); RBC Distribution Width CV 18.4 % (11.6-14.6); RBC Distribution Width SD 55.6 fl (35.1-43.9); Red Blood Count 3.26 M/mm3 (4.2-5.4); White Blood Count 9.3 K/mm3 (4.4-11.0)
[2024-03-12 09:47] VITALS: BP 138/69; PULSE 62; RESP 16; TEMP 36.1; O2SAT 96
[2024-03-12] MEDS: APIXABAN 5 MG TABLET PO (09:49)
[2024-03-12] MEDS: Aspirin 81 MG TAB.CHEW PO (09:49)
[2024-03-12] MEDS: Cyanocobalamin 500 MCG Tablet 1000 MCG PO (09:49)
[2024-03-12] MEDS: Paroxetine 20 MG Tablet 40 MG PO (09:49)
[2024-03-12] MEDS: Pantoprazole Sodium 40 MG Tablet PO (09:49)
[2024-03-12 09:50] VITALS: PULSE 57
--- NOTE | 2024-03-12 11:17 | CASEMGMT ---
Social Work Power of privacy attorney for healthcare w/LW provision checked is in the echart, Joellen Bergeron is listed as healthcare POA. WALTER Carbone
--- NOTE | 2024-03-12 11:21 | PCM.DC.SUM ---
Providers Date of Admission: 03/07/24 Date of Discharge: 03/12/24 Primary Care Physician: Dr. Nayana Adam MD Consultations 03/08/24 15:09 Consult: Gastroenterology Routine Consulting Provider: [facility] Reason for Consult: iron deficiency anemia EMERGENT Consult: No MD Notified: Yes Date Notified: 03/08/24 Time Notified: 15:09 Method of Notification: Text Reason For Visit: HYPOTENSION, ACUTE ON CHRONIC ANEMIA Diagnosis Discharge Diagnosis (1) Acute anemia: Status: Acute Code(s): D64.9 - Anemia, unspecified (2) Atrial fibrillation: Status: Acute Code(s): I48.91 - Unspecified atrial fibrillation (3) GI bleed: Status: Acute Code(s): K92.2 - Gastrointestinal hemorrhage, unspecified (4) Marijuana use: Status: Acute Code(s): F12.90 - Cannabis use, unspecified, uncomplicated Medications at Discharge Home Medications cyanocobalamin (vitamin B-12) 1,000 mcg tablet 1,000 mcg PO DAILY SUPPLEMENT 02/08/19 levothyroxine 75 mcg tablet 75 mcg PO QHS THYROID 02/08/19 paroxetine HCl 40 mg tablet 40 mg PO DAILY DEPRESSION 02/08/19 atorvastatin 80 mg tablet 80 mg PO QHS CHOLESTEROL 02/26/20 lysine 500 mg tablet 500 mg PO DAILY SUPPLEMENT 02/26/20 hydrochlorothiazide 12.5 mg tablet 6.25 mg (1/2 x 12.5 mg) PO DAILY FLUID #30 tabs 04/05/22 aspirin 81 mg tablet,delayed release (Adult Low Dose Aspirin) 81 mg PO DAILY HEART HEALTH 12/16/22 metoprolol tartrate 25 mg tablet 12.5 mg PO BID BLOOD PRESSURE 06/29/23 apixaban 5 mg tablet (Eliquis) 5 mg PO BID blood thinner #180 tabs 07/25/23 doxepin 50 mg capsule 50 mg PO QHS Depression 03/07/24 pantoprazole 40 mg tablet,delayed release 40 mg PO BID 30 days #60 tabs 03/12/24 Hospital Course Operations None Procedures EGD, EKG and - (Chest x-ray, CT abdomen pelvis) Summary of Care Provided Minutes Spent on Discharge: 35 Hospital Course: Patient is an 83-year-old female who presented to [facility] ED on 03/07/2024 with hypotension and presyncopal symptoms. Hospital course as noted below. Discharged home with no therapy needs in stable condition on 03/12. 1. Acute on chronic anemia secondary to upper GI bleed ? GI following. Presented with presyncopal symptoms and hypotension as noted below. Hemoglobin 6.8 on admit, down from baseline hemoglobin around 9-10. S/p 2 units packed red blood cells with improvement to the 8-9 range. EGD 03/11 showed an esophageal ulcer oozing blood treated with heater probe, along with nonbleeding gastric ulcer and Castro's esophagus. Treated with IV PPI twice daily while inpatient, discharged on p.o. PPI twice daily. Hemoglobin remained stable in the 8-9 range during hospitalization. Restarted home aspirin and Eliquis on day of discharge. Repeat CBC in 5 to 7 days to confirm stabilization of hemoglobin. 2. Hypotension, resolved ? Hypotensive to the 70s systolic on admission presumed secondary to GI bleed. Improved with blood transfusion and has remained stable since then. 3. Paroxysmal A-fib on Eliquis ? Held home Lopressor on admit due to hypotension. Had episodic bradycardia to the 50s during first few days of admission. Restarted lopressor on 03/10 and patient has remained stable. Restarted Eliquis on day of discharge. Chronic medical conditions: ? History of CVA, hypertension, hyperlipidemia: Continue home statin. Restarted home aspirin on day of discharge. Held hydrochlorothiazide while inpatient, okay to resume on discharge. ? Hypothyroidism: Continue home Synthroid. ? Anxiety/depression: Stable. Continue home Paxil. ? 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 Not interested in quitting. Total clinical time spent by myself addressing the patient's medical issues, reviewing all the data, and collaborating with patient's care team: 35 minutes. Physical Exam Const alert, oriented x3, no apparent distress and average body habitus Constitutional Narrative: Pleasant elderly female, laying comfortably in bed, conversing normally, in no acute distress. General Appearance: cooperative and comfortable HEENT normocephalic, head/scalp atraumatic, hearing grossly normal bilaterally, nasal mucous membranes and turbinates normal and moist oral mucous membranes Eyes PERRL, EOMs intact bilaterally and conjunctivae normal Neck full ROM Chest inspection of chest normal Resp normal respiratory effort, normal air movement, no use of accessory muscles and clear to auscultation bilaterally Cardio regular rate, regular rhythm, no murmurs and peripheral pulses 2+ throughout GI normal to inspection, nondistended, normoactive bowel sounds, soft to palpation, non-tender and non-distended Back/Spine normal ROM Extremity normal to inspection, full ROM and no pedal edema Skin no rashes or lesions noted Neuro moves all extremities and no focal motor deficits Speech: speech normal Psych mental status grossly normal Weight / BMI Weight Weight: 69.8 kg Body Mass Index (BMI) 25.6 ABG / Lab / Microbiology Data 03/12/24 06:00 03/11/24 05:20 Laboratory: Laboratory Results - last 24 hr 03/12/24 06:00: WBC 9.3, RBC 3.26 L, Hgb 8.2 L, Hct 27.4 L, MCV 84.0, MCH 25.2 L, MCHC 29.9 L, RDW Std Deviation 55.6 H, RDW Coeff of Patrick 18.4 H, Plt Count 458 H, MPV 9.2 Microbiology: Microbiology 03/07/24 18:53 Stool Stool Occult Blood (MYRA) - Final Radiography Diagnostic Testing: Radiology Impression Abdomen/Pelvis CT 03/07/24 17:08 IMPRESSION: No acute disease. Left adrenal adenoma. Moderate hiatal hernia. Electronically Signed: Israel Suresh MD at 19:12 EDT Reading Location ID and State: [address] [place] [address] Tel , Service support , Meaningful Use Info Meaningful Use Meaningful Use Diagnoses (Choose all that apply): None applicable Ischemic Stroke Statin Dosing Therapy Reference: STATIN DOSE THERAPY REFERENCE: * Patients > 75 years receive moderate or high dose statin therapy. * Patients 75 years or YOUNGER should receive HIGH intensity statin dose unless contraindicated. You will be required to document reason for non-treatment if statin daily dose does not meet guidelines. HIGH DOSE STATIN THERAPY DAILY Atorvastatin > than or = to 40 mg Rosuvastatin > than or = to 20 mg Amlodipine + Atorvastatin > than or = to 2.5/40 mg Ezetimibe + Simvastatin 10/80 mg Simvastatin 80mg Discharge Plan Admission Admit Date/Time: 03/07/24 19:18 Primary Reason for Your Visit: Dizziness and lightheadedness with low blood pressure Attending Provider: Wilver Payton Primary Care Provider: Nayana Adam Consulting Providers: Sho Novak; Bozena Main Instructions Additional Instructions / Restrictions: Please take the pantoprazole twice daily for the next 30 days, then start taking only once daily going forward for your recent GI bleed. Continue all other home medications as normal. Follow-up with the GI doctor in the office as needed. Discharge Orders/Prescriptions Prescriptions: New pantoprazole 40 mg Tablet,Delayed Release (Dr/Ec) 40 mg PO BID 30 Days Qty: 60 1RF Rx Instructions: Please take twice daily for the next 30 days, then start taking only once daily. Continued atorvastatin 80 mg tablet 80 mg PO QHS aspirin [Adult Low Dose Aspirin] 81 mg tablet,delayed release (DR/EC) 81 mg PO DAILY metoprolol tartrate 25 mg tablet 12.5 mg PO BID cyanocobalamin (vitamin B-12) 1,000 MCG tablet 1,000 mcg PO DAILY levothyroxine 75 MCG tablet 75 mcg PO QHS paroxetine HCl 40 MG tablet 40 mg PO DAILY lysine 500 mg tablet 500 mg PO DAILY hydrochlorothiazide 12.5 mg tablet 6.25 mg PO DAILY Qty: 30 0RF Rx Instructions: Reduced to 6.25 mg daily. Hold for SBP less than 130 mmHg doxepin 50 mg capsule 50 mg PO QHS Eliquis 5 mg tablet 5 mg PO BID Qty: 180 3RF Referrals / Follow Up: Nayana Adam MD [Primary Care Provider] - 03/18/24 1:15 pm Disposition Disposition (needs filled in before D/C Order can be placed): Home, Self Care Charges/Coding Visit Charges Inpatient E&M: 87480 Disch Hosp >30min
--- NOTE | 2024-03-12 13:48 | CASEMGMT ---
Patient has order for discharge. RN CM in to discuss needs at discharge. Patient denies needs or help at discharge. Patient states friend Joellen will assist patient at home. Patient had no further questions or concerns.
[2024-03-12 14:00] VITALS: BP 130/75; PULSE 65; RESP 16; TEMP 36.6; O2SAT 98
--- NOTE | 2024-03-12 15:07 | PHA.DC_ITS ---
Pharmacy [facility] Service has performed discharge medication reconciliation and counseling for this patient. 1. PANTOPRAZOLE 40MG PO BID X 30 DAYS, THEN DAILY THEREAFTER The patient's discharge medication list was reviewed for discrepancies and discrepancies were resolved. The patient was counseled on the following discharge medications and changes in medications for homegoing were reviewed. The Reason for Use, instructions for use, and potential side effects were reviewed for all new medications. The patient's questions regarding all of their medications were answered. The patient was able to verbally demonstrate an understanding of their discharge medications. Medications at Discharge Home Medications cyanocobalamin (vitamin B-12) 1,000 mcg tablet 1,000 mcg PO DAILY SUPPLEMENT 02/08/19 levothyroxine 75 mcg tablet 75 mcg PO QHS THYROID 02/08/19 paroxetine HCl 40 mg tablet 40 mg PO DAILY DEPRESSION 02/08/19 atorvastatin 80 mg tablet 80 mg PO QHS CHOLESTEROL 02/26/20 lysine 500 mg tablet 500 mg PO DAILY SUPPLEMENT 02/26/20 hydrochlorothiazide 12.5 mg tablet 6.25 mg (1/2 x 12.5 mg) PO DAILY FLUID #30 tabs 04/05/22 aspirin 81 mg tablet,delayed release (Adult Low Dose Aspirin) 81 mg PO DAILY HEART HEALTH 12/16/22 metoprolol tartrate 25 mg tablet 12.5 mg PO BID BLOOD PRESSURE 06/29/23 apixaban 5 mg tablet (Eliquis) 5 mg PO BID blood thinner #180 tabs 07/25/23 doxepin 50 mg capsule 50 mg PO QHS Depression 03/07/24 pantoprazole 40 mg tablet,delayed release 40 mg PO BID 30 days #60 tabs 03/12/24
== END 2024-03-12 15:36 | disposition home or self-care (01) | DRG 381 ==
LOC: ED 18:14 → PCU 19:25
PROVIDERS: Anesthesiology; Internal Medicine Gastroenterology; Student in an Organized Health Care Education/Training Program; Admitting Provider Family Medicine; Emergency Provider Emergency Medicine; PCP Internal Medicine Infectious Disease; Visit Provider Hospitalist
PROC: 0DJ08ZZ Inspection of Upper Intestinal Tract, Via Natural or Artificial Opening Endoscopic (ICD-10-PCS; CPT 43235; principal; 2024-03-11 13:25)
DX: K22.11 Ulcer of esophagus with bleeding (principal); D68.32 Hemorrhagic disorder due to extrinsic circulating anticoagulants; D62 Acute posthemorrhagic anemia; I95.9 Hypotension, unspecified; I48.0 Paroxysmal atrial fibrillation; G43.709 Chronic migraine without aura, not intractable, without status migrainosus; E78.5 Hyperlipidemia, unspecified; N18.30 Chronic kidney disease, stage 3 unspecified; E89.0 Postprocedural hypothyroidism; I12.9 Hypertensive chronic kidney disease with stage 1 through stage 4 chronic kidney disease, or unspecified chronic kidney disease; F32.A Depression, unspecified; K25.9 Gastric ulcer, unspecified as acute or chronic, without hemorrhage or perforation; K44.9 Diaphragmatic hernia without obstruction or gangrene; F17.210 Nicotine dependence, cigarettes, uncomplicated; R11.2 Nausea with vomiting, unspecified; R13.10 Dysphagia, unspecified; F41.0 Panic disorder [episodic paroxysmal anxiety]; Z66 Do not resuscitate; Z79.82 Long term (current) use of aspirin; Z79.01 Long term (current) use of anticoagulants; Z79.890 Hormone replacement therapy; Z79.899 Other long term (current) drug therapy; Z86.73 Personal history of transient ischemic attack (TIA), and cerebral infarction without residual deficits
CPT/HCPCS: 36415; 71045; 74176; 80048; 80053; 80307; 81001; 82274; 82728; 83540; 83550; 83605; 83690; 84484; 85014; 85018; 85025; 85027; 85610; 85730; 86850; 86900; 86901; 86920; 86922; 88305; 88342; 93005; 94640; 97162; 97166; 97530; 97535; 97802; 99285; 99406; J7030; J7120; P9016; A4216; J2405

== ENCOUNTER 2024-03-25 12:50 | Inpatient (IN) | payer MEDICARE, OTHER, SELFPAY ==
[2024-03-25] VITALS (8 sets, daily range): BP systolic 119–166; BP diastolic 61–98; PULSE 44–72; RESP 16–29; TEMP 36.3–37.1; O2SAT 95–100; BMI 27.6; BMI 24.3
[2024-03-25 14:04] LABS: Absolute Lymphocyte Count 1.04 X10^3/uL (0.83-4.51); Absolute Neutrophil Count 7.7 X10^3/uL (2.0-7.7); Basophil# 0.04 X10^3/uL; Basophil% 0.4 % (0-1); Eosinophil# 0.13 X10^3/uL; Eosinophils% 1.4 % (0-5); Hematocrit 28.2 % (37-47); Hemoglobin 8.5 g/dL (12.0-15.0); Lymphocyte # 1.04 X10^3/ul (0.83-4.51); Lymphocyte % 11.1 % (19-41); Mean Corp Hgb Conc 30.1 g/dL (32-36); Mean Corpuscular Hgb 24.9 pg (27.0-32.0); Mean Corpuscular Volume 82.5 fL (81-99); Mean Platelet Vol. 8.8 fl (6.2-12.0); Monocyte# 0.43 X10^3/uL; Monocyte% 4.6 % (0-10); NRBC Flagged by Analyzer 0 % (0-5); Neutrophil # 7.73 X10^3/uL (2.7-7.7); Neutrophil % 82.2 % (47-70); Platelet Count 559 K/mm3 (150-450); RBC Distribution Width CV 18.6 % (11.6-14.6); RBC Distribution Width SD 56.2 fl (35.1-43.9); Red Blood Count 3.42 M/mm3 (4.2-5.4); White Blood Count 9.4 K/mm3 (4.4-11.0)
[2024-03-25 14:36] LABS: ALB/GLOB Ratio 0.6 RATIO (0.9-2.4); AST(SGOT) 29 U/L (15-37); Alanine Aminotransfer ALT/SGPT 17 U/L (13-56); Albumin, Serum 2.9 g/dL (3.2-5.0); Alkaline Phosphatase 109 U/L (45-117); Anion Gap 7 (5-15); BUN 16 mg/dL (7-18); BUN/Creat Ratio 13.6 RATIO (10-20); Calcium,Total 8.7 mg/dL (8.5-10.1); Chloride 104 mmol/L (98-107); Creatinine, Serum 1.18 mg/dL (0.55-1.02); EST Glomerular Filtration Rate 46 mL/min (>60); Est Glom Filt Rate - Afr Amer 56 mL/min (>60); Estimated Creatinine Clearance 36.04 ml/min; Globulin 4.7 g/dL (2.2-4.2); Glucose 96 mg/dL (74-106); Potassium 4.5 mmol/L (3.5-5.1); Protein, Total 7.6 g/dL (6.4-8.2); Sodium Level 137 mmol/L (136-145)
--- NOTE | 2024-03-25 15:07 | EDS_ITS ---
HPI HPI - GI History of Present Illness Chief Complaint: Abd Pain Informant: patient Narrative Narrative: Presents by private vehicle noting black stools x 2 this morning. Pain left side of abdomen. No fevers or chills. She states concern for bleeding ulcer again for which she had similar 2 weeks ago with cauterization by Dr. Lazcano. She is on Eliquis for paroxysmal A-fib for the past 6 months. She last took her Eliquis this morning. Denies lightheaded symptoms. She does ambulate a walker. Denies any urinary symptoms. Prior similar symptoms: Yes PFSH PFSH Medical History Atrial fibrillation Marijuana use Anxiety Depression Smoker Hypertension Migraines Vitamin D deficiency Subcapital fracture of femur Tobacco dependence due to cigarettes History of CVA (cerebrovascular accident) (08/2019) Anemia Cephalgia Hypothyroidism Anxiety and depression Essential hypertension Paroxysmal atrial fibrillation Hypothyroidism Depression with anxiety Hyperlipidemia Home Medications ?Medication ?Instructions ?Recorded ?Last Taken ?Type cyanocobalamin (vitamin B-12) 1,000 mcg PO DAILY SUPPLEMENT 02/08/19 06/14/23 History 1,000 mcg tablet levothyroxine 75 mcg tablet 75 mcg PO QHS THYROID 02/08/19 06/14/23 History paroxetine HCl 40 mg tablet 40 mg PO DAILY DEPRESSION 02/08/19 03/11/24 History atorvastatin 80 mg tablet 80 mg PO QHS CHOLESTEROL 02/26/20 06/14/23 History lysine 500 mg tablet 500 mg PO DAILY SUPPLEMENT 02/26/20 06/14/23 History hydrochlorothiazide 12.5 mg tablet 6.25 mg (1/2 x 12.5 mg) PO DAILY 04/05/22 06/14/23 Rx FLUID #30 tabs aspirin 81 mg tablet,delayed 81 mg PO DAILY HEART HEALTH 12/16/22 06/14/23 History release (Adult Low Dose Aspirin) metoprolol tartrate 25 mg tablet 12.5 mg PO BID BLOOD PRESSURE 06/29/23 Unknown History apixaban 5 mg tablet (Eliquis) 5 mg PO BID blood thinner #180 tabs 07/25/23 03/10/24 Rx doxepin 50 mg capsule 50 mg PO QHS Depression 03/07/24 Unknown History pantoprazole 40 mg tablet,delayed 40 mg PO BID 30 days #60 tabs 03/12/24 Unknown Rx release azelastine 205.5 mcg (0.15 %) 1 spray intranasal DAILY 03/25/24 Unknown History nasal spray (Astepro Allergy) Allergy/AdvReac Type Severity Reaction Status Date / Time isopropyl alcohol Allergy Rash Verified 03/25/24 12:52 Egg Derived AdvReac Severe Swelling Verified 03/25/24 12:52 NSAIDS (Non-Steroidal AdvReac instant Verified 03/25/24 12:52 Anti-Inflamma headache Family History Father Hypertension Mother Hypertension CAD (coronary artery disease) [place] Brother Heart disease Sister Heart disease Surgical History History of appendectomy History of right hip hemiarthroplasty History of hysterectomy History of cholecystectomy History of thyroidectomy Social History household members: none Smoking Status: Current every day smoker tobacco type: cigarettes alcohol intake: current alcohol intake frequency: a few times a month Alcohol type: beer substance use type: marijuana caffeine: Yes Type: coffee Number of servings: 1 ROS ROS ED Constitutional Constitutional ED: Denies chills, fever(s) or sweats Eyes Eyes: Denies change in vision ENT ENT ED: Denies dysphagia or sore throat Cardiovascular Cardiovascular: Denies chest pain, leg edema, palpitations or racing heartbeat Respiratory/Chest Respiratory/Chest: Denies cough, dyspnea or dyspnea on exertion Gastrointestinal Gastrointestinal: Reports abdominal pain and melena; Denies diarrhea, nausea or vomiting Genitourinary Genitourinary ED: Denies dysuria, hematuria or urinary frequency Musculoskeletal Musculoskeletal: Denies back pain, extremity pain or neck pain Integumentary Denies rash or wounds Neurologic Neurologic: Denies headache(s), paresthesias or weakness EXAM Physical Exam Const Vital Signs: 03/25/24 12:52 03/25/24 14:50 03/25/24 16:00 Temperature 97.4 F L 97.8 F Temperature Source Temporal Temporal Pulse Rate 44 L 72 66 Respiratory Rate 18 16 18 Blood Pressure 119/61 134/70 H 162/71 H Blood Pressure Mean 80 91 101 Pulse Ox 100 99 98 Oxygen Delivery Method Room Air Room Air Room Air 03/25/24 17:49 Temperature 98.7 F Temperature Source Pulse Rate 65 Respiratory Rate 29 H Blood Pressure 131/98 H Blood Pressure Mean 109 Pulse Ox 99 Oxygen Delivery Method Positive well nourished and well developed General Appearance ED: well developed and NAD HEENT Reports moist mucous membranes normocephalic and atraumatic Eyes EOMs intact bilaterally and conjunctivae normal General Eye ED: Yes normal appearance of both eyes Neck no lymphadenopathy and supple General: Negative for tenderness Chest Wall Chest: Negative for tenderness Resp normal respiratory effort and normal air movement Effort and Inspection: symmetric chest movement; Negative for respiratory distress Cardio regular rate, regular rhythm and no murmurs Peripheral Pulses: pulses 2+ throughout GI normal to inspection, nondistended, normoactive bowel sounds and non-tender 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 Digital rectal exam with brown stools on the glove. Hemoccult pending. Palpation: Negative for guarding or rebound tenderness present Back/Spine no CVA tenderness and no thoracic nor lumbar tenderness Extremity normal to inspection General Extremety ED: Negative for edema or tenderness General Extremity: Negative for edema Neuro oriented x3 and no sensory deficits noted Sensorium / Orientation: awake and alert Skin no rashes or lesions noted and no wounds MDM MDM MDM Narrative Medical decision making narrative: Interventions / MDM: Differential diagnosis: GI bleed, anemia Diagnosis considered but do not suspect: Diverticulitis however CT negative My EKG interpretation: N/A Imaging independently reviewed and interpreted by myself: CT abdomen pelvis IV contrast: No acute process. External documents reviewed: EGD 03/11/24 oozing esophageal ulcer with heat probe cauterization, nonbleeding gastric ulcer. Discharge hemoglobin between 8 and 9. Test considered but not ordered:N/A ED course: Patient reports increasing black stools today x 2 on Eliquis. Nontoxic. She had left sided abdominal pain on exam. Labs are drawn from nursing protocol. Added coags and type and screen with her history of blood transfusions. Will obtain CT abdomen pelvis with her left side abdominal pain. 1540: Hemoglobin 8.5 stable from previous labs. BUN 16 creatinine 1.18. Hemoccult did return positive. No additional bowel movements in the ED. CT scan returned negative. I did speak with her housekeeper Dr. Lazcano, agrees with mission keep her n.p.o. at midnight. He plans on rechecking EGD tomorrow. I spoke with hospitalist Dr. Zhang for admission. Re-evaluation: stable Disposition discussed with patient/family/significant other: Patient Case discussed with consulting clinician: Gastroenterology, hospitalist This note was generated with [employer] dictation software. It may contain incorrect words, spelling, and punctuation that were not noted in checking the note before signing. Lab Data Attestation: I reviewed the patient's lab results. Labs: Laboratory Results - last 24 hr 03/25/24 03/25/24 03/25/24 13:55 15:00 15:07 WBC 9.4 RBC 3.42 L Hgb 8.5 L Hct 28.2 L MCV 82.5 MCH 24.9 L MCHC 30.1 L RDW Std Deviation 56.2 H RDW Coeff of Patrick 18.6 H Plt Count 559 H MPV 8.8 Immature Gran % (Auto) 0.300 Neut % (Auto) 82.2 H Lymph % (Auto) 11.1 L [place] % (Auto) 4.6 Eos % (Auto) 1.4 Baso % (Auto) 0.4 Absolute Neuts (auto) 7.7 Absolute Lymphs (auto) 1.04 Nucleated RBC % 0 PT INR APTT Sodium 137 Potassium 4.5 Chloride 104 Carbon Dioxide 26.0 Anion Gap 7 BUN 16 Creatinine 1.18 H Estim Creat Clear Calc 36.04 Est GFR (MDRD) Af Amer 56 L Est GFR (MDRD) Non-Af 46 L BUN/Creatinine Ratio 13.6 Glucose 96 Calcium 8.7 Total Bilirubin 0.60 AST 29 ALT 17 Alkaline Phosphatase 109 Total Protein 7.6 Albumin 2.9 L Globulin 4.7 H Albumin/Globulin Ratio 0.6 L Urine Color Yellow Urine Clarity Clear Urine pH 6.5 Ur Specific [place] 1.015 Urine Protein 15 H Urine Glucose (UA) Normal Urine Ketones Negative Urine Occult Blood 10 H Urine Nitrite Positive H Urine Bilirubin Negative Urine Urobilinogen Normal Ur Leukocyte Esterase 25 H Urine RBC 0 SEEN Urine WBC 0 SEEN Ur Squamous Epith Cells 0 SEEN Urine Bacteria 0 SEEN Urine Mucus 0 SEEN Blood Type Cancelled Antibody Screen Cancelled 03/25/24 03/25/24 15:46 15:48 WBC RBC Hgb Hct MCV MCH MCHC RDW Std Deviation RDW Coeff of Patrick Plt Count MPV Immature Gran % (Auto) Neut % (Auto) Lymph % (Auto) [place] % (Auto) Eos % (Auto) Baso % (Auto) Absolute Neuts (auto) Absolute Lymphs (auto) Nucleated RBC % PT 20.6 H INR 1.8 APTT 51.9 H Sodium Potassium Chloride Carbon Dioxide Anion Gap BUN Creatinine Estim Creat Clear Calc Est GFR (MDRD) Af Amer Est GFR (MDRD) Non-Af BUN/Creatinine Ratio Glucose Calcium Total Bilirubin AST ALT Alkaline Phosphatase Total Protein Albumin Globulin Albumin/Globulin Ratio Urine Color Urine Clarity Urine pH Ur Specific [place] Urine Protein Urine Glucose (UA) Urine Ketones Urine Occult Blood Urine Nitrite Urine Bilirubin Urine Urobilinogen Ur Leukocyte Esterase Urine RBC Urine WBC Ur Squamous Epith Cells Urine Bacteria Urine Mucus Blood Type O POSITIVE Antibody Screen NEGATIVE Radiography Diagnostic Testing: Clinical Impression(s) from Imaging Studies Abdomen/Pelvis CT 03/25/24 15:09 IMPRESSION: No acute abdominal or pelvic abnormality. No interval change. Electronically Signed: Sanju Veliz MD at 16:21 EDT Reading Location ID and State: [facility] / [place] Tel , Service support , Discharge Plan Dx/Rx/DC Orders Clinical Impression: GI bleed, Anemia, Chronic anticoagulation Disposition Disposition: Acute Care Hospital [facility] Discharge Date/Time: 03/25/24 18:39
[2024-03-25] MEDS: 0.9% Normal Saline (1000mL) 1,000 ML 150 ML IV (15:09)
--- NOTE | 2024-03-25 15:09 | CT_ITS ---
EXAM: CT ABDOMEN AND PELVIS WITH INTRAVENOUS CONTRAST CLINICAL INDICATION: left abd pain TECHNIQUE: Helically acquired images were obtained of the abdomen and pelvis with intravenous contrast. This CT exam was performed using one or more of the following dose reduction techniques: automated exposure control, adjustment of the mA and/or kV according to patient size, and/or use of iterative reconstruction technique. CONTRAST: IV 75mL Isovue-300 COMPARISON: No relevant prior studies available. FINDINGS: LOWER THORAX: Interstitial thickening of the lung bases again seen. Moderate size hiatal hernia. ABDOMEN: LIVER: Normal. Homogeneous. No focal mass. GALLBLADDER AND BILE DUCTS: Cholecystectomy clips are in place. No intra- or extrahepatic biliary ductal dilation. PANCREAS: Normal. No focal cystic or solid mass. SPLEEN: Normal. Normal size without focal cystic or solid mass. ADRENALS: Stable 18 mm left adrenal nodule. KIDNEYS AND URETERS: Normal. Normal renal size and position. No hydronephrosis. STOMACH AND BOWEL: Normal. No bowel distention. No focal inflammatory change. PELVIS: APPENDIX: No evidence of acute appendicitis. BLADDER: Normal. REPRODUCTIVE: Hysterectomy noted. ABDOMEN and PELVIS: INTRAPERITONEAL SPACE: Normal. No ascites or other fluid collection. No free air. BONES/JOINTS: No suspicious lytic or blastic abnormality. SOFT TISSUES: Normal. No discrete abdominal or pelvic wall hernia. VASCULATURE: Normal. Abdominal aorta is non-dilated. LYMPH NODES: Normal. No enlarged lymph nodes. CT/Abdomen/Pelvis W IV Cont ONLY IMPRESSION: No acute abdominal or pelvic abnormality. No interval change. Electronically Signed: Sanju Veliz MD at 16:21 EDT ,
[2024-03-25 15:18] LABS: Bacteria 0 SEEN /hpf (None Seen); Mucous, Urine 0 SEEN /hpf (<or=2+); Red Blood Cells-Urine 0 SEEN /hpf (0-5); Squamous Epithelial Cells - UA 0 SEEN /hpf (5-10); White Blood Cells 0 SEEN /hpf (0-5)
[2024-03-25 15:26] LABS: Color, Urine Yellow (Yellow); Glucose, Dipstick Normal (Normal); Ketone-Dipstick Negative (Negative); Leukocyte Esterase-Dipstick 25 /ul (Negative); Nitrite-Dipstick Positive (Negative); Occult Blood-Urine 10 /ul (Negative); Protein-Dipstick 15 mg/dl (Negative); Specific Gravity, Urine 1.015 (1.002-1.030); Urine Bilirubin Dipstick Negative (Negative); Urine Clarity Clear (Clear); Urine Urobilinogen Normal (Normal); Urine pH 6.5 (5.0 - 8.0)
[2024-03-25 16:12] LABS: International Normalized Ratio 1.8; Prothrombin Time (Protime)PT. 20.6 SECONDS (11.7-14.9)
[2024-03-25 16:13] LABS: Partial Thromboplast Time 51.9 Seconds (24.1-36.2)
[2024-03-25] MEDS: Pantoprazole Sodium 40 MG in 0.9% Normal Saline (100mL MB+) 100 ML 330 MG IV ×2 (17:48→22:48)
--- NOTE | 2024-03-25 18:02 | HP.PCM.HOS_ITS ---
HPI - General General Date of Admission: 03/25/24 Date of Service: 03/25/24 Chief Complaint: Black stools HPI Narrative AMADO UNGER, is a 83 F with a history of A-fib, CKD stage IIIa, hypertension, depression, hypothyroidism, CVA, GI bleed presented to [facility] ED 03/25/2024 due to black stools. In the ED hemoglobin 8.5 patient FOBT positive and recently had gone back on her Eliquis. GI contacted and will see her in consultation with possible repeat endoscopy. Hospitalist contacted for admission. Patient evaluated at bedside when she reports she had been in her usual health at home however she has had a little bit of left-sided abdominal pain but today had to black stools this morning prompting her to come back to the ED. The left-sided abdominal pain has been present since she had some constipation last admission without any significant change with the dark stools are new. No bright red blood, no nausea or vomiting, no other acute complaints. COUNTS INCLUDE 234 BEDS AT THE [facility] Medical History Atrial fibrillation Marijuana use Anxiety Depression Smoker Hypertension Migraines Vitamin D deficiency Subcapital fracture of femur Tobacco dependence due to cigarettes History of CVA (cerebrovascular accident) (08/2019) Anemia Cephalgia Hypothyroidism Anxiety and depression Essential hypertension Paroxysmal atrial fibrillation Hypothyroidism Depression with anxiety Hyperlipidemia Home Medications ?Medication ?Instructions ?Recorded ?Last Taken ?Type cyanocobalamin (vitamin B-12) 1,000 mcg PO DAILY SUPPLEMENT 02/08/19 06/14/23 History 1,000 mcg tablet levothyroxine 75 mcg tablet 75 mcg PO QHS THYROID 02/08/19 06/14/23 History paroxetine HCl 40 mg tablet 40 mg PO DAILY DEPRESSION 02/08/19 03/11/24 History atorvastatin 80 mg tablet 80 mg PO QHS CHOLESTEROL 02/26/20 06/14/23 History lysine 500 mg tablet 500 mg PO DAILY SUPPLEMENT 02/26/20 06/14/23 History hydrochlorothiazide 12.5 mg tablet 6.25 mg (1/2 x 12.5 mg) PO DAILY 04/05/22 06/14/23 Rx FLUID #30 tabs aspirin 81 mg tablet,delayed 81 mg PO DAILY HEART HEALTH 12/16/22 06/14/23 History release (Adult Low Dose Aspirin) metoprolol tartrate 25 mg tablet 12.5 mg PO BID BLOOD PRESSURE 06/29/23 Unknown History apixaban 5 mg tablet (Eliquis) 5 mg PO BID blood thinner #180 tabs 07/25/23 03/10/24 Rx doxepin 50 mg capsule 50 mg PO QHS Depression 03/07/24 Unknown History pantoprazole 40 mg tablet,delayed 40 mg PO BID 30 days #60 tabs 03/12/24 Unknown Rx release azelastine 205.5 mcg (0.15 %) 1 spray intranasal DAILY 03/25/24 Unknown History nasal spray (Astepro Allergy) Allergy/AdvReac Type Severity Reaction Status Date / Time isopropyl alcohol Allergy Rash Verified 03/25/24 12:52 Egg Derived AdvReac Severe Swelling Verified 03/25/24 12:52 NSAIDS (Non-Steroidal AdvReac instant Verified 03/25/24 12:52 Anti-Inflamma headache Family History Father Hypertension Mother Hypertension CAD (coronary artery disease) [place] Brother Heart disease Sister Heart disease Surgical History History of appendectomy History of right hip hemiarthroplasty History of hysterectomy History of cholecystectomy History of thyroidectomy Social History household members: none Smoking Status: Current every day smoker tobacco type: cigarettes alcohol intake: current alcohol intake frequency: a few times a month Alcohol type: beer substance use type: marijuana caffeine: Yes Type: coffee Number of servings: 1 ROS ROS Narrative General: Denies fever/chills HENT: Denies headache, denies stuffy nose but does have runny nose, denies sore throat EYES: Denies changes in vision Resp: Denies cough, denies shortness of breath Cardiac: Denies chest pain GI: 2 episodes dark tarry stool, some left-sided abdominal pain, denies nausea/vomiting : Denies changes in urination Extremity: Denies swelling MSK: Denies weakness Neuro: Denies any numbness/tingling Heme: Denies any bleeding or bruising Skin: Denies rashes Psychiatric: No complaints voiced Vital Signs Vital Signs Vital Signs: 03/25/24 12:52 03/25/24 14:50 03/25/24 16:00 Temperature 97.4 F L 97.8 F Temperature Source Temporal Temporal Pulse Rate 44 L 72 66 Respiratory Rate 18 16 18 Blood Pressure 119/61 134/70 H 162/71 H Blood Pressure Mean 80 91 101 Pulse Ox 100 99 98 Oxygen Delivery Method Room Air Room Air Room Air 03/25/24 17:49 Temperature 98.7 F Temperature Source Pulse Rate 65 Respiratory Rate 29 H Blood Pressure 131/98 H Blood Pressure Mean 109 Pulse Ox 99 Oxygen Delivery Method Weight Weight: 75.296 kg Body Mass Index (BMI) 27.6 Physical Exam Narrative General: Alert, oriented, no apparent distress HEENT: Atraumatic, normocephalic Eyes: Anicteric, normal conjunctiva, extraocular movements grossly intact Neck: Supple Respiratory: Clear to auscultation bilaterally, normal respiratory effort Cardiovascular: Regular rate GI: Soft, nontender, nondistended Extremities: No edema Musculoskeletal: Moving all extremities Neuro: No overt focal neurological deficits Skin: No rashes appreciated Psych: Cooperative Results Lab / Micro Data 03/25/24 13:55 03/25/24 13:55 Labs: Laboratory Results - last 24 hr 03/25/24 13:55: WBC 9.4, RBC 3.42 L, Hgb 8.5 L, Hct 28.2 L, MCV 82.5, MCH 24.9 L , MCHC 30.1 L, RDW Std Deviation 56.2 H, RDW Coeff of Patrick 18.6 H, Plt Count 559 H, MPV 8.8, Immature Gran % (Auto) 0.300, Neut % (Auto) 82.2 H, Lymph % (Auto) 11.1 L, [place] % (Auto) 4.6, Eos % (Auto) 1.4, Baso % (Auto) 0.4, Absolute Neuts (auto) 7.7, Absolute Lymphs (auto) 1.04, Nucleated RBC % 0, Sodium 137, Potassium 4.5, Chloride 104, Carbon Dioxide 26.0, Anion Gap 7, BUN 16, C reatinine 1.18 H, Estim Creat Clear Calc 36.04, Est GFR (MDRD) Af Amer 56 L, Est GFR (MDRD) Non-Af 46 L, BUN/Creatinine Ratio 13.6, Glucose 96, Calcium 8.7, Total Bilirubin 0.60, AST 29, ALT 17, Alkaline Phosphatase 109, Total Protein 7.6, Albumin 2.9 L, Globulin 4.7 H, Albumin/Globulin Ratio 0.6 L 03/25/24 15:00: Urine Color Yellow, Urine Clarity Clear, Urine pH 6.5, Ur Specific [place] 1.015, Urine Protein 15 H, Urine Glucose (UA) Normal, Urine Ketones Negative, Urine Occult Blood 10 H, Urine Nitrite Positive H, Urine Bilirubin Negative, Urine Urobilinogen Normal, Ur Leukocyte Esterase 25 H, Urine RBC 0 SEEN, Urine WBC 0 SEEN, Ur Squamous Epith Cells 0 SEEN, Urine Bacteria 0 SEEN, Urine Mucus 0 SEEN 03/25/24 15:07: Blood Type Cancelled, Antibody Screen Cancelled 03/25/24 15:46: PT 20.6 H, INR 1.8, APTT 51.9 H 03/25/24 15:48: Blood Type O POSITIVE, Antibody Screen NEGATIVE Micro: Microbiology 03/25/24 15:07 Stool Stool Occult Blood (MYRA) - Final Occult Blood Positive Imaging Radiology Impression Abdomen/Pelvis CT 03/25/24 15:09 IMPRESSION: No acute abdominal or pelvic abnormality. No interval change. Electronically Signed: Sanju Veliz MD at 16:21 EDT Reading Location ID and State: [facility] / [place] Tel , Service support , Assessment & Plan Assessment/Plan (1) Fecal occult blood test positive: PLAN: Plan # Black tarry stools with positive fecal occult in setting of recent esophageal ulcer and gastric ulcer and chronic anemia -Patient had recent admission for GI bleed and had endoscopy which showed esophageal ulcer and gastric ulcer treated with heater probe, was restarted on Eliquis before discharge and is now had another episode of dark stools x 2 -Fecal occult positive -IV PPI twice daily -Consult gastroenterology -Hemoglobin thus far stable, will trend -N.p.o. at midnight in the event patient needs intervention -Given elevated platelets with her anemia concern for blood loss will check iron panel # Hypertension -Will hold hydrochlorothiazide medications, if patient has persistent elevation in blood pressure and no evidence of ongoing blood loss will resume home medications # History of CVA in 2019 -Holding aspirin and Eliquis, continue statin #Hypothyroidism -Continue Synthroid # CKD stage III a -Slight increase from baseline however not CLAUDIA -Gentle hydration # History A-fib -Continue metoprolol, hold Eliquis given concern for bleed # History of depression -Continue paroxetine and doxepin #Tobacco use -Advise cessation -Nicotine replacement available if desired #DVT ppx: SCDs Rossi Zhang MD Charges/Coding Visit Charges Inpatient E&M: 21107 Init Hosp L1
[2024-03-25 19:42] LABS: Hemoglobin 7.8 g/dL (12.0-15.0); Mean Corpuscular Hgb 24.5 pg (27.0-32.0); Mean Corpuscular Volume 81.8 fL (81-99); Platelet Count 529 K/mm3 (150-450); RBC Distribution Width CV 18.6 % (11.6-14.6); RBC Distribution Width SD 56.1 fl (35.1-43.9); Red Blood Count 3.18 M/mm3 (4.2-5.4); White Blood Count 8.3 K/mm3 (4.4-11.0)
[2024-03-25 20:03] LABS: Ferritin 36 ng/mL (8-252); Iron 18 ug/dL (50-170); Iron Binding Capacity,Total 407 ug/dL (250-450); PERCENT IRON SATURATION 4.4 % (15.0-55.0)
[2024-03-25] MEDS: 0.9% Saline Lock 10 ML Syringe IV ×2 (20:04→22:48)
[2024-03-25] MEDS: 0.9% Normal Saline (1000mL) 1,000 ML 50 ML IV (20:04)
[2024-03-25] MEDS: Sodium Ferric Gluconat/Sucrose 250 MG in 0.9% Normal Saline (250mL Bag) 250 ML 135 MG IV (20:40)
[2024-03-25] MEDS: Metoprolol Tartrate 25 MG Tablet 12.5 MG PO (22:49)
[2024-03-25] MEDS: Atorvastatin Calcium 80 MG Tablet PO (22:49)
[2024-03-25] MEDS: DOXEPIN HCL 50 MG CAPSULE PO (22:49)
[2024-03-25 22:51] LABS: Hematocrit 24.3 % (37-47); Hemoglobin 7.3 g/dL (12.0-15.0); Mean Corpuscular Hgb 24.3 pg (27.0-32.0); Mean Corpuscular Volume 80.7 fL (81-99); Mean Platelet Vol. 8.9 fl (6.2-12.0); Platelet Count 487 K/mm3 (150-450); RBC Distribution Width CV 18.6 % (11.6-14.6); RBC Distribution Width SD 54.6 fl (35.1-43.9); Red Blood Count 3.01 M/mm3 (4.2-5.4)
[2024-03-25] MEDS: MELATONIN 3 MG TABLET PO (23:10)
[2024-03-26] VITALS (12 sets, daily range): BP systolic 136–187; BP diastolic 62–83; PULSE 58–69; RESP 16–18; TEMP 36.1–37; O2SAT 92–100
[2024-03-26 03:46] LABS: Hematocrit 24.3 % (37-47); Hemoglobin 7.4 g/dL (12.0-15.0); Mean Corp Hgb Conc 30.5 g/dL (32-36); Mean Corpuscular Hgb 24.6 pg (27.0-32.0); Mean Corpuscular Volume 80.7 fL (81-99); Mean Platelet Vol. 8.7 fl (6.2-12.0); Platelet Count 497 K/mm3 (150-450); RBC Distribution Width CV 18.6 % (11.6-14.6); RBC Distribution Width SD 54.4 fl (35.1-43.9); Red Blood Count 3.01 M/mm3 (4.2-5.4); White Blood Count 10.8 K/mm3 (4.4-11.0)
[2024-03-26 07:16] LABS: Absolute Neutrophil Count 9.4 X10^3/uL (2.0-7.7); Basophil# 0.05 X10^3/uL; Basophil% 0.4 % (0-1); Eosinophil# 0.28 X10^3/uL; Eosinophils% 2.5 % (0-5); Hematocrit 26.4 % (37-47); Hemoglobin 7.9 g/dL (12.0-15.0); Lymphocyte % 10.5 % (19-41); Mean Corp Hgb Conc 29.9 g/dL (32-36); Mean Corpuscular Hgb 24.4 pg (27.0-32.0); Mean Corpuscular Volume 81.5 fL (81-99); Monocyte# 0.44 X10^3/uL; Monocyte% 3.9 % (0-10); NRBC Flagged by Analyzer 0 % (0-5); Neutrophil % 82.3 % (47-70); Platelet Count 553 K/mm3 (150-450); RBC Distribution Width CV 18.6 % (11.6-14.6); Red Blood Count 3.24 M/mm3 (4.2-5.4); White Blood Count 11.4 K/mm3 (4.4-11.0)
[2024-03-26] MEDS: Pantoprazole Sodium 40 MG in 0.9% Normal Saline (100mL MB+) 100 ML 330 MG IV ×2 (10:13→21:57)
[2024-03-26 11:00] LABS: Hematocrit 28.1 % (37-47); Hemoglobin 8.3 g/dL (12.0-15.0); Mean Corp Hgb Conc 29.5 g/dL (32-36); Mean Corpuscular Hgb 24.3 pg (27.0-32.0); Mean Corpuscular Volume 82.2 fL (81-99); Mean Platelet Vol. 9.3 fl (6.2-12.0); Platelet Count 521 K/mm3 (150-450); RBC Distribution Width CV 18.7 % (11.6-14.6); RBC Distribution Width SD 56.6 fl (35.1-43.9); Red Blood Count 3.42 M/mm3 (4.2-5.4); White Blood Count 10.7 K/mm3 (4.4-11.0)
--- NOTE | 2024-03-26 11:03 | CASEMGMT ---
LEON HORNER Readmission Note Previous Admission: 03/07/24-03/12/24 Diagnosis:hypotension, acute on chronic anemia DC Disposition: Home Current Admission: Admitted 03/25/24 Current Diagnosis: GI Bleed, anemia Pt presented with presyncopal symptoms and hypotension on index admission. Hemoglobin 6.8. on admit. EGD showed an esophageal ulcer oozing blood treated with heater probe, along with nonbleeding gastric ulcer and Castro's esophagus. Pt was dc'd on PPI twice daily. Pt was restarted home aspirin and Eliquis on day of discharge with plans to check CBC 5-7 days post dc. Pt presented to ER with black stools. Pt to have repeat EGD this date. LEON HORNER into pt room, pt lying in bed in no distress. Pt sttes she did follow up with on 03/18 and there were no changes. She states she did not have lab work drawn that she is aware of. Pt had been taking her medications as ordered and was taking the protonix. Pt states she uses her walker at home. Her son lives with her and assists with IADLs such as cooking, cleaning, laundry, etc. Pt denies any homegoing needs at this time. LEON HORNER to follow. 6 cl=22, no therapy ordered. DC Plan: Home pending course of hospitalization
--- NOTE | 2024-03-26 11:31 | PN.HOSP_ITS ---
Subjective Subjective Doing well, no issues overnight. Denies any abdominal pain. Hemoglobin is low but stable Objective Data Objective Data Vital Signs: Vital Signs Temp Pulse Resp BP Pulse Ox O2 Del Method 97.0 F L 59 L 18 137/83 H 95 Room Air 03/26/24 08:09 03/26/24 08:14 03/26/24 08:09 03/26/24 08:09 03/26/24 08:09 03/26/24 08:09 Oxygen Delivery Method Room Air Weight: 146 lb 3.016 oz Body Mass Index (BMI) 24.3 Intake & Output: Intake and Output for Last 24 Hours 03/25/24 03/26/24 03/27/24 03:59 03:59 03:59 Intake Total 1529.17 / 1529.17 664.17 / 664.17 Output Total 300 / 300 Balance 1229.17 / 1229.17 664.17 / 664.17 Lab / Micro Data 03/26/24 10:47 03/25/24 13:55 Labs: Laboratory Results - last 24 hr 03/25/24 13:55: WBC 9.4, RBC 3.42 L, Hgb 8.5 L, Hct 28.2 L, MCV 82.5, MCH 24.9 L , MCHC 30.1 L, RDW Std Deviation 56.2 H, RDW Coeff of Patrick 18.6 H, Plt Count 559 H, MPV 8.8, Immature Gran % (Auto) 0.300, Neut % (Auto) 82.2 H, Lymph % (Auto) 11.1 L, Mora % (Auto) 4.6, Eos % (Auto) 1.4, Baso % (Auto) 0.4, Absolute Neuts (auto) 7.7, Absolute Lymphs (auto) 1.04, Nucleated RBC % 0, Sodium 137, Potassium 4.5, Chloride 104, Carbon Dioxide 26.0, Anion Gap 7, BUN 16, C reatinine 1.18 H, Estim Creat Clear Calc 36.04, Est GFR (MDRD) Af Amer 56 L, Est GFR (MDRD) Non-Af 46 L, BUN/Creatinine Ratio 13.6, Glucose 96, Calcium 8.7, Total Bilirubin 0.60, AST 29, ALT 17, Alkaline Phosphatase 109, Total Protein 7.6, Albumin 2.9 L, Globulin 4.7 H, Albumin/Globulin Ratio 0.6 L 03/25/24 15:00: Urine Color Yellow, Urine Clarity Clear, Urine pH 6.5, Ur Specific [place] 1.015, Urine Protein 15 H, Urine Glucose (UA) Normal, Urine Ketones Negative, Urine Occult Blood 10 H, Urine Nitrite Positive H, Urine Bilirubin Negative, Urine Urobilinogen Normal, Ur Leukocyte Esterase 25 H, Urine RBC 0 SEEN, Urine WBC 0 SEEN, Ur Squamous Epith Cells 0 SEEN, Urine Bacteria 0 SEEN, Urine Mucus 0 SEEN 03/25/24 15:07: Blood Type Cancelled, Antibody Screen Cancelled 03/25/24 15:46: PT 20.6 H, INR 1.8, APTT 51.9 H 03/25/24 15:48: Blood Type O POSITIVE, Antibody Screen NEGATIVE 03/25/24 19:28: WBC 8.3, RBC 3.18 L, Hgb 7.8 L, Hct 26.0 L, MCV 81.8, MCH 24.5 L , MCHC 30.0 L, RDW Std Deviation 56.1 H, RDW Coeff of Patrick 18.6 H, Plt Count 529 H, MPV 9.0, Iron 18 L, TIBC 407, Iron Saturation 4.4 L, Ferritin 36 03/25/24 22:38: WBC 9.0, RBC 3.01 L, Hgb 7.3 L, Hct 24.3 L, MCV 80.7 L, MCH 24.3 L, MCHC 30.0 L, RDW Std Deviation 54.6 H, RDW Coeff of Patrick 18.6 H, Plt Count 487 H, MPV 8.9 03/26/24 03:39: WBC 10.8, RBC 3.01 L, Hgb 7.4 L, Hct 24.3 L, MCV 80.7 L, MCH 24.6 L, MCHC 30.5 L, RDW Std Deviation 54.4 H, RDW Coeff of Patrick 18.6 H, Plt Count 497 H, MPV 8.7 03/26/24 07:04: WBC 11.4 H, RBC 3.24 L, Hgb 7.9 L, Hct 26.4 L, MCV 81.5, MCH 24.4 L, MCHC 29.9 L, RDW Std Deviation 55.0 H, RDW Coeff of Patrick 18.6 H, Plt Count 553 H, MPV 9.0, Immature Gran % (Auto) 0.400, Neut % (Auto) 82.3 H, Lymph % (Auto) 10.5 L, Mora % (Auto) 3.9, Eos % (Auto) 2.5, Baso % (Auto) 0.4, A bsolute Neuts (auto) 9.4 H, Absolute Lymphs (auto) 1.20, Nucleated RBC % 0 03/26/24 10:47: WBC 10.7, RBC 3.42 L, Hgb 8.3 L, Hct 28.1 L, MCV 82.2, MCH 24.3 L, MCHC 29.5 L, RDW Std Deviation 56.6 H, RDW Coeff of Patrick 18.7 H, Plt Count 521 H, MPV 9.3 Micro: Microbiology 03/25/24 15:07 Stool Stool Occult Blood (MYRA) - Final Occult Blood Positive Radiography Diagnostic Testing: Radiology Impression Abdomen/Pelvis CT 03/25/24 15:09 IMPRESSION: No acute abdominal or pelvic abnormality. No interval change. Electronically Signed: Sanju Veliz MD at 16:21 EDT Reading Location ID and State: [facility] / [place] Tel , Service support , Physical Exam Narrative General: Alert, Oriented x3, Cooperative, No apparent distress HEENT: Atraumatic, PERRLA, EOMI, Normocephalic Oral: Moist Mucosa Neck: Supple, No JVD Lungs: Diminished, Normal air movement, No rhonchi, No wheeze, No rales Cardiovascular: Regular rate, Regular Rhythm, Normal S1, Normal S2, No murmurs Abdomen: Soft, Non Tender, Non-Distended, No Hepato-splenomegaly Extremities: No edema, Capillary Refill Less than 3 Seconds Skin: No rashes, No breakdown Musculoskeletal: No Tenderness to Palpation of Joints or Extremities Neurological: No focal neurological deficits, Motor Exam 5/5 strength throughout, Sensory exam intact to light touch and pain Psych/Mental Status: Normal Affect, Appropriate Assessment & Plan Assessment/Plan (1) Fecal occult blood test positive: PLAN: Plan 1. Acute GI bleed with chronic iron deficiency anemia ? 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 Continue with PPI ? Plan for repeat EGD ? Iron studies with TIBC of 407 and a saturation of 4.4% and a ferritin of 36 with an iron level of 18, will give her a dose of Venofer 2. Essential HTN/HLD/A-fib ? Blood pressure stable/continue with her home medications ? Continue with her statin ? Will hold her Eliquis given her repeated bleeding ? Continue with rate control with metoprolol 3. Hypothyroidism ? Stable ?Continue Synthroid 4. Depression/anxiety ? Stable ? Continue with her home medications DVT: SCDs Charges/Coding Visit Charges Inpatient E&M: 53025 Subs Hosp L2
[2024-03-26 11:37] LABS: Anion Gap 11 (5-15); BUN 16 mg/dL (7-18); BUN/Creat Ratio 15.4 RATIO (10-20); Calcium,Total 8.7 mg/dL (8.5-10.1); Chloride 105 mmol/L (98-107); Creatinine, Serum 1.04 mg/dL (0.55-1.02); EST Glomerular Filtration Rate 54 mL/min (>60); Est Glom Filt Rate - Afr Amer 65 mL/min (>60); Estimated Creatinine Clearance 36.23 ml/min; Glucose 96 mg/dL (74-106); Sodium Level 137 mmol/L (136-145)
--- NOTE | 2024-03-26 15:30 | PCM.PRE.AN2 ---
ASA Classification* ASA Classification ASA Classification: 3 Assessment & Plan Anesthesia* Anesthesia Assessment Anesthesia Assessment: Discussed sedation and/or anesthesia options, risks, benefits, and alternatives with patient/parents/legal guardian/POA. Questions invited. The patient/parents/legal guardian/POA seems to understand and agrees to proceed with anesthesia plan. Reviewed the physical assessment, medical history, allergy history and patient home medications list prior to surgery/procedure/anesthetic and documented any changes. Performed airway and anesthesia risk assessments. Anesthesia Type Anesthesia Type: MAC History Source History Obtained from:: Patient and Chart Anesthesia Focused Assessment* Temperature: 97.1 F Pulse Rate: 62 Blood Pressure: 150/64 Respiratory Rate: 18 Pulse Ox: 98 Oxygen Delivery Method: Room Air Airway Assessment Mouth opens: >3 cm Mallampati Score: III Teeth Condition: Full (Patient has full upper and lower dentures. they are currently out.) Neck Range of motion (ROM): Limited ROM (Slight decrease in extension) Focused Labs Anesthesia Preop lab: CBC WBC 10.7 K/mm3 (4.4-11.0) 03/26/24 10:47 RBC 3.42 M/mm3 (4.2-5.4) L 03/26/24 10:47 Hgb 8.3 g/dL (12.0-15.0) L 03/26/24 10:47 Hct 28.1 % (37-47) L 03/26/24 10:47 Plt Count 521 K/mm3 (150-450) H 03/26/24 10:47 CHEMISTRY Potassium 4.0 mmol/L (3.5-5.1) 03/26/24 07:04 Sodium 137 mmol/L (136-145) 03/26/24 07:04 Magnesium 2.1 mg/dL (1.6-2.6) 06/15/23 16:00 BUN 16 mg/dL (7-18) 03/26/24 07:04 Creatinine 1.04 mg/dL (0.55-1.02) H 03/26/24 07:04 Glucose 96 mg/dL (74-106) 03/26/24 07:04 POC Glucose 110 mg/dL (70-110) 02/18/20 22:09 TSH 1.710 uIU/mL (0.358-3.740) 03/26/24 07:04 COAG PT 20.6 SECONDS (11.7-14.9) H 03/25/24 15:46 Pre-Assessment Diagnosis/Proposed Procedure Planned Operative Procedure(s): Esophagogastroduodenoscopy Anesthesia History 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 When Was Last Pacemaker Check QUESTION #4 FULL TEXT: You/Your Family Experience fever (hyperthermia) with Anesthesia Last Oral Intake Last Oral intake: Last Oral Intake NPO since Meds taken in AM with sips of water? Meds patient instructed to take am of surgery Any additional information?: Yes NPO since: 00:00 PONV PONV - marine equipment design engineer: PONV - marine equipment design engineer Female HX of Motion Sickness HX of N/V After Surgery Non-Smoker Duration of Surgery greater than 60 minutes Number of Risk Factors PONV Score Height & Weight Height & Weight: Anesthesia: Height & Weight Height 5 ft 5 in 03/26/24 10:11 Weight: 66.31 kg 03/26/24 10:11 Body Mass Index (BMI) 24.3 03/25/24 19:01 Respiratory Assessment Respiratory Assessment - marine equipment design engineer: Respiratory Tract Infection Hx - marine equipment design engineer Hx Respiratory Tract Infection No 03/10/24 21:37 STOP Sleep Apnea STOP Sleep Apnea - marine equipment design engineer: STOP Sleep Apnea - marine equipment design engineer Hx Hypertension Yes 03/25/24 19:01 Hx Sleep Apnea No 03/25/24 19:01 CPAP BIPAP Do you snore loudly (louder No 03/25/24 19:01 than talking or can be heard Do you often feel tired/ No 03/25/24 19:01 fatigued/ sleepy during daytime? Has anyone observed you stop No 03/25/24 19:01 breathing during sleep? STOP Results Negative 03/25/24 19:01 QUESTION #5 FULL TEXT : Do you snore loudly (louder than talking or can be heard through closed doors)? Tobacco Use History Tobacco Use History - marine equipment design engineer: Tobacco Use History - marine equipment design engineer Tobacco Use Cigarettes 06/19/23 10:00 Smoking Status Current every day smoker 03/26/24 11:17 Hx Tobacco Use Yes 03/25/24 19:01 Years Smoking Packs Smoked per Day Smoking Cessation Date was within the last 15 years Hx Smoking Cessation Date Hx Smoking Cessation No 03/25/24 19:01 Counseling Hematologic Medial History Hematologic Hx - marine equipment design engineer: Hematologic Medical Hx - heel shaver Hx of Blood Transfusion Yes 03/25/24 19:01 Hx of Transfusion in last 3 Yes 03/25/24 19:01 Months Date of Last Transfusion (if 03/11/24 03/25/24 19:01 within last 3 months) Ever experience any problems No 03/25/24 19:01 with transfusion(s)? Specify any problems Hx of Preganancy in last 3 No 03/25/24 19:01 Months Nurse Filling Out Transfusion TCLEVIDEN 03/25/24 19:01 & Questions: Date: 03/25/24 03/25/24 19:01 Time: 19:09 03/25/24 19:01 Patient unable to answer at this time (ie. confused, unrespo /Reproduction History /Reproductive History - marine equipment design engineer: /Reproductive Hx- marine equipment design engineer Hx Now Gestational Age (in weeks): EDC: Hx Hx Para Hx Section SAB No 03/10/24 21:37 Active Medications Active Medications: Current Medications Generic Name Dose Route Start Last Admin Trade Name Freq PRN Reason Stop Dose Admin Acetaminophen 650 mg 03/25/24 18:59 Acetaminophen 325 Mg Tablet PO Q6H PRN PRN Pain 1-10 Or Fever >100.7 Albuterol Sulfate 2.5 mg 03/25/24 18:59 Albuterol 2.5 Mg/3 Ml Vial.Neb. INHALATION Q2H PRN PRN SOB &/OR WHEEZING Atorvastatin Calcium 80 mg 03/25/24 22:00 03/25/24 22:49 Atorvastatin Calcium 80 Mg Tablet PO 80 mg QHS FRANCESCO Administration Doxepin HCl 50 mg 03/25/24 22:00 03/25/24 22:49 Doxepin Hcl 50 Mg Capsule PO 50 mg QHS FRANCESCO Administration Pantoprazole Sodium 40 mg/ 110 mls @ 330 mls/hr 03/25/24 22:00 03/26/24 10:35 Sodium Chloride IV Infused Q12 FRANCESCO Infusion Sodium Chloride 250 mls @ 15 mls/hr 03/25/24 19:02 IV .[id number] PRN Additional IVPB Infusion Sodium Chloride 250 mls @ 15 mls/hr 03/25/24 19:02 IV .[id number] PRN Saline Flush Levothyroxine Sodium 75 mcg 03/26/24 06:00 03/26/24 05:38 Levothyroxine 75 Mcg Tablet PO Not Given DAILY@0600 FRANCESCO Melatonin 3 mg 03/25/24 18:59 03/25/24 23:10 Melatonin 3 Mg Tablet PO 3 mg QHS PRN PRN Administration INSOMNIA Metoprolol Tartrate 12.5 mg 03/25/24 22:00 03/26/24 08:14 Metoprolol Tartrate 25 Mg Tablet PO Not Given BID [facility] Protocol Ondansetron HCl 4 mg 03/25/24 18:59 Ondansetron 4 Mg/2 Ml Vial IV Q8H PRN PRN NAUSEA/VOMITING Paroxetine HCl 40 mg 03/26/24 10:00 03/26/24 08:14 Paroxetine 20 Mg Tablet PO Not Given DAILY FRANCESCO Senna/Docusate Sodium 2 tablet 03/25/24 18:59 Senna/Docusate Sodium 1 Tablet PO BID PRN PRN Constipation Sodium Chloride 10 - 40 ml 03/25/24 19:02 03/25/24 22:48 0.9% Saline Lock 10 Ml Syringe IV 10 ml UD PRN Administration [facility] Medical History Atrial fibrillation Marijuana use Anxiety Depression Smoker Hypertension Migraines Vitamin D deficiency Subcapital fracture of femur Tobacco dependence due to cigarettes History of CVA (cerebrovascular accident) (08/2019) Anemia Cephalgia Hypothyroidism Anxiety and depression Essential hypertension Paroxysmal atrial fibrillation Hypothyroidism Depression with anxiety Hyperlipidemia Home Medications ?Medication ?Instructions ?Recorded ?Last Taken ?Type cyanocobalamin (vitamin B-12) 1,000 mcg PO DAILY SUPPLEMENT 02/08/19 06/14/23 History 1,000 mcg tablet levothyroxine 75 mcg tablet 75 mcg PO QHS THYROID 02/08/19 06/14/23 History paroxetine HCl 40 mg tablet 40 mg PO DAILY DEPRESSION 02/08/19 03/11/24 History atorvastatin 80 mg tablet 80 mg PO QHS CHOLESTEROL 02/26/20 06/14/23 History lysine 500 mg tablet 500 mg PO DAILY SUPPLEMENT 02/26/20 06/14/23 History hydrochlorothiazide 12.5 mg tablet 6.25 mg (1/2 x 12.5 mg) PO DAILY 04/05/22 06/14/23 Rx FLUID #30 tabs aspirin 81 mg tablet,delayed 81 mg PO DAILY HEART HEALTH 12/16/22 06/14/23 History release (Adult Low Dose Aspirin) metoprolol tartrate 25 mg tablet 12.5 mg PO BID BLOOD PRESSURE 06/29/23 Unknown History apixaban 5 mg tablet (Eliquis) 5 mg PO BID blood thinner #180 tabs 07/25/23 03/25/24 Rx doxepin 50 mg capsule 50 mg PO QHS Depression 03/07/24 Unknown History pantoprazole 40 mg tablet,delayed 40 mg PO BID 30 days #60 tabs 03/12/24 Unknown Rx release azelastine 205.5 mcg (0.15 %) 1 spray intranasal DAILY 03/25/24 Unknown History nasal spray (Astepro Allergy) Allergy/AdvReac Type Severity Reaction Status Date / Time isopropyl alcohol Allergy Rash Verified 03/25/24 12:52 Egg Derived AdvReac Severe Swelling Verified 03/25/24 12:52 NSAIDS (Non-Steroidal AdvReac instant Verified 03/25/24 12:52 Anti-Inflamma headache Family History Father Hypertension Mother Hypertension CAD (coronary artery disease) [place] Brother Heart disease Sister Heart disease Surgical History History of appendectomy History of right hip hemiarthroplasty History of hysterectomy History of cholecystectomy History of thyroidectomy Social History household members: none Smoking Status: Current every day smoker tobacco type: cigarettes alcohol intake: current alcohol intake frequency: a few times a month Alcohol type: beer substance use type: marijuana caffeine: Yes Type: coffee Number of servings: 1 Review of Systems (Anesthesia) ROS Narrative System reviewed and no additional complaints, except as documented.
--- NOTE | 2024-03-26 15:45 | EX.PCM.CON.G ---
HPI Consult Data Date of Consult: 03/26/24 HPI Narrative Reason for Consultation: GI bleed HPI Narrative: AMADO UNGER, is a 83 F with a history of A-fib, CKD stage IIIa, hypertension, depression, hypothyroidism, CVA, GI bleed presented to [facility] ED 03/25/2024 due to black stools. In the ED hemoglobin 8.5 patient FOBT positive and recently had gone back on her Eliquis. She reports she had been in her usual health at home however she has had a little bit of left-sided abdominal pain but today had to black stools this morning prompting her to come back to the ED. The left-sided abdominal pain has been present since she had some constipation last admission without any significant change with the dark stools are new. No bright red blood, no nausea or vomiting, no other acute complaints. Hemoglobin 6.8 on admit, down from baseline hemoglobin around 9-10. S/p 2 units packed red blood cells with improvement to the 8-9 range. EGD 03/11 showed an esophageal ulcer oozing blood treated with heater probe, along with nonbleeding gastric ulcer and Castro's esophagus. Treated with IV PPI twice daily while inpatient, discharged on p.o. PPI twice daily. Hemoglobin remained stable in the 8-9 range during hospitalization. Restarted home aspirin and Eliquis on day of discharge. [facility] Medical History Atrial fibrillation Marijuana use Anxiety Depression Smoker Hypertension Migraines Vitamin D deficiency Subcapital fracture of femur Tobacco dependence due to cigarettes History of CVA (cerebrovascular accident) (08/2019) Anemia Cephalgia Hypothyroidism Anxiety and depression Essential hypertension Paroxysmal atrial fibrillation Hypothyroidism Depression with anxiety Hyperlipidemia Home Medications ?Medication ?Instructions ?Recorded ?Last Taken ?Type cyanocobalamin (vitamin B-12) 1,000 mcg PO DAILY SUPPLEMENT 02/08/19 06/14/23 History 1,000 mcg tablet levothyroxine 75 mcg tablet 75 mcg PO QHS THYROID 02/08/19 06/14/23 History paroxetine HCl 40 mg tablet 40 mg PO DAILY DEPRESSION 02/08/19 03/11/24 History atorvastatin 80 mg tablet 80 mg PO QHS CHOLESTEROL 02/26/20 06/14/23 History lysine 500 mg tablet 500 mg PO DAILY SUPPLEMENT 02/26/20 06/14/23 History hydrochlorothiazide 12.5 mg tablet 6.25 mg (1/2 x 12.5 mg) PO DAILY 04/05/22 06/14/23 Rx FLUID #30 tabs aspirin 81 mg tablet,delayed 81 mg PO DAILY HEART HEALTH 12/16/22 06/14/23 History release (Adult Low Dose Aspirin) metoprolol tartrate 25 mg tablet 12.5 mg PO BID BLOOD PRESSURE 06/29/23 Unknown History apixaban 5 mg tablet (Eliquis) 5 mg PO BID blood thinner #180 tabs 07/25/23 03/25/24 Rx doxepin 50 mg capsule 50 mg PO QHS Depression 03/07/24 Unknown History pantoprazole 40 mg tablet,delayed 40 mg PO BID 30 days #60 tabs 03/12/24 Unknown Rx release azelastine 205.5 mcg (0.15 %) 1 spray intranasal DAILY 03/25/24 Unknown History nasal spray (Astepro Allergy) Allergy/AdvReac Type Severity Reaction Status Date / Time isopropyl alcohol Allergy Rash Verified 03/25/24 12:52 Egg Derived AdvReac Severe Swelling Verified 03/25/24 12:52 NSAIDS (Non-Steroidal AdvReac instant Verified 03/25/24 12:52 Anti-Inflamma headache Family History Father Hypertension Mother Hypertension CAD (coronary artery disease) [place] Brother Heart disease Sister Heart disease Surgical History History of appendectomy History of right hip hemiarthroplasty History of hysterectomy History of cholecystectomy History of thyroidectomy Social History household members: none Smoking Status: Current every day smoker tobacco type: cigarettes alcohol intake: current alcohol intake frequency: a few times a month Alcohol type: beer substance use type: marijuana caffeine: Yes Type: coffee Number of servings: 1 ROS ROS Narrative General: Denies fever/chills HENT: Denies headache, denies stuffy nose but does have runny nose, denies sore throat EYES: Denies changes in vision Resp: Denies cough, denies shortness of breath Cardiac: Denies chest pain GI: 2 episodes dark tarry stool, some left-sided abdominal pain, denies nausea/vomiting : Denies changes in urination Extremity: Denies swelling MSK: Denies weakness Neuro: Denies any numbness/tingling Heme: Denies any bleeding or bruising Skin: Denies rashes Psychiatric: No complaints voiced Physical Exam Narrative General: Alert, Oriented x3, Cooperative, No apparent distress HEENT: Atraumatic, PERRLA, EOMI, Normocephalic Oral: Moist Mucosa Neck: Supple, No JVD Lungs: Diminished, Normal air movement, No rhonchi, No wheeze, No rales Cardiovascular: Regular rate, Regular Rhythm, Normal S1, Normal S2, No murmurs Abdomen: Soft, Non Tender, Non-Distended, No Hepato-splenomegaly Extremities: No edema, Capillary Refill Less than 3 Seconds Skin: No rashes, No breakdown Musculoskeletal: No Tenderness to Palpation of Joints or Extremities Neurological: No focal neurological deficits, Motor Exam 5/5 strength throughout, Sensory exam intact to light touch and pain Psych/Mental Status: Normal Affect, Appropriate Lab / Micro Data 03/26/24 10:47 03/26/24 07:04 Labs: Laboratory Results - last 24 hr 03/25/24 15:46: PT 20.6 H, INR 1.8, APTT 51.9 H 03/25/24 15:48: Blood Type O POSITIVE, Antibody Screen NEGATIVE 03/25/24 19:28: WBC 8.3, RBC 3.18 L, Hgb 7.8 L, Hct 26.0 L, MCV 81.8, MCH 24.5 L, MCHC 30.0 L, RDW Std Deviation 56.1 H, RDW Coeff of Patrick 18.6 H, Plt Count 529 H, MPV 9.0, Iron 18 L, TIBC 407, Iron Saturation 4.4 L, Ferritin 36 03/25/24 22:38: WBC 9.0, RBC 3.01 L, Hgb 7.3 L, Hct 24.3 L, MCV 80.7 L, MCH 24.3 L, MCHC 30.0 L, RDW Std Deviation 54.6 H, RDW Coeff of Patrick 18.6 H, Plt Count 487 H, MPV 8.9 03/26/24 03:39: WBC 10.8, RBC 3.01 L, Hgb 7.4 L, Hct 24.3 L, MCV 80.7 L, MCH 24.6 L, MCHC 30.5 L, RDW Std Deviation 54.4 H, RDW Coeff of Patrick 18.6 H, Plt Count 497 H, MPV 8.7 03/26/24 07:04: WBC 11.4 H, RBC 3.24 L, Hgb 7.9 L, Hct 26.4 L, MCV 81.5, MCH 24.4 L, MCHC 29.9 L, RDW Std Deviation 55.0 H, RDW Coeff of Patrick 18.6 H, Plt Count 553 H, MPV 9.0, Immature Gran % (Auto) 0.400, Neut % (Auto) 82.3 H, Lymph % (Auto) 10.5 L, [place] % (Auto) 3.9, Eos % (Auto) 2.5, Baso % (Auto) 0.4, Absolute Neuts (auto) 9.4 H, Absolute Lymphs (auto) 1.20, Nucleated RBC % 0, Sodium 137, Potassium 4.0, Chloride 105, Carbon Dioxide 21.0, Anion Gap 11, BUN 16, Creatinine 1.04 H, Estim Creat Clear Calc 36.23, Est GFR (MDRD) Af Amer 65, Est GFR (MDRD) Non-Af 54 L, BUN/Creatinine Ratio 15.4, Glucose 96, Calcium 8.7, TSH 1.710 03/26/24 10:47: WBC 10.7, RBC 3.42 L, Hgb 8.3 L, Hct 28.1 L, MCV 82.2, MCH 24.3 L, MCHC 29.5 L, RDW Std Deviation 56.6 H, RDW Coeff of Patrick 18.7 H, Plt Count 521 H, MPV 9.3 Micro: Microbiology 03/25/24 15:00 Urine, Clean Catch Urine Culture - Preliminary Gram negative [place] 03/25/24 15:07 Stool Stool Occult Blood (MYRA) - Final Occult Blood Positive Imaging Radiology Impression Abdomen/Pelvis CT 03/25/24 15:09 IMPRESSION: No acute abdominal or pelvic abnormality. No interval change. Electronically Signed: Sanju Veliz MD at 16:21 EDT , Assessment & Plan Assessment/Plan (1) Fecal occult blood test positive: PLAN: Plan # 84 with history of atrial fibrillation on aspirin and Eliquis recently presented with a hemoglobin 6.8 on admit, down from baseline hemoglobin around 9-10. S/p 2 units packed red blood cells with improvement to the 8-9 range. EGD 03/11 showed an esophageal ulcer oozing blood treated with heater probe, along with nonbleeding gastric ulcer and Castro's esophagus. Treated with IV PPI twice daily while inpatient, discharged on p.o. PPI twice daily. Hemoglobin remained stable in the 8-9 range during hospitalization. Restarted home aspirin and Eliquis on day of discharge. She returned with Black tarry stools with positive fecal occult in setting of recent esophageal ulcer and gastric ulcer and chronic anemia -She was started on IV PPI twice daily -She will undergo an upper endoscopy to evaluate upper GI tract. She was explained alternatives, risk, benefits including outstanding bleeding, infection, sepsis, perforation, need for emergent surgery . She will have an ASA of 3. Charges/Coding Visit Charges Inpatient E&M: 30477 Init Hosp L3
[2024-03-26] MEDS: Lactated Ringers 1,000 ML 15 ML IV (15:52)
--- NOTE | 2024-03-26 16:06 | OP.EGD_ITS ---
Patient Name: Poornima Barry Procedure Date: 03/26/2024 3:46 PM Date of : 1940 Age: 83 Procedure: Upper GI endoscopy Indications: Recent gastrointestinal bleeding Providers: David Lazcano DO Medicines: Monitored Anesthesia Care Patient Profile: This is an 83 year old female. Refer to note in patient chart for documentation of history and physical. Patient has symptoms. Complications: No immediate complications. Procedure: Pre-Anesthesia Assessment: - Prior to the procedure, a History and Physical was performed, and patient medications and allergies were reviewed. The patient is competent. The risks and benefits of the procedure and the sedation options and risks were discussed with the patient. All questions were answered and informed consent was obtained. Patient identification and proposed procedure were verified by the physician in the pre-procedure area. Mental Status Examination: alert and oriented. Airway Examination: normal oropharyngeal airway and neck mobility. Respiratory Examination: clear to auscultation. CV Examination: normal. Prophylactic Antibiotics: The patient does not require prophylactic antibiotics. Prior Anticoagulants: The patient has taken no anticoagulant or antiplatelet agents. ASA Grade Assessment: III - A patient with severe systemic disease. After reviewing the risks and benefits, the patient was deemed in satisfactory condition to undergo the procedure. The anesthesia plan was to use monitored anesthesia care (MAC). Immediately prior to administration of medications, the patient was re-assessed for adequacy to receive sedatives. The heart rate, respiratory rate, oxygen saturations, blood pressure, adequacy of pulmonary ventilation, and response to care were monitored throughout the procedure. The physical status of the patient was re-assessed after the procedure. After obtaining informed consent, the endoscope was passed under direct vision. Throughout the procedure, the patient's blood pressure, pulse, and oxygen saturations were monitored continuously. The gastroscope was introduced through the mouth, and advanced to the second part of duodenum. The upper GI endoscopy was accomplished without difficulty. The patient tolerated the procedure well. Scope In: 3:56:32 PM Scope Out: 3:58:55 PM Total Procedure Duration Time 0 hours 2 minutes 23 seconds Findings: A mild Schatzki ring was found at the gastroesophageal junction. A medium-sized hiatal hernia was present. No other significant abnormalities were identified in a careful examination of the stomach. No gross lesions were noted in the second portion of the duodenum. Impression: - Mild Schatzki ring. - Medium-sized hiatal hernia. - No gross lesions in the second portion of the duodenum. - No specimens collected. Recommendation: - Return patient to hospital heath for ongoing care. - Resume previous diet. - Continue present medications. - Colonoscopy Procedure Code(s): --- Professional --- 01408, Esophagogastroduodenoscopy, flexible, transoral; diagnostic, including collection of specimen(s) by brushing or washing, when performed (separate procedure) CPT copyright 2021 [employer]. All rights reserved. The codes documented in this report are preliminary and upon screen writer review may be revised to meet current compliance requirements. David Lazcano DO 03/26/2024 4:06:35 PM This report has been signed electronically. Number of Addenda: 0 Note Initiated On: 03/26/2024 3:46 PM
--- NOTE | 2024-03-26 16:07 | OP.CCLET_ITS ---
03/26/2024 Nay[address] [place] [address] Re : Upper GI endoscopy procedure for Poornima Madsenjustus Dear Dr. Adam This procedure was performed on Tuesday, March 26, 2024. My impressions and recommendations are as follows: Impressions : - Mild Schatzki ring. - Medium-sized hiatal hernia. - No gross lesions in the second portion of the duodenum. - No specimens collected. Recommendations : - Return patient to hospital heath for ongoing care. - Resume previous diet. - Continue present medications. - Colonoscopy My findings are described in the full procedure note, which is enclosed. If I can be of further assistance, please feel free to contact me at . Sincerely, David Lazcano, 03/26/2024 4:06:35 PM This report has been signed electronically.
--- NOTE | 2024-03-26 16:09 | PCM.POST.ANE ---
Anesthesia: Postop Eval I Current Vital Signs Temperature: 97.9 F Pulse Rate: 58 Blood Pressure: 187/81 Respiratory Rate: 16 Pulse Ox: 100 Oxygen Delivery Method: Room Air Assessment Airway patent: Yes Spontaneous unlabored respirations: Yes Mental status: Awake and Calm nausea: No Vomiting: No Anesthesia Complication: No Fluid Hydration Crystalloid volume administer (ml): 1,000 (infused in pre-op) Total IV fluid infused: 1,000 Progress Note Anesthesia document: Postop Eval 1 completed: Yes
--- NOTE | 2024-03-26 16:30 | POSTOPAN2_ITS ---
Anesthesia Postop Eval I Sum Postop Eval Completion status Anesthesia document: Postop Eval 1 completed: Yes Anesthesia Postop Eval I Summary Anesthesia Postop Eval I Summary: Anesthesia Postop Eval I: Assessment Summary Airway patent Yes 03/26/24 16:10 ARCHIVAL RECORDS [email or web address].[email or web address] Spontaneous unlabored Yes 03/26/24 16:10 ARCHIVAL RECORDS CLERK.CHAN respirations Mental status Awake,Calm 03/26/24 16:10 ARCHIVAL RECORDS CLERK.[email or web address] nausea No 03/26/24 16:10 ARCHIVAL RECORDS CLERK.[email or web address] Vomiting No 03/26/24 16:10 ARCHIVAL RECORDS CLERK.[email or web address] Anesthesia Postop Eval I: Fluid Summary Crystalloid volume administer 1,000 - infused in 03/26/24 16:10 ARCHIVAL RECORDS CLERK.[email or web address] (ml) pre-op Colloids volume administered ( ml) Blood Product volume administered (ml) Total IV fluid infused 1,000 03/26/24 16:10 ARCHIVAL RECORDS CLERK.CHAN Anesthesia Postop Eval I: Summary Notes Anesthesia Complication No 03/26/24 16:10 ARCHIVAL RECORDS CLERK.CHAN Anesthesia Complication Comment: Post-operative progress note Anesthesia: Postop Eval II Evaluation Mental status: Awake and Calm Pain Level: 0 nausea: No Vomiting: No Complications Anesthesia Complication: No
--- NOTE | 2024-03-26 16:30 | PCM.POSTANE2 ---
Anesthesia Postop Eval I Sum Postop Eval Completion status Anesthesia document: Postop Eval 1 completed: Yes Anesthesia Postop Eval I Summary Anesthesia Postop Eval I Summary: Anesthesia Postop Eval I: Assessment Summary Airway patent Yes 03/26/24 16:10 MOUNTING MACHINE OPERATOR.[email or web address] Spontaneous unlabored Yes 03/26/24 16:10 MOUNTING MACHINE OPERATOR.CHAN respirations Mental status Awake,Calm 03/26/24 16:10 MOUNTING MACHINE OPERATOR.NALINIOBY nausea No 03/26/24 16:10 MOUNTING MACHINE OPERATOR.NALINIOBNickolas Vomiting No 03/26/24 16:10 MOUNTING MACHINE OPERATOR.[email or web address] Anesthesia Postop Eval I: Fluid Summary Crystalloid volume administer 1,000 - infused in 03/26/24 16:10 MOUNTING MACHINE OPERATOR.SKOBY (ml) pre-op Colloids volume administered ( ml) Blood Product volume administered (ml) Total IV fluid infused 1,000 03/26/24 16:10 MOUNTING MACHINE OPERATOR.CHAN Anesthesia Postop Eval I: Summary Notes Anesthesia Complication No 03/26/24 16:10 MOUNTING MACHINE OPERATOR.CHAN Anesthesia Complication Comment: Post-operative progress note Anesthesia: Postop Eval II Evaluation Mental status: Awake and Calm Pain Level: 0 nausea: No Vomiting: No Complications Anesthesia Complication: No
[2024-03-26] MEDS: Bisacodyl 5 MG Tablet 20 MG PO (17:00)
[2024-03-26] MEDS: Polyethylene Glycol 3350 BOWEL PREP 1 BOTTLE PO (18:55)
[2024-03-26] MEDS: Ondansetron 4 MG/2 ML Vial IV (21:15)
[2024-03-26] MEDS: 0.9% Saline Lock 10 ML Syringe IV ×2 (21:15→21:56)
[2024-03-26] MEDS: 0.9% Normal Saline (250mL Bag) 250 ML 15 ML IV (21:57)
[2024-03-26] MEDS: Atorvastatin Calcium 80 MG Tablet PO (22:00)
[2024-03-26] MEDS: Metoprolol Tartrate 25 MG Tablet 12.5 MG PO (22:00)
[2024-03-26] MEDS: DOXEPIN HCL 50 MG CAPSULE PO (22:00)
[2024-03-27] VITALS (20 sets, daily range): BP systolic 75–150; BP diastolic 42–65; PULSE 45–59; RESP 16–18; TEMP 36.3–36.8; O2SAT 92–100; BMI 24.3
[2024-03-27] MEDS: 0.9% Saline Lock 10 ML Syringe IV ×3 (03:54→19:06)
[2024-03-27] MEDS: Levothyroxine 75 MCG Tablet PO (03:54)
[2024-03-27 06:20] LABS: Absolute Lymphocyte Count 1.18 X10^3/uL (0.83-4.51); Basophil# 0.02 X10^3/uL; Basophil% 0.3 % (0-1); Eosinophils% 2.5 % (0-5); Hematocrit 22.6 % (37-47); Hemoglobin 6.7 g/dL (12.0-15.0); Lymphocyte # 1.18 X10^3/ul (0.83-4.51); Lymphocyte % 14.9 % (19-41); Mean Corp Hgb Conc 29.6 g/dL (32-36); Mean Corpuscular Hgb 24.3 pg (27.0-32.0); Mean Corpuscular Volume 81.9 fL (81-99); Mean Platelet Vol. 8.9 fl (6.2-12.0); Monocyte% 5.1 % (0-10); NRBC Flagged by Analyzer 0.3 % (0-5); Neutrophil # 6.04 X10^3/uL (2.7-7.7); Neutrophil % 76.3 % (47-70); Platelet Count 453 K/mm3 (150-450); RBC Distribution Width CV 18.6 % (11.6-14.6); RBC Distribution Width SD 55.6 fl (35.1-43.9); Red Blood Count 2.76 M/mm3 (4.2-5.4); White Blood Count 7.9 K/mm3 (4.4-11.0)
[2024-03-27 07:00] LABS: Anion Gap 8 (5-15); BUN 13 mg/dL (7-18); BUN/Creat Ratio 14.7 RATIO (10-20); Calcium,Total 8.2 mg/dL (8.5-10.1); Chloride 106 mmol/L (98-107); Creatinine, Serum 0.88 mg/dL (0.55-1.02); EST Glomerular Filtration Rate 65 mL/min (>60); Est Glom Filt Rate - Afr Amer 78 mL/min (>60); Estimated Creatinine Clearance 42.82 ml/min; Glucose 111 mg/dL (74-106); Potassium 3.3 mmol/L (3.5-5.1); Sodium Level 136 mmol/L (136-145)
[2024-03-27] MEDS: Acetaminophen 325 MG Tablet 650 MG PO (08:45)
[2024-03-27] MEDS: Metoprolol Tartrate 25 MG Tablet 12.5 MG PO ×2 (08:46→22:56)
[2024-03-27] MEDS: Pantoprazole Sodium 40 MG in 0.9% Normal Saline (100mL MB+) 100 ML 330 MG IV ×2 (08:47→22:56)
--- NOTE | 2024-03-27 09:44 | PN.HOSP_ITS ---
Subjective Subjective Doing well, no issues overnight. Hemoglobin low this morning we will transfuse Objective Data Objective Data Vital Signs: Vital Signs Temp Pulse Resp BP Pulse Ox O2 Del Method 98.1 F 59 L 18 127/60 H 100 Room Air 03/27/24 08:35 03/27/24 08:46 03/27/24 08:35 03/27/24 08:46 03/27/24 08:35 03/27/24 08:52 Oxygen Delivery Method Room Air Weight: 146 lb 3.016 oz Body Mass Index (BMI) 24.3 Intake & Output: Intake and Output for Last 24 Hours 03/26/24 03/27/24 03/28/24 03:59 03:59 03:59 Intake Total 1529.17 / 1529.17 3892.83 / 3892.83 Output Total 300 / 300 Balance 1229.17 / 1229.17 3892.83 / 3892.83 Lab / Micro Data 03/27/24 05:51 03/27/24 05:51 Labs: Laboratory Results - last 24 hr 03/26/24 07:04: Sodium 137, Potassium 4.0, Chloride 105, Carbon Dioxide 21.0, Anion Gap 11, BUN 16, Creatinine 1.04 H, Estim Creat Clear Calc 36.23, Est GFR (MDRD) Af Amer 65, Est GFR (MDRD) Non-Af 54 L, BUN/Creatinine Ratio 15.4, Glucose 96, Calcium 8.7, TSH 1.710 03/26/24 10:47: WBC 10.7, RBC 3.42 L, Hgb 8.3 L, Hct 28.1 L, MCV 82.2, MCH 24.3 L, MCHC 29.5 L, RDW Std Deviation 56.6 H, RDW Coeff of Patrick 18.7 H, Plt Count 521 H, MPV 9.3 03/27/24 05:51: WBC 7.9, RBC 2.76 L, Hgb 6.7 L, Hct 22.6 L, MCV 81.9, MCH 24.3 L , MCHC 29.6 L, RDW Std Deviation 55.6 H, RDW Coeff of Patrick 18.6 H, Plt Count 453 H, MPV 8.9, Immature Gran % (Auto) 0.900, Neut % (Auto) 76.3 H, Lymph % (Auto) 14.9 L, [place] % (Auto) 5.1, Eos % (Auto) 2.5, Baso % (Auto) 0.3, Absolute Neuts (auto) 6.0, Absolute Lymphs (auto) 1.18, Nucleated RBC % 0.3, Sodium 136, P otassium 3.3 L, Chloride 106, Carbon Dioxide 22.0, Anion Gap 8, BUN 13, Creatinine 0.88, Estim Creat Clear Calc 42.82, Est GFR (MDRD) Af Amer 78, Est GFR (MDRD) Non-Af 65, BUN/Creatinine Ratio 14.7, Glucose 111 H, Calcium 8.2 L, Blood Type O POSITIVE, Crossmatch See Detail Micro: Microbiology 03/25/24 15:00 Urine, Clean Catch Urine Culture - Preliminary Gram negative [place] 03/25/24 15:07 Stool Stool Occult Blood (MYRA) - Final Occult Blood Positive Physical Exam Narrative General: Alert, Oriented x3, Cooperative, No apparent distress HEENT: Atraumatic, PERRLA, EOMI, Normocephalic Oral: Moist Mucosa Neck: Supple, No JVD Lungs: Diminished, Normal air movement, No rhonchi, No wheeze, No rales Cardiovascular: Regular rate, Regular Rhythm, Normal S1, Normal S2, No murmurs Abdomen: Soft, Non Tender, Non-Distended, No Hepato-splenomegaly Extremities: No edema, Capillary Refill Less than 3 Seconds Skin: No rashes, No breakdown Musculoskeletal: No Tenderness to Palpation of Joints or Extremities Neurological: No focal neurological deficits, Motor Exam 5/5 strength throughout, Sensory exam intact to light touch and pain Psych/Mental Status: Normal Affect, Appropriate Assessment & Plan Assessment/Plan (1) Fecal occult blood test positive: PLAN: Plan 1. Acute GI bleed with chronic iron deficiency anemia with acute GI bleed anemia ? 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 Continue with PPI ? EGD was unremarkable, will proceed with a colonoscopy today ? Will transfuse today ? Iron studies with TIBC of 407 and a saturation of 4.4% and a ferritin of 36 with an iron level of 18, will give her a dose of Venofer 2. Essential HTN/HLD/A-fib ? Blood pressure stable/continue with her home medications ? Continue with her statin ? Will hold her Eliquis given her repeated bleeding ? Continue with rate control with metoprolol 3. Hypothyroidism ? Stable ?Continue Synthroid 4. Depression/anxiety ? Stable ? Continue with her home medications DVT: SCDs
--- NOTE | 2024-03-27 09:57 | ANES.CONFIRM ---
Anesthesia: Confirm Documents Multiple Procedures on Account (2) Confirmed Documents: Yes
--- NOTE | 2024-03-27 11:35 | COLBX_PTH ---
PATIENT: AMADO UNGER LOC: [facility] U#:[id number] AGE/SX: 83/F ROOM: [facility]305 RE03/25/[address]: Dr. Mick Thorpe MD : 1940 BED: 1 DIS: 03/28/2024 SPEC #: [id number] RECD: 03/27/24 17:18 STATUS: HANNAH ARBOLEDA #: [id number] MARIANO: 03/27/24 11:[address]: David Lazcano DEPT: SURGICAL PATHOLOGY RECD BY: Mary Hart ENTERED: 03/28/24 08:14 SP TYPE: COLON BX OTHR DR: MD Dr. Rossi Luke MD Dr. Yasser Omran, MD Tissues: A - Cecum, NOS B - Sigmoid colon biopsy Procedures: Surgery Specimen Level IV Comments: @ Ordering doctor for SUIV edited from to @ by THOMAS at 03/28/24 0855 @ Submitting doctor edited from to @ by THOMAS at 03/28/24 0855 HEADER OPERATION: Colonoscopy, polypectomy, electrohemostasis PRE-OP DIAGNOSIS: Fecal occult blood test positive TISSUE SUBMITTED: A- Cecal polyp, B- Sigmoid colon polyp MICROSCOPIC DIAGNOSIS A. Cecal polyp, polypectomy: Fragments of tubular adenoma. B. Sigmoid colon polyp, polypectomy: Tubular adenoma. ROSALINO/ 03/29/2024 MICROSCOPIC DESCRIPTION Slides are reviewed. GROSS DESCRIPTION A. Received in fixative is one container labeled with the patient's name and designated Cecal polyp. The specimen consists of multiple irregular fragments of light berry soft tissue that in aggregate measure 0.8 x 0.2 x 0.1 cm. The specimen is totally submitted in one cassette. B. Received in fixative is one container labeled with the patient's name and designated Sigmoid colon polyp. The specimen consists of one irregular fragment of light berry soft tissue that measures 0.4 x 0.3 x 0.1 cm. The specimen is totally submitted in one cassette. 03/28/2024 TC:1 CPT:80294x7
--- NOTE | 2024-03-27 13:29 | PRE.ANES_ITS ---
ASA Classification* ASA Classification ASA Classification: 4 and E Assessment & Plan Anesthesia* Anesthesia Assessment Anesthesia Assessment: Discussed sedation and/or anesthesia options, risks, benefits, and alternatives with patient/parents/legal guardian/POA. Questions invited. The patient/parents/legal guardian/POA seems to understand and agrees to proceed with anesthesia plan. Reviewed the physical assessment, medical history, allergy history and patient home medications list prior to surgery/procedure/anesthetic and documented any changes. Performed airway and anesthesia risk assessments. Anesthesia Type Anesthesia Type: MAC (Patient is currently recieving blood) Anesthesia Focused Assessment* Temperature: 98 F Pulse Rate: 54 Blood Pressure: 111/48 Respiratory Rate: 16 Pulse Ox: 98 Airway Assessment Mouth opens: >3 cm Mallampati Score: II Focused Labs Anesthesia Preop lab: CBC WBC 7.9 K/mm3 (4.4-11.0) 03/27/24 05:51 RBC 2.76 M/mm3 (4.2-5.4) L 03/27/24 05:51 Hgb 6.7 g/dL (12.0-15.0) L 03/27/24 05:51 Hct 22.6 % (37-47) L 03/27/24 05:51 Plt Count 453 K/mm3 (150-450) H 03/27/24 05:51 CHEMISTRY Potassium 3.3 mmol/L (3.5-5.1) L 03/27/24 05:51 Sodium 136 mmol/L (136-145) 03/27/24 05:51 Magnesium 2.1 mg/dL (1.6-2.6) 06/15/23 16:00 BUN 13 mg/dL (7-18) 03/27/24 05:51 Creatinine 0.88 mg/dL (0.55-1.02) 03/27/24 05:51 Glucose 111 mg/dL (74-106) H 03/27/24 05:51 POC Glucose 110 mg/dL (70-110) 02/18/20 22:09 TSH 1.710 uIU/mL (0.358-3.740) 03/26/24 07:04 COAG PT 20.6 SECONDS (11.7-14.9) H 03/25/24 15:46 Pre-Assessment Diagnosis/Proposed Procedure Planned Operative Procedure(s): Esophagogastroduodenoscopy Anesthesia History 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 When Was Last Pacemaker Check QUESTION #4 FULL TEXT: You/Your Family Experience fever (hyperthermia) with Anesthesia Last Oral Intake Last Oral intake: Last Oral Intake NPO since 08:45 03/27/24 09:07 Meds taken in AM with sips of Yes 03/27/24 09:07 water? Meds patient instructed to LOPREESOR 12.5 AND TYLENOL 03/27/24 09:07 take am of surgery PONV PONV - catheter finisher and inspector: PONV - catheter finisher and inspector Female HX of Motion Sickness HX of N/V After Surgery Non-Smoker Duration of Surgery greater than 60 minutes Number of Risk Factors PONV Score Height & Weight Height & Weight: Anesthesia: Height & Weight Height 5 ft 5 in 03/27/24 09:07 Weight: 66.31 kg 03/27/24 09:07 Body Mass Index (BMI) 24.3 03/27/24 09:07 Respiratory Assessment Respiratory Assessment - catheter finisher and inspector: Respiratory Tract Infection Hx - catheter finisher and inspector Hx Respiratory Tract Infection No 03/10/24 21:37 STOP Sleep Apnea STOP Sleep Apnea - catheter finisher and inspector: STOP Sleep Apnea - catheter finisher and inspector Hx Hypertension Yes 03/25/24 19:01 Hx Sleep Apnea No 03/25/24 19:01 CPAP BIPAP Do you snore loudly (louder No 03/25/24 19:01 than talking or can be heard Do you often feel tired/ No 03/25/24 19:01 fatigued/ sleepy during daytime? Has anyone observed you stop No 03/25/24 19:01 breathing during sleep? STOP Results Negative 03/26/24 16:05 QUESTION #5 FULL TEXT : Do you snore loudly (louder than talking or can be heard through closed doors)? 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 Specify any problems Hx of Preganancy in last 3 No 03/25/24 19:01 Months Nurse Filling Out Transfusion TCLEVIDEN 03/25/24 19:01 & Questions: Date: 03/25/24 03/25/24 19:01 Time: 19:09 03/25/24 19:01 Patient unable to answer at this time (ie. confused, unrespo /Reproduction History /Reproductive History - catheter finisher and inspector: /Reproductive Hx- catheter finisher and inspector Hx Now Gestational Age (in weeks): EDC: Hx Hx Para Hx Section SAB No 03/10/24 21:37 Active Medications Active Medications: Current Medications Generic Name Dose Route Start Last Admin Trade Name Freq PRN Reason Stop Dose Admin Acetaminophen 650 mg 03/25/24 18:59 03/27/24 08:45 Acetaminophen 325 Mg Tablet PO 650 mg Q6H PRN PRN Administration Pain 1-10 Or Fever >100.7 Albuterol Sulfate 2.5 mg 03/25/24 18:59 Albuterol 2.5 Mg/3 Ml Vial.Neb. INHALATION Q2H PRN PRN SOB &/OR WHEEZING Atorvastatin Calcium 80 mg 03/25/24 22:00 03/26/24 22:00 Atorvastatin Calcium 80 Mg Tablet PO 80 mg QHS FRANCESCO Administration Doxepin HCl 50 mg 03/25/24 22:00 03/26/24 22:00 Doxepin Hcl 50 Mg Capsule PO 50 mg QHS FRANCESCO Administration Pantoprazole Sodium 40 mg/ 110 mls @ 330 mls/hr 03/25/24 22:00 03/27/24 09:07 Sodium Chloride IV Infused Q12 FRANCESCO Infusion Sodium Chloride 250 mls @ 15 mls/hr 03/25/24 19:02 03/26/24 22:33 IV 0 mls/hr .[id number] PRN Infusion Additional IVPB Infusion Sodium Chloride 250 mls @ 15 mls/hr 03/25/24 19:02 IV .[id number] PRN Saline Flush Sodium Chloride 1,000 mls @ 15 mls/hr 03/27/24 13:30 IV .Q48H FRANCESCO Levothyroxine Sodium 75 mcg 03/26/24 06:00 03/27/24 03:54 Levothyroxine 75 Mcg Tablet PO 75 mcg DAILY@0600 FRANCESCO Administration Melatonin 3 mg 03/25/24 18:59 03/25/24 23:10 Melatonin 3 Mg Tablet PO 3 mg QHS PRN PRN Administration INSOMNIA Metoprolol Tartrate 12.5 mg 03/25/24 22:00 03/27/24 08:46 Metoprolol Tartrate 25 Mg Tablet PO 12.5 mg BID FRANCESCO Administration Protocol Ondansetron HCl 4 mg 03/25/24 18:59 03/26/24 21:15 Ondansetron 4 Mg/2 Ml Vial IV 4 mg Q8H PRN PRN Administration NAUSEA/VOMITING Paroxetine HCl 40 mg 03/26/24 10:00 03/26/24 08:14 Paroxetine 20 Mg Tablet PO Not Given DAILY FRANCESCO Senna/Docusate Sodium 2 tablet 03/25/24 18:59 Senna/Docusate Sodium 1 Tablet PO BID PRN PRN Constipation Sodium Chloride 10 - 40 ml 03/25/24 19:02 03/27/24 08:47 0.9% Saline Lock 10 Ml Syringe IV 10 ml UD PRN Administration SALINE FLUSH PFSH Medical History Atrial fibrillation Marijuana use Anxiety Depression Smoker Hypertension Migraines Vitamin D deficiency Subcapital fracture of femur Tobacco dependence due to cigarettes History of CVA (cerebrovascular accident) (08/2019) Anemia Cephalgia Hypothyroidism Anxiety and depression Essential hypertension Paroxysmal atrial fibrillation Hypothyroidism Depression with anxiety Hyperlipidemia Home Medications ?Medication ?Instructions ?Recorded ?Last Taken ?Type cyanocobalamin (vitamin B-12) 1,000 mcg PO DAILY SUPPLEMENT 02/08/19 06/14/23 History 1,000 mcg tablet levothyroxine 75 mcg tablet 75 mcg PO QHS THYROID 02/08/19 06/14/23 History paroxetine HCl 40 mg tablet 40 mg PO DAILY DEPRESSION 02/08/19 03/11/24 History atorvastatin 80 mg tablet 80 mg PO QHS CHOLESTEROL 02/26/20 06/14/23 History lysine 500 mg tablet 500 mg PO DAILY SUPPLEMENT 02/26/20 06/14/23 History hydrochlorothiazide 12.5 mg tablet 6.25 mg (1/2 x 12.5 mg) PO DAILY 04/05/22 06/14/23 Rx FLUID #30 tabs aspirin 81 mg tablet,delayed 81 mg PO DAILY HEART HEALTH 12/16/22 06/14/23 History release (Adult Low Dose Aspirin) metoprolol tartrate 25 mg tablet 12.5 mg PO BID BLOOD PRESSURE 06/29/23 Unknown History apixaban 5 mg tablet (Eliquis) 5 mg PO BID blood thinner #180 tabs 07/25/23 03/25/24 Rx doxepin 50 mg capsule 50 mg PO QHS Depression 03/07/24 Unknown History pantoprazole 40 mg tablet,delayed 40 mg PO BID 30 days #60 tabs 03/12/24 Unknown Rx release azelastine 205.5 mcg (0.15 %) 1 spray intranasal DAILY 03/25/24 Unknown History nasal spray (Astepro Allergy) Allergy/AdvReac Type Severity Reaction Status Date / Time isopropyl alcohol Allergy Rash Verified 03/25/24 12:52 Egg Derived AdvReac Severe Swelling Verified 03/25/24 12:52 NSAIDS (Non-Steroidal AdvReac instant Verified 03/25/24 12:52 Anti-Inflamma headache Family History Father Hypertension Mother Hypertension CAD (coronary artery disease) CT Brother Heart disease Sister Heart disease Surgical History History of appendectomy History of right hip hemiarthroplasty History of hysterectomy History of cholecystectomy History of thyroidectomy Social History household members: none Smoking Status: Current every day smoker tobacco type: cigarettes alcohol intake: current alcohol intake frequency: a few times a month Alcohol type: beer substance use type: marijuana caffeine: Yes Type: coffee Number of servings: 1 Review of Systems (Anesthesia) ROS Narrative System reviewed and no additional complaints, except as documented.
[2024-03-27] MEDS: 0.9% Normal Saline (1000mL) 1,000 ML 15 ML IV (14:50)
--- NOTE | 2024-03-27 14:59 | PCM.POST.ANE ---
Anesthesia: Postop Eval I Current Vital Signs Temperature: 97.5 F Pulse Rate: 48 Blood Pressure: 93/42 Respiratory Rate: 18 Pulse Ox: 93 Assessment Airway patent: Yes Spontaneous unlabored respirations: Yes nausea: No Vomiting: No Anesthesia Complication: No Fluid Hydration Crystalloid volume administer (ml): 200 Total IV fluid infused: 200 Progress Note Anesthesia document: Postop Eval 1 completed: Yes
--- NOTE | 2024-03-27 15:00 | OP.COLON_ITS ---
Patient Name: Poornima Barry Procedure Date: 03/27/2024 2:17 PM Date of : 1940 Age: 83 Procedure: Colonoscopy Indications: Iron deficiency anemia Providers: David Lazcano DO Medicines: Monitored Anesthesia Care Patient Profile: This is an 83 year old female. Refer to note in patient chart for documentation of history and physical. Last Colonoscopy: none. The patient's first colonoscopy is today. Complications: No immediate complications. Procedure: Pre-Anesthesia Assessment: - Prior to the procedure, a History and Physical was performed, and patient medications and allergies were reviewed. The patient is competent. The risks and benefits of the procedure and the sedation options and risks were discussed with the patient. All questions were answered and informed consent was obtained. Patient identification and proposed procedure were verified by the physician. Mental Status Examination: normal. Respiratory Examination: clear to auscultation. CV Examination: normal. Prophylactic Antibiotics: The patient does not require prophylactic antibiotics. Prior Anticoagulants: The patient has taken no anticoagulant or antiplatelet agents. ASA Grade Assessment: II - A patient with mild systemic disease. After reviewing the risks and benefits, the patient was deemed in satisfactory condition to undergo the procedure. The anesthesia plan was to use monitored anesthesia care (MAC). Immediately prior to administration of medications, the patient was re-assessed for adequacy to receive sedatives. The heart rate, respiratory rate, oxygen saturations, blood pressure, adequacy of pulmonary ventilation, and response to care were monitored throughout the procedure. The physical status of the patient was re-assessed after the procedure. After I obtained informed consent, the scope was passed under direct vision. Throughout the procedure, the patient's blood pressure, pulse, and oxygen saturations were monitored continuously. The pediatric colonoscope was introduced through the anus and advanced to the cecum, identified by appendiceal orifice and ileocecal valve. The colonoscopy was performed without difficulty. Scope In: 2:27:03 PM Scope Out: 2:50:29 PM Total Procedure Duration Time 0 hours 23 minutes 26 seconds Findings: The perianal and digital rectal examinations were normal. A few medium-sized localized angiodysplastic lesions with bleeding were found in the sigmoid colon, in the ascending colon and in the cecum. Coagulation for hemostasis using heater probe was successful. Estimated blood loss was minimal. A 5 mm polyp was found in the sigmoid colon. The polyp was sessile. The polyp was removed with a jumbo cold forceps. Resection and retrieval were complete. Verification of patient identification for the specimen was done. Estimated blood loss was minimal. A 9 mm polyp was found in the cecum. The polyp was sessile. The polyp was removed with a cold snare. Resection and retrieval were complete. Verification of patient identification for the specimen was done. Estimated blood loss was minimal. Impression: - A few bleeding colonic angiodysplastic lesions. Treated with a heater probe. - One 5 mm polyp in the sigmoid colon, removed with a jumbo cold forceps. Resected and retrieved. - One 9 mm polyp in the cecum, removed with a cold snare. Resected and retrieved. Recommendation: - Repeat colonoscopy in 3 years for surveillance. - Continue present medications. Procedure Code(s): --- Professional --- 00289, 59, Colonoscopy, flexible; with control of bleeding, any method 15089, Colonoscopy, flexible; with removal of tumor(s), polyp(s), or other lesion(s) by snare technique 18748, 59, Colonoscopy, flexible; with biopsy, single or multiple CPT copyright 2021 [employer]. All rights reserved. The codes documented in this report are preliminary and upon health information coder review may be revised to meet current compliance requirements. David Lazcano DO 03/27/2024 3:00:36 PM This report has been signed electronically. Number of Addenda: 0 Note Initiated On: 03/27/2024 2:17 PM
--- NOTE | 2024-03-27 15:00 | OP.CCLET_ITS ---
03/27/2024 Nayana Adam [address] [place] [address] Re : Colonoscopy procedure for Poornima Barry Dear Dr. Adam This procedure was performed on Wednesday, March 27, 2024. My impressions and recommendations are as follows: Impressions : - A few bleeding colonic angiodysplastic lesions. Treated with a heater probe. - One 5 mm polyp in the sigmoid colon, removed with a jumbo cold forceps. Resected and retrieved. - One 9 mm polyp in the cecum, removed with a cold snare. Resected and retrieved. Recommendations : - Repeat colonoscopy in 3 years for surveillance. - Continue present medications. My findings are described in the full procedure note, which is enclosed. If I can be of further assistance, please feel free to contact me at . Sincerely, David Lazcano, 03/27/2024 3:00:36 PM This report has been signed electronically.
--- NOTE | 2024-03-27 16:57 | POSTOPAN2_ITS ---
Anesthesia Postop Eval I Sum Postop Eval Completion status Anesthesia document: Postop Eval 1 completed: Yes Anesthesia Postop Eval I Summary Anesthesia Postop Eval I Summary: Anesthesia Postop Eval I: Assessment Summary Airway patent Yes 03/27/24 14:59 [employer][email or web address] Spontaneous unlabored Yes 03/27/24 14:59 [employer] respirations Mental status Awake,Calm 03/26/24 16:30 nausea No 03/27/24 14:59 [employer] Vomiting No 03/27/24 14:59 [employer]CS[employer] Anesthesia Postop Eval I: Fluid Summary Crystalloid volume administer 200 03/27/24 14:59 [employer]CS[employer] (ml) Colloids volume administered ( ml) Blood Product volume administered (ml) Total IV fluid infused 200 03/27/24 14:59 [employer]CSIR Anesthesia Postop Eval I: Summary Notes Anesthesia Complication No 03/27/24 14:59 [employer]CS[employer] Anesthesia Complication Comment: Post-operative progress note Anesthesia: Postop Eval II Evaluation Mental status: Awake and Calm Pain Level: 0 nausea: No Vomiting: No Complications Anesthesia Complication: No
--- NOTE | 2024-03-27 16:57 | PCM.POSTANE2 ---
Anesthesia Postop Eval I Sum Postop Eval Completion status Anesthesia document: Postop Eval 1 completed: Yes Anesthesia Postop Eval I Summary Anesthesia Postop Eval I Summary: Anesthesia Postop Eval I: Assessment Summary Airway patent Yes 03/27/24 14:59 [email or web address].[email or web address] Spontaneous unlabored Yes 03/27/24 14:59 [employer] respirations Mental status Awake,Calm 03/26/24 16:30 nausea No 03/27/24 14:59 [employer] Vomiting No 03/27/24 14:59 [employer].CS[employer] Anesthesia Postop Eval I: Fluid Summary Crystalloid volume administer 200 03/27/24 14:59 [employer].CSIR (ml) Colloids volume administered ( ml) Blood Product volume administered (ml) Total IV fluid infused 200 03/27/24 14:59 [employer].CSIR Anesthesia Postop Eval I: Summary Notes Anesthesia Complication No 03/27/24 14:59 [employer].CSIR Anesthesia Complication Comment: Post-operative progress note Anesthesia: Postop Eval II Evaluation Mental status: Awake and Calm Pain Level: 0 nausea: No Vomiting: No Complications Anesthesia Complication: No
--- NOTE | 2024-03-27 17:12 | ANES.CONF2 ---
Anesthesia: Confirm Documents Multiple Procedures on Account (3) Confirmed Documents: Yes
[2024-03-27] MEDS: DOXEPIN HCL 50 MG CAPSULE PO (22:56)
[2024-03-27] MEDS: Atorvastatin Calcium 80 MG Tablet PO (22:56)
[2024-03-28] MEDS: MELATONIN 3 MG TABLET PO (00:29)
[2024-03-28 03:42] VITALS: BP 147/56; PULSE 54; RESP 18; TEMP 36.4; O2SAT 97
[2024-03-28] MEDS: Levothyroxine 75 MCG Tablet PO (06:35)
[2024-03-28 06:53] LABS: Absolute Lymphocyte Count 1.64 X10^3/uL (0.83-4.51); Absolute Neutrophil Count 5.9 X10^3/uL (2.0-7.7); Basophil# 0.05 X10^3/uL; Basophil% 0.6 % (0-1); Eosinophil# 0.39 X10^3/uL; Eosinophils% 4.5 % (0-5); Hematocrit 31.6 % (37-47); Hemoglobin 9.9 g/dL (12.0-15.0); Lymphocyte # 1.64 X10^3/ul (0.83-4.51); Lymphocyte % 18.8 % (19-41); Mean Corp Hgb Conc 31.3 g/dL (32-36); Mean Corpuscular Volume 82.9 fL (81-99); Mean Platelet Vol. 9.4 fl (6.2-12.0); Monocyte# 0.68 X10^3/uL; Monocyte% 7.8 % (0-10); NRBC Flagged by Analyzer 0.7 % (0-5); Neutrophil # 5.89 X10^3/uL (2.7-7.7); Neutrophil % 67.4 % (47-70); Platelet Count 447 K/mm3 (150-450); RBC Distribution Width CV 17.5 % (11.6-14.6); RBC Distribution Width SD 53.1 fl (35.1-43.9); Red Blood Count 3.81 M/mm3 (4.2-5.4); White Blood Count 8.7 K/mm3 (4.4-11.0)
[2024-03-28 07:14] LABS: Anion Gap 5 (5-15); BUN 14 mg/dL (7-18); BUN/Creat Ratio 12.8 RATIO (10-20); Calcium,Total 8.3 mg/dL (8.5-10.1); Chloride 110 mmol/L (98-107); Creatinine, Serum 1.09 mg/dL (0.55-1.02); EST Glomerular Filtration Rate 51 mL/min (>60); Est Glom Filt Rate - Afr Amer 61 mL/min (>60); Estimated Creatinine Clearance 34.57 ml/min; Glucose 96 mg/dL (74-106); Potassium 3.7 mmol/L (3.5-5.1); Sodium Level 138 mmol/L (136-145)
[2024-03-28 07:55] VITALS: BP 142/74; PULSE 51; RESP 17; TEMP 36.6; O2SAT 99
[2024-03-28 10:38] VITALS: BP 142/74; PULSE 58
[2024-03-28] MEDS: Metoprolol Tartrate 25 MG Tablet 12.5 MG PO (10:38)
[2024-03-28] MEDS: Pantoprazole Sodium 40 MG in 0.9% Normal Saline (100mL MB+) 100 ML 330 MG IV (10:40)
[2024-03-28] MEDS: 0.9% Saline Lock 10 ML Syringe IV (10:40)
[2024-03-28] MEDS: Paroxetine 20 MG Tablet 40 MG PO (10:40)
--- NOTE | 2024-03-28 11:14 | PN.HOSP_ITS ---
Subjective Subjective Doing well, no issues overnight Objective Data Objective Data Vital Signs: Vital Signs Temp Pulse Resp BP Pulse Ox O2 Del Method O2 Flow Rate 97.9 F 58 L 17 142/74 H 99 Room Air 2 03/28/24 07:55 03/28/24 10:38 03/28/24 07:55 03/28/24 10:38 03/28/24 07:55 03/28/24 07:56 03/28/24 07:55 Oxygen Flow Rate (L/min) 2 Oxygen Delivery Method Room Air Weight: 146 lb 3.016 oz Body Mass Index (BMI) 24.3 Intake & Output: Intake and Output for Last 24 Hours 03/27/24 03/28/24 03/29/24 03:59 03:59 03:59 Intake Total 3892.83 / 3892.83 1322 / 1322 300 / 300 Output Total 300 / 300 Balance 3892.83 / 3892.83 1322 / 1322 0 / 0 Lab / Micro Data 03/28/24 06:13 03/28/24 06:13 Labs: Laboratory Results - last 24 hr 03/27/24 05:51: Blood Type O POSITIVE, Antibody Screen NEGATIVE, Crossmatch See Detail 03/28/24 06:13: WBC 8.7, RBC 3.81 L, Hgb 9.9 L, Hct 31.6 L, MCV 82.9, MCH 26.0 L , MCHC 31.3 L D, RDW Std Deviation 53.1 H, RDW Coeff of Patrick 17.5 H, Plt Count 447, MPV 9.4, Immature Gran % (Auto) 0.900, Neut % (Auto) 67.4, Lymph % (Auto) 18.8 L, [place]bert % (Auto) 7.8, Eos % (Auto) 4.5, Baso % (Auto) 0.6, Absolute Neuts (auto) 5.9, Absolute Lymphs (auto) 1.64, Nucleated RBC % 0.7, Sodium 138, Potassium 3.7, Chloride 110 H, Carbon Dioxide 23.0, Anion Gap 5, BUN 14, C reatinine 1.09 H, Estim Creat Clear Calc 34.57, Est GFR (MDRD) Af Amer 61, Est GFR (MDRD) Non-Af 51 L, BUN/Creatinine Ratio 12.8, Glucose 96, Calcium 8.3 L Micro: Microbiology 03/25/24 15:00 Urine, Clean Catch Urine Culture - Final Escherichia coli 03/25/24 15:07 Stool Stool Occult Blood (MYRA) - Final Occult Blood Positive Physical Exam Narrative General: Alert, Oriented x3, Cooperative, No apparent distress HEENT: Atraumatic, PERRLA, EOMI, Normocephalic Oral: Moist Mucosa Neck: Supple, No JVD Lungs: Diminished, Normal air movement, No rhonchi, No wheeze, No rales Cardiovascular: Regular rate, Regular Rhythm, Normal S1, Normal S2, No murmurs Abdomen: Soft, Non Tender, Non-Distended, No Hepato-splenomegaly Extremities: No edema, Capillary Refill Less than 3 Seconds Skin: No rashes, No breakdown Musculoskeletal: No Tenderness to Palpation of Joints or Extremities Neurological: No focal neurological deficits, Motor Exam 5/5 strength throughout, Sensory exam intact to light touch and pain Psych/Mental Status: Normal Affect, Appropriate Assessment & Plan Assessment/Plan (1) Fecal occult blood test positive: PLAN: Plan 1. Acute GI bleed with chronic iron deficiency anemia with acute GI bleed anemia facilitated by Eliquis ? 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 Continue with PPI ? EGD was unremarkable, colonoscopy with multiple angiodysplastic lesions and a polyp, all were treated ? She did receive 2 units of PRBCs yesterday, will recheck H&H this afternoon ? Iron studies with TIBC of 407 and a saturation of 4.4% and a ferritin of 36 with an iron level of 18, will give her a dose of Venofer 2. Essential HTN/HLD/A-fib ? Blood pressure stable/continue with her home medications ? Continue with her statin ? Will hold her Eliquis given her repeated bleeding ? Continue with rate control with metoprolol 3. Hypothyroidism ? Stable ?Continue Synthroid 4. Depression/anxiety ? Stable ? Continue with her home medications DVT: SCDs Charges/Coding Visit Charges Inpatient E&M: 96228 Subs Hosp L2
--- NOTE | 2024-03-28 12:28 | CASEMGMT ---
LEON CM into pt room, pt states she feels well. She states her strength is as it normally is at home. She denies need for any physical therapy at home stating her dogs givr her her physical therapy. Pt denies any other needs for [facility] at this time. Pt anxious to dc home.
[2024-03-28 12:45] LABS: Hematocrit 33.4 % (37-47); Hemoglobin 10.4 g/dL (12.0-15.0)
[2024-03-28 14:22] VITALS: BP 117/56; PULSE 52; RESP 16; TEMP 36.4; O2SAT 97
--- NOTE | 2024-03-28 15:25 | DCINST_ITS ---
Discharge Instructions Diet Discharge Diet: Low fat / Low cholesterol Activity Discharge Activity: Return to Normal Activity Dressing / Incision Call your doctor if you observe: Fever of 101 or Higher, Shortness of breath, Dizziness, Fainting spells, Swelling in the ankles, Chest pain and Increased palpitations (irregular heartbeat) Follow Up Care Test Results: Test results from this visit will be discussed in further detail at your follow- up appointment, if applicable. Discharge Plan Admission Admit Date/Time: 03/25/24 18:02 Attending Provider: Mick Thorpe Primary Care Provider: Nayana Adam Consulting Providers: Rossi Zhang Instructions Additional Instructions / Restrictions: Follow-up with your PCP in 3 to 5 days to monitor your hemoglobin. Will hold your Eliquis for 2 weeks. In that time I would recommend following up with cardiology to evaluate the risk versus benefit of continuing versus discontinuing anticoagulation secondary to your bleeding risk. Discharge Orders/Prescriptions Prescriptions: Continued atorvastatin 80 mg tablet 80 mg PO QHS aspirin [Adult Low Dose Aspirin] 81 mg tablet,delayed release (DR/EC) 81 mg PO DAILY metoprolol tartrate 25 mg tablet 12.5 mg PO BID cyanocobalamin (vitamin B-12) 1,000 MCG tablet 1,000 mcg PO DAILY levothyroxine 75 MCG tablet 75 mcg PO QHS paroxetine HCl 40 MG tablet 40 mg PO DAILY lysine 500 mg tablet 500 mg PO DAILY hydrochlorothiazide 12.5 mg tablet 6.25 mg PO DAILY Qty: 30 0RF Rx Instructions: Reduced to 6.25 mg daily. Hold for SBP less than 130 mmHg azelastine [Astepro Allergy] 205.5 mcg (0.15 %) spray,non-aerosol 1 spray INTRANASAL DAILY doxepin 50 mg capsule 50 mg PO QHS pantoprazole 40 mg Tablet,Delayed Release (Dr/Ec) 40 mg PO BID 30 Days Qty: 60 1RF Rx Instructions: Please take twice daily for the next 30 days, then start taking only once daily. Held Eliquis 5 mg tablet 5 mg PO BID Qty: 180 3RF Hold Instructions: Resume on 04/11/24. Referrals / Follow Up: Nayana Adam MD [Primary Care Provider] - Within 1 Week Disposition Disposition (needs filled in before D/C Order can be placed): Home, Self Care
--- NOTE | 2024-03-28 17:17 | EX.PCM.PN.GI ---
Subjective Subjective Patient underwent endoscopy yesterday. She is not having any problems. Her hemoglobin has increased. Objective Data Objective Data Vital Signs: Vital Signs Temp Pulse Resp BP Pulse Ox O2 Del Method O2 Flow Rate 97.6 F L 52 L 16 117/56 L 97 Room Air 2 03/28/24 14:22 03/28/24 14:22 03/28/24 14:22 03/28/24 14:22 03/28/24 14:22 03/28/24 14:29 03/28/24 07:55 Oxygen Flow Rate (L/min) 2 Oxygen Delivery Method Room Air Weight: 146 lb 3.016 oz Body Mass Index (BMI) 24.3 Intake & Output: Intake and Output for Last 24 Hours 03/26/24 03/27/24 03/28/24 23:59 23:59 23:59 Intake Total 3892.83 / 3892.83 872 / 872 1310 / 1310 Output Total 300 / 300 Balance 3892.83 / 3892.83 872 / 872 1010 / 1010 Lab / Micro Data 03/28/24 11:58 03/28/24 06:13 Labs: Laboratory Results - last 24 hr 03/27/24 05:51: Crossmatch See Detail 03/28/24 06:13: WBC 8.7, RBC 3.81 L, Hgb 9.9 L, Hct 31.6 L, MCV 82.9, MCH 26.0 L, MCHC 31.3 L D, RDW Std Deviation 53.1 H, RDW Coeff of Patrick 17.5 H, Plt Count 447, MPV 9.4, Immature Gran % (Auto) 0.900, Neut % (Auto) 67.4, Lymph % (Auto) 18.8 L, [place] % (Auto) 7.8, Eos % (Auto) 4.5, Baso % (Auto) 0.6, Absolute Neuts (auto) 5.9, Absolute Lymphs (auto) 1.64, Nucleated RBC % 0.7, Sodium 138, Potassium 3.7, Chloride 110 H, Carbon Dioxide 23.0, Anion Gap 5, BUN 14, Creatinine 1.09 H, Estim Creat Clear Calc 34.57, Est GFR (MDRD) Af Amer 61, Est GFR (MDRD) Non-Af 51 L, BUN/Creatinine Ratio 12.8, Glucose 96, Calcium 8.3 L 03/28/24 11:58: Hgb 10.4 L, Hct 33.4 L Micro: Microbiology 03/25/24 15:00 Urine, Clean Catch Urine Culture - Final Escherichia coli 03/25/24 15:07 Stool Stool Occult Blood (MYRA) - Final Occult Blood Positive Physical Exam Narrative General: Alert, Oriented x3, Cooperative, No apparent distress HEENT: Atraumatic, PERRLA, EOMI, Normocephalic Oral: Moist Mucosa Neck: Supple, No JVD Lungs: Diminished, Normal air movement, No rhonchi, No wheeze, No rales Cardiovascular: Regular rate, Regular Rhythm, Normal S1, Normal S2, No murmurs Abdomen: Soft, Non Tender, Non-Distended, No Hepato-splenomegaly Extremities: No edema, Capillary Refill Less than 3 Seconds Skin: No rashes, No breakdown Musculoskeletal: No Tenderness to Palpation of Joints or Extremities Neurological: No focal neurological deficits, Motor Exam 5/5 strength throughout, Sensory exam intact to light touch and pain Psych/Mental Status: Normal Affect, Appropriate Assessment & Plan Assessment/Plan (1) Fecal occult blood test positive: (2) Anemia: (3) GI bleed: PLAN: Plan 1. Acute GI bleed with chronic iron deficiency anemia with acute GI bleed anemia facilitated by Eliquis ? 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 Continue with PPI ? EGD was unremarkable, colonoscopy with multiple angiodysplastic lesions and a polyp, all were treated ? She did receive 2 units of PRBCs yesterday, will recheck H&H this afternoon ? Iron studies with TIBC of 407 and a saturation of 4.4% and a ferritin of 36 with an iron level of 18, will give her a dose of Venofer 2. Essential HTN/HLD/A-fib ? Blood pressure stable/continue with her home medications ? Continue with her statin ? Will hold her Eliquis given her repeated bleeding ? Continue with rate control with metoprolol 3. Hypothyroidism ? Stable ?Continue Synthroid 4. Depression/anxiety ? Stable ? Continue with her home medications DVT: SCDs Charges/Coding Visit Charges Inpatient E&M: 15077 Subs Hosp L3
--- NOTE | 2024-03-28 17:18 | PCM.DC.SUM ---
Providers Date of Admission: 03/25/24 Primary Care Physician: Dr. Nayana Adam MD Consultations 03/25/24 18:59 Consult: Gastroenterology Routine Consulting Provider: Fl[facility] Reason for Consult: concern for repeat GIB EMERGENT Consult: No MD Notified: Yes Date Notified: 03/25/24 Time Notified: 18:08 Method of Notification: ED Physician Initiated Reason For Visit: GI BLEED, ANEMIA Diagnosis Discharge Diagnosis (1) Fecal occult blood test positive: Status: Acute Code(s): R19.5 - Other fecal abnormalities (2) Anemia: Status: Acute Code(s): D64.9 - Anemia, unspecified (3) GI bleed: Status: Acute Code(s): K92.2 - Gastrointestinal hemorrhage, unspecified Medications at Discharge Home Medications cyanocobalamin (vitamin B-12) 1,000 mcg tablet 1,000 mcg PO DAILY SUPPLEMENT 02/08/19 levothyroxine 75 mcg tablet 75 mcg PO QHS THYROID 02/08/19 paroxetine HCl 40 mg tablet 40 mg PO DAILY DEPRESSION 02/08/19 atorvastatin 80 mg tablet 80 mg PO QHS CHOLESTEROL 02/26/20 lysine 500 mg tablet 500 mg PO DAILY SUPPLEMENT 02/26/20 hydrochlorothiazide 12.5 mg tablet 6.25 mg (1/2 x 12.5 mg) PO DAILY FLUID #30 tabs 04/05/22 aspirin 81 mg tablet,delayed release (Adult Low Dose Aspirin) 81 mg PO DAILY HEART HEALTH 12/16/22 metoprolol tartrate 25 mg tablet 12.5 mg PO BID BLOOD PRESSURE 06/29/23 apixaban 5 mg tablet (Eliquis) 5 mg PO BID blood thinner #180 tabs 07/25/23 doxepin 50 mg capsule 50 mg PO QHS Depression 03/07/24 pantoprazole 40 mg tablet,delayed release 40 mg PO BID 30 days #60 tabs 03/12/24 azelastine 205.5 mcg (0.15 %) nasal spray (Astepro Allergy) 1 spray intranasal DAILY 03/25/24 ferrous sulfate 325 mg (65 mg iron) tablet,delayed release 325 mg PO DAILY #30 tabs 03/28/24 Hospital Course Operations None Procedures Colonoscopy and EGD Summary of Care Provided Minutes Spent on Discharge: 37 Hospital Course: Per HPI: AMADO UNGER, is a 83 F with a history of A-fib, CKD stage IIIa, hypertension, depression, hypothyroidism, CVA, GI bleed presented to [facility] ED 03/25/2024 due to black stools. In the ED hemoglobin 8.5 patient FOBT positive and recently had gone back on her Eliquis. GI contacted and will see her in consultation with possible repeat endoscopy. Hospitalist contacted for admission. Patient evaluated at bedside when she reports she had been in her usual health at home however she has had a little bit of left-sided abdominal pain but today had to black stools this morning prompting her to come back to the ED. The left-sided abdominal pain has been present since she had some constipation last admission without any significant change with the dark stools are new. No bright red blood, no nausea or vomiting, no other acute complaints. Hospital Course: 1. Acute GI bleed with chronic iron deficiency anemia facilitated by anticoagulation?83-year-old female presented to the hospital with repeat GI bleed. She did require 2 units of PRBCs during this admission. She did have an EGD which was unremarkable but she had a colonoscopy with multiple angiodysplastic lesions as well as polyps overtreated. She is already on a PPI from her previous admission. Given her recurrent bleeding and despite the fact that she has A-fib, will hold her Eliquis for 2 weeks and recommend following up with her PCP as an outpatient as well as cardiology to determine risk versus benefit, though given her age I would err on the side of holding her Eliquis. Of note her iron studies demonstrated saturation of 4.4% as well as a ferritin of 36 and an iron level of 18, she did receive a dose of Venofer on admission and will be discharged on iron tablets. I discussed with her the plan for discharge and she expressed understanding is benefits of going home and would like to go home today. 2. Essential hypertension, hyperlipidemia, A-fib, hypothyroidism, depression, anxiety are all chronic medical conditions which complicate her care. Her home medications were continued where appropriate Physical Exam Narrative General: Alert, Oriented x3, Cooperative, No apparent distress HEENT: Atraumatic, PERRLA, EOMI, Normocephalic Oral: Moist Mucosa Neck: Supple, No JVD Lungs: Diminished, Normal air movement, No rhonchi, No wheeze, No rales Cardiovascular: Regular rate, Regular Rhythm, Normal S1, Normal S2, No murmurs Abdomen: Soft, Non Tender, Non-Distended, No Hepato-splenomegaly Extremities: No edema, Capillary Refill Less than 3 Seconds Skin: No rashes, No breakdown Musculoskeletal: No Tenderness to Palpation of Joints or Extremities Neurological: No focal neurological deficits, Motor Exam 5/5 strength throughout, Sensory exam intact to light touch and pain Psych/Mental Status: Normal Affect, Appropriate Weight / BMI Weight Weight: 146 lb 3.016 oz Body Mass Index (BMI) 24.3 ABG / Lab / Microbiology Data 03/28/24 11:58 03/28/24 06:13 Laboratory: Laboratory Results - last 24 hr 03/27/24 05:51: Crossmatch See Detail 03/28/24 06:13: WBC 8.7, RBC 3.81 L, Hgb 9.9 L, Hct 31.6 L, MCV 82.9, MCH 26.0 L, MCHC 31.3 L D, RDW Std Deviation 53.1 H, RDW Coeff of Patrick 17.5 H, Plt Count 447, MPV 9.4, Immature Gran % (Auto) 0.900, Neut % (Auto) 67.4, Lymph % (Auto) 18.8 L, [place] % (Auto) 7.8, Eos % (Auto) 4.5, Baso % (Auto) 0.6, Absolute Neuts (auto) 5.9, Absolute Lymphs (auto) 1.64, Nucleated RBC % 0.7, Sodium 138, Potassium 3.7, Chloride 110 H, Carbon Dioxide 23.0, Anion Gap 5, BUN 14, Creatinine 1.09 H, Estim Creat Clear Calc 34.57, Est GFR (MDRD) Af Amer 61, Est GFR (MDRD) Non-Af 51 L, BUN/Creatinine Ratio 12.8, Glucose 96, Calcium 8.3 L 03/28/24 11:58: Hgb 10.4 L, Hct 33.4 L Microbiology: Microbiology 03/25/24 15:00 Urine, Clean Catch Urine Culture - Final Escherichia coli 03/25/24 15:07 Stool Stool Occult Blood (MYRA) - Final Occult Blood Positive D/C Instructions Discharge Diet: Low fat / Low cholesterol Call your doctor if you observe: Fever of 101 or Higher, Shortness of breath, Dizziness, Fainting spells, Swelling in the ankles, Chest pain and Increased palpitations (irregular heartbeat) Meaningful Use Info Meaningful Use Meaningful Use Diagnoses (Choose all that apply): None applicable Ischemic Stroke Statin Dosing Therapy Reference: STATIN DOSE THERAPY REFERENCE: * Patients > 75 years receive moderate or high dose statin therapy. * Patients 75 years or YOUNGER should receive HIGH intensity statin dose unless contraindicated. You will be required to document reason for non-treatment if statin daily dose does not meet guidelines. HIGH DOSE STATIN THERAPY DAILY Atorvastatin > than or = to 40 mg Rosuvastatin > than or = to 20 mg Amlodipine + Atorvastatin > than or = to 2.5/40 mg Ezetimibe + Simvastatin 10/80 mg Simvastatin 80mg Discharge Plan Admission Admit Date/Time: 03/25/24 18:02 Primary Reason for Your Visit: GI BLEED - ANEMIA Attending Provider: Mick Thorpe Primary Care Provider: Nayana Adam Consulting Providers: Rossi Zhang Instructions Additional Instructions / Restrictions: Follow-up with your PCP in 3 to 5 days to monitor your hemoglobin. Will hold your Eliquis for 2 weeks. In that time I would recommend following up with cardiology to evaluate the risk versus benefit of continuing versus discontinuing anticoagulation secondary to your bleeding risk. Discharge Orders/Prescriptions Prescriptions: New ferrous sulfate 325 mg (65 mg iron) tablet,delayed release (DR/EC) 325 mg PO DAILY Qty: 30 0RF Continued atorvastatin 80 mg tablet 80 mg PO QHS aspirin [Adult Low Dose Aspirin] 81 mg tablet,delayed release (DR/EC) 81 mg PO DAILY metoprolol tartrate 25 mg tablet 12.5 mg PO BID cyanocobalamin (vitamin B-12) 1,000 MCG tablet 1,000 mcg PO DAILY levothyroxine 75 MCG tablet 75 mcg PO QHS paroxetine HCl 40 MG tablet 40 mg PO DAILY lysine 500 mg tablet 500 mg PO DAILY hydrochlorothiazide 12.5 mg tablet 6.25 mg PO DAILY Qty: 30 0RF Rx Instructions: Reduced to 6.25 mg daily. Hold for SBP less than 130 mmHg azelastine [Astepro Allergy] 205.5 mcg (0.15 %) spray,non-aerosol 1 spray INTRANASAL DAILY doxepin 50 mg capsule 50 mg PO QHS pantoprazole 40 mg Tablet,Delayed Release (Dr/Ec) 40 mg PO BID 30 Days Qty: 60 1RF Rx Instructions: Please take twice daily for the next 30 days, then start taking only once daily. Held Eliquis 5 mg tablet 5 mg PO BID Qty: 180 3RF Hold Instructions: Resume on 04/11/24. Referrals / Follow Up: Nayana Adam MD [Primary Care Provider] - Within 1 Week Disposition Disposition (needs filled in before D/C Order can be placed): Home, Self Care Charges/Coding Visit Charges Inpatient E&M: 70244 Disch Hosp >30min
== END 2024-03-28 17:12 | disposition home or self-care (01) | DRG 378 ==
LOC: ED 15:15 → MS3 18:17
PROVIDERS: Internal Medicine Gastroenterology; Admitting Provider Internal Medicine; Emergency Provider Emergency Medicine; PCP Internal Medicine Infectious Disease; Visit Provider Family Medicine
PROC: 0DJ08ZZ Inspection of Upper Intestinal Tract, Via Natural or Artificial Opening Endoscopic (ICD-10-PCS; CPT 43235; principal; 2024-03-26 15:40)
PROC: 0DJD8ZZ Inspection of Lower Intestinal Tract, Via Natural or Artificial Opening Endoscopic (ICD-10-PCS; CPT 45378; principal; 2024-03-27 11:30)
DX: K55.21 Angiodysplasia of colon with hemorrhage (principal); D68.32 Hemorrhagic disorder due to extrinsic circulating anticoagulants; K22.2 Esophageal obstruction; D50.0 Iron deficiency anemia secondary to blood loss (chronic); F17.200 Nicotine dependence, unspecified, uncomplicated; E78.5 Hyperlipidemia, unspecified; N18.31 Chronic kidney disease, stage 3a; E89.0 Postprocedural hypothyroidism; I12.9 Hypertensive chronic kidney disease with stage 1 through stage 4 chronic kidney disease, or unspecified chronic kidney disease; F32.A Depression, unspecified; K25.9 Gastric ulcer, unspecified as acute or chronic, without hemorrhage or perforation; I48.0 Paroxysmal atrial fibrillation; R19.5 Other fecal abnormalities; K44.9 Diaphragmatic hernia without obstruction or gangrene; K63.5 Polyp of colon; F41.9 Anxiety disorder, unspecified; Z79.01 Long term (current) use of anticoagulants; Z79.82 Long term (current) use of aspirin; Z86.73 Personal history of transient ischemic attack (TIA), and cerebral infarction without residual deficits; Z79.890 Hormone replacement therapy
CPT/HCPCS: 36415; 74177; 80048; 80053; 81001; 82274; 82728; 83540; 83550; 84443; 85014; 85018; 85025; 85027; 85610; 85730; 86850; 86900; 86901; 86920; 86922; 87077; 87086; 87088; 87186; 88305; 99284; 99406; J7030; J7050; J7120; P9016; Q9967; A4216; J2405; J2916